=== PATIENT | female | born 1985 | race Caucasian/White ===

== ENCOUNTER 2018-04-19 10:30 | Outpatient (RCR) | payer OTHER, SELFPAY ==
--- NOTE | 2018-03-25 18:54 | HP.PTEVAL ---
Patient's Visit Information CAYLA MORATAYA is a 32 year old F referred to Physical Therapy by RAFA MARRERO CNP with a diagnosis of Unspecified sprain of L shoulder joint. Initial encounter. Date of Evaluation: 03/25/18 Physical Therapist: Tyson Tamez PT, - Visit Plan Frequency: 2-3x /Week Duration: 4 Weeks Plan: Start with tendon loading program, isometrics/PRE's. Joint mobilizations to improve capsule mobility and thoracic spine mobility. Modalities prn. - Subjective Subjective: Pt is 32 y/o female with referral of L shoulder pain. She experienced a work related injury on 09/21/18 when she was restraining a child at work. She did not hear a pop or had immediate pain initially, mainly had soreness when she got home. She has little pain at rest but sharp pain when she moves her shoulder certain ways. 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 She continued teaching the rest of the school year but her shoulder was still sore. Also felt like she re-aggrevated her shoulder by doing the same thing a few months ago. She is R hand dominent. No history of shoulder pain before this issue. Aggrevating factors: reaching across body, reaching behind back, sleeping. Easing factors: ice, rest. 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 - Pain L shoulder Pain Intensity (Out of 10): 5 Comment: with active movement - Objective OBSERVATION: Flexed sitting posture, anterior tilted scapula. PALPATION: TTP long head of biceps. CERVICAL SCREEN: unremarkable. AROM: R shoulder WNL. L shoulder flexion* 132, abduction 152, IR* T11, ER T2. PROM: B shoulder WNL, passive IR elicited pain. STRENGTH: B gross shoulder 5/5, delayed pain response with L shoulder MMT. - Special Tests L Shoulder Neer - Impingement: Positive L Shoulder Franco Charles - Impingement: Positive L Shoulder Biceps Load Test - Labrum: Negative L Shoulder [place]ri[place] - SLAP/A-C: Negative Comments: Crank test (-). R shoulder special tests negative. - Goals Goal 1:: Pt will demonstrate full AROM in all planes to improve tolerance with self care and work related tasks. Goal Time Frame: 4-6 Weeks Goal 2:: Pt will improve DASH by 50% to demonstrate true functional change that will improve her tolerance with job tasks. Goal Time Frame: 4-6 Weeks Goal 3:: Pt will demonstrate proper sitting posture without cues from therapist. Goal Time Frame: 4-6 Weeks Goal 4:: Pt will be independent with HEP to sustain therapeutic gains made in the clinic. Goal Time Frame: 4-6 Weeks Goal 5:: Pt will demonstrate box lifting and carrying with at least 25# without pain to improve tolerance with job tasks. Goal Time Frame: 4-6 Weeks - Rehabilitation Potential Physical Therapy Diagnosis: Pt is a 32 y/o female with work related injury on 09/21/17. This is a [facility] claim. She has CORDELL of restraining a child at work. 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 She exhibits signs of irritation to the rotator cuff and impingement like symptoms. She has activity limitations that include decreased tolerance with overhead lifting, pain with repetitive movements, and difficulty sleeping. This affects her participaion with her job related duties. Pt will benefit from skilled PT to return pt to full duty work without limitations. Rehabilitation Potential: Good - Anticipated Interventions Patient/Client Instruction: Educate patient on: Condition, Plan of Care For the Purpose of:: To decrease pain, To decrease swelling/inflammation, To increase ROM, To improve ability to perform ADL's, To increase tolerance to activity/condition/position, To improve ability of physical actions for home/community/work/leisure, To improve health of tissue, To decrease soft tissue restriction, To increase flexibility/ROM, To reduce risk of recurrence, To improve self management, To prevent re-injury Therapeutic Exercise to Include: Strength training, Endurance training, Body mechanics, Postural training, Flexibilty training, Passive ROM, Active ROM, Scapular Strength/Stabilization For the Purpose of:: To decrease pain, To increase ROM, To improve nutrient delivery to tissue, To improve muscle performance and motor function, To increase tolerance to activity/condition/position, To improve ability of physical actions for home/community/work/leisure, To improve health of tissue, To decrease soft tissue restriction, To increase flexibility/ROM, To improve endurance, To improve health and function, To improve self management, To prevent re-injury, To improve ability to perform tasks related to life management Manual Therapy Techniques to Include: Mobilization, Soft tissue mobilization For the Purpose of:: To decrease pain, To decrease swelling/inflammation, To increase ROM, To improve muscle performance and motor function, To increase tolerance to activity/condition/position, To improve ability of physical actions for home/community/work/leisure, To decrease soft tissue restriction, To improve endurance Cryotherapy (ice pack, ice massage): Yes Thermo therapy (hot pack): Yes Ultrasound (thermal/non thermal): Yes For the Purpose of:: To decrease pain, To increase ROM, To improve muscle performance and motor function, To increase tolerance to activity/condition/position, To improve ability of physical actions for home/community/work/leisure, To improve health of tissue, To decrease soft tissue restriction, To increase flexibility/ROM Thank you for the opportunity to evaluate your patient. For Medicare and Medicare HMO plans, please review the plan of care and approve it. It will need to be FAXED BACK to us at [phone] for Medicare purposes. Please let me know if there are questions or concerns regarding this plan of care. Physician Signature: Date:
--- NOTE | 2018-09-09 11:06 | HP.PTDCSUM ---
HP - PT D/C Summary It has been my pleasure to treat CAYLA MORATAYA under orders from RAFA MARRERO CNP, for the diagnosis of Unspecified sprain of L shoulder joint. Initial encounter for a total of 9 visit(s). Discharge Date: Please see the following information for a summary of their discharge status. - Subjective Subjective: Pt reports experiencing continued pain in her L shoulder that is worsened with across body movements and repetitive lifting. She has an active and physical job that requiers her to place her L shoulder in awkward positions. - Pain L shoulder Pain Intensity (Out of 10): 7 - Overall Improvement % Improvement: 70 - Objective Objective/Function: Pt has made some improvements since starting therapy. She does report 70% improvement in symptoms. Her L shoulder AROM is full with minimal pain produced at end range. Strength 5/5 gross L shoulder. Her DASH score worsened by 5%. She still has marked limitation with across body movements and repetitive lifting and carrying objects. Given that she has a physical job which requires her shoulder to be placed in awkward positions she would likely re-irritate her shoulder when returning to full duty work. Pt follows up with referring practioner next week with recommendation to re-evaluate. - Goals Goal 1:: Pt will demonstrate full AROM in all planes to improve tolerance with self care and work related tasks. Goal Progress: Goal Met Goal 2:: Pt will improve DASH by 50% to demonstrate true functional change that will improve her tolerance with job tasks. Goal Progress: Not Progressing Goal 3:: Pt will demonstrate proper sitting posture without cues from therapist. Goal Progress: Goal Met Goal 4:: Pt will be independent with HEP to sustain therapeutic gains made in the clinic. Goal Progress: Goal Met Goal 5:: Pt will demonstrate box lifting and carrying with at least 25# without pain to improve tolerance with job tasks. Goal Progress: Progressing - Plan Plan: Have pt follow up with referring practitioner, continue therapy if new C9 is received. - D/C Information If there are questions or concerns regarding this patient's physical therapy, please feel free to call me at [phone]. Thank you for the referral of this patient. Sincerely, Tyson Tamez, PT,
== END 2018-04-19 19:00 | disposition home or self-care (01) ==
LOC: PT 10:30
DX: S43.402D Unspecified sprain of left shoulder joint, subsequent encounter (principal)
CPT/HCPCS: 97035; 97110; 97161; 97530

== ENCOUNTER → 2021-01-18 | Outpatient (CLI) | payer OTHER, SELFPAY ==
[2021-01-18 09:41] VITALS: BMI 28.3
[2021-01-21 13:04] LABS: HPV APTIMA, High Risk Negative (Negative)
== END | disposition home or self-care (01) ==
LOC: LABSPEC 13:04
PROVIDERS: PCP Family Medicine; Visit Provider Obstetrics & Gynecology
DX: Z12.4 Encounter for screening for malignant neoplasm of cervix (principal)
CPT/HCPCS: 87624; 88175; G0145

== ENCOUNTER → 2022-06-28 | Outpatient (CLI) | payer OTHER, SELFPAY ==
[2022-06-28 12:46] LABS: Absolute Lymphocyte Count 0.67 X10^3/uL (0.83-4.51); Basophil# 0.02 X10^3/uL; Basophil% 0.5 % (0-1); Hematocrit 38.3 % (37-47); Hemoglobin 13.3 g/dL (12.0-15.0); Lymphocyte # 0.67 X10^3/ul (0.83-4.51); Lymphocyte % 15.7 % (19-41); Mean Corp Hgb Conc 34.7 g/dL (32-36); Mean Corpuscular Hgb 33.4 pg (27.0-32.0); Mean Corpuscular Volume 96.2 fL (81-99); Mean Platelet Vol. 10.9 fl (6.2-12.0); Monocyte# 0.61 X10^3/uL; Monocyte% 14.3 % (0-10); NRBC Flagged by Analyzer 0 % (0-5); Neutrophil # 2.97 X10^3/uL (2.7-7.7); Neutrophil % 69.3 % (47-70); Platelet Count 215 K/mm3 (150-450); RBC Distribution Width CV 11.2 % (11.6-14.6); Red Blood Count 3.98 M/mm3 (4.2-5.4); White Blood Count 4.3 K/mm3 (4.4-11.0)
[2022-06-28 13:05] LABS: ALB/GLOB Ratio 1.1 RATIO (0.9-2.4); AST(SGOT) 20 U/L (15-37); Alanine Aminotransfer ALT/SGPT 29 U/L (13-56); Albumin, Serum 3.5 g/dL (3.2-5.0); Alkaline Phosphatase 45 U/L (45-117); Anion Gap 9 (5-15); BUN 10 mg/dL (7-18); BUN/Creat Ratio 10.7 RATIO (10-20); Calcium,Total 8.4 mg/dL (8.5-10.1); Chloride 103 mmol/L (98-107); Creatinine, Serum 0.93 mg/dL (0.55-1.02); EST Glomerular Filtration Rate 71 mL/min (>60); Est Glom Filt Rate - Afr Amer 86 mL/min (>60); Ferritin 145 ng/mL (8-252); Globulin 3.3 g/dL (2.2-4.2); Glucose 102 mg/dL (74-106); Potassium 3.6 mmol/L (3.5-5.1); Protein, Total 6.8 g/dL (6.4-8.2); Sodium Level 135 mmol/L (136-145)
== END | disposition home or self-care (01) ==
LOC: MTLAB 10:34
PROVIDERS: PCP Family Medicine; Referring Provider Family Medicine; Visit Provider Family Medicine
DX: I10 Essential (primary) hypertension (principal); D50.0 Iron deficiency anemia secondary to blood loss (chronic)
CPT/HCPCS: 36415; 80053; 82728; 85025

== ENCOUNTER → 2022-07-08 | Outpatient (CLI) | payer OTHER, SELFPAY ==
[2022-07-08 11:15] LABS: Erythrocyte Sedimentation Rate 1 mm/hr (0-30)
[2022-07-08 11:18] LABS: CPK Total, Creatine Kinase 120 U/L (26-192); CRP < 2.90 mg/L (0.0-3.0); Rheumatoid Factor < 10.0 IU/mL (<15)
[2022-07-14 13:35] LABS: Anti-Nuclear Antibody Test Negative (.)
== END | disposition home or self-care (01) ==
LOC: LAB 10:13
PROVIDERS: PCP Family Medicine; Visit Provider Family Medicine
DX: M62.89 Other specified disorders of muscle (principal)
CPT/HCPCS: 36415; 82550; 85652; 86038; 86140; 86431

== ENCOUNTER → 2022-12-02 | Outpatient (CLI) | payer OTHER, SELFPAY ==
[2022-12-02 12:44] LABS: Thyroid Stim Hormone (TSH) 1.18 uIU/mL (0.358-3.74)
[2022-12-02 16:29] LABS: Chlamydia Trachomatis by PCR Negative (Negative); Neisserai gonorrhoeae by PCR Negative (Negative); Probe Check PASS; Sample Adequacy Control PASS; Specimen Processing Control PASS
[2022-12-03 09:12] LABS: CMV Antibody IgG < 0.60 U/mL (0.00-0.59); V-Zoster IgG (Immunity) 1732 index (Immune >165)
[2022-12-04 09:58] LABS: HIV - WCH Non-Reactive (Nonreactive); Hepatitis B Surface Antigen Non-Reactive (Nonreactive); Hepatitis C Antibody Non-Reactive (Nonreactive); Rubella IgG Reactive (Nonreactive); Syphilis Antibodies Non-reactive
== END | disposition home or self-care (01) ==
LOC: LAB 11:14
PROVIDERS: PCP Family Medicine; Referring Provider Obstetrics & Gynecology Reproductive Endocrinology; Visit Provider Obstetrics & Gynecology Reproductive Endocrinology
DX: Z01.83 Encounter for blood typing (principal); E02 Subclinical iodine-deficiency hypothyroidism; Z11.59 Encounter for screening for other viral diseases; Z11.8 Encounter for screening for other infectious and parasitic diseases
CPT/HCPCS: 36415; 84443; 86644; 86703; 86762; 86780; 86787; 86803; 86850; 87340; 87491; 87591

== ENCOUNTER → 2022-12-23 | Outpatient (CLI) | payer OTHER, SELFPAY ==
[2022-12-23 12:17] LABS: Absolute Lymphocyte Count 2.29 X10^3/uL (0.83-4.51); Basophil# 0.08 X10^3/uL; Eosinophil# 0.29 X10^3/uL; Eosinophils% 3.5 % (0-5); Hematocrit 40.4 % (37-47); Hemoglobin 13.8 g/dL (12.0-15.0); Lymphocyte # 2.29 X10^3/ul (0.83-4.51); Lymphocyte % 27.6 % (19-41); Mean Corp Hgb Conc 34.2 g/dL (32-36); Mean Corpuscular Hgb 32.5 pg (27.0-32.0); Mean Corpuscular Volume 95.3 fL (81-99); Monocyte# 0.64 X10^3/uL; Monocyte% 7.7 % (0-10); NRBC Flagged by Analyzer 0 % (0-5); Neutrophil # 4.96 X10^3/uL (2.7-7.7); Neutrophil % 59.8 % (47-70); Platelet Count 304 K/mm3 (150-450); RBC Distribution Width CV 11.3 % (11.6-14.6); RBC Distribution Width SD 39.4 fl (35.1-43.9); Red Blood Count 4.24 M/mm3 (4.2-5.4); White Blood Count 8.3 K/mm3 (4.4-11.0)
[2022-12-23 13:04] LABS: ALB/GLOB Ratio 1.3 RATIO (0.9-2.4); AST(SGOT) 11 U/L (15-37); Alanine Aminotransfer ALT/SGPT 28 U/L (13-56); Albumin, Serum 3.8 g/dL (3.2-5.0); Alkaline Phosphatase 48 U/L (45-117); Anion Gap 5 (5-15); BUN 15 mg/dL (7-18); BUN/Creat Ratio 16.3 RATIO (10-20); CRP < 2.90 mg/L (0.0-3.0); Calcium,Total 9.1 mg/dL (8.5-10.1); Chloride 107 mmol/L (98-107); Creatinine, Serum 0.92 mg/dL (0.55-1.02); EST Glomerular Filtration Rate 72 mL/min (>60); Est Glom Filt Rate - Afr Amer 87 mL/min (>60); Ferritin 69 ng/mL (8-252); Glucose 94 mg/dL (74-106); Protein, Total 6.8 g/dL (6.4-8.2); Rheumatoid Factor < 10.0 IU/mL (<15); Sodium Level 140 mmol/L (136-145)
[2022-12-23 23:39] LABS: Erythrocyte Sedimentation Rate < 1 mm/hr (0-30)
[2022-12-25 16:26] LABS: ANTINUCLEAR ANTIBODIES DIRECT Negative (Negative)
== END | disposition home or self-care (01) ==
LOC: LAB 11:27
PROVIDERS: PCP Family Medicine; Visit Provider Family Medicine
DX: I10 Essential (primary) hypertension (principal); M62.89 Other specified disorders of muscle; D50.0 Iron deficiency anemia secondary to blood loss (chronic)
CPT/HCPCS: 36415; 80053; 82728; 85025; 85652; 86038; 86140; 86431

== ENCOUNTER → 2023-01-04 | Outpatient (CLI) | payer OTHER, SELFPAY ==
--- NOTE | 2023-01-04 09:21 | US_ITS ---
EXAM: US LEFT BREAST, LIMITED CLINICAL INDICATION: left breast pain TECHNIQUE: Limited real time ultrasound of the left breast with image documentation, including axilla when performed. This report was created using [employer] report generation technology. COMPARISON: None. FINDINGS: LEFT BREAST: No abnormalities identified. No masses or fluid collections. US/Breast Limited Unilateral IMPRESSION: Negative left breast ultrasound. Electronically Signed: Dimitrios Adams MD at 4:36 EDT ,
--- NOTE | 2023-01-04 09:21 | BI_ITS ---
MAMMOGRAPHY - BILATERAL DIAGNOSTIC REASON FOR EXAM: Female, 37 years old. 3 month history of the lateral left breast pain. PERTINENT HISTORY: Non-contributory. TECHNIQUE: Digital bilateral breast hugo (3D mammographic acquisition) in the CC and MLO projections. 2-D mediolateral oblique (MLO) and craniocaudad (CC) views of both breasts were obtained. CAD: Full Field Digital Mammography with Computer Added Detection was performed. COMPARISON: None. Baseline examination. FINDINGS: Breast Composition: The breasts are extremely dense, which lowers the sensitivity of mammography. There are no dominant masses or suspicious calcifications. No other significant abnormalities are identified. BI/DIAG MAMM W/CAD, BILAT IMPRESSION: Negative diagnostic mammogram. With the patient''s history of left lateral breast tenderness, targeted ultrasound correlation is recommended. ASSESSMENT CATEGORY: BIRADS Category 0: Incomplete. Need additional imaging evaluation. A letter regarding these results will be sent to the patient by the facility within 30 days. Approximately 10% of breast cancers are not detected by mammography. A normal mammogram should not delay biopsy of a clinically suspicious abnormality. Electronically Signed: Shemar Claire MD at 10:45 EDT ,
== END | disposition home or self-care (01) ==
LOC: OPBI 09:18
PROVIDERS: PCP Family Medicine; Visit Provider Nurse Practitioner Women's Health
DX: N64.4 Mastodynia (principal)
CPT/HCPCS: 76642; 77062; 77066; G0279

== ENCOUNTER → 2023-07-02 | Outpatient (CLI) | payer OTHER, SELFPAY ==
[2023-07-02 18:04] LABS: hCG Titer Quant., Serum 589 mIU/mL (1-3)
== END | disposition home or self-care (01) ==
PROVIDERS: PCP Family Medicine; Referring Provider Obstetrics & Gynecology Reproductive Endocrinology; Visit Provider Obstetrics & Gynecology Reproductive Endocrinology
DX: Z32.00 Encounter for pregnancy test, result unknown (principal)
CPT/HCPCS: 36415; 84702

== ENCOUNTER → 2023-07-04 | Outpatient (CLI) | payer OTHER, SELFPAY ==
[2023-07-04 19:16] LABS: hCG Titer Quant., Serum 1018 mIU/mL (1-3)
== END | disposition home or self-care (01) ==
PROVIDERS: PCP Family Medicine; Referring Provider Obstetrics & Gynecology Reproductive Endocrinology; Visit Provider Obstetrics & Gynecology Reproductive Endocrinology
DX: Z32.01 Encounter for pregnancy test, result positive (principal)
CPT/HCPCS: 36415; 84702

== ENCOUNTER → 2023-07-09 | Outpatient (CLI) | payer OTHER, SELFPAY ==
[2023-07-09 17:35] LABS: Absolute Lymphocyte Count 2.56 X10^3/uL (0.83-4.51); Absolute Neutrophil Count 6.9 X10^3/uL (2.0-7.7); Basophil# 0.09 X10^3/uL; Basophil% 0.8 % (0-1); Eosinophil# 0.28 X10^3/uL; Eosinophils% 2.6 % (0-5); Hematocrit 37.3 % (37-47); Hemoglobin 12.8 g/dL (12.0-15.0); Lymphocyte # 2.56 X10^3/ul (0.83-4.51); Lymphocyte % 23.7 % (19-41); Mean Corp Hgb Conc 34.3 g/dL (32-36); Mean Corpuscular Hgb 32.6 pg (27.0-32.0); Mean Corpuscular Volume 94.9 fL (81-99); Mean Platelet Vol. 10.3 fl (6.2-12.0); Monocyte# 0.91 X10^3/uL; Monocyte% 8.4 % (0-10); NRBC Flagged by Analyzer 0 % (0-5); Neutrophil # 6.93 X10^3/uL (2.7-7.7); Platelet Count 320 K/mm3 (150-450); RBC Distribution Width CV 11.3 % (11.6-14.6); RBC Distribution Width SD 39.8 fl (35.1-43.9); Red Blood Count 3.93 M/mm3 (4.2-5.4); White Blood Count 10.8 K/mm3 (4.4-11.0)
[2023-07-09 18:18] LABS: ALB/GLOB Ratio 1.2 RATIO (0.9-2.4); AST(SGOT) 16 U/L (15-37); Alanine Aminotransfer ALT/SGPT 34 U/L (13-56); Albumin, Serum 3.8 g/dL (3.2-5.0); Alkaline Phosphatase 47 U/L (45-117); Anion Gap 7 (5-15); BUN 14 mg/dL (7-18); BUN/Creat Ratio 17.3 RATIO (10-20); Calcium,Total 8.6 mg/dL (8.5-10.1); Chloride 108 mmol/L (98-107); Creatinine, Serum 0.81 mg/dL (0.55-1.02); EST Glomerular Filtration Rate 84 mL/min (>60); Est Glom Filt Rate - Afr Amer 101 mL/min (>60); Ferritin 82 ng/mL (8-252); Globulin 3.1 g/dL (2.2-4.2); Glucose 81 mg/dL (74-106); Potassium 3.7 mmol/L (3.5-5.1); Protein, Total 6.9 g/dL (6.4-8.2); Sodium Level 138 mmol/L (136-145)
== END | disposition home or self-care (01) ==
LOC: MTLAB 16:24
PROVIDERS: PCP Family Medicine; Referring Provider Family Medicine; Visit Provider Family Medicine
DX: D50.0 Iron deficiency anemia secondary to blood loss (chronic) (principal); I10 Essential (primary) hypertension
CPT/HCPCS: 36415; 80053; 82728; 85025

== ENCOUNTER → 2023-08-16 | Outpatient (CLI) | payer OTHER, SELFPAY ==
[2023-08-16 10:22] LABS: Absolute Lymphocyte Count 1.58 X10^3/uL (0.83-4.51); Absolute Neutrophil Count 7.3 X10^3/uL (2.0-7.7); Basophil# 0.04 X10^3/uL; Basophil% 0.4 % (0-1); Eosinophil# 0.29 X10^3/uL; Eosinophils% 2.9 % (0-5); Hematocrit 38.9 % (37-47); Hemoglobin 13.3 g/dL (12.0-15.0); Lymphocyte # 1.58 X10^3/ul (0.83-4.51); Mean Corp Hgb Conc 34.2 g/dL (32-36); Mean Corpuscular Hgb 32.1 pg (27.0-32.0); Mean Platelet Vol. 10.1 fl (6.2-12.0); Monocyte# 0.66 X10^3/uL; Monocyte% 6.7 % (0-10); NRBC Flagged by Analyzer 0 % (0-5); Neutrophil # 7.26 X10^3/uL (2.7-7.7); Neutrophil % 73.5 % (47-70); Platelet Count 267 K/mm3 (150-450); RBC Distribution Width CV 11.5 % (11.6-14.6); RBC Distribution Width SD 39.5 fl (35.1-43.9); Red Blood Count 4.14 M/mm3 (4.2-5.4); White Blood Count 9.9 K/mm3 (4.4-11.0)
[2023-08-16 10:53] LABS: ALB/GLOB Ratio 0.8 RATIO (0.9-2.4); AST(SGOT) 13 U/L (15-37); Alanine Aminotransfer ALT/SGPT 30 U/L (13-56); Albumin, Serum 3.1 g/dL (3.2-5.0); Alkaline Phosphatase 58 U/L (45-117); Anion Gap 7 (5-15); BUN 10 mg/dL (7-18); BUN/Creat Ratio 14.9 RATIO (10-20); Calcium,Total 8.9 mg/dL (8.5-10.1); Chloride 107 mmol/L (98-107); Creatinine, Serum 0.67 mg/dL (0.55-1.02); EST Glomerular Filtration Rate 104 mL/min (>60); Est Glom Filt Rate - Afr Amer 126 mL/min (>60); Globulin 4.1 g/dL (2.2-4.2); Glucose 126 mg/dL (74-106); Potassium 3.6 mmol/L (3.5-5.1); Protein, Total 7.2 g/dL (6.4-8.2); Sodium Level 138 mmol/L (136-145)
[2023-08-16 11:16] LABS: NATERA MAILED SPECIMEN
[2023-08-16 11:32] LABS: HIV - WCH Non-Reactive (Nonreactive); Hepatitis B Surface Antigen Non-Reactive (Nonreactive); Hepatitis C Antibody Non-Reactive (Nonreactive); Rubella IgG Reactive (Nonreactive); Syphilis Antibodies Non-reactive
[2023-08-16 13:47] LABS: Protein:Creat Ratio 115 mg/g CRE (0-200)
[2023-08-16 13:54] LABS: Amphetamine Urine VISTA NEGATIVE (<1000 ng/mL); Barbiturate Urine VISTA NEGATIVE (< 200 ng/mL); Benzodiazepine Urine VISTA NEGATIVE (< 200 ng/mL); Cocaine Urine VISTA NEGATIVE (< 300 ng/mL); Ecstacy Urine VISTA POSITIVE (< 500 ng/mL); Methadone Urine VISTA NEGATIVE (< 300 ng/mL); PCP Urine VISTA NEGATIVE (< 25 ng/mL); THC Urine VISTA NEGATIVE (< 50 ng/mL); Vista UDS pH Range 6
[2023-08-21 09:08] LABS: Chlamydia By Nucleic Acid AMP Negative (Negative); Gonococcus By Nucleic Acid AMP Negative (Negative)
[2023-08-22 10:09] LABS: HPV APTIMA, High Risk Negative (Negative)
== END | disposition home or self-care (01) ==
PROVIDERS: Obstetrics & Gynecology; PCP Family Medicine; Referring Provider Obstetrics & Gynecology; Visit Provider Obstetrics & Gynecology
DX: O09.521 Supervision of elderly multigravida, first trimester (principal); Z3A.00 Weeks of gestation of pregnancy not specified
CPT/HCPCS: 36415; 80053; 80307; 82570; 84156; 85025; 86703; 86762; 86780; 86803; 86850; 86900; 86901; 87086; 87088; 87340; 87491; 87591; 87624; 88175; G0145

== ENCOUNTER → 2023-09-28 | Outpatient (CLI) | payer OTHER, SELFPAY ==
--- NOTE | 2023-09-28 12:03 | EKG12_ITS ---
Test Reason : HIGH RISK Blood Pressure : / mmHG Vent. Rate : 073 BPM Atrial Rate : 073 BPM P-R Int : 142 ms QRS Dur : 076 ms QT Int : 376 ms P-R-T Axes : 051 026 026 degrees QTc Int : 414 ms Normal sinus rhythm Normal ECG Confirmed by JOURDAN REDMOND, YARA ([id number]), supervising editor trailer AMELIE FELIX ([id number]) on 09/28/2023 2:38:34 PM Referred By: Alida Pierce Confirmed By:YARA SOLIMAN MD
== END | disposition home or self-care (01) ==
LOC: PSN 11:52
PROVIDERS: PCP Family Medicine; Referring Provider Obstetrics & Gynecology; Visit Provider Obstetrics & Gynecology
DX: O16.9 Unspecified maternal hypertension, unspecified trimester (principal); Z3A.00 Weeks of gestation of pregnancy not specified
CPT/HCPCS: 93005

== ENCOUNTER → 2023-12-21 | Outpatient (CLI) | payer OTHER, SELFPAY ==
[2023-12-21 16:30] LABS: Absolute Lymphocyte Count 1.52 X10^3/uL (0.83-4.51); Basophil# 0.04 X10^3/uL; Basophil% 0.4 % (0-1); Eosinophil# 0.34 X10^3/uL; Eosinophils% 3.1 % (0-5); Hematocrit 32.2 % (37-47); Lymphocyte # 1.52 X10^3/ul (0.83-4.51); Lymphocyte % 14.1 % (19-41); Mean Corp Hgb Conc 34.2 g/dL (32-36); Mean Corpuscular Hgb 32.8 pg (27.0-32.0); Mean Corpuscular Volume 96.1 fL (81-99); Mean Platelet Vol. 10.4 fl (6.2-12.0); Monocyte# 0.69 X10^3/uL; Monocyte% 6.4 % (0-10); NRBC Flagged by Analyzer 0 % (0-5); Neutrophil # 7.98 X10^3/uL (2.7-7.7); Neutrophil % 73.8 % (47-70); Platelet Count 263 K/mm3 (150-450); RBC Distribution Width CV 12.2 % (11.6-14.6); Red Blood Count 3.35 M/mm3 (4.2-5.4); White Blood Count 10.8 K/mm3 (4.4-11.0)
[2023-12-21 16:52] LABS: Glucose Challenge Gest 1H 50g 138 mg/dL (70-140)
[2023-12-21 17:26] LABS: HIV - WCH Non-Reactive (Nonreactive); Syphilis Antibodies Non-reactive
--- OUTSIDE RECORDS SUMMARY | 2023-12-21 19:21 | XMS RPT_ITS | CCD ---
Author Name Unknown Address [id number] [place] [address] Organization [facility] Care Team Providers Care Project Management Engineer Name Role Phone Juancho Akhtar Unavailable Unavailable Blane Mehta Unavailable Unavailable Juancho Akhtar Unavailable Unavailable Phoebe Juares Unavailable Unavailable Unknown, Referring Provider Unavailable Unav juliannaable Melchor Cook Unavailable Unavailable Mandeep Morgan Unavailable Unavailable Lu, Frieda Unavailable Unavailable Sauder, January Unavailable Unavailable Jeanette Orlando Unavailable Unavailable Phoebe Juares Unavailable Unavailable Noe, Celia Unavailable Unavailable Unavailable Primary Care Provider Unavailpanchito e Unavailable Primary Care Provider UnavailJuancho Romero DO Primary Care Provider JUANCHO AKHTAR Primary Care Unavailable ELLA ARBOLEDA Consulting Unavailable BHAVANA MEJIAS Attending BHAVANA Thurman Admitting JIMMIE Barnett Consulting Unavailable JUANCHO AKHTAR Primary Care Unavailable Juancho Akhtar DO Primary Care Provider TOBIAS REDMOND, DR VERA Zambrano Attending Unavailab BHAVANA Coleman MD Attending UnavailJUANCHO Romero Primary Care Unavailable COTY ENGEL Referring Unavailable DARNELL CATES Attending Unavailable Medications Current Medications Medication Drug Class(es) Dates Sig (Normalized) Sig (Original) ALPRAZolam 0.25 mg disintegrating oral tablet (2 sources) Benzodiazepine Start: 01-06-2022 ALPRAZolam (NIRAVAM) dissolvable tablet 0.25 mg Completed/Discontinued Medications Medication Drug Class(es) Dates Sig (Normalized) Sig (Original) acetaminophen 500 mg oral tablet (2 sources) Start: 01-06-2022 End: 01-06-2022 acetaminophen (TYLENOL) tablet 1,000 mg Problems Active Problems Problem Classification Problem Date Documented Date Episodic/Chronic Anxiety disorders (14 sources) Mixed anxiety and depressive disorder; Translations: [Anxiety and depression] Chronic Essential hypertension (15 sources) Benign essential hypertension; Translations: [Essential (primary) hypertension] Onset: 06-06-2022 Chronic Mood disorders (1 source) Mood disorders; Translations: [DEPRESSION UNSPECIFIED] Onset: 06-06-2022 Other and unspecified benign neoplasm (1 source) Leiomyoma; Translations: [Benign neoplasm of connective and other soft tissue, unspecified] Onset: 11-15-2021 11-16-2021 Episodic Other complications of (2 sources) Missed ; Translations: [MISSED ] Onset: 06-06-2022 Episodic Other female genital disorders (1 source) Dyspareunia due to non-psychogenic cause in the female; Translations: [Other specified dyspareunia] Onset: 02-13-2017 02-13-2017 Chronic Other injuries and conditions due to external causes (14 sources) Injury of superior glenoid labrum of shoulder joint; Translations: [Superior glenoid labrum lesion of left shoulder, initial encounter] Episodic Residual codes; unclassified (14 sources) Acute pain; Translations: [Acute shoulder pain due to trauma, right] Episodic Residual codes; unclassified (2 sources) H/O: myomectomy; Translations: [Other specified postprocedural states] Onset: 01-06-2022 Episodic Sprains and strains (20 sources) Unspecified sprain of left shoulder joint, initial encounter; Translations: [Glenoid labrum tear] Onset: 05-21-2018 05-21-2018 Episodic Substance-related disorders (1 source) Nicotine dependence, chewing tobacco, uncomplicated; Translations: [NICOTINE DEPEND CHEW TOBACCO UNCOMP] Onset: 06-06-2022 Chronic Superficial injury; contusion (1 source) Tick bite; Translations: [Insect bite (nonvenomous) of left shoulder, initial encounter] Episodic Past or Other Problems Problem Classification Problem Date Documented Da te Episodic/Chronic Open wounds of head; neck; and trunk (1 source) Perineal laceration involving fourchette; Translations: [Laceration without foreign body of vagina and vulva, initial encounter] Onset: 02-13-2017 02-13-2017 Episodic Unclassified (1 source) Sprain of left shoulder, unspecified shoulder sprain type, initial encounter NEGATED: Highlighted row has not occurred!Residual codes; unclassified (20 sources) Disease Episodic Results Test Name Value Interpretation Reference Range Facil ity Vital Signs Date Time Vital Sign Value Performing Clinician Facility 08-13-2022 10:41-0500 Body temperature 98.4 [degF] Anita Mehta APRN.JUDO INSTRUCTOR Work Phone: [facility] 08-13-2022 10:41-0500 Body weight 66.68 kg Anita Mehta APRN.JUDO INSTRUCTOR Work Phone: [facility] 08-13-2022 10:41-0500 Diastolic blood pressure 80 mm[Hg] Anita Mehta APRN.JUDO INSTRUCTOR Work Phone: [facility] 08-13-2022 10:41-0500 Heart rate 77 /min Anita Mehta APRN.JUDO INSTRUCTOR Work Phone: [facility] 08-13-2022 10:41-0500 SaO2% (BldA) [Mass fraction] 98 % Anita Mehta APRN.JUDO INSTRUCTOR Work Phone: [facility] 08-13-2022 10:41-0500 Systolic blood pressure 110 mm[Hg] Anita Mehta APRN.JUDO INSTRUCTOR Work Phone: [facility] 01-06-2022 20:00-0400 Diastolic blood pressure 90 mm[Hg] Manuela Agarwal MD Work Phone: [facility] 01-06-2022 20:00-0400 Heart rate 86 /min Manuela Agarwal MD Work Phone: [facility] 01-06-2022 20:00-0400 Respiratory rate 17 /min Manuela Agarwal MD Work Phone: [facility] 01-06-2022 20:00-0400 SaO2% (BldA) [Mass fraction] 100 % Manuela Agarwal MD Work Phone: [facility] 01-06-2022 20:00-0400 Systolic blood pressure 142 mm[Hg] Manuela Agarwal MD Work Phone: [facility] 01-06-2022 17:35-0400 Body temperature 97 [degF] Manuela Agarwal MD Work Phone: [facility] 01-06-2022 12:39-0400 Body height 162.6 cm Manuela Agarwal MD Work Phone: [facility] 01-06-2022 12:39-0400 Body mass index (BMI) [Ratio] 27.29 kg/m2 Manuela Agarwal MD Work Phone: [facility] 01-06-2022 12:39-0400 Body weight 72.12 kg Manuela Agarwal MD Work Phone: [facility] 09-26-2021 17:45-0500 Diastolic blood pressure 88 mm[Hg] Armond Goncalves MD Work Phone: [facility] 09-26-2021 17:45-0500 Heart rate 84 /min Armond Goncalves MD Work Phone: [facility] 09-26-2021 17:45-0500 Respiratory rate 13 /min Armond Goncalves MD Work Phone: [facility] 09-26-2021 17:45-0500 SaO2% (BldA) [Mass fraction] 100 % Armond Goncalves MD Work Phone: [facility] 09-26-2021 17:45-0500 Systolic blood pressure 119 mm[Hg] Armond Goncalves MD Work Phone: [facility] 09-26-2021 16:52-0500 Body temperature 98.2 [degF] Armond Goncalves MD Work Phone: [facility] 09-26-2021 12:39-0500 Body height 162.6 cm Armond Goncalves MD Work Phone: [facility] 09-26-2021 12:39-0500 Body mass index (BMI) [Ratio] 27.46 kg/m2 Armond Goncalves MD Work Phone: [facility] 09-26-2021 12:39-0500 Body weight 72.58 kg Armond Goncalves MD Work Phone: [facility] 10-28-2019 16:27-0500 BMI (Body Mass Index) 28.49 kg/m2 Phoebe Juares [facility] [address] Work Phone: 10-28-2019 16:27-0500 Body weight 75.3 kg Phoebe Juares [facility] [address] Work Phone: 10-28-2019 16:27-0500 BP Diastolic 80 mm[Hg] [facility] Work Phone: 10-28-2019 16:27-0500 BP Systolic 116 mm[Hg] [facility] Work Phone: 10-28-2019 16:27-0500 BSA (Body Surface Area) 1.81 m2 [facility] Work Phone: 10-28-2019 16:27-0500 Height 162.56 cm [facility] Work Phone: 10-07-2019 12:08-0500 BMI (Body Mass Index) 28.67 kg/m2 [facility] Work Phone: 10-07-2019 12:08-0500 Body weight 75.75 kg Phoebe Juares [facility] 300 Work Phone: 10-07-2019 12:08-0500 BP Diastolic 88 mm[Hg] [facility] Work Phone: 10-07-2019 12:08-0500 BP Systolic 126 mm[Hg] Phoebe [facility] 300 Work Phone: 10-07-2019 12:08-0500 BSA (Body Surface Area) 1.81 m2 [facility] Work Phone: 10-07-2019 [id number] Height 162.56 cm Phoebe Juares [facility] [address] Work Phone: 05-21-2018 10:23040 BMI (Body Mass Index) 26.61 kg/m2 Luis Carlos Douglas [facility] 05-21-2018 [id number] Height 162.6 cm Luis Carlos Doulgas [facility] 05-21-2018 10:23040 Weight 70.31 kg Luis Carlos Douglas [facility] Encounters Encounter Date Encounter Type Care Provider Facility Start: 10-18-2023 End: 10-18-2023 ambulatory JUANCHO KAHTAR [facility] Start: 01-10-2023 End: 01-15-[address] VERA COLLADO MD Facility: Start: 08-13-2022 End: 08-13-2022 ambulatory JUANCHO EID [facility] Facility:[facility] Start: 08-13-2022 End: 08-13-2022 Patient encounter procedure Anita Mehta APRN.JUDO INSTRUCTOR Work Phone: [facility] Procedures Date Procedure Procedure Detail Performing Clinician Start: 01-06-2022 OPERATIVE REPORT Physician Generic Start: 01-06-2022 TONE DANIEL 3 Manuela Agarwal MD Work Phone: Start: 01-06-2022 Urine test visual color cmprsn meths Chandler Vieira MD Work Phone: Start: 09-26-2021 Urine test visual color cmprsn meths Antoine Vazquez DO Work Phone: Start: 05-12-2020 Radex spine lumbscrl compl w/bending views min 6 Juancho Akhtar Work Phone: Start: 04-05-2020 EMG REPORT Mandeep Arriola Work Phone: Start: 07-15-2019 Follow-up visit Arthroscopic repair of superior labrum anterior to posterior tear Melchor Cook H/O: surgery Status post anal fissurectomy Armond Goncalves MD Work Phone: Plan of Treatment Date Care Activity Detail Author Start: 01-22-2025 DTaP/Tdap/Td vaccine (2 - Td or Tdap) DTaP/Tdap/Td vaccine (2 - Td or Tdap) [facility] Start: 06-08-2022 Influenza vaccination S [facility] Start: 01-23-2022 End: 01-23-2022 Patient encounter procedure 01/23/2022 Office Visit Obstetrics and Gynecology Manuela Agarwal MD [address] [place] [address] [address] [place] [address] [facility] Start: 10-08-2021 DEPRESSION ASSESSMENT DEPRESSION ASS ESSMENT [facility] Start: 06-26-2021 COVID-19 Vaccine (3 - Booster for Pfizer series) COVID-19 Vaccine (3 - Booster for Pfizer series) [facility] Start: 06-08-2021 Influenza vaccination Flu vaccine (# 1) [facility] Start: 05-26-2021 COVID-19 Vaccine (3 - Booster for Pfizer series) COVID-19 Vaccine (3 - Booster for Pfizer series) [facility] Start: 02-18-2021 COVID-19 VACCINE (3 - Booster for Pfizer series) COVID-19 VACCINE (3 - Booster for Pfizer series) [facility] Start: 06-08-2020 Influenza vaccination M [place], [place] Start: 12-18-2018 Diabetes screen Diabetes screen [facility] Start: 06-08-2018 Influenza vaccination SEQUENTI AL INFLUENZA VACCINE (#1) [facility] Start: 12-18-2013 HPV TESTING HPV TESTING [facility] Start: 12-18-2013 Screening for malign ant neoplasm of cervix [facility] Start: 12-18-2004 PAP TESTING PAP TESTING [facility] Start: 12-18-2004 Screening for malign ant neoplasm of cervix [facility] Start: 12-18-2002 DTaP/Tdap/Td vaccine (1 - Tdap) DTaP/Tdap/Td vaccine (1 - Tdap) [place] Start: 12-18-2002 Urine microalbumin profile DTAP,TDAP,TD (1 - Tdap) [facility] Start: 12-18-2001 HEPATITIS C SCREENING HEPATITIS C SC REENING [facility] Start: 12-18-2001 HIV SCREENING HIV SCREENING [facility] Start: 12-18-1998 HIV screening HIV screen [facility] Start: 1995 Depression Screen Depression Screen [facility] Start: 12-18-1984 Varicella vaccine (1 of 2 - 2-dose childhood series) Varicella vaccine (1 of 2 - 2-dose childhood series) [facility] Start: 1983 HEPATITIS B (1 of 3 - 3-dose series) HEPATITIS B (1 of 3 - 3-dose series) [facility] Start: 1983 Hepatitis C screening Hepatitis C sc reen [facility] Start: 1983 Screening for malign ant neoplasm of cervix [facility] Start: 1983 Tetanus vaccination TETANUS EVERY 10 YR [facility] Blood glucose - POCT [facility] Work Phone: Payers Date Payer Category Payer Unknown [facility] PPO [id number] 2021-Present [phone] [address] [place] [address] PPO [id number] 2015 Unknown [id number] 1983 Unknown [id number] 1983 Unknown [id number] 1983 Unknown [id number] 1983 Unknown [id number] Social History Date Type Detail Facility Start: 05-21-2018 End: 08-13-2022 Tobacco smoking status [facility] Never smoker [facility] Start: 1985 Sex Assigned At Not on file [facility] Sex Assigned At Female [facility] Start: 07-08-2020 Tobacco use and exposure User of smokeless tobacco [facility] Work Phone: History of tobacco use Snuff User [facility] Work Phone: History of tobacco use Chews Tobacco [facility] Work Phone: Start: 09-26-2021 Alcohol intake Ex-drinker (finding) [facility] Work Phone: Start: 12-27-2021 End: 08-13-2022 Exposure to SARS-CoV-2 (event) Not sure [facility] Work Phone: Start: 01-06-2022 Alcohol intake Lifetime non-d tara (finding) [facility] Work Phone: Start: 12-30-2021 History SDOH Alcohol Frequency 1 [facility] Work Phone: Tobacco smoking status No Smoking Status Entered [facility] Start: 08-13-2022 Tobacco use and exposure Former smokeless tobacco user [facility] Start: 08-13-2022 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) [facility] NEGATED: Highlighted row - - [facility] Work Phone: Functional Status Date Assessment Result Facility NEGATED: Highlighted row Functional performance Functional status health issues are not documented Disease [facility] Work Phone: Mental Status Date Assessment Result Facility NEGATED: Highlighted row Cognitive function [Interpretation] Cognitive status health issues are not documented Disease [facility] Work Phone: Clinical Notes 09-26-2021 to 08-13-2022 Anita Mehta APRN.MARTINE - 08/13/2022 10:49 AM Padmini Correa RN - 01/06/2022 7:50 PM Krishan Bautista RN - 09/26/2021 6:15 PM Popeye Bautista RN - 09/26/2021 5:54 PM ESTInstructions Note Date & Type Note Facility 08-13-2022 Note HNO ID: [id number] Author: Anita Mehta APRN.JUDO INSTRUCTOR Service: ? Author Type: Nurse Practitioner Type: Progress Notes Filed: 08/13/2022 10:52 AM Note Text: Subjective Patient came in with complaints of tick bite on her left shoulder. Patient says she did try to get it off of her shoulder. Patient says there is a small black dot left. Patient says it attached sometime within the middle the night. Patient says it was not fully engorged. Patient says she could possibly be . The history is provided by the patient. No second language tutor was used. Review of Systems Constitutional: Negative. Skin: Negative. Objective Physical Exam Constitutional: Appearance: Normal appearance. Pulmonary: Effort: Pulmonary effort is normal. Skin: General: Skin is warm. Comments: Patient does have pinpoint black dot in area marked above. No signs of infection at this time. Neurological: Mental Status: She is alert. PAST MEDICAL HISTORY Diagnosis Date Alcohol abuse Anxiety Depression Hypertension No past surgical history on file. ALLERGIES Patient has no known allergies. MEDICATIONS labetalol (TRANDATE) 100 mg tablet Take 100 mg by mouth. vit no.124/iron/folic ( VITAMIN ORAL) Take by mouth. ferrous sulfate 325 mg (65 mg iron) tablet Take 325 mg by mouth twice daily. buPROPion XL (WELLBUTRIN XL) 300 mg 24 hr tablet Take 300 mg by mouth once daily. busPIRone (BUSPAR) 10 mg tablet Take 10 mg by mouth twice daily. (Patient not taking: Reported on 08/13/2022) ATENOLOL ORAL Take 25 mg by mouth once daily. (Patient not taking: Reported on 08/13/2022) citalopram (CELEXA) 20 mg tablet Take 20 mg by mouth once daily. (Patient not taking: Reported on 08/13/2022) norgestimate 0.25 mg-ethinyl estradiol 35 mcg (SPRINTEC, ORTHO-CYCLEN) 0.25-35 mg-mcg per tablet Take 1 tablet by mouth once daily. (Patient not taking: Reported on 08/13/2022) estradiol (ESTRACE) 0.01 % (0.1 mg/gram) vaginal cream Apply a dime sized amount to affected area every night (Patient not taking: Reported on 08/13/2022) No family history on file. Social History Tobacco Use Smoking status: Never Smokeless tobacco: Former Types: Chew Substance Use Topics Alcohol use: No Drug use: No ASSESSMENT/PLAN: 1. Tick bite of left shoulder, initial encounter - ICD9: 912.4, E906.4, ICD10: S40.262A, W57.XXXA At this time tick was not on long enough for possible diseases. Patient was instructed that the mouth will come out on its own. Patient should follow-up with her primary care if symptoms persist. Patient was okay with this care plan. Anita Mehta APRN.[facility] 08-13-2022 History of Present illness Narrative Images from the original note were not included. Subjective Patient came in with complaints of tick bite on her left shoulder. Patient says she did try to get it off of her shoulder. Patient says there is a small black dot left. Patient says it attached sometime within the middle the night. Patient says it was not fully engorged. Patient says she could possibly be . The history is provided by the patient. No second language tutor was used. Review of Systems Constitutional: Negative. Skin: Negative. Objective Physical Exam Constitutional: Appearance: Normal appearance. Pulmonary: Effort: Pulmonary effort is normal. Skin: General: Skin is warm. Comments: Patient does have pinpoint black dot in area marked above. No signs of infection at this time. Neurological: Mental Status: She is alert. PAST MEDICAL HISTORY Diagnosis Date Alcohol abuse Anxiety Depression Hypertension No past surgical history on file. ALLERGIES Patient has no known allergies. MEDICATIONS labetalol (TRANDATE) 100 mg tablet Take 100 mg by mouth. vit no.124/iron/folic ( VITAMIN ORAL) Take by mouth. ferrous sulfate 325 mg (65 mg iron) tablet Take 325 mg by mouth twice daily. buPROPion XL (WELLBUTRIN XL) 300 mg 24 hr tablet Take 300 mg by mouth once daily. busPIRone (BUSPAR) 10 mg tablet Take 10 mg by mouth twice daily. (Patient not taking: Reported on 08/13/2022) ATENOLOL ORAL Take 25 mg by mouth once daily. (Patient not taking: Reported on 08/13/2022) citalopram (CELEXA) 20 mg tablet Take 20 mg by mouth once daily. (Patient not taking: Reported on 08/13/2022) norgestimate 0.25 mg-ethinyl estradiol 35 mcg (SPRINTEC, ORTHO-CYCLEN) 0.25-35 mg-mcg per tablet Take 1 tablet by mouth once daily. (Patient not taking: Reported on 08/13/2022) estradiol (ESTRACE) 0.01 % (0.1 mg/gram) vaginal cream Apply a dime sized amount to affected area every night (Patient not taking: Reported on 08/13/2022) No family history on file. Social History Tobacco Use Smoking status: Never Smokeless tobacco: Former Types: Chew Substance Use Topics Alcohol use: No Drug use: No ASSESSMENT/PLAN: 1. Tick bite of left shoulder, initial encounter - ICD9: 912.4, E906.4, ICD10: S40.262A, W57.XXXA At this time tick was not on long enough for possible diseases. Patient was instructed that the mouth will come out on its own. Patient should follow-up with her primary care if symptoms persist. Patient was okay with this care plan. Anita Mehta APRN.JUDO INSTRUCTOR documented in this encounter [facility] 01-06-2022 History of Present illness Narrative Pt ambulated to the bathroom and voided without any difficulty. documented in this encounter [facility] Work Phone: 09-26-2021 History of Present illness Narrative Patient discharged home with family. All vital signs returned to baseline and pain level controlled. Monitoring completed and IV removed. Family at bedside assisted patient to dress. Patient has all belongings including wallet, cell phone, clothing. Patient taken off unit via wheelchair by RN to family awaiting in vehicle. Patient and family educated and provided all discharge instructions including post-op care, medications, and follow-up. All verbalize understanding. Questions encouraged and answered. Called for mother to come back to room Bouchra TANG to take over documented in this encounter [facility] Work Phone: 09-26-2021 Hospital Discharge instructions Landen Spears MD - 09/26/2021 Images from the original note were not included. POST-OPERATIVE INSTRUCTIONS FOR ANORECTAL SURGERY OB[facility] - A narcotic pain prescription may be provided, if not, ibuprofen (Advil)/acetaminophen (Tylenol) can be used to control pain and can be less constipating. DO NOT exceed 4000 mg acetaminophen in 24 hours or 3200 mg ibuprofen in 24 hours. METAMUCIL or similar fiber supplement is recommended on a daily basis. COLACE or MIRALAX is recommended on a daily basis for 2 weeks to avoid hard bowel movements if taking prescription narcotics SPECIAL INSTRUCTIONS Remove the external gauze later in the day or during your first shower/bath. On occasion a dissolvable foam (Gelfoam ) or gauze (Surgicel ) is used in the anal canal. This material will pass spontaneously often turning brown in color. Flush it down the toilet. Avoiding straining or sitting on the toilet for long periods of time or heavy lifting especially the first day after surgery. The increased pressure can aggravate swelling and bleeding. Slight bleeding and drainage is usual after this procedure. Report excessive bleeding or passage of clots to the office. Use non-cotton gauze, sanitary pads or minipads as needed for bleeding and drainage. Warm showers or baths are recommended 2 to 3 times per day or as needed in the post- operative period for discomfort and to keep area clean. You can purchase a hand-held shower sprayer, bidet, sitz bath, or squirt bottle to keep the tissues clean in the tenzin-anal area after bowel movements and as needed. Avoid a hot shower immediately after surgery since the sedation used during procedure may precipitate light-headedness or fainting. Resume your regular diet. Report severe constipation or diarrhea to the office. Contact the office immediately if you are unable to urinate or if you have fever or chills. Do Not Use enemas or suppositories after surgery unless specifically instructed by the office. Contact the office the following business day after surgery to inform us of your progress and to make your follow-up appointment. Do not drive/operate heavy machinery while you are taking narcotic pain medication or if your pain is too severe to allow you to react appropriately. A small amount of bloody drainage can occur for several days and sometime weeks depending on the nature and severity of the surgical procedure Post-Operative Pain Reduction Strategy to Minimize Opioid Use Please take acetaminophen (Tylenol) and/or NSAIDS (Advil, Motrin) for postoperative pain control before taking opioid prescriptions for pain. You can alternate between the two or stagger them to achieve a more durable pain control regimen. -Do not exceed more than 4g of acetaminophen within 24 hours -Do not exceed more than 3200 mg NSAIDs in 24 hours -Do not take NSAIDs or acetaminophen if you have any contraindications to them. If your pain is not controlled by acetaminophen and/or NSAIDS, please take your opioid prescription ([place]/vicodin/percocet have tylenol in them) as needed for pain relief and try to use the minimum amount necessary for adequate pain relief. Opioid narcotics can suppress your respiratory drive and decrease your level of alertness. It can also cause your bowel function to slow down and potentially make you constipated. -Do not drive or operate heavy machinery while on narcotic medications. Please properly dispose your excess opioid medications at the appropriate facility/location. An EXAMPLE schedule of how to take these medications is below. It is not necessary to wake yourself from sleep to take pain medication. It is not necessary to take the opioid prescription medication if pain is controlled on tylenol and ibuprofen alone. 6am: 1000 mg tylenol and 1-2 oxycodone (5mg) tablets if needed 9am: 800 mg ibuprofen 12pm: 1000 mg tylenol and 1-2 oxycodone (5mg) tablets if needed 3pm: 800 mg ibuprofen 6pm: 1000 mg tylenol and 1-2 oxycodone (5mg) tablets if needed 9pm: 800 mg ibuprofen 12am: 1000 mg tylenol and 1-2 oxycodone (5mg) tablets if needed 3am: 800 mg ibuprofen 6am: 1000 mg tylenol and 1-2 oxycodone (5mg) tablets if needed PLEASE CALL [phone] if you have any questions documented in this encounter [facility] Work Phone: Evaluation + Plan note No data available for this section [facility] documented in this encounter [facility] Work Phone: Evaluation note* Diagnosis S/P myomectomy- Primary Other postprocedural status documented in this encounter [facility] Work Phone: Evaluation note* Diagnosis Tick bite of left shoulder, initial encounter- Primary [facility] No data available for this section [facility] Discharge instructions* Attachments The following attachments cannot be sent through Care Everywhere. * Myomectomy: Laparoscopic: [facility]-op ([place]) [facility] Progress note No data available for this section [facility] Assessments Diagnosis Sprain of left shoulder, uns pecified shoulder sprain type, initial encounter Summary Purpose Family History No Family History Records Found Father Name Dates Details Family history of malignant neoplasm of prostate(V16.42, Z80.42) Status:Active Father Name Dates Details Family history of malignant neoplasm of prostate(V16.42, Z80.42) Status:Active Father Name Dates Details Family history of malignant neoplasm of prostate(V16.42, Z80.42) Status:Active Father Name Dates Details Family history of malignant neoplasm of prostate(V16.42, Z80.42) Status:Active Father Name Dates Details Family history of malignant neoplasm of prostate(V16.42, Z80.42) Status:Active Father Name Dates Details Family history of malignant neoplasm of prostate(V16.42, Z80.42) Status:Active Father Name Dates Details Family history of malignant neoplasm of prostate(V16.42, Z80.42) Status:Active Father Name Dates Details Family history of malignant neoplasm of prostate(V16.42, Z80.42) Status:Active Father Name Dates Details Family history of malignant neoplasm of prostate(V16.42, Z80.42) Status:Active Father Name Dates Details Family history of malignant neoplasm of prostate(V16.42, Z80.42) Status:Active Father Name Dates Details Family history of malignant neoplasm of prostate(V16.42, Z80.42) Status:Active Father Name Dates Details Family history of malignant neoplasm of prostate(V16.42, Z80.42) Status:Active Father Name Dates Details Family history of malignant neoplasm of prostate(V16.42, Z80.42) Status:Active Father Name Dates Details Family history of malignant neoplasm of prostate(V16.42, Z80.42) Status:Active Advance Directives No Advanced Directives Records FoundDocuments on File Type Date Recorded Patient Automation Tech Expl anation Advance Directives and Living Will Power of Vest Front Presser Documents on File Type Date Recorded Patient Automation Tech Expl anation ACP-Advance Directive ACP-Power of Vest Front Presser Latest Code Status on File Code Status Date Activated Date Inactivated Comments Full Code 09/26/2021 12:35 PM Latest Code Status on File Code Status Date Activated Date Inactivated Comments Full Code 01/06/2022 12:37 PM Full Code 09/26/2021 12:35 PM 09/26/2021 8:21 PM Additional Source Comments INFORMATION SOURCE (unrecogn ized section and content) DATE CREATED AUTHOR AUTHOR'S ORGANIZ ATION 02/27/2020 [employer] DATE CREATED AUTHOR AUTHOR'S ORGANIZ ATION 03/10/2020 [facility] DATE CREATED AUTHOR AUTHOR'S ORGANIZ ATION 05/19/2020 [facility] DATE CREATED AUTHOR AUTHOR'S ORGANIZ ATION 01/12/2022 [facility] DATE CREATED AUTHOR AUTHOR'S ORGANIZ ATION 06/04/2022 [facility] DATE CREATED AUTHOR AUTHOR'S ORGANIZ ATION 06/07/2022 [facility] DATE CREATED AUTHOR AUTHOR'S ORGANIZ ATION 08/13/2022 [facility] DATE CREATED AUTHOR AUTHOR'S ORGANIZ ATION 01/15/2023 [facility] ([place] DATE CREATED AUTHOR AUTHOR'S ORGANIZ ATION 10/19/2023 [facility] Ordered Prescriptions (unrec ognized section and content) Prescription Sig Dispensed Refills Start Date End Da te oxyCODONE (ROXICODONE) 5 MG immediate release tabletIndications:S/P myomectomy Take 1 tablet by mouth every 6 hours as needed for Pain for up to 3 days. Intended supply: 3 days. Take lowest dose possible to manage pain 15 tablet 0 01/06/2022 01/09/2022 docusate sodium (COLACE) 100 MG capsule Take 1 capsule by mouth 2 times daily 60 capsule 0 01/06/2022 02/05/2022 ibuprofen (ADVIL) 200 MG tablet Take 1 tablet by mouth every 6 hours as needed for Pain 60 tablet 3 01/06/2022 Scheduled Active and Recently Administ ered Medications (unrecognized section and content) Continuous Medication Order 09/24/2021 09/25/2021 09/26/2021 lactated ringers infusion IntraVENous, at 50 mL/hr, CONTINUOUS, Starting on Sun09/26/21 at 1300, Upon admission to day - please start iv if patient does not have iv access. Use 500ml NS for patients on dialysis., Pre-op (day of surgery) 1318 (New Bag - Prov ider: Vera Phillips RN) PRN Medication Order 09/24/2021 09/25/2021 09/26/2021 0.9 % sodium chloride bolus 500 mL (6.89 mL/kg), IntraVENous, at 500 mL/hr, Administer over 1 Hours, ONCE PRN, Nausea, Starting on Sun09/26/21 at 1323, For 1 dose, Use caution in patients with a diagnosis of Heart failure or Kidney failure., PACU only 0.9 % sodium chloride infusion 25 mL, IntraVENous, at 100 mL/hr, PRN, If patient receiving piggyback infusions without ordered maintenance IV fluids or with frequent/long duration piggyback infusions, Starting on Sun09/26/21 at 1235, Administer at the same rate as the piggyback being infused., Pre-op (day of surgery) ALPRAZolam (NIRAVAM) dissolvable tablet 0.25 mg 0.25 mg, Oral, PRN, Anxiety, Starting on Sun09/26/21 at 1235, Pre-op (day of surgery) diphenhydrAMINE (BENADRYL) injection 12.5 mg 12.5 mg, IntraVENous, ONCE PRN, Itching, Starting on Sun09/26/21 at 1323, For 1 dose, for use Sameday and, PACU only fentaNYL (SUBLIMAZE) injection 25 mcg 25 mcg, IntraVENous, EVERY 5 MIN PRN, Pain Moderate (4-6), Starting on Sun09/26/21 at 1323, For 3 doses, Phase I and Phase II- Initial therapy for moderate pain (4-6). Restricted to a 50 minute time frame starting when the patient can verbally state their pain score. If after 2 doses the pain score does not decrease by more than one point, then go to secondary medication. Ifsecondary medications are utilized, do not return to initial therapy medications. SDS and, PACU only fentaNYL (SUBLIMAZE) injection 50 mcg 50 mcg, IntraVENous, EVERY 5 MIN PRN, Pain Severe (7-10), Starting on Sun09/26/21 at 1323, For 3 doses, Phase I or Phase II- Initial therapy for severe pain (7-10). Restricted to a 50 minute time frame starting when the patient can verbally state their pain score. If after 2 doses the pain score does not decrease by more than one point, then go to secondary medication. If secondary medications are utilized, do not return to initial therapy medications.Sameday and, PACU only hydrALAZINE (APRESOLINE) injection 5 mg 5 mg, IntraVENous, EVERY 10 MIN PRN, High Blood Pressure, Starting on Sun09/26/21 at 1323, PRN for SBP > 160 for 2 consecutive measurements, and if one of the following conditions is met: 1) If IV labetolol is ineffective. 2) If HR is under 60. 3) If patient has heart block, COPD or asthma. If both labetalol and hydralazine ineffective, notify anesthesiologist. for use Sameday and, PACU only HYDROmorphone (DILAUDID) injection 0.25 mg 0.25 mg, IntraVENous, EVERY 5 MIN PRN, Pain Moderate (4-6), Starting on Sun09/26/21 at 1323, For 4 doses, Phase I - Secondary therapy to be used after initial therapy medication doses are ineffective (pain score does not decrease by more than 1 point). If secondary medications are utilized, do not return to initial therapy medications., PACU only HYDROmorphone (DILAUDID) injection 0.5 mg 0.5 mg, IntraVENous, EVERY 5 MIN PRN, Pain Severe (7-10), Starting on Sun09/26/21 at 1323, For 4 doses, Phase I - Secondary therapy to be used after initial therapy medication doses are ineffective (pain score does not decrease by more than 1 point). If secondary medications are utilized, do not return to initial therapy medications., PACU only labetalol (NORMODYNE;TRANDATE) injection 5 mg 5 mg, IntraVENous, EVERY 10 MIN PRN, High Blood Pressure, Starting on Sun09/26/21 at 1323, PRN for SBP >160 for 2 consecutive measurements, if HR is 60 or greater. If beta aixa is contraindicated (HR less than 60, heart block, COPD or asthma) use hydralazine IV order. for use Sameday and, PACU only lidocaine PF 1 % injection 1 mL 1 mL, IntraDERmal, ONCE PRN, IV start, Starting on Sun09/26/21 at 1235, For 1 dose, Pre-op (day of surgery) meperidine (DEMEROL) injection 12.5 mg 12.5 mg, IntraVENous, EVERY 5 MIN PRN, Shivering, , Starting on Sun09/26/21 at 1323, May give every 5 minutes to max of 50mg. for use Sameday and, PACU only ondansetron (ZOFRAN) injection 4 mg 4 mg, IntraVENous, ONCE PRN, Nausea, Starting on Sun09/26/21 at 1323, For 1 dose, Initial antiemetic therapy. For use sameday and, PACU only oxyCODONE (ROXICODONE) immediate release tablet 10 mg(Linked Group 1) 10 mg, Oral, PRN, Pain Severe (7-10), Starting on Sun09/26/21 at 1323, For 1 dose, PHASE II, PACU only oxyCODONE (ROXICODONE) immediate release tablet 5 mg(Linked Group 1) 5 mg, Oral, PRN, Pain Moderate (4-6), Starting on Sun09/26/21 at 1323, For 1 dose, PHASE II, PACU only promethazine (PHENERGAN) injection 6.25 mg 6.25 mg, IntraVENous, ONCE PRN, Nausea, Starting on Sun09/26/21 at 1323, For 1 dose, Caution if used IV:Check IV site for infiltrate prior to and during administration. Secondary antiemetic therapy. For use sameday and For IV administration, dilute to 10ml with normal saline. Must be administered over at least 10 minutes., PACU only sodium chloride flush 0.9 % injection 5-40 mL 5-40 mL, IntraVENous, PRN, Line Care, Starting on Sun09/26/21 at 1235, For Line Patency: Peripheral IV = 5 mL; Midline or Central Line = 10 mL/lumen. If following IV push medication, administer flush at same rate as the IV push. Flush volume is determined by type of infusion therapy being given. For non-viscous solutions use: Peripheral IV = 5 mL Midline or Central Line = 10 mL/lumen For viscous solutions (i.e. blood components, parenteral nutrition, contrast media, or after obtaining blood sample) use: Peripheral IV = 10 mL Midline or Central Line = 20 mL/lumen, Pre-op (day of surgery) Linked Groups Order Group 1: oxyCODONE (ROXICODONE) immediate release tablet 5 mgJump to med 5 mg, Oral, PRN, Pain Moderate (4-6), Starting on Sun09/26/21 at 1323, For 1 dose
PHASE II
PACU only Or oxyCODONE (ROXICODONE) immediate release tablet 10 mgJump to med 10 mg, Oral, PRN, Pain Severe (7-10), Starting on Sun09/26/21 at 1323, For 1 dose
PHASE II
PACU only Scheduled Medication Order 01/04/2022 01/05/2022 01/06/2022 acetaminophen (TYLENOL) tablet 1,000 mg (COMPLETED) 1,000 mg, Oral, ONCE, 1 dose, On Sun01/06/22 at 1300, Maximum dose of acetaminophen is 4000 mg from all sources in 24 hours. Do not administer if patient has taken tylenol <4 hours earlier. Do not give if contraindicated ie. patient has active liver disease or cirrhosis., Pre-op (day of surgery) 1244 (Given - Provid er: Cayla Licona RN) famotidine (PEPCID) tablet 20 mg (COMPLETED) 20 mg, Oral, ONCE, 1 dose, On Sun01/06/22 at 1300, Pre-op (day of surgery) 1244 (Given - Provid er: Cayla Licona RN) gabapentin (NEURONTIN) capsule 100 mg (COMPLETED) 100 mg, Oral, ONCE, 1 dose, On Sun01/06/22 at 1300, For Age >69, or Low GFR, Pre-op (day of surgery) 1244 (Given - Provid er: Cayla Licona RN) sodium chloride flush 0.9 % injection 10 mL 10 mL, IntraVENous, EVERY 12 HOURS SCHEDULED (2 times per day), First dose on Sun01/06/22 at 2100, Until Discontinued, Pre-op (day of surgery) 2100 (Due) sodium chloride flush 0.9 % injection 5-40 mL 5-40 mL, IntraVENous, EVERY 12 HOURS SCHEDULED (2 times per day), First dose on Sun01/06/22 at 2100, Until Discontinued, For Line Patency: Peripheral IV = 5 mL; Midline or Central Line = 10 mL/lumen. If following IV push medication, administer flush at same rate as the IV push. Flush volume is determined by type of infusion therapy being given. For non-viscous solutions use: Peripheral IV = 5 mL Midline or Central Line = 10 mL/lumen For viscous solutions (i.e. blood components, parenteral nutrition, contrast media, or after obtaining blood sample) use: Peripheral IV = 10 mL Midline or Central Line = 20 mL/lumen, PACU only 2100 (Due) Continuous Medication Order 01/04/2022 01/05/2022 01/06/2022 0.9 % sodium chloride infusion IntraVENous, at 125 mL/hr, CONTINUOUS, Starting on Sun01/06/22 at 1300, Pre-op (day of surgery) 1300 (Due) lactated ringers infusion IntraVENous, at 50 mL/hr, CONTINUOUS, Starting on Sun01/06/22 at 1300, Upon admission to sameday - please start iv if patient does not have iv access. Use 500ml NS for patients on dialysis., Pre-op (day of surgery) 1256 (New Bag - Prov ider: Cayla Licona RN) PRN Medication Order 01/04/2022 01/05/2022 01/06/2022 0.9 % sodium chloride bolus 500 mL (6.93 mL/kg), IntraVENous, at 1,000 mL/hr, Administer over 0.5 Hours, PRN, Anti-nausea, Starting on Sun01/06/22 at 1439, PACU only 0.9 % sodium chloride infusion 25 mL, IntraVENous, at 100 mL/hr, PRN, If patient receiving piggyback infusions without ordered maintenance IV fluids or with frequent/long duration piggyback infusions, Starting on Sun01/06/22 at 1237, Administer at the same rate as the piggyback being infused., Pre-op (day of surgery) 0.9 % sodium chloride infusion 25 mL, IntraVENous, at 100 mL/hr, PRN, If patient receiving piggyback infusions without ordered maintenance IV fluids or with frequent/long duration piggyback infusions, Starting on Sun01/06/22 at 1439, Administer at the same rate as the piggyback being infused., PACU only ALPRAZolam (NIRAVAM) dissolvable tablet 0.25 mg 0.25 mg, Oral, PRN, Starting on Sun01/06/22 at 1237, Until Discontinued, Anxiety, Pre-op (day of surgery) 1244 (Given - Provid er: Cayla Licona RN) diphenhydrAMINE (BENADRYL) injection 12.5 mg 12.5 mg, IntraVENous, ONCE PRN, 1 dose, Starting on Sun01/06/22 at 1439, Until Sun01/06/22 at 2359, Itching, for use Sameday and, PACU only fentaNYL (SUBLIMAZE) injection 25 mcg 25 mcg, IntraVENous, EVERY 5 MIN PRN, 3 doses, Starting on Sun01/06/22 at 1439, Until Discontinued, Pain Moderate (4-6), Phase I and Phase II- Initial therapy for moderate pain (4-6). Restricted to a 90 minute time frame starting when the patient can verbally state their pain score. If after 2 doses the pain score does not decrease by more than one point, then call the provider. If oral meds are utilized, do not return to initial therapy medications. SDS and, PACU only fentaNYL (SUBLIMAZE) injection 50 mcg 50 mcg, IntraVENous, EVERY 5 MIN PRN, 3 doses, Starting on Sun01/06/22 at 1439, Until Discontinued, Pain Severe (7-10), Phase I or Phase II- Initial therapy for severe pain (7-10). Restricted to a 50 minute time frame starting when the patient can verbally state their pain score. If after 2 doses the pain score does not decrease by more than one point, then call the provider. If oral meds are utilized, do not return to initial therapy medications. SDS and, PACU only hydrALAZINE (APRESOLINE) injection 10 mg(Linked Group 1) 10 mg, IntraVENous, EVERY 15 MIN PRN, 2 doses, Starting on Sun01/06/22 at 1439, Until Discontinued, High Blood Pressure, for SBP greater than 160 mmHg for 2 consecutive measurements taken from different sites, If heart rate is greater than 60 bpm, hold hydralazine and use labetalol if ordered, otherwise contact provider. Inform provider if SBP is still greater than 160 mmHg 10 minutes after second antihypertensive dose is administered., PACU only labetalol (NORMODYNE;TRANDATE) injection 10 mg(Linked Group 1) 10 mg, IntraVENous, EVERY 15 MIN PRN, 2 doses, Starting on Sun01/06/22 at 1439, Until Discontinued, High Blood Pressure, for SBP greater than 160 mmHg for 2 consecutive measurements taken from different sites., If heart rate is 60 bpm or less hold labetalol and use hydralazine if ordered, otherwise contact provider. Inform provider if SBP is still greater than 160 mmHg, 10 minutes after second antihypertensive dose is administered., PACU only lidocaine PF 1 % injection 1 mL 1 mL, IntraDERmal, ONCE PRN, 1 dose, Starting on Sun01/06/22 at 1237, Until Sun01/06/22 at 2359, IV start, Pre-op (day of surgery) meperidine (DEMEROL) injection 12.5 mg 12.5 mg, IntraVENous, EVERY 5 MIN PRN, Starting on Sun01/06/22 at 1439, Until Discontinued, Shivering, , May give every 5 minutes to max of 50mg. for use Sameday and, PACU only ondansetron (ZOFRAN) injection 4 mg (COMPLETED) 4 mg, IntraVENous, ONCE PRN, 1 dose, Starting on Sun01/06/22 at 1439, Until Sun01/06/22 at 2359, Nausea, Initial antiemetic therapy. For use sameday and, PACU only 1931 (Given - Provid er: Susan Clarke RN) oxyCODONE (ROXICODONE) immediate release tablet 10 mg(Linked Group 2) 10 mg, Oral, PRN, 1 dose, Starting on Sun01/06/22 at 1439, Until Sun01/06/22 at 2359, Pain Severe (7-10), PHASE II, PACU only oxyCODONE (ROXICODONE) immediate release tablet 5 mg(Linked Group 2) 5 mg, Oral, PRN, 1 dose, Starting on Sun01/06/22 at 1439, Until Sun01/06/22 at 2359, Pain Moderate (4-6), PHASE II, PACU only sodium chloride flush 0.9 % injection 10 mL 10 mL, IntraVENous, PRN, Starting on Sun01/06/22 at 1237, Until Discontinued, Line Care, After every IV line use, Pre-op (day of surgery) sodium chloride flush 0.9 % injection 5-40 mL 5-40 mL, IntraVENous, PRN, Starting on Sun01/06/22 at 1439, Until Discontinued, Line Care, After every IV line use, For Line Patency: Peripheral IV = 5 mL; Midline or Central Line = 10 mL/lumen. If following IV push medication, administer flush at same rate as the IV push. Flush volume is determined by type of infusion therapy being given. For non-viscous solutions use: Peripheral IV = 5 mL Midline or Central Line = 10 mL/lumen For viscous solutions (i.e. blood components, parenteral nutrition, contrast media, or after obtaining blood sample) use: Peripheral IV = 10 mL Midline or Central Line = 20 mL/lumen, PACU only Linked Groups Order Group 1: labetalol (NORMODYNE;TRANDATE) injection 10 mgJump to med 10 mg, IntraVENous, EVERY 15 MIN PRN, 2 doses, Starting on Sun01/06/22 at 1439, Until Discontinued, High Blood Pressure, for SBP greater than 160 mmHg for 2 consecutive measurements taken from different sites.
If heart rate is 60 bpm or less hold labetalol and use hydralazine if ordered, otherwise contact provider. Inform provider if SBP is still greater than 160 mmHg, 10 minutes after second antihypertensive dose is administered.
PACU only Or hydrALAZINE (APRESOLINE) injection 10 mgJump to med 10 mg, IntraVENous, EVERY 15 MIN PRN, 2 doses, Starting on Sun01/06/22 at 1439, Until Discontinued, High Blood Pressure, for SBP greater than 160 mmHg for 2 consecutive measurements taken from different sites
If heart rate is greater than 60 bpm, hold hydralazine and use labetalol if ordered, otherwise contact provider. Inform provider if SBP is still greater than 160 mmHg 10 minutes after second antihypertensive dose is administered.
PACU only Group 2: oxyCODONE (ROXICODONE) immediate release tablet 5 mgJump to med 5 mg, Oral, PRN, 1 dose, Starting on Sun01/06/22 at 1439, Until Sun01/06/22 at 2359, Pain Moderate (4-6)
PHASE II
PACU only Or oxyCODONE (ROXICODONE) immediate release tablet 10 mgJump to med 10 mg, Oral, PRN, 1 dose, Starting on Sun01/06/22 at 1439, Until Sun01/06/22 at 2359, Pain Severe (7-10)
PHASE II
PACU only Care Teams (unrecognized sec tion and content) Project Management Engineer Relationship Specialty Start Date End Date Juancho Akhtar [address] [phone] PCP - General Family Medicine 07/08/20 Project Management Engineer Relationship Specialty Start Date End Date Juancho Akhtar [address] [phone] PCP - General Family Medicine 05/23/17 Source Comments (unrecognize d section and content) In the event this informatio n is protected by the Federal Confidentiality of Alcohol and Drug Abuse Patient Records regulations: The Federal rules restrict any use of the information to criminally investigate or prosecute any alcohol or drug abuse patient.[facility] Reason for Visit (unrecogniz ed section and content) FOR RECORDS PERTAINING TO PATIENTS WHO ARE OR HAVE BEEN ENROLLED IN A CHEMICAL DEPENDENCY/SUBSTANCEABUSE PROGRAM, SOME INFORMATION MAY BE OMITTED. This clinical summary was aggregated from multiple sources. Caution should be exercised in using it in the provision of clinical care. This summary normalizes information from multiple sources, and as a consequence, information in this document may materially change the coding, format and clinical context of patient data. In addition, data may be omitted in some cases. CLINICAL DECISIONS SHOULD BE BASED ON THE PRIMARY CLINICAL RECORDS. [facility]. provides no warranty or guarantee of the accuracy or completeness of information in this document.
== END | disposition home or self-care (01) ==
LOC: LAB 15:16
PROVIDERS: PCP Family Medicine; Referring Provider Obstetrics & Gynecology; Visit Provider Obstetrics & Gynecology
DX: O09.90 Supervision of high risk pregnancy, unspecified, unspecified trimester (principal); Z13.1 Encounter for screening for diabetes mellitus
CPT/HCPCS: 36415; 82950; 85025; 86703; 86780

== ENCOUNTER → 2023-12-27 | Outpatient (CLI) | payer OTHER, SELFPAY ==
[2023-12-27 08:34] LABS: Glucose GTT-Gestation. Fasting 89 mg/dL (<105)
[2023-12-27 11:04] LABS: Glucose GTT-Gestational 1 Hr 199 mg/dL (<190)
[2023-12-27 11:14] LABS: Glucose GTT-Gestational 2 Hr 211 mg/dL (<165)
[2023-12-27 11:28] LABS: Glucose GTT-Gestational 3 Hr 168 L (<145)
== END | disposition home or self-care (01) ==
LOC: LAB 06:59
PROVIDERS: PCP Family Medicine; Referring Provider Obstetrics & Gynecology; Visit Provider Obstetrics & Gynecology
DX: Z13.1 Encounter for screening for diabetes mellitus (principal)
CPT/HCPCS: 36415; 82951; 82952

== ENCOUNTER → 2024-01-17 | Outpatient (CLI) | payer OTHER, SELFPAY ==
--- NOTE | 2024-01-17 08:27 | US_ITS ---
STUDY: OBSTETRICAL ULTRASOUND - BIOPHYSICAL PROFILE REASON FOR EXAM: Female, 38 years old well being, h/o myomectomy LMP: June 04, 2023. PRIOR ULTRASOUND: None. TECHNIQUE: Transabdominal TECHNICAL QUALITY: Adequate. FINDINGS: There is a single intrauterine fetus. The fetus is in a cephalic presentation. There is demonstrated cardiac activity with a heart rate of 141 bpm. There is a normal amniotic fluid volume. The largest amniotic fluid pocket measures 6.3 cm. The amniotic fluid index (ALBAN) is 14.41 cm. The placenta is anterior in location and is not low lying. There are Grade 1 placental changes. Age by LMP: 32 weeks, 3 days. MARIA TERESA by LMP: March 10, 2024. BIOPHYSICAL PROFILE: Breathing Movements (FBM): 2 Gross Body Movements (GBM): 2 Tone (FT): 2 Amniotic Fluid Volume (AFV): 2 TOTAL SCORE: US/Biophysical Prof W/O Non Stres IMPRESSION: Normal biophysical profile of 05/15. Electronically Signed: Shemar Claire MD at 14:50 EDT ,
--- NOTE | 2024-01-17 08:27 | US_ITS ---
STUDY: SECOND AND THIRD TRIMESTER OBSTETRICAL ULTRASOUND - LIMITED REASON FOR EXAM: Female, 38 years old growth, h/o myomectomy LMP: June 04, 2023. PRIOR ULTRASOUND: None. TECHNIQUE: Transabdominal TECHNICAL QUALITY: Adequate. FINDINGS: There is a single intrauterine fetus. The fetus is in a cephalic presentation. There is demonstrated cardiac activity with a heart rate of 145 bpm. There is a normal amniotic fluid volume. The largest amniotic fluid pocket measures 7.6 cm. The amniotic fluid index (ALBAN) is 15.1 cm. The placenta is anterior in location and is not low lying. There are Grade 1 placental changes. The cervix measures 3.11 cm in length. BIOMETRY: BPD: 8.53 cm: 34 weeks, 3 days HC: 30.98 cm: 34 weeks, 4 days AC: 29.71 cm: 33 weeks, 5 days FL: 6.5 cm: 33 weeks, 4 days Age by LMP: 32 weeks, 3 days. MARIA TERESA by LMP: March 10, 2024. age by current US: 34 weeks, 0 days. MARIA TERESA by current US: February 28, 2024. Estimated weight: 2294 grams, +/- 344 grams, 82 percentile. US/OB Limited With Biometrics IMPRESSION: Single live intrauterine gestation with mean gestational age of 34 weeks. Electronically Signed: Shemar Claire MD at 9:18 EDT ,
== END | disposition home or self-care (01) ==
LOC: US 08:27
PROVIDERS: PCP Family Medicine; Referring Provider Obstetrics & Gynecology; Visit Provider Obstetrics & Gynecology
DX: O98.512 Other viral diseases complicating pregnancy, second trimester (principal); U07.1 COVID-19; Z98.890 Other specified postprocedural states; Z3A.00 Weeks of gestation of pregnancy not specified
CPT/HCPCS: 76816; 76819

== ENCOUNTER → 2024-01-21 | Outpatient (CLI) | payer OTHER, SELFPAY ==
--- NOTE | 2024-01-21 15:29 | US_ITS ---
STUDY: OBSTETRICAL ULTRASOUND - BIOPHYSICAL PROFILE REASON FOR EXAM: Female, 38 years old h/o myomectomy-- well being LMP: June 04, 2023 PRIOR ULTRASOUND: None. TECHNIQUE: Transabdominal. TECHNICAL QUALITY: Adequate. FINDINGS: There is a single intrauterine fetus. The fetus is in a cephalic presentation. There is demonstrated cardiac activity with a heart rate of 144 bpm. There is a normal amniotic fluid volume. The largest amniotic fluid pocket measures 4.6-6.7 cm. The amniotic fluid index (ALBAN) is 15.2 cm. The placenta is anterior in location and is not low lying. There are Grade 1 placental changes. Age by LMP: 32 weeks, 3 days. MARIA TERESA by LMP: March 10, 2024. age by current US: 34 weeks, 0 days. MARIA TERESA by current US: February 28, 2024. BIOPHYSICAL PROFILE: Breathing Movements (FBM): 2 Gross Body Movements (GBM): 2 Tone (FT): 2 Amniotic Fluid Volume (AFV): 2 TOTAL SCORE: 8 / 8 US/Biophysical Prof W/O Non Stres IMPRESSION: Normal biophysical profile of 8/8. Electronically Signed: Maxi Duncan MD at 20:45 EDT ,
== END | disposition home or self-care (01) ==
LOC: US 15:26
PROVIDERS: PCP Family Medicine; Referring Provider Obstetrics & Gynecology; Visit Provider Obstetrics & Gynecology
DX: Z98.890 Other specified postprocedural states (principal)
CPT/HCPCS: 76819

== ENCOUNTER → 2024-01-24 | Outpatient (CLI) | payer OTHER, SELFPAY ==
[2024-01-24 08:30] LABS: Absolute Lymphocyte Count 1.67 X10^3/uL (0.83-4.51); Absolute Neutrophil Count 7.3 X10^3/uL (2.0-7.7); Basophil# 0.05 X10^3/uL; Basophil% 0.5 % (0-1); Eosinophil# 0.21 X10^3/uL; Eosinophils% 2.1 % (0-5); Hematocrit 33.7 % (37-47); Hemoglobin 11.2 g/dL (12.0-15.0); Lymphocyte # 1.67 X10^3/ul (0.83-4.51); Lymphocyte % 16.9 % (19-41); Mean Corp Hgb Conc 33.2 g/dL (32-36); Mean Corpuscular Hgb 32.6 pg (27.0-32.0); Mean Platelet Vol. 10.2 fl (6.2-12.0); Monocyte# 0.65 X10^3/uL; Monocyte% 6.6 % (0-10); NRBC Flagged by Analyzer 0 % (0-5); Neutrophil # 7.25 X10^3/uL (2.7-7.7); Neutrophil % 73.1 % (47-70); Platelet Count 263 K/mm3 (150-450); RBC Distribution Width CV 12.7 % (11.6-14.6); RBC Distribution Width SD 45.4 fl (35.1-43.9); Red Blood Count 3.44 M/mm3 (4.2-5.4); White Blood Count 9.9 K/mm3 (4.4-11.0)
[2024-01-24 08:52] LABS: ALB/GLOB Ratio 0.8 RATIO (0.9-2.4); AST(SGOT) 16 U/L (15-37); Alanine Aminotransfer ALT/SGPT 24 U/L (13-56); Albumin, Serum 2.6 g/dL (3.2-5.0); Alkaline Phosphatase 81 U/L (45-117); Anion Gap 4 (5-15); BUN 15 mg/dL (7-18); BUN/Creat Ratio 21.4 RATIO (10-20); Calcium,Total 8.5 mg/dL (8.5-10.1); Chloride 108 mmol/L (98-107); EST Glomerular Filtration Rate 98 mL/min (>60); Est Glom Filt Rate - Afr Amer 119 mL/min (>60); Ferritin 15 ng/mL (8-252); Globulin 3.4 g/dL (2.2-4.2); Glucose 135 mg/dL (74-106); Potassium 3.6 mmol/L (3.5-5.1); Sodium Level 137 mmol/L (136-145)
== END | disposition home or self-care (01) ==
LOC: PAVLAB 08:17
PROVIDERS: PCP Family Medicine; Referring Provider Family Medicine; Visit Provider Family Medicine
DX: I10 Essential (primary) hypertension (principal); D50.0 Iron deficiency anemia secondary to blood loss (chronic)
CPT/HCPCS: 36415; 80053; 82728; 85025

== ENCOUNTER → 2024-01-28 | Outpatient (CLI) | payer OTHER, SELFPAY ==
--- NOTE | 2024-01-28 07:49 | US_ITS ---
STUDY: OBSTETRICAL ULTRASOUND - BIOPHYSICAL PROFILE REASON FOR EXAM: Female, 38 years old wellness check LMP: 06/04/2023 PRIOR ULTRASOUND: 01/21/2024 TECHNIQUE: Transabdominal TECHNICAL QUALITY: Adequate. FINDINGS: There is a single intrauterine fetus. The fetus is in a cephalic presentation. There is demonstrated cardiac activity with a heart rate of 133 bpm. There is a normal amniotic fluid volume. The largest amniotic fluid pocket measures 5.9 x 5.1 cm. The amniotic fluid index (ALBAN) is 17.7 cm. The placenta is anterior in location and is not low lying. There are Grade 1 placental changes. BIOPHYSICAL PROFILE: Breathing Movements (FBM): 2 Gross Body Movements (GBM): 2 Tone (FT): 2 Amniotic Fluid Volume (AFV): 2 TOTAL SCORE: US/Biophysical Prof W/O Non Stres IMPRESSION: Normal biophysical profile of 05/15. Electronically Signed: Ephraim Spaulding MD at 9:09 EDT ,
== END | disposition home or self-care (01) ==
LOC: US 07:49
PROVIDERS: PCP Family Medicine; Referring Provider Obstetrics & Gynecology; Visit Provider Obstetrics & Gynecology
DX: Z98.890 Other specified postprocedural states (principal)
CPT/HCPCS: 76819

== ENCOUNTER → 2024-02-04 | Outpatient (CLI) | payer OTHER, SELFPAY ==
--- NOTE | 2024-02-04 07:51 | US_ITS ---
STUDY: OBSTETRICAL ULTRASOUND - BIOPHYSICAL PROFILE REASON FOR EXAM: Female, 38 years old h/o myomectomy LMP: June 04, 2023. PRIOR ULTRASOUND: Comparison is made with prior study dated January 28, 2024. TECHNIQUE: Transabdominal TECHNICAL QUALITY: Adequate. FINDINGS: There is a single intrauterine fetus. The fetus is in a cephalic presentation. There is demonstrated cardiac activity with a heart rate of 138 bpm. There is a normal amniotic fluid volume. The largest amniotic fluid pocket measures 5.5 cm x 7.3 cm. The amniotic fluid index (ALBAN) is 18 cm. The placenta is anterior in location and is not low lying. There are Grade 2 placental changes. Age by LMP: 35 weeks, 0 days. MARIA TERESA by LMP: March 10, 2024. age by prior US: 36 weeks, 4 days. MARIA TERESA by prior US: February 28, 2024. BIOPHYSICAL PROFILE: Breathing Movements (FBM): 2 Gross Body Movements (GBM): 2 Tone (FT): 2 Amniotic Fluid Volume (AFV): 2 TOTAL SCORE: 8 / 8 US/Biophysical Prof W/O Non Stres IMPRESSION: Normal biophysical profile of 8/8. Electronically Signed: Shemar Claire MD at 12:25 EDT ,
== END | disposition home or self-care (01) ==
LOC: US 07:51
PROVIDERS: PCP Family Medicine; Referring Provider Obstetrics & Gynecology; Visit Provider Obstetrics & Gynecology
DX: Z98.890 Other specified postprocedural states (principal)
CPT/HCPCS: 76819

== ENCOUNTER → 2024-02-11 | Outpatient (CLI) | payer OTHER, SELFPAY ==
--- NOTE | 2024-02-11 07:56 | US_ITS ---
STUDY: OBSTETRICAL ULTRASOUND - BIOPHYSICAL PROFILE REASON FOR EXAM: Female, 38 years old h/o myomectomy LMP: June 04, 2023. PRIOR ULTRASOUND: Comparison is made with prior study dated February 04, 2024. TECHNIQUE: Transabdominal TECHNICAL QUALITY: Adequate. FINDINGS: There is a single intrauterine fetus. The fetus is in a cephalic presentation. There is demonstrated cardiac activity with a heart rate of 133 bpm. There is a normal amniotic fluid volume. The largest amniotic fluid pocket measures 6.1 cm x 6.9 cm. The amniotic fluid index (ALBAN) is 17.1 cm. The placenta is anterior in location and is not low lying. There are Grade 2 placental changes. Age by LMP: 36 weeks, 0 days. MARIA TERESA by LMP: March 10, 2024. age by prior US: 37 weeks, 2 days. MARIA TERESA by prior US: March 01, 2024. BIOPHYSICAL PROFILE: Breathing Movements (FBM): 2 Gross Body Movements (GBM): 2 Tone (FT): 2 Amniotic Fluid Volume (AFV): 2 TOTAL SCORE: 8 / 8 IMPRESSION: Normal biophysical profile of 8/8. Electronically Signed: Shemar Claire MD at 15:34 EDT , STUDY: SECOND AND THIRD TRIMESTER OBSTETRICAL ULTRASOUND - LIMITED REASON FOR EXAM: Female, 38 years old h/o myomectomy LMP: June 04, 2023. PRIOR ULTRASOUND: Comparison is made with prior study dated February 04, 2024. TECHNIQUE: Transabdominal TECHNICAL QUALITY: Adequate. FINDINGS: There is a single intrauterine fetus. The fetus is in a cephalic presentation. There is demonstrated cardiac activity with a heart rate of 133 bpm. There is a normal amniotic fluid volume. The largest amniotic fluid pocket measures 6.1 cm. The amniotic fluid index (ALBAN) is 17.1 cm. The placenta is anterior in location and is not low lying. There are Grade 2 placental changes. The cervix was not measured due to the head position. BIOMETRY: BPD: 8.93 cm: 36 weeks, 1 days HC: 33.62 cm: 38 weeks, 4 days AC: 34.55 cm: 38 weeks, 3 days FL: 6.91 cm: 35 weeks, 3 days Age by LMP: 36 weeks, 0 days. MARIA TERESA by LMP: March 10, 2024. age by prior US: 37 weeks, 4 days. MARIA TERESA by prior US: February 28, 2024. age by current US: 37 weeks, 2 days. MARIA TERESA by current US: March 01, 2024. Estimated weight: 3205 grams, +/- 481 grams, 85 percentile. US/Biophysical Prof W/O Non Stres IMPRESSION: Single live intrauterine gestation with a mean gestational age of 37 weeks and 4 days. The measurements obtained today fall within normal expected range. Electronically Signed: Shemar Claire MD at 15:36 EDT ,
== END | disposition home or self-care (01) ==
LOC: US 07:56
PROVIDERS: PCP Family Medicine; Referring Provider Obstetrics & Gynecology; Visit Provider Obstetrics & Gynecology
DX: O98.512 Other viral diseases complicating pregnancy, second trimester (principal); U07.1 COVID-19; Z98.890 Other specified postprocedural states; Z3A.00 Weeks of gestation of pregnancy not specified
CPT/HCPCS: 76816; 76819

== ENCOUNTER → 2024-02-14 | Outpatient (CLI) | payer OTHER, SELFPAY | END | disposition home or self-care (01) | PROVIDERS: PCP Family Medicine; Referring Provider Obstetrics & Gynecology; Visit Provider Obstetrics & Gynecology | DX: O09.90 Supervision of high risk pregnancy, unspecified, unspecified trimester (principal); Z3A.00 Weeks of gestation of pregnancy not specified | CPT/HCPCS: 87081 ==

== ENCOUNTER 2024-02-18 05:24 | Inpatient (IN) | payer OTHER, SELFPAY ==
[2024-02-18] VITALS (22 sets, daily range): BP systolic 94–136; BP diastolic 42–91; PULSE 55–92; RESP 12–18; TEMP 36.2–36.6; O2SAT 98–100; BMI 26.4
[2024-02-18] MEDS: Lactated Ringers 1,000 ML 999 ML IV (05:45)
[2024-02-18 06:10] LABS: Bedside Glucose 88 mg/dL (74-106)
[2024-02-18 06:37] LABS: Absolute Lymphocyte Count 1.56 X10^3/uL (0.83-4.51); Absolute Neutrophil Count 5.2 X10^3/uL (2.0-7.7); Basophil# 0.04 X10^3/uL; Basophil% 0.5 % (0-1); Eosinophil# 0.17 X10^3/uL; Eosinophils% 2.2 % (0-5); Hematocrit 37.8 % (37-47); Hemoglobin 12.7 g/dL (12.0-15.0); Lymphocyte # 1.56 X10^3/ul (0.83-4.51); Lymphocyte % 20.5 % (19-41); Mean Corp Hgb Conc 33.6 g/dL (32-36); Mean Corpuscular Hgb 32.5 pg (27.0-32.0); Mean Corpuscular Volume 96.7 fL (81-99); Mean Platelet Vol. 10.7 fl (6.2-12.0); Monocyte# 0.59 X10^3/uL; Monocyte% 7.8 % (0-10); NRBC Flagged by Analyzer 0 % (0-5); Neutrophil # 5.16 X10^3/uL (2.7-7.7); Neutrophil % 67.9 % (47-70); Platelet Count 266 K/mm3 (150-450); RBC Distribution Width CV 12.8 % (11.6-14.6); RBC Distribution Width SD 45.1 fl (35.1-43.9); Red Blood Count 3.91 M/mm3 (4.2-5.4); White Blood Count 7.6 K/mm3 (4.4-11.0)
[2024-02-18] MEDS: Lactated Ringers 1,000 ML 150 ML IV (06:43)
[2024-02-18] MEDS: Acetaminophen 500 MG Tablet 1000 MG PO ×3 (07:16→19:01)
[2024-02-18 07:36] LABS: Amphetamine Urine VISTA NEGATIVE (<1000 ng/mL); Barbiturate Urine VISTA NEGATIVE (< 200 ng/mL); Benzodiazepine Urine VISTA NEGATIVE (< 200 ng/mL); Cocaine Urine VISTA NEGATIVE (< 300 ng/mL); Ecstacy Urine VISTA POSITIVE (< 500 ng/mL); Methadone Urine VISTA NEGATIVE (< 300 ng/mL); PCP Urine VISTA NEGATIVE (< 25 ng/mL); THC Urine VISTA NEGATIVE (< 50 ng/mL); Vista UDS pH Range 5
--- NOTE | 2024-02-18 07:54 | HP.PCM_ITS ---
History and Physical Date of Admission: 02/18/24 [facility] [address] [place] [address] OFFICE VISIT Date of Service: 02/14/24 Intake Vital Signs 12/20/2414:52 02/07/2408:09 02/13/2409:19 02/13/2409:24 Height 5 ft 4 in 5 ft 4 in 5 ft 4 in 5 ft 4 in Weight: 159 lb BMI 27.3 BP 129/85 H Intake Visit Reasons: 36 WK OB NST Help Desk Supervisor Required: No Is patient in pain?: No Allergies ultrasound coupling medium Adverse Reaction (Mild, Verified 02/14/24 09:21) Rash Last Menstrual Period: 06/04/23 Zika: Zika virus screening: Negative : No PFSH PFSH Medical History Anemia Anxiety Back pain Depression Genital herpes H/O alcohol abuse HTN (hypertension) Rectal fistula Shoulder pain, acute chocolate dipper Surgical History H/O myomectomy H/O shoulder surgery History of dilatation and curettage Family History Other Diabetes Hypertension Social History adopted: No current occupational status: employed current occupation: [employer] current occupational exposures/hazards: No pets and animals: Yes pets and animals: dog(s) history of recent travel: No sexually active: No Smoking Status: Never smoker Smokeless tobacco user: chewing tobacco quit status: quit date established alcohol intake: never substance use type: does not use well-balanced diet: daily or most days caffeine: No eating out: rarely or never during the past year weight has: remained stable what type of physical activity do you participate in: walking frequency: daily duration: 45-60 minutes/day michael/hoahaoism: Sabianist seatbelt use: always do you feel safe at home: Yes additional social history: single- sobriety since 2014! History 2 Elective abortions Hx Para 0 Spontaneous abortions 1 Hx # Term Pregnancies Ectopic pregnancies Hx # Pregnancies Multiple births # of living children 0 HPI 36 WK OB NST Details: CAYLA MORATAYA is a 38 year old who presents for primary low transverse section for history of myomectomy. it was not recommended for trial of labor due to previous uterine surgery and patient made the request for 37 week instead of 36 week delivery due to concerns of prematurity. she has had a complicated by htn and gdm. OB Visit MARIA TERESA Calculator Estimated Delivery Date Method Current WG Current Estimate 03/10/24 LMP (Certain) 36w 3d Expected Delivery Route/Plan LTCS for history of myomectomy at 37 weeks per patient request, 36 if significant PTCtx Specific Issue/Plans Covid status: had in first trimester Flu vaccine: declined Tdap vaccine: given Rhogam: na LARC form signed: declined movement and labor precautions reviewed. Problem list reviewed and updated with the most current plan of care details and appropriate orders placed. Relevant counseling for the gestational age provided. Continue routine care and follow up unless otherwise noted in visit notes/problem list details Initial Weight: 157 lb Date -?-?-?-?-?-?-?-?-?-?-?-?- EGA Weight BP Urine Prot -?-?-?-?-?--?-?-?-?-?-?-?- Glucose FHR FuHt Pres Dilation -?-?-?-?-?-?-?-?-?-?-?-?- Effaced St Visit Note 08/16/23-?-?-?-?-?-?-?-?-?-?-?-?- 10w 3d 157 lb 2 oz(+2 oz) 133/84 -?-?-?-?-?-?-?-?-?-?-?-?- 150 -?-?-?-?-?-?-?-?-?-?-?-?- SM- CRL SM- CRL cons with LMP and IUI 09/12/23-?-?-?-?-?-?-?-?-?-?-?-?- 14w 2d 159 lb 4 oz(+2 lb 4 oz) 116/80 Negative -?-?-?-?-?-?-?-?-?-?-?-?- Negative 155 -?-?-?-?-?-?-?-?-?-?-?-?- LC- no vb/cramping. discussed and declines afp. low risk nipt. mfm anatomy ordered. 10/24/23-?-?-?-?-?-?-?-?-?-?-?-?- 20w 2d 164 lb 6 oz(+7 lb 6 oz) 125/85 Negative -?-?-?-?-?-?-?-?-?-?-?-?- Negative 136 20 -?-?-?-?-?-?-?-?-?-?-?-?- LC- no vb/cramping. occ flutters. normal anatomy scan 11/02/23-?-?-?-?-?-?-?-?-?-?-?-?- 21w 4d 165 lb(+8 lb) 129/83 Negative -?-?-?-?-?--?-?-?-?-?-?-?- Negative 150 -?-?-?-?-?-?-?-?-?-?-?-?- KW- work in for itching. has tried OTC creams with no success. Atopic eruption of on thighs and abdomen. no vb/ctx. steroid crm to pharmacy and comfort measures discussed. 11/23/23-?-?-?-?-?-?-?-?-?-?-?-?- 24w 4d 166 lb(+9 lb) 125/81 Negative -?-?-?-?-?-?-?-?-?-?-?-?- Negative 145 -?-?-?-?-?-?-?-?-?-?-?-?- SM- no vb lof good fm no regular ctx 12/21/23-?-?-?-?-?-?-?-?-?-?-?-?- 28w 4d 163 lb(+6 lb) 127/86 -?-?-?-?-?-?-?-?-?-?-?-?- 140 29 -?-?-?-?-?-?-?-?-?-?-?-?- SM- no vb lof good fm n oregular ctx 01/15/24-?-?-?-?-?-?-?-?-?-?-?-?- 32w 1d 160 lb(+3 lb) 122/76 Negative -?-?-?-?-?-?-?-?-?-?-?--?- Negative 145 32 -?-?-?-?-?-?-?-?-?-?-?-?- KW- no vb/lof/reg ctx. good fm. NST today. BPP and growth thurs. BS within range 01/24/24-?-?-?-?-?-?-?-?-?-?-?-?- 33w 3d 163 lb(+6 lb) 124/75 Negative -?-?-?-?-?-?-?-?-?-?-?-?- Negative 140 33 -?-?-?-?-?-?-?-?-?-?-?-?- SM- no vb lof good fm no regular ctx BS and bps controlled 01/31/24-?-?-?-?-?-?-?-?-?-?-?-?- 34w 3d 160 lb 2 oz(+3 lb 2 oz) 124/82 Negative -?-?-?-?-?-?-?-?-?-?-?-?- Negative 150 34 -?-?-?-?-?-?-?-?-?-?-?-?- MH-No VB, LOF. Good FM. Reactive NST. No CTX. Glucose WNL. 02/0302/07/24-?-?-?-?-?-?-?-?-?-?-?-?- 35w 3d 160 lb(+3 lb) 123/78 Negative -?-?-?-?-?-?-?-?-?-?-?-?- Negative 140 -?-?-?-?-?-?-?-?-?-?-?-?- SM- no vb lof good fm no regular ctx 02/14/24-?-?-?-?-?-?-?-?-?-?-?-?- 36w 3d 159 lb(+2 lb) 129/85 Negative -?-?-?-?-?-?-?-?-?-?-?-?- Negative 140 -?-?-?-?-?-?-?-?-?-?-?-?- ACOG First Trimester First Trimester: Second Trimester Second Trimester: Signs and Symptoms of Labor, Selecting a care provider, Reproductive Life Planning & Contreception, Care Planning, Tobacco Cessation, Depression/Anxiety and Intimate Partner Violence Third Trimester Third Trimester: Pain Management Plans, Labor support person(s), Immediate Larc, Movement Monitoring and Infant Feeding Yes ; Discussed Trial of Labor after Counseling and Discussed Circumcision preference ROS Const Reports system reviewed and no additional complaints, except as documented Card Reports system reviewed and no additional complaints, except as documented Resp Reports system reviewed and no additional complaints, except as documented GI Reports system reviewed and no additional complaints, except as documented and Reports nausea Reports system reviewed and no additional complaints, except as documented Musc Reports system reviewed and no additional complaints, except as documented Exam Const General: cooperative, healthy appearing, comfortable and anxious HENAR Head: normal to inspection Nose: external nose normal Face and sinus: normal facial exam Neck Neck: normal visual inspection, full ROM and no lymphadenopathy Thyroid: thyroid normal Chest Chest palpation & inspection: normal inspection of the chest Resp Effort & Inspection: normal respiratory effort GI Inspection: normal to inspection Palpation: soft and other (gravid uterus) Other: vertex and appropriate size for gestational age Other: Cervical Exam: Extrem General: pedal edema Office Procedures Non-stress Test Non-Stress Test Indications for Monitoring: Yes diabetes and Yes hypertension Heart Rate Baseline: 140 Heart Rate Variability: moderate Movement: Present Heart Rate Accelerations: Present Decelerations: Absent Contractions: Absent Impression: Yes Reactive Non-Stress Test Category 1 Results POC Urinalysis 2 Dip (Clinic) Office Urine Glucose Negative Last Edit by Charline Franklin on 02/14/24 10:02 Office Urine Protein Negative Last Edit by Charline Franklin on 02/14/24 10:02 Coding Level of Care Code OB Routine Diagnoses Diet controlled gestational diabetes mellitus (GDM) in third trimester O24.410 Gestational diabetes mellitus control: diet-controlled Trimester: third trimester Atopic dermatitis L20.9 COVID-19 affecting in second trimester O98.512; U07.1 Positive urine drug screen R82.5 H/O myomectomy Z98.890 Hypertension affecting O16.9 Genital herpes affecting in third trimester O98.313; A60.09 Trimester: third trimester Infertility Advanced maternal age (AMA) in Supervision of high risk in third trimester O. Trimester: third trimester 36 weeks gestation of Z3A.36 Weeks of gestation: 36 weeks CPT Codes Non-Stress Test (95423) Assessment and Plan Assessment and Plan (1) Gestational diabetes: Status: Acute Qualifiers: Gestational diabetes mellitus control: diet-controlled Trimester: third trimester Qualified Code(s): O24.410 - Gestational diabetes mellitus in , diet controlled Comment: test BS fasting & 2 hr post meals, nutrition consult with [facility] classroom technology technician. growth US 36wk (2) Atopic dermatitis: Status: Acute Comment: thighs and abdomen-Zyrtec and low potency steroid crm given (3) COVID-19 affecting in second trimester: Status: Acute Comment: asa 81mg, growth US @ 32 & 36 wks. (4) Positive urine drug screen: Status: Acute Comment: Confirmation testing indicates a false positive test. (5) H/O myomectomy: Status: Acute Comment: laparoscopic at [facility] 01/2022, op note reviewed recommended primary plan 36-37 week delivery scheduled for 02/17 @ 7:15 with (6) Hypertension affecting : Status: Acute Comment: labetalol, cHTN, baseline labs drawn, baby asa recommended. Normal echo. plan growht us q 4 weeks and weekly bpp and weekly nst after 32, deliver 37. Stable (7) Genital herpes affecting : Status: Acute Qualifiers: Trimester: third trimester Qualified Code(s): O98.313 - Other infections with a predominantly sexual mode of transmission complicating , third trimester; A60.09 - Herpesviral infection of other urogenital tract Comment: plan valtrex at 36 weeks (8) Infertility: Status: Acute Comment: IUI donor sperm (9) Advanced maternal age (AMA) in : Status: Acute Comment: genetic counseling discussed, declined. (10) Supervision of high-risk : Status: Acute Qualifiers: Trimester: third trimester Qualified Code(s): O.93 - Supervision of high risk , unspecified, third trimester Comment: PRR , MARIA TERESA [birth year], boy Single, mom- celia (11) : Status: Acute Qualifiers: Weeks of gestation: 36 weeks Qualified Code(s): Z3A.36 - 36 weeks gestation of Comment: declined genetic & carrier testing Orders: Orders POC Urinalysis 2 Dip (Clinic) Today OB NST Today O16.9 - Unspecified maternal hypertension, unspecified trimester Culture, Group B Streptococcus Today O09.90 - Supervision of high risk , unspecified, unspecified trimester admit for LTCS for history of myomectomy UPDATE- I have seen the patient and performed any clinically relevant updates to the history and physical exam. Alida Pierce MD
--- NOTE | 2024-02-18 08:01 | OP.PCM_ITS ---
Assessment & Plan (1) Gestational diabetes: QUALIFIERS: Gestational diabetes mellitus control: diet-controlled Trimester: third trimester Qualified Code(s): O24.410 - Gestational diabetes mellitus in , diet controlled COMMENT: test BS fasting & 2 hr post meals, nutrition consult with [facility] table games manager. growth US 36wk (2) Atopic dermatitis: COMMENT: thighs and abdomen-Zyrtec and low potency steroid crm given (3) COVID-19 affecting in second trimester: COMMENT: asa 81mg, growth US @ 32 & 36 wks. (4) Positive urine drug screen: COMMENT: Confirmation testing indicates a false positive test. (5) H/O myomectomy: COMMENT: laparoscopic at [facility] 01/2022, op note reviewed recommended primary plan 36-37 week delivery scheduled for 02/17 @ 7:15 with SUHAS (6) Hypertension affecting : COMMENT: labetalol, cHTN, baseline labs drawn, baby asa recommended. Normal echo. plan growht us q 4 weeks and weekly bpp and weekly nst after 32, deliver 37. Stable (7) Genital herpes affecting : QUALIFIERS: Trimester: third trimester Qualified Code(s): O98.313 - Other infections with a predominantly sexual mode of transmission complicating , third trimester; A60.09 - Herpesviral infection of other urogenital tract COMMENT: plan valtrex at 36 weeks (8) Infertility: COMMENT: IUI donor sperm (9) : QUALIFIERS: Weeks of gestation: 36 weeks Qualified Code(s): Z3A.36 - 36 weeks gestation of COMMENT: declined genetic & carrier testing (10) Supervision of high-risk : QUALIFIERS: Trimester: third trimester Qualified Code(s): O09.93 - Supervision of high risk , unspecified, third trimester COMMENT: PRR , MARIA TERESA [birth year], boy Single, mom- celia (11) Advanced maternal age (AMA) in : COMMENT: genetic counseling discussed, declined. (12) delivery delivered: COMMENT: SM LTCS previous myomectomy 37 Maternal Data Information MARIA TERESA Calculator Estimated Delivery Date Method Current WG Current Estimate 03/10/24 LMP (Certain) 37w 1d Final MARIA TERESA Source: LMP Details Operative Information Date of Procedure: 02/19/24 Pre-Operative Diagnosis: Previous myomectomy- contraindication to trial of labor. chtn, gdm Post-Operative Diagnosis: same Indications for : Repeat Elective Indications Narrative: Surgeon: Alida Pierce MD Classification: Scheduled Procedure Type: low transverse manager military #2: Jocelyne Huitron Type of Anesthesia: Spinal Special Medications: none Antibiotic Given: Ancef 2 grams IV x1 Drain: Pelletier to straight drain Estimated Blood Loss: 1000 Fluids Replaced: crystalloid Procedure Start Time: 09:22 Procedure Stop Time: 10:00 Findings Description of Procedure: Spinal anesthesia was placed without difficulty. Pelletier catheter was placed. The patient was placed in the dorsal supine position with leftward tilt. Patient was prepped and draped in the normal sterile fashion. Pfannenstiel skin incision was made with the scalpel and carried through to the underlying layer of fascia with the scalpel. Fascia was nicked in the midline and the incision extended laterally. The rectus bellies were dissected off superiorly and infe riorly with out complication both sharply and bluntly. The peritoneum was entered digitally. The incision was stretched and a low transverse uterine incision was made with the scalpel. the placenta was encountered with incision and therefore blood loss was greater overall due to this quick amount of blood lost during delivery of the infant. The infant's head was delivered through the placenta atraumatically followed by the anterior and posterior shoulders without complication the rest of the delivered. The cord was clamped and cut and the infant was handed off to awaiting nurse. The placenta was delivered spontaneously immediately following and was noted to be intact and have a three- vessel cord. The uterus was exteriorized cleared of all clots and debris, and the incision was closed in a double layer closure using #1 Monocryl. hemoblast also used. The ovaries and fallopian tubes were noted to be within normal limits. The uterus was returned to the maternal abdomen and gutters were cleared of all clots and debris. The peritoneum was closed with 3-0 Monocryl in a running fashion. Fascia was closed with 0 PDS in a running fashion. Subcutaneous tissue was copiously irrigated and the skin was closed with 3-0 Monocryl in a subcuticular fashion. Mepilex dressing was applied without complication. Patient was taken to recovery in stable condition. Amniotic Membrane Rupture Type: Artificial Amniotic Fluid Description: Clear Placenta Disposition: [facility] Cord Vessel Description: 3 Vessels Delayed Cord Clamping: Yes Complications Risks of Surgery Discussed w/Patient: Bleeding, Infection, Need for Future C- Sections and Injury to surrounding structure(s) including bowel and bladder Vaginal Delivery Complication Complications: None Admit VTE Documentation VTE Present on Admission: No VTE Mechan Device Prophylaxis: SCD's Procedures Urinary/Genital [id number]: [id number] Delivery [facility]
[2024-02-18] MEDS: Sodium Citrate/Citric Acid 30 ML UDC PO (08:49)
[2024-02-18] MEDS: Cefazolin 2 GM in 0.9% Normal Saline (100mL Bag) 100 ML IV (08:59)
[2024-02-18] MEDS: Oxytocin 15 Units/NS 250ml 15 UNITS/250 ML IV.SOLN 83 UNITS IV (10:25)
[2024-02-18] MEDS: Ketorolac 30 MG/ML Syringe IV ×3 (10:35→22:46)
[2024-02-18] MEDS: proCHLORPERazine 10 MG/2 ML Vial IV (10:50)
[2024-02-18] MEDS: 0.9% Saline Lock 10 ML Syringe IV (10:50)
[2024-02-18] MEDS: Lactated Ringers 1,000 ML 100 ML IV (13:29)
[2024-02-18 14:53] LABS: Bedside Glucose 89 mg/dL (74-106)
--- NOTE | 2024-02-18 16:42 | NURSING ---
pt oob up to chair- pt tolerated well
[2024-02-18 17:17] LABS: Syphilis Antibodies Non-reactive
[2024-02-19] MEDS: Acetaminophen 500 MG Tablet 1000 MG PO ×3 (01:43→16:37)
[2024-02-19] MEDS: Ketorolac 30 MG/ML Syringe IV (04:00)
[2024-02-19 05:32] VITALS: BP 109/67; PULSE 70; RESP 16; TEMP 36.4
[2024-02-19 06:00] LABS: Hematocrit 29.2 % (37-47); Hemoglobin 9.8 g/dL (12.0-15.0); Mean Corp Hgb Conc 33.6 g/dL (32-36); Mean Corpuscular Hgb 32.8 pg (27.0-32.0); Mean Corpuscular Volume 97.7 fL (81-99); Mean Platelet Vol. 10.5 fl (6.2-12.0); Platelet Count 228 K/mm3 (150-450); RBC Distribution Width CV 12.9 % (11.6-14.6); RBC Distribution Width SD 45.7 fl (35.1-43.9); Red Blood Count 2.99 M/mm3 (4.2-5.4); White Blood Count 15.6 K/mm3 (4.4-11.0)
[2024-02-19 06:06] LABS: Bedside Glucose 99 mg/dL (74-106)
--- NOTE | 2024-02-19 07:19 | PN.OBGYN_ITS ---
Subjective Subjective Patient doing well without complaints. Tolerating PO. Ambulating and voiding without difficulty. Feeding well. Denies chest pain, shortness of breath, calf pain/swelling, fevers, chills, lightheadedness. Objective Data Objective Data Vital Signs: Vital Signs Temp Pulse Resp BP Pulse Ox O2 Del Method 97.6 F L 70 16 109/67 98 Room Air 02/19/24 05:32 02/19/24 05:32 02/19/24 05:32 02/19/24 05:32 02/18/24 23:58 02/19/24 05:32 Oxygen Delivery Method Room Air Weight: 154 lb Body Mass Index (BMI) 26.4 Intake & Output: Intake and Output for Last 24 Hours 02/17/24 02/18/24 02/19/24 23:59 23:59 23:59 Intake Total 2902.5 / 3902.5 1000 / 1000 Output Total 1900 / 1900 600 / 600 Balance 1002.5 / 2002.5 400 / 400 Lab / Micro Data Attestation: I reviewed the patient's lab results. 02/19/24 05:45 Labs: Laboratory Results - last 24 hr 02/18/24 05:45: Syphilis Total Ab Non-reactive, Blood Type O POSITIVE, Antibody Screen NEGATIVE 02/18/24 07:15: Urine Opiates Screen NEGATIVE, Urine Methadone Screen NEGATIVE, Ur Barbiturates Screen NEGATIVE, Ur Phencyclidine Scrn NEGATIVE, Ur Amphetamines Screen NEGATIVE, MDMA (Ecstasy) Screen POSITIVE H, U Benzodiazepines Scrn NEGATIVE, Urine Cocaine Screen NEGATIVE, U Cannabinoids Screen NEGATIVE, Ur Drug Screen Comment 02/18/24 14:31: POC Glucose 89 02/19/24 05:45: WBC 15.6 H, RBC 2.99 L, Hgb 9.8 L, Hct 29.2 L, MCV 97.7, MCH 32.8 H, MCHC 33.6, RDW Std Deviation 45.7 H, RDW Coeff of Peter 12.9, Plt Count 228, MPV 10.5, POC Glucose 99 ROS Constitutional Constitutional: Reports systems reviewed and no addt'l complaints, except as documented; Denies anorexia or headache(s) Cardiovascular Cardiovascular: Reports systems reviewed and no addt'l complaints, except as documented; Denies dizziness, dyspnea, nausea or tachypnea Respiratory/Chest Respiratory/Chest: Reports systems reviewed and no addt'l complaints, except as documented; Denies cough, dyspnea, shortness of breath at rest or tachypnea Gastrointestinal Gastrointestinal: Reports systems reviewed and no addt'l complaints, except as documented; Denies abdominal pain, constipation or nausea Genitourinary Genitourinary: Reports systems reviewed and no addt'l complaints, except as documented; Denies burning urination, difficulty urinating, dysuria, urinary frequency or urinary incontinence Musculoskeletal Musculoskeletal: Reports systems reviewed and no addt'l complaints, except as documented Integumentary Integumentary: Reports systems reviewed and no addt'l complaints, except as documented Neurologic Neurologic: Reports systems reviewed and no addt'l complaints, except as documented; Denies abnormal speech, dizziness or headache(s) Psychiatric Psychiatric: Reports systems reviewed and no addt'l complaints, except as documented Endocrine Endocrinology: Reports systems reviewed and no addt'l complaints, except as documented Hematologic/Lymphatic Hematologic/Lymphatic: Reports systems reviewed and no addt'l complaints, except as documented Physical Exam Const alert, oriented x3 and no apparent distress Neck full ROM Resp normal respiratory effort, normal air movement and no retractions Effort and Inspection: able to speak in complete sentences and symmetric chest movement GI soft to palpation Bladder / Kidney Exam: bladder normal to palpation Uterus Palpation: uterus fundus firm Extremity normal to inspection and full ROM Psych mental status grossly normal, thought process normal and cooperative Assessment & Plan (1) delivery delivered: COMMENT: LTCS previous myomectomy 37 PLAN: s/p LTCS PPD # 1 1. routine post care 2. breast feeding- support given 3. rh positive 4. rubella immune 5. Ok for discharge if desired (2) Gestational diabetes: QUALIFIERS: Gestational diabetes mellitus control: diet-controlled Trimester: third trimester Qualified Code(s): O24.410 - Gestational diabetes mellitus in , diet controlled COMMENT: test BS fasting & 2 hr post meals, nutrition consult with [facility] imaging assistant. growth US 36wk (3) Hypertension affecting : COMMENT: labetalol, cHTN, baseline labs drawn, baby asa recommended. Normal echo. plan growht us q 4 weeks and weekly bpp and weekly nst after 32, deliver 37. Stable Charges/Coding Multi Select Codes Urinary/Genital Urinary/Genital CPT Codes: No Charge
--- NOTE | 2024-02-19 07:24 | DCINST_ITS ---
Discharge Instructions Diet Discharge Diet: No restrictions Activity Discharge Activity: Return to Normal Activity May resume sexual activity in: 6-8 weeks Dressing / Incision Call your doctor if you observe: Fever of 101 or Higher, Coldness, Increased Pain, Numbness or Tingling, Change in Color, Inability to urinate, Inability to have a bowel movement, Using more than 1 pad per hour, Shortness of breath, Dizziness, Fainting spells, Swelling in the ankles, Chest pain, Increased palpitations (irregular heartbeat), Calf discomfort and Uncontrolled pain Follow Up Care Please Follow Up With: Lindsey Hale CNM When: Please call the office to schedule your follow up appointment in 6 weeks. If you had high blood pressure please call to schedule an appointment in 2 weeks. Test Results: Test results from this visit will be discussed in further detail at your follow- up appointment, if applicable. Discharge Plan Admission Admit Date/Time: 02/18/24 05:24 Attending Provider: Alida Pierce Primary Care Provider: Juancho Livingston Instructions Patient Instructions: After a Discharge Orders/Prescriptions Prescriptions: New oxycodone 5 mg Tablet 5 - 10 mg PO Q4H PRN PRN (Reason: Pain Score 4-10) 3 Days Qty: 10 0RF naproxen 500 mg Tablet 500 mg PO Q8H Qty: 30 0RF No Action labetalol 100 mg tablet 100 mg PO BID PNV-DHA 27 mg iron-1 mg -300 mg capsule PO Zyrtec 10 mg capsule 10 mg PO DAILY PRN (Reason: allergy symptoms) Qty: 30 0RF bupropion HCl 100 MG tablet 300 mg PO DAILY ferrous sulfate 325 MG tablet 325 mg PO BIDCM (DME) Blood Glucose Test Strip See Rx Instructions .MEDSUPPLY Qty: 120 5RF Rx Instructions: As directed-fasting & 2 hr post meals (DME) blood-glucose meter Misc See Rx Instructions .MEDSUPPLY Qty: 1 0RF Rx Instructions: As directed- Test fasting and 2 hours after meals (DME) lancets Misc See Rx Instructions .MEDSUPPLY Qty: 200 5RF Rx Instructions: As directed-fasting & 2 hr post meals Referrals / Follow Up: Juancho Livingston, [Primary Care Provider] - Disposition Disposition (needs filled in before D/C Order can be placed): Home, Self Care
[2024-02-19 09:00] VITALS: BP 117/77; PULSE 79; RESP 16; TEMP 36.6; O2SAT 99
[2024-02-19] MEDS: Senna/Docusate Sodium 1 Tablet PO (09:02)
[2024-02-19] MEDS: buPROPion 100 MG Tablet 300 MG PO (09:02)
--- NOTE | 2024-02-19 10:32 | CASEMGMT ---
Social Work Assessment Labor and Delivery Unit Patient Address: [facility] [place] [address] Phone number: [phone] Date of Referral: 02/18/24 Time of Referral:? 611 Referred By: Alida Pierce Date of Intervention: ??02/19/24 Time of Intervention:? 929 Reason for Referral:? anxiety, depression and history of alcohol abuse Sw completed chart review and acknowledges social work consult. Sw presented to bedside and introduced self to mother of baby (SANDOVAL Hutchins) and maternal grandmother. MOB stated that it was okay to complete assessment with grandma present. Sw completed assessment and assessed for any needs or concerns. History obtained from: medical records, MOB Household composition: Currently residing in the family home is MOB and baby when ready for discharge. MOB denies any issues or concerns with current housing. When MOB and baby are discharged they will stay with maternal grandparents for a couple of weeks while JUSTO recovers from her . Patient's parent/guardian status: JUSTO became using IVF. JUSTO states that she really wanted to be a mother, she was not in a relationship to make that happen, so she decided to go the route of artificial insemination. JUSTO states that the journey to having baby took two years and multiple tries. ? ? Medical History: ?JUSTO is 38 year old female who is 2, para 0- now 1 following labor and delivery of . JUSTO received routine care with [facility]. JUSTO presented to hospital for scheduled at 37 weeks gestation. Baby boy, named Patrick Foreman, was born weighing 7lb 5oz with apgars of 9 and 9 at one and five minutes of life, respectfully. JUSTO is breast feeding and states that she has a pump for home. Baby will be followed by Dr. Moon for pediatrics. Educational Status:? JUSTO obtained her Masters degree in Education. No concerns with reading, learning or comprehension. 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 Infant Supplies:?? JUSTO has obtained all necessary baby supplies for baby, including: car seat, safe sleep space, clothes, diapers and wipes. Childcare/Caregiver(s):? JUSTO will be the primary caregiver to baby. 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 Transportation: JUSTO has her drivers license and reliable means of transportation. No barriers at this time. Programs/Agencies Involved: ???JUSTO is over income for community agencies that provide financial assistance. Children Services/Legal Issues:??No history of children services involvement. No issues or concerns warranting referral to be made at this time. ? Behavioral Health Issues: ??Mental Health History:?JUSTO has a history of anxiety and depression. JUSTO is prescribed wellbutrin from her primary care doctor. MOB states that she is also connected to a mental health counselor at [facility]. JUSTO states that she has been doing well maintaining her mental health, but got reconnected with the counselor due to delivery of baby and potential for mom experiencing baby blues or depression or anxiety.?? Substance Use History:?JUSTO has history of alcoholism. JUSTO states that she was residing in [place] and drinking heavily every day. JUSTO states that she tried a treatment program, but the first one didn't work. When she felt ready she went to a second one in [place]. MOB states that the second time she went to treatment it stuck, and her family moved her home to [place]. JUSTO is connected to an AA sponsor. MOB states that she has been sober now for 9 years. ? Family History:?MOB denies family history of substance use or significant mental health diagnoses. ? Drug Screens: ?MOB drug screen was positive for ecstasy, life assurance representative of JUSTO's wellbutrin/ antidepressant. ? Family/Social Stressors:?JUSTO denies any issues or concerns at this time. Support Systems: JUSTO states that she has a big support system found in her parents and extended family. Depression/Shaken Baby/Safe Sleeping:? MOB educated MOB on signs and symptoms of baby blues and depression and anxiety. MOB expressed understanding. Sw educated MOB on shaken baby prevention and ABCs of safe sleep. MOB expressed understanding. ASSESSMENT:? MOB and baby admitted following labor and delivery of . MOB with mental health and alcohol history. JUSTO is 9 years sober at this point and is connected to mental health and treatment support and services. JUSTO has natural supports in place and all necessary baby items she needs for baby. MOB made and maintained eye contact throughout completion of assessment. Maternal grandma observed to be a good support for MOB. Grandma observed holding baby appropriately and lovingly. MOB considering staying another day to het help with . MOB receptive to support and education provided by sw. PLAN:? MOB and baby to be discharged when medically ready, ?No other services requested or indicated. Jimi Pascual, PUTTY MIXER, SAWDUST MACHINE OPERATOR
[2024-02-19] MEDS: Naproxen 500 MG Tablet PO (12:23)
[2024-02-19 14:23] VITALS: BP 124/79; PULSE 82; RESP 16; TEMP 36.4; O2SAT 100
== END 2024-02-19 19:05 | disposition home or self-care (01) | DRG 787 ==
PROVIDERS: Admitting Provider Obstetrics & Gynecology; PCP Family Medicine; Visit Provider Obstetrics & Gynecology
PROC: 10D00Z1 Extraction of Products of Conception, Low, Open Approach (ICD-10-PCS; CPT 59514; principal; 2024-02-18 07:00)
DX: O76 Abnormality in fetal heart rate and rhythm complicating labor and delivery (principal); O10.02 Pre-existing essential hypertension complicating childbirth; F17.220 Nicotine dependence, chewing tobacco, uncomplicated; L20.9 Atopic dermatitis, unspecified; O24.420 Gestational diabetes mellitus in childbirth, diet controlled; O99.72 Diseases of the skin and subcutaneous tissue complicating childbirth; O99.334 Smoking (tobacco) complicating childbirth; Z37.0 Single live birth; Z3A.37 37 weeks gestation of pregnancy; Z79.82 Long term (current) use of aspirin; Z79.899 Other long term (current) drug therapy; Z86.16 Personal history of COVID-19; Z87.59 Personal history of other complications of pregnancy, childbirth and the puerperium
CPT/HCPCS: 59025; 59050; 80307; 82962; 85025; 85027; 86780; 86850; 86900; 86901; 99221; J7120; A4216; G0378; J2405

== ENCOUNTER 2024-03-07 10:15 | Outpatient (CLI) | payer OTHER, SELFPAY ==
[2024-03-07 10:26] VITALS: BMI 23.8
[2024-03-07 10:31] VITALS: BP 157/94; PULSE 67
[2024-03-07] MEDS: NIFEdipine 10 MG Capsule PO (10:44)
[2024-03-07 10:45] VITALS: BP 157/97; PULSE 67
--- NOTE | 2024-03-07 10:51 | NURSING ---
pt presents to [facility] from the office for elevated blood pressures- orders for nifedipine and pre E labs- assessment completed lungs clear, reflexes +2, no clonus, no headache, no epigastric pain, no vision change, no n/v, no edema. labs drawn and sent procardia given.
[2024-03-07 10:59] LABS: Hematocrit 39.3 % (37-47); Hemoglobin 12.7 g/dL (12.0-15.0); Mean Corp Hgb Conc 32.3 g/dL (32-36); Mean Corpuscular Hgb 31.8 pg (27.0-32.0); Mean Corpuscular Volume 98.3 fL (81-99); Mean Platelet Vol. 9.6 fl (6.2-12.0); Platelet Count 440 K/mm3 (150-450); RBC Distribution Width CV 11.4 % (11.6-14.6); RBC Distribution Width SD 41.4 fl (35.1-43.9); White Blood Count 7.1 K/mm3 (4.4-11.0)
[2024-03-07 11:08] VITALS: BP 184/94; PULSE 66
[2024-03-07] MEDS: NIFEdipine 10 MG Capsule 20 MG PO (11:11)
[2024-03-07 11:31] VITALS: BP 107/60; PULSE 90
[2024-03-07 11:31] LABS: AST(SGOT) 12 U/L (15-37); Alanine Aminotransfer ALT/SGPT 25 U/L (13-56); Creatinine, Serum 0.91 mg/dL (0.55-1.02); EST Glomerular Filtration Rate 73 mL/min (>60); Est Glom Filt Rate - Afr Amer 88 mL/min (>60); Estimated Creatinine Clearance 70.96 ml/min; Uric Acid 5.6 mg/dL (2.6-6.0)
--- NOTE | 2024-03-07 11:42 | NURSING ---
1115 office called and made aware of BP 184/94
--- NOTE | 2024-03-07 11:43 | NURSING ---
1141 notified of BP 107/60- notified of lab work; pt was able to void- urine collected and asked [facility] to ask if they want it sent
[2024-03-07 11:47] VITALS: BP 108/61; PULSE 90
--- NOTE | 2024-03-07 11:50 | NURSING ---
Dr Pierce returned call. Provider reviewed BP's and is ok for patient to discharge to home. Ordered 30mg Procardia XL x1 now and sent prescription to pharmacy for patient to continue at home since asymtpomatic and BP's WNL. Patient to continue Labatelol BID and to hold Procardia if BP <120/70. To follow up next week in office
--- NOTE | 2024-03-07 11:52 | OB.TRI.PN ---
Progress Notes Date of Service: 03/07/24 Progress Note: seen for elevated bp in office, responded well to procardia, will dc home on addition of procardia, labs WNL. reviewed parameters of bps and patient is asymptomatic. Laboratory Studies: Laboratory Tests 03/07/24 Range/Units 10:35 WBC 7.1 (4.4-11.0) K/mm3 RBC 4.00 L (4.2-5.4) M/mm3 Hgb 12.7 (12.0-15.0) g/dL Hct 39.3 (37-47) % MCV 98.3 (81-99) fL MCH 31.8 (27.0-32.0) pg MCHC 32.3 (32-36) g/dL RDW Std Deviation 41.4 (35.1-43.9) fl RDW Coeff of Peter 11.4 L (11.6-14.6) % Plt Count 440 (150-450) K/mm3 MPV 9.6 (6.2-12.0) fl Creatinine 0.91 (0.55-1.02) mg/dL Estim Creat Clear Calc 70.96 ml/min Est GFR (MDRD) Af Amer 88 (>60) mL/min Est GFR (MDRD) Non-Af 73 (>60) mL/min Uric Acid 5.6 (2.6-6.0) mg/dL AST 12 L (15-37) U/L ALT 25 (13-56) U/L
[2024-03-07 11:59] VITALS: BP 105/61; PULSE 90
[2024-03-07] MEDS: NIFEdipine 30 MG Tablet PO (12:12)
[2024-03-07 12:38] LABS: Protein, Urine (Random) 6.2 mg/dL (<11.9); Protein:Creat Ratio 143 mg/g CRE (0-200)
== END 2024-03-07 12:15 | disposition home or self-care (01) ==
LOC: WPOUT 10:23 → WP 10:23
PROVIDERS: PCP Family Medicine; Referring Provider Obstetrics & Gynecology; Visit Provider Obstetrics & Gynecology
DX: O99.891 Other specified diseases and conditions complicating pregnancy (principal); R03.0 Elevated blood-pressure reading, without diagnosis of hypertension; Z3A.00 Weeks of gestation of pregnancy not specified; Z79.899 Other long term (current) drug therapy
CPT/HCPCS: 36415; 82565; 82570; 84156; 84450; 84460; 84550; 85027; 99221; G0378

== ENCOUNTER → 2024-05-21 | Outpatient (CLI) | payer OTHER, SELFPAY ==
[2024-05-21 11:35] LABS: ALB/GLOB Ratio 1.1 RATIO (0.9-2.4); AST(SGOT) 15 U/L (15-37); Alanine Aminotransfer ALT/SGPT 26 U/L (13-56); Albumin, Serum 3.8 g/dL (3.2-5.0); Alkaline Phosphatase 69 U/L (45-117); Anion Gap 3 (5-15); BUN 18 mg/dL (7-18); BUN/Creat Ratio 19.2 RATIO (10-20); Calcium,Total 9.4 mg/dL (8.5-10.1); Chloride 107 mmol/L (98-107); Creatinine, Serum 0.94 mg/dL (0.55-1.02); EST Glomerular Filtration Rate 70 mL/min (>60); Est Glom Filt Rate - Afr Amer 85 mL/min (>60); Globulin 3.4 g/dL (2.2-4.2); Glucose 90 mg/dL (74-106); Potassium 4.3 mmol/L (3.5-5.1); Protein, Total 7.2 g/dL (6.4-8.2); Sodium Level 140 mmol/L (136-145)
[2024-05-21 12:19] LABS: Hemoglobin A1c 4.8 % (3.8-5.6)
== END | disposition home or self-care (01) ==
LOC: LAB 10:46
PROVIDERS: PCP Family Medicine; Referring Provider Family Medicine; Visit Provider Family Medicine
DX: Z86.32 Personal history of gestational diabetes (principal)
CPT/HCPCS: 36415; 80053; 83036

== ENCOUNTER → 2024-11-03 | Outpatient (CLI) | payer OTHER, SELFPAY ==
[2024-11-03 17:46] LABS: Absolute Lymphocyte Count 2.76 X10^3/uL (0.83-4.51); Absolute Neutrophil Count 5.6 X10^3/uL (2.0-7.7); Eosinophil# 0.45 X10^3/uL; Eosinophils% 4.6 % (0-5); Hematocrit 39.1 % (37-47); Hemoglobin 13.2 g/dL (12.0-15.0); Lymphocyte # 2.76 X10^3/ul (0.83-4.51); Lymphocyte % 28.2 % (19-41); Mean Corp Hgb Conc 33.8 g/dL (32-36); Mean Corpuscular Hgb 31.4 pg (27.0-32.0); Mean Corpuscular Volume 92.9 fL (81-99); Mean Platelet Vol. 10.1 fl (6.2-12.0); Monocyte# 0.87 X10^3/uL; Monocyte% 8.9 % (0-10); NRBC Flagged by Analyzer 0 % (0-5); Neutrophil # 5.56 X10^3/uL (2.7-7.7); Platelet Count 322 K/mm3 (150-450); RBC Distribution Width CV 11.7 % (11.6-14.6); RBC Distribution Width SD 39.5 fl (35.1-43.9); Red Blood Count 4.21 M/mm3 (4.2-5.4); White Blood Count 9.8 K/mm3 (4.4-11.0)
[2024-11-03 18:00] LABS: ALB/GLOB Ratio 1.1 RATIO (0.9-2.4); AST(SGOT) 17 U/L (15-37); Alanine Aminotransfer ALT/SGPT 29 U/L (13-56); Albumin, Serum 3.9 g/dL (3.2-5.0); Alkaline Phosphatase 66 U/L (45-117); Anion Gap 5 (5-15); BUN 21 mg/dL (7-18); BUN/Creat Ratio 21.9 RATIO (10-20); Calcium,Total 9.5 mg/dL (8.5-10.1); Chloride 107 mmol/L (98-107); Cholesterol 208 mg/dL (200); Creatinine, Serum 0.96 mg/dL (0.55-1.02); EST Glomerular Filtration Rate 68 mL/min (>60); Est Glom Filt Rate - Afr Amer 83 mL/min (>60); Globulin 3.6 g/dL (2.2-4.2); Glucose 84 mg/dL (74-106); High Density Lipoprotein 68 mg/dL; Potassium 4.1 mmol/L (3.5-5.1); Protein, Total 7.5 g/dL (6.4-8.2); Sodium Level 138 mmol/L (136-145); Triglycerides 247 mg/dL; Very Low Density Lipoprotein 49 mg/dL (5-40)
== END | disposition home or self-care (01) ==
LOC: MTLAB 15:48
PROVIDERS: PCP Family Medicine; Referring Provider Family Medicine; Visit Provider Family Medicine
DX: I10 Essential (primary) hypertension (principal); D50.0 Iron deficiency anemia secondary to blood loss (chronic); E78.00 Pure hypercholesterolemia, unspecified
CPT/HCPCS: 36415; 80053; 80061; 85025

== ENCOUNTER → 2025-03-10 | Outpatient (CLI) | payer OTHER, SELFPAY ==
[2025-03-10 17:19] LABS: Absolute Lymphocyte Count 2.67 X10^3/uL (0.83-4.51); Basophil# 0.09 X10^3/uL; Eosinophil# 0.34 X10^3/uL; Eosinophils% 3.8 % (0-5); Hematocrit 39.9 % (37-47); Hemoglobin 13.5 g/dL (12.0-15.0); Lymphocyte # 2.67 X10^3/ul (0.83-4.51); Lymphocyte % 29.8 % (19-41); Mean Corp Hgb Conc 33.8 g/dL (32-36); Mean Corpuscular Hgb 31.4 pg (27.0-32.0); Mean Corpuscular Volume 92.8 fL (81-99); Monocyte# 0.86 X10^3/uL; Monocyte% 9.6 % (0-10); NRBC Flagged by Analyzer 0 % (0-5); Neutrophil # 4.97 X10^3/uL (2.7-7.7); Neutrophil % 55.5 % (47-70); Platelet Count 385 K/mm3 (150-450); RBC Distribution Width CV 12.2 % (11.6-14.6); RBC Distribution Width SD 41.7 fl (35.1-43.9)
== END | disposition home or self-care (01) ==
PROVIDERS: PCP Family Medicine; Referring Provider Obstetrics & Gynecology; Visit Provider Obstetrics & Gynecology
DX: N93.9 Abnormal uterine and vaginal bleeding, unspecified (principal)
CPT/HCPCS: 36415; 84443; 85025

== ENCOUNTER → 2025-03-17 | Outpatient (CLI) | payer OTHER, SELFPAY ==
--- NOTE | 2025-03-17 14:29 | US_ITS ---
PROCEDURE: PELVIC W/ TRANSVAGINAL REASON FOR EXAM: ABNORMAL UTERINE BLEEDING TECHNIQUE: Transabdominal and transvaginal pelvic ultrasound COMPARISON: None FINDINGS: LMP: March 07, 2025 Measurements: Uterus: 8 cm x 6.4 cm x 5.9 cm with a volume of 159 mL Endometrial Thickness: 9 mm Right Ovary: 4.3 cm x 1.9 cm x 1.6 cm with a volume of 6.54 mL. Left Ovary: 3.7 cm x 2.9 cm x 2.6 cm with a volume of 13.93 mL. TRANSABDOMINAL: Uterus: Nabothian cyst. 8 mm x 9 mm x 6 mm uterine fibroid. Endometrium: 9 mm. It is hyperechoic. Right ovary: Normal size and echotexture. Left ovary: 2.5 cm x 2.3 cm 1.9 cm left ovarian cyst. Other: No large pelvic mass identified. Transvaginal sonography was performed to better visualize the endometrium. TRANSVAGINAL: Uterus: Anteverted. Small uterine fibroid. Nabothian cyst. Endometrium: 9 mm. Hyperechoic. Nabothian cyst. Right ovary: Normal size and echotexture. Left ovary: Small left ovarian cyst. Other adnexal findings: None. Cul-de-sac: No free intraperitoneal fluid identified. Tenderness: No tenderness US/Pelvic w/ Transvaginal IMPRESSION: Small left ovarian cyst. Small uterine fibroid. Reading Location: [place] [address]
--- OUTSIDE RECORDS SUMMARY | 2025-03-17 23:53 | XMS RPT_ITS | CCD ---
Author Organization [facility] Care Team Providers Care [id number] Software Engineer Name Role Phone Juancho Akhtar Unavailable Unavailable Blane Mehta Unavailable Unavailable Juancho Akhtar Unavailable Unavailable Phoebe Bojorquez Unavailable Unavailable Unknown, Referring Provider Unavailable Unav ailable Melchor Cook Unavailable Unavailable Mandeep Morgan Unavailable Unavailable Frieda Lu Unavailable Unavailable Sa, January Unavailable Unavailable Jeanette Orlando Unavailable Unavailable Phoebe Bojorquez Unavailable Unavailable Black, Celia Unavailable Unavailable Unavailable Primary Care Provider Unavailpanchito pantoja Unavailable Primary Care Provider UnavailJuancho Romero DO Primary Care Provider JUANCHO AKHTAR Primary Care Unavailable ELLA ARBOLEDA Consulting Unavailable BHAVANA MEJIAS Attending BHAVANA Thurman Admitting MAXI Barnett Consulting Unavailable JUANCHO AKHTAR Primary Care Unavailable Juancho Akhtar DO Primary Care Provider TOBIAS REDMOND, DR JIMI Zambrano Attending Unavailab BHAVANA Coleman MD Attending UnavailJUANCHO Romero Primary Care Unavailable COTY HOWELL Referring Unavailable DARNELL CATES Attending Unavailable MOHINI Howell Attending Provider Dr. Juancho Akhtar Primary Care Provider Dr. Juancho Akhtar Referring Provider [phone] Dr. Aneudy Rodriguez Attending Provider Dr. Alida Pierce Referring Provider [phone] MOHINI Hale Attending Provider [phone] Dr. Alida Pierce Attending Provider Giovana, Dr. Juancho Knight Primary Care Provider Giovana, Dr. Juancho Knight Referring Provider MOHINI Howell Attending Provider Giovana, Dr. Juancho Knight Primary Care Provider Luis Fernando MEDICAL CUSTOMER SERVICE REPRESENTATIVE, CRISTIAN-Eneida Wilder Attending Provider [phone] Giovana DO, Dr. Juancho Knight Primary Care Provider Giovana DO, Dr. Juancho Knigth Referring Provider Stan REDMOND, Dr. Irwin Attending Provider [phone] Stan REDMOND, Dr. Irwin Referring Provider Alida Pierce Attending Unavailable Alida Pierce Referring Unavailable Giovana, Juancho D Primary Care Unavailable Giovana, Juancho D Referring Unavailable Giovana, Juancho D Primary Care Unavailable Joshua Chen Attending Unavailable Alida Pierce Attending Unavailable Giovana, Juancho D Referring Unavailable Giovana, Juancho D Primary Care Unavailable Giovana, Juancho D Primary Care Unavailable Giovana, Juancho D Referring Unavailable Fortune MEDICAL CUSTOMER SERVICE REPRESENTATIVE, Rhonda Attending Unavailable Giovana, Juancho D Primary Care Unavailable Giovana, Juancho D Referring Unavailable Coty Howell Attending Unavailable Giovana, Juancho D Primary Care Unavailable Giovana, Juancho D Referring Unavailable Fortune MEDICAL CUSTOMER SERVICE REPRESENTATIVE, Rhonda Attending Unavailable Alida Pierce Attending Unavailable Alida Pierce Referring Unavailable Giovana, Juancho D Primary Care Unavailable Giovana, Juancho D Attending Unavailable Giovana, Juancho D Referring Unavailable Giovana, Juancho D Primary Care Unavailable Giovana, Juancho D Attending Unavailable Giovana, Juancho D Referring Unavailable Giovana, Juancho D Primary Care Unavailable Allergies Allergy Classification Reported Allergen(s) Allergy Type Date of Onset Reaction(s) Facility (3 sources) ultrasound coupling medium; Translations: [ultrasound coupling medium] Propensity to adverse reactions 02-14-2024 [facility] Medications Current Medications Medication Drug Class(es) Dates Sig (Normalized) Sig (Original) ALPRAZolam 0.25 mg disintegrating oral tablet (2 sources) Benzodiazepine Start: 01-06-2022 ALPRAZolam (NIRAVAM) dissolvable tablet 0.25 mg Start: 09-26-2021 ALPRAZolam (NI RAVAM) dissolvable tablet 0.25 mg amphetamine aspartate 5 mg / amphetamine sulfate 5 mg / dextroamphetamine saccharate 5 mg / dextroamphetamine sulfate 5 mg oral tablet (1 source) Central Nervous System Stimulant Start: 03-10-2025 take 1 tablet by mouth once daily Dextroamphetamine-Amphetamine (Adderall) 20 mg tablet Active 20 mg PO daily March 10, 2025 12:00am Blood-Glucose Meter (7 sources) Start: 12-27-2023 Blood-Glucose Meter Active 0 .MEDSUPPLY December 27, 2023 12:00am As directed- Test fasting and 2 hours after meals 24 hr buPROPion hydrochloride 300 mg extended release oral tablet (20 sources) Aminoketone Start: 11-17-2019 take 1 tablet by mouth every twenty-f our hours buPROPion HCl ER (XL) 150 MG Oral Tablet Extended Release 24 Hour Quantity: 30 Refills: 0 DO Start : 17-Nov-2019 Active Start: 04-03-2018 take 1 tablet by michael th once daily buPROPion (WELLBUTRIN XL) 300 MG extended release tablet TAKE 1 TABLET BY MOUTH EVERY DAY 0 04/29/2020 Active Start: 09-21-2017 take 3 tablets by mo uth once daily Bupropion Hcl 100 MG tablet Active 300 mg PO DAILY September 21, 2017 1:00am Start: 09-21-2017 take 300 mg by mouth once sandra y Bupropion Hcl Active 300 MG PO DAILY September 21, 2017 1:00am take 1 tablet by michael th every twenty-four hours Wellbutrin XL 300 MG Oral Tablet Extended Release 24 Hour Refills: 0 DO Active Comment on above: Take 300 mg by mouth once daily. busPIRone hydrochloride 10 mg oral tablet (16 sources) Start: 05-14-2018 take 0.5-1 tablets by mouth twice daily busPIRone (BUSPAR) 10 MG tablet TAKE ONE-HALF TO 1 TABLET BY MOUTH TWICE A DAY 0 05/14/2018 Active Start: 09-21-2017 End: 03-27-2023 take 2 tablets by mouth twice daily Buspirone 5 MG tablet Discontinued 10 mg PO TWICE A DAY September 21, 2017 1:00am January 01, 2023 1:46pm Start: 09-21-2017 End: 01-01-2023 take 10 mg by mouth twice daily Buspirone Discontinued 10 MG PO TWICE A DAY September 21, 2017 1:00am January 01, 2023 1:46pm Comment on above: Take 10 mg by mouth twice daily. calcium chloride 0.0014 meq/ml / potassium chloride 0.004 meq/ml / sodium chloride 0.103 meq/ml / sodium lactate 0.028 meq/ml injectable solution (2 sources) Start: 01-06-2022 lactated ringers infusion Start: 09-26-2021 lactated ringe rs infusion citalopram 40 mg oral tablet (17 sources) Serotonin Reuptake Inhibitor Start: 05-23-2020 citalopram (CELEXA) 40 MG tablet Patient states, no longer taking this medication 0 05/23/2020 Active Start: 03-18-2018 citalopram (CE VEGA) 20 MG tablet 1 WHOLE TAB ONCE A DAY ORALLY 90 DAYS 0 03/18/2018 Active Citalopram [place] bromide 40 MG Oral Tablet Refills: 0 DO Active Comment on above: Take 20 mg by mouth once daily. 1 ml diphenhydrAMINE hydrochloride 50 mg/ml cartridge (2 sources) Histamine-1 Receptor Antagonist Start: 01-06-2022 End: 01-06-2022 diphenhydrAMINE (BENADRYL) injection 12.5 mg Start: 09-26-2021 End: 09-26-2021 diphenhydrAMINE (BENADRYL) i njection 12.5 mg docusate sodium 100 mg oral capsule (1 source) Start: 01-06-2022 End: 02-05-2022 take 1 capsule by mouth twice daily docusate sodium (COLACE) 100 MG capsule Take 1 capsule by mouth 2 times daily 60 capsule 0 01/06/2022 02/05/2022 Active 2 ml fentaNYL 0.05 mg/ml injection (4 sources) Opioid Agonist Start: 01-06-2022 fentaNYL (SUBLIMAZE) injection 50 mcg Start: 01-06-2022 fentaNYL (SUBL IMAZE) injection 25 mcg Start: 09-26-2021 fentaNYL (SUBL IMAZE) injection 50 mcg Start: 09-26-2021 fentaNYL (SUBL IMAZE) injection 25 mcg 1 ml hydrALAZINE hydrochloride 20 mg/ml injection (1 source) Arteriolar Vasodilator Start: 09-26-2021 hydrALAZINE (APRESOLINE) injection 5 mg 1 ml HYDROmorphone hydrochloride 1 mg/ml cartridge (2 sources) Opioid Agonist Start: 09-26-2021 HYDROmorphone (DILAUDID) injection 0.5 mg Start: 09-26-2021 HYDROmorphone (DILAUDID) injection 0.25 mg ibuprofen 200 mg oral tablet (1 source) Nonsteroidal Anti-inflammatory Drug Start: 01-06-2022 take 1 tablet by mouth every six hours as needed for pain ibuprofen (ADVIL) 200 MG tablet Take 1 tablet by mouth every 6 hours as needed for Pain 60 tablet 3 01/06/2022 Active labetalol hydrochloride 100 mg oral tablet (12 sources) beta-Adrenergic Aixa Start: 01-01-2023 take 1 tablet by mouth twice daily Labetalol 100 mg tablet Active 100 mg PO TWICE A DAY January 01, 2023 12:00am Start: 09-26-2021 labetalol (NOR MODYNE;TRANDATE) injection 5 mg labetalol (TRAND ATE) 100 mg tablet Take 100 mg by mouth. 0 Active Comment on above: Take 100 mg by mouth . labetalol (NORMODYNE;TRANDATE) injection 10 mg (1 source) Start: 01-06-2022 labetalol (NORMODYNE;TRANDATE) injection 10 mg 10 ml lidocaine hydrochloride 10 mg/ml injection (15 sources) Antiarrhythmic, Amide Local Anesthetic Start: 01-06-2022 End: 01-06-2022 lidocaine PF 1 % injection 1 mL Start: 09-26-2021 End: 09-26-2021 lidocaine PF 1 % injection 1 mL Start: 02-10-2021 End: 01-01-2023 Lidocaine 5 % ointment Disco ntinued 1 NMA TOPICAL .prn 30 February 10, 2021 12:00am January 01, 2023 1:46pm Start: 02-10-2021 End: 01-01-2023 Lidocaine Discontinued 1 LINWOOD LIC TOPICAL .prn 30 February 10, 2021 12:00am January 01, 2023 1:46pm meloxicam 7.5 mg oral tablet (1 source) Nonsteroidal Anti-inflammatory Drug Start: 06-15-2020 meloxicam (MOBIC) 7.5 MG tablet Patient states, no longer taking this medication 0 06/15/2020 Active 1 ml meperidine hydrochloride 25 mg/ml cartridge (2 sources) Opioid Agonist Start: 01-06-2022 meperidine (DEMEROL) injection 12.5 mg Start: 09-26-2021 meperidine (DE MEROL) injection 12.5 mg Multivit With Min-Folic Acid 0.4 mg tablet (1 source) Start: 03-10-2025 Multivit With Min-Folic Acid 0.4 mg tablet Active 1 {tbl} PO DAILY March 10, 2025 12:00am NIFEdipine POWD (1 source) Start: 08-09-2021 NIFEdipine POW D 0.2% BID to tenzin-anal area 30 g 0 08/09/2021 Active norethindrone acetate 5 mg oral tablet (1 source) Start: 03-10-2025 Norethindrone Acetate 5 mg tablet Active 5 mg PO .COMPLEX 30 March 10, 2025 12:00am 5 mg PO BID x 3 days and then once daily for remainder polyethylene glycol 3350 [id number] mg powder for oral solution (1 source) Osmotic Laxative take 17 g by mouth once daily as needed polyethylene glycol (MIRALAX) 17 g PACK packet Take 17 g by mouth daily as needed 0 Active Vit-Fe Fumarate-FA ( VITAMIN PO) (2 sources) Vit-Fe Fumarate-FA ( VITAMIN PO) Take by mouth daily 0 Active 1 ml promethazine hydrochloride 25 mg/ml injection (1 source) Phenothiazine Start: 09-26-2021 End: 09-26-2021 promethazine (PHENERGAN) injection 6.25 mg psyllium 3400 mg powder for oral suspension (2 sources) take 1 dose by mouth once daily psyllium (KONSYL) 28.3 % PACK Take 1 packet by mouth daily 0 Active 5 ml sodium chloride 9 mg/ml injection (12 sources) Start: 01-06-2022 sodium chlorid e flush 0.9 % injection 5-40 mL Start: 01-06-2022 sodium chlorid e flush 0.9 % injection 10 mL Start: 01-06-2022 0.9 % sodium c hloride bolus Start: 01-06-2022 0.9 % sodium c hloride infusion Start: 01-06-2022 sodium chlorid e flush 0.9 % injection 5-40 mL Start: 09-26-2021 sodium chlorid e flush 0.9 % injection 5-40 mL Start: 09-26-2021 End: 09-26-2021 0.9 % sodium chloride bolus Start: 09-26-2021 0.9 % sodium c hloride infusion Start: 09-26-2021 sodium chlorid e flush 0.9 % injection 5-40 mL Completed/Discontinued Medications Medication Drug Class(es) Dates Sig (Normalized) Sig (Original) acetaminophen 500 mg oral tablet (2 sources) Start: 01-06-2022 End: 01-06-2022 acetaminophen (TYLENOL) tablet 1,000 mg Start: 09-26-2021 End: 09-26-2021 acetaminophen (TYLENOL) tabl et 1,000 mg acetaminophen 325 mg / HYDROcodone bitartrate 5 mg oral tablet (12 sources) Opioid Agonist Start: 04-21-2019 take 1 tablet by mouth every four hours as needed for pain HYDROcodone-Acetaminophen 5-325 MG Oral Tablet TAKE 1 TABLET BY MOUTH EVERY 4 HOURS NEEDED FOR PAIN X 7 DAYS Quantity: 42 Refills: 0 DO Start : 21-Apr-2019 Active acetaminophen 325 mg / oxyCODONE hydrochloride 5 mg oral tablet (1 source) Opioid Agonist Start: 09-26-2021 End: 09-26-2021 oxyCODONE-acetaminophen (PERCOCET) 5-325 MG per tablet Indications: Status post anal fissurectomy Take 1 tablet by mouth every 6 hours as needed for Pain for up to 7 days. Intended supply: 7 days. Take lowest dose possible to manage pain 28 tablet 0 09/26/2021 09/26/2021 Discontinued (Stop Taking at Discharge) atenolol 25 mg oral tablet (20 sources) beta-Adrenergic Aixa Start: 09-21-2017 End: 01-01-2023 take 1 tablet by mouth once daily Atenolol 25 MG tablet Discontinued 25 mg PO DAILY September 21, 2017 1:00am January 01, 2023 1:45pm Comment on above: Take 25 mg by mouth once daily. Blood-Glucose Meter misc (1 source) Start: 12-27-2023 End: 03-07-2024 Blood-Glucose Meter misc Discontinued 0 .MEDSUPPLY December 27, 2023 12:00am March 07, 2024 10:05am As directed- Test fasting and 2 hours after meals cetirizine hydrochloride 10 mg oral capsule (9 sources) Histamine-1 Receptor Antagonist Start: 11-02-2023 End: 03-07-2024 take 1 capsule by mouth once daily as needed Cetirizine (Zyrtec) 10 mg capsule Discontinued 10 mg PO DAILY as needed for allergy symptoms November 02, 2023 1:00am March 07, 2024 10:05am clobetasol propionate 0.5 mg/ml topical cream (12 sources) Corticosteroid Start: 01-01-2019 Clobetasol Propionate 0.05 % External Cream APPLY ONE APPLICATION TOPICALLY TO AFFECTED AREA(S) ONE TO TWO TIMES D Quantity: 60 Refills: 0 DO Start : 01-Jan-2019 Active erythromycin 0.005 mg/mg ophthalmic ointment (1 source) Macrolide, Macrolide Antimicrobial Start: 09-24-2024 End: 03-10-2025 Erythromycin 5 mg/gram (0.5 %) ointment Discontinued 1 cm OPHTHALMIC EVERY 6 HOURS September 24, 2024 1:00am March 10, 2025 3:50pm Apply 1 cm ribbon to left eye at least 4x per day for 7 days. estradiol 0.1 mg/ml vaginal cream (1 source) Estrogen Start: 02-13-2017 estradiol (ESTRACE) 0.01 % (0.1 mg/gram) vaginal cream Apply a dime sized amount to affected area every night 1 Tube 2 02/13/2017 Active Comment on above: Apply a dime sized a mount to affected area every night Ethinyl Estradiol / norgestimate (1 source) Progestin, Estrogen take 1 tablet by mouth once daily norgestimate 0.25 mg-ethinyl estradiol 35 mcg (SPRINTEC, ORTHO-CYCLEN) 0.25-35 mg-mcg per tablet Take 1 tablet by mouth once daily. 0 Active Comment on above: Take 1 tablet by michael once daily. famotidine 20 mg oral tablet (2 sources) Histamine-2 Receptor Antagonist Start: 01-06-2022 End: 01-06-2022 famotidine (PEPCID) tablet 20 mg Start: 09-26-2021 End: 09-26-2021 famotidine (PEPCID) tablet 2 0 mg ferrous sulfate 325 mg oral tablet (16 sources) Start: 09-21-2017 End: 03-10-2025 take 1 tablet by mouth twice daily at mealtime Ferrous Sulfate 325 MG tablet Discontinued 325 mg PO TWICE DAILY WITH MEALS September 21, 2017 1:00am March 10, 2025 3:50pm take 1 tablet by michael th once daily at breakfast ferrous sulfate (IRON 325) 325 (65 Fe) M G tablet Take 325 mg by mouth daily (with breakfast) 0 Active Comment on above: Take 325 mg by mouth twice daily. fluocinolone acetonide 0.1 mg/ml topical solution (9 sources) Corticosteroid Start: 11-02-2023 End: 02-18-2024 Fluocinolone (Synalar) 0.01 % solution Discontinued 1 NMA TOPICAL TWICE A DAY November 02, 2023 1:00am February 18, 2024 6:08am gabapentin 100 mg oral capsule (2 sources) Anti-epileptic Agent Start: 01-06-2022 End: 01-06-2022 gabapentin (NEURONTIN) capsule 100 mg Start: 09-26-2021 End: 09-26-2021 gabapentin (NEURONTIN) capsu le 100 mg Multivit 99-Qmmm-Hylbid 1-Dh a (Pnv-Dha) 27 mg iron-1 mg -300 mg capsule (9 sources) Start: 08-07-2023 End: 03-10-2025 Multivit 28-Hbzu-Hbbnwm 1-Dh a (Pnv-Dha) 27 mg iron-1 mg -300 mg capsule Discontinued 1 NMA PO DAILY August 07, 2023 12:00am March 10, 2025 3:50pm Start: 08-07-2023 Multivit 47-Ir on-Folate 1-Dha (Pnv-Dha) 27 mg iron-1 mg -300 mg capsule Active CAP PO August 07, 2023 12:00am naproxen 500 mg oral tablet (14 sources) Nonsteroidal Anti-inflammatory Drug Start: 02-19-2024 End: 03-07-2024 take 1 tablet by mouth every eight hours Naproxen 500 mg Tablet Discontinued 500 mg PO Q8H February 19, 2024 12:00am March 07, 2024 10:05am Start: 02-10-2021 End: 01-01-2023 Naproxen 500 mg tablet Disco ntinued 500 mg PO 2 to 3 times per day as needed for pain February 10, 2021 12:00am January 01, 2023 1:46pm administer with food or milk NIFEdipine 30 mg osmotic 24 hr extended release oral tablet (2 sources) Dihydropyridine Calcium Channel Aixa Start: 03-07-2024 End: 03-10-2025 take 1 tablet by mouth once daily Nifedipine (Procardia Xl) 30 mg tablet extended release 24hr Discontinued 30 mg PO DAILY April 04, 2024 9:18am March 10, 2025 3:50pm 2 ml ondansetron 2 mg/ml injection (2 sources) Serotonin-3 Receptor Antagonist Start: 01-06-2022 End: 01-06-2022 ondansetron (ZOFRAN) injection 4 mg Start: 09-26-2021 End: 09-26-2021 ondansetron (ZOFRAN) injecti on 4 mg oxyCODONE hydrochloride 5 mg oral tablet (4 sources) Opioid Agonist Start: 02-19-2024 End: 03-07-2024 take 5-10 mg by mouth every four hours as needed for pain Oxycodone 5 mg Tablet Discontinued 5 - 10 mg PO EVERY 4 HOURS NEEDED as needed for Pain Score 4-10 10 February 19, 2024 March 07, 2024 10:05am Start: 01-06-2022 End: 01-06-2022 oxyCODONE (ROXICODONE) immed iate release tablet 5 mg Start: 01-06-2022 End: 01-09-2022 oxyCODONE (ROXICODONE) 5 MG immediate release tablet Indications: S/P myomectomy Take 1 tablet by mouth every 6 hours as needed for Pain for up to 3 days. Intended supply: 3 days. Take lowest dose possible to manage pain 15 tablet 0 01/06/2022 01/09/2022 Active Start: 09-26-2021 End: 09-26-2021 oxyCODONE (ROXICODONE) immed iate release tablet 5 mg vit no.124/iron/folic ( VITAMIN ORAL) (1 source) vit no.124/iron/folic ( VITAMIN ORAL) Take by mouth. 0 Active Comment on above: Take by mouth. valACYclovir 1000 mg oral tablet (20 sources) Herpesvirus Nucleoside Analog DNA Polymerase Inhibitor, Herpes Simplex Virus Nucleoside Analog DNA Polymerase Inhibitor, Herpes Zoster Virus Nucleoside Analog DNA Polymerase Inhibitor Start: 1 End: 4 Valacyclovir (Valtrex) 1 gram tablet Discontinued 1000 mg PO TWICE A DAY as needed August 07, 2023 9:34am February 18, 2024 6:09am take BID x 10 days initially, then BID x 5 days for recurrent infections Problems Active Problems Problem Classification Problem Date Documented Date Episodic/Chronic Allergic reactions (20 sources) Atopic dermatitis; Translations: [Atopic dermatitis, unspecified] 11-02-2023 Chronic Comment on above: thighs and abdomen-Z yrtec and low potency steroid crm given Anxiety disorders (14 sources) Mixed anxiety and depressive disorder; Translations: [Anxiety and depression] Chronic Contraceptive and procreative management (4 sources) Patient encounter status; Translations: [Encounter for other general counseling and advice on procreation] 01-18-2021 Episodic Diabetes mellitus without complication (15 sources) Abnormal glucose level; Translations: [Other abnormal glucose] 12-24-2023 Episodic Comment on above: 3 HR GTT Essential hypertension (16 sources) Benign essential hypertension; Translations: [Essential (primary) hypertension] Onset: 06-06-2022 Chronic Hypertension complicating ; childbirth and the puerperium (20 sources) Hypertension complicating ; Translations: [Unspecified maternal hypertension, unspecified trimester] 12-21-2023 Chronic Comment on above: labetalol, cHTN, bas yasmin labs drawn, baby asa recommended. Normal echo. plan growht us q 4 weeks and weekly bpp and weekly nst after 32, deliver 37. Stable Inflammation; infection of eye (except that caused by tuberculosis or sexually transmitteddisease) (1 source) Unspecified acute conjunctivitis, left eye; Translations: [Acute conjunctivitis of left eye] 09-24-2024 Episodic Mood disorders (1 source) Mood disorders; Translations: [DEPRESSION UNSPECIFIED] Onset: 06-06-2022 Nonmalignant breast conditions (9 sources) Mastodynia; Translations: [Pain of left breast] 08-16-2023 Episodic Comment on above: imaging Other and unspecified benign neoplasm (1 source) Leiomyoma; Translations: [Benign neoplasm of connective and other soft tissue, unspecified] Onset: 11-15-2021 11-16-2021 Episodic Other complications of ; puerperium affecting management of mother (20 sources) Advanced maternal age ; Translations: [Advanced maternal age during ] 12-21-2023 Episodic Comment on above: genetic counseling d iscussed, declined. Other complications of ; puerperium affecting management of mother (1 source) Deliveries by ; Translations: [Encounter for delivery without indication] 02-18-2024 Episodic Comment on above: [facility] previous susan mectomy 37 Other complications of (2 sources) Missed ; Translations: [MISSED ] Onset: 06-06-2022 Episodic Other complications of (9 sources) Disease caused by 2019-nCoV; Translations: [Other viral diseases complicating , second trimester] 08-27-2023 Episodic Comment on above: asa 81mg, growth US @ 32 & 36 wks. Other complications of (9 sources) High risk ; Translations: [Supervision of high risk , unspecified, unspecified trimester] 12-21-2023 Episodic Comment on above: PRR , MARIA TERESA 03/10/24 , boy Single, mom- celia Other complications of (9 sources) Venereal disease in mother complicating , childbirth AND/OR puerperium; Translations: [Other infections with a predominantly sexual mode of transmission complicating , unspecified trimester] 08-16-2023 Episodic Comment on above: plan valtrex at 36 w eeks Other complications of (20 sources) Other viral diseases complicating , second trimester; Translations: [Other viral diseases in the mother, antepartum condition or complication] 09-12-2023 Episodic Other complications of (20 sources) Other infections with a predominantly sexual mode of transmission complicating , unspecified trimester; Translations: [Other viral diseases in the mother, unspecified as to episode of care or not applicable] 09-12-2023 Episodic Other complications of (20 sources) Supervision of high risk , unspecified, unspecified trimester; Translations: [Supervision of unspecified high-risk ] 09-12-2023 Episodic Other female genital disorders (1 source) Dyspareunia due to non-psychogenic cause in the female; Translations: [Other specified dyspareunia] Onset: 02-13-2017 02-13-2017 Chronic Other female genital disorders (1 source) Abnormal uterine bleeding; Translations: [Abnormal uterine and vaginal bleeding, unspecified] 03-10-2025 Chronic Other female genital disorders (2 sources) Abnormal uterine and vaginal bleeding, unspecified; Translations: [Abnormal uterine and vaginal bleeding, unspecified] Onset: 03-12-2025 Chronic Other injuries and conditions due to external causes (14 sources) Injury of superior glenoid labrum of shoulder joint; Translations: [Superior glenoid labrum lesion of left shoulder, initial encounter] Episodic Other injuries and conditions due to external causes (9 sources) Finding of urine substance level; Translations: [Elevated urine levels of drugs, medicaments and biological substances] 08-29-2023 Episodic Comment on above: Confirmation testing indicates a false positive test. Other injuries and conditions due to external causes (20 sources) Elevated urine levels of drugs, medicaments and biological substances; Translations: [Nonspecific abnormal toxicological findings] 09-12-2023 Episodic Other nervous system disorders (1 source) Postoperative pain ; Translations: [Other acute postprocedural pain] 02-19-2024 Episodic Residual codes; unclassified (14 sources) Acute pain; Translations: [Acute shoulder pain due to trauma, right] Episodic Residual codes; unclassified (11 sources) H/O: myomectomy; Translations: [Other specified postprocedural states] Onset: 01-06-2022 Episodic Comment on above: laparoscopic at [facility] a 01/2022, op note reviewed recommended primary plan 36-37 week deliveryscheduled for 02/17 @ 7:15 with SM Residual codes; unclassified (20 sources) Other specified postprocedural states; Translations: [Other postprocedural status] 09-12-2023 Episodic Residual codes; unclassified (1 source) Infertile 02-18-2024 Episodic Comment on above: IUI donor sperm Sprains and strains (20 sources) Unspecified sprain of left shoulder joint, initial encounter; Translations: [Glenoid labrum tear] Onset: 05-21-2018 05-21-2018 Episodic Substance-related disorders (1 source) Nicotine dependence, chewing tobacco, uncomplicated; Translations: [NICOTINE DEPEND CHEW TOBACCO UNCOMP] Onset: 06-06-2022 Chronic Superficial injury; contusion (1 source) Tick bite; Translations: [Insect bite (nonvenomous) of left shoulder, initial encounter] Episodic Unclassified (20 sources) Infertile; Translations: [Infertility] 08-16-2023 Viral infection (13 sources) Genital herpes simplex; Translations: [Herpesviral infection of urogenital system, unspecified] 02-10-2021 Chronic Comment on above: Valtrex, topical lid ocaine, and naproxen ordered Past or Other Problems Problem Classification Problem Date Documented Da te Episodic/Chronic Diabetes or abnormal glucose tolerance complicating ; childbirth; or the puerperium (20 sources) Gestational diabetes mellitus; Translations: [Gestational diabetes mellitus in , unspecified control] Onset: 04-04-2024 12-27-2023 Episodic Comment on above: test BS fasting & 2 hr post meals, nutrition consult with [facility] floor worker.growth US 36wk Open wounds of head; neck; and trunk (1 source) Perineal laceration involving fourchette; Translations: [Laceration without foreign body of vagina and vulva, initial encounter] Onset: 02-13-2017 02-13-2017 Episodic Other and delivery including normal (20 sources) ; Translations: [Encounter for supervision of normal , unspecified, unspecified trimester] Onset: 04-29-2024 12-21-2023 Episodic Comment on above: declined genetic & c arrier testing Unclassified (1 source) Sprain of left shoulder, unspecified shoulder sprain type, initial encounter NEGATED: Highlighted row has not occurred!Residual codes; unclassified (20 sources) Disease Episodic Results Test Name Value Interpretation Reference Range Facility Absolute lymphocyte countOrd ered By: Alida Pierce on 03-10-2025 Lymphocytes Auto (Unsp spec) [#/Vol] 2.67 10*3/uL 0.83-4.51 [facility] Absolute neutrophil countOrd ered By: Alida Pierce on 03-10-2025 Neutrophils (Bld) [#/Vol] 5.0 10*3/uL 2.0-7.7 [facility] Automated lymphocyte count a s percentage of total leukocytesOrdered By: Alida Pierce on 03-10-2025 Lymphocytes/100 WBC Auto (Unsp spec) 29.8 % 19-41 [facility] Basophil percentageOrdered B y: Alida Pierce on 03-10-2025 Basophils/100 WBC (Bld) 1.0 % 0-1 [facility] CBC W/Diff, Automatedon Absolute Lymph 2.67 X10 3/uL Normal 0.83-4.51 [facility] Comment on above: Performed By: #### L 501.9520, L100.0100 #### [facility] [address] [place], [address] Absolute Neut 5.0 X10 3/uL Normal 2.0-7.7 [facility] Comment on above: Performed By: #### L 501.9520, L100.0100 #### [facility] [address] [place], [address] Basophils/100 WBC (Bld) 1.0 % Normal 0-1 [facility] Comment on above: Performed By: #### L 501.9520, L100.0100 #### [facility] [address] [place], [address] Eosinophils/100 WBC (Bld) 3.8 % Normal 0-5 [facility] Comment on above: Performed By: #### L 501.9520, L100.0100 #### [facility] [address] [place], [address] Erythrocyte distribution width (RBC) [Ratio] 12.2 % Normal 11.6-14.6 [facility] Comment on above: Performed By: #### L 501.9520, L100.0100 #### [facility] [address] [place], [address] Hematocrit (Bld) [Volume fraction] 39.9 % Normal 37-47 [facility] Comment on above: Performed By: #### L 501.9520, L100.0100 #### [facility] [address] [place], [address] Hemoglobin (Bld) [Mass/Vol] 13.5 g/dL Normal 12.0-15.0 [facility] Comment on above: Performed By: #### L 501.9520, L100.0100 #### [facility] [address] [place], [address] IG% 0.300 Normal 0.0-0.9 [facility] Comment on above: Result Comment: IG% - Immature Granulocytes (promyelocytes, myelocytes and metamyelocytes) > 1% indicates that a LEFT SHIFT is Present. Performed By: #### L 501.9520, L100.0100 #### [facility] [address] [place], [address] Lymphocytes/100 WBC (Bld) 29.8 % Normal 19-41 [facility] Comment on above: Performed By: #### L 501.9520, L100.0100 #### [facility] [address] [place], [address] MCH (RBC) [Entitic mass] 31.4 pg Normal 27.0-32.0 [facility] Comment on above: Performed By: #### L 501.9520, L100.0100 #### [facility] [address] [place], [address] MCHC (RBC) [Mass/Vol] 33.8 g/dL Normal 32-36 [facility] Comment on above: Performed By: #### L 501.9520, L100.0100 #### [facility] [address] [place], [address] MCV (RBC) [Entitic vol] 92.8 fL Normal 81-99 [facility] Comment on above: Performed By: #### L 501.9520, L100.0100 #### [facility] [address] [place], [address] Monocytes/100 WBC (Bld) 9.6 % Normal 0-10 [facility] Comment on above: Performed By: #### L 501.9520, L100.0100 #### [facility] [address] [place], [address] Neutrophils/100 WBC (Bld) 55.5 % Normal 47-70 [facility] Comment on above: Performed By: #### L 501.9520, L100.0100 #### [facility] [address] [place], [address] Nucleated RBC (Bld) [#/Vol] 0 10*3/uL Normal 0-5 [facility] Comment on above: Performed By: #### L 501.9519, L100.0100 #### [facility] [address] [place], [address] Platelet mean volume (Bld) [Entitic vol] 10.0 fL Normal 6.2-12.0 [facility] Comment on above: Performed By: #### L 501.20, L100.0100 #### [facility] [address] [place], [address] Platelets (Bld) [#/Vol] 385 10*3/uL Normal 150-450 [facility] Comment on above: Performed By: #### L 501.9520, L100.0100 #### [facility] [address] [place], [address] RBC (Bld) [#/Vol] 4.30 10*6/uL Normal 4.2-5.4 [facility] Comment on above: Performed By: #### L 501.9520, L100.0100 #### [facility] [address] [place], [address] RDW SD 41.7 fl Normal 35.1-43.9 [facility] Comment on above: Performed By: #### L 501.9520, L100.0100 #### [facility] [address] [place], [address] WBC (Bld) [#/Vol] 9.0 10*3/uL Normal 4.4-11.0 [facility] Comment on above: Performed By: #### L 501.9520, L100.0100 #### [facility] [address] [place], [address] Eosinophil percentageOrdered By: Alida Pierce on 03-10-2025 Eosinophils/100 WBC (Bld) 3.8 % 0-5 [facility] Erythrocyte distribution wid th ratioOrdered By: Alida Pierce on 03-10-2025 Erythrocyte distribution width (RBC) [Ratio] 12.2 % 11.6-14.6 [facility] Erythrocyte distribution wid th standard deviationOrdered By: Alida Pierce on 03-10-2025 Erythrocyte distribution width (RBC) [Ratio] 41.7 fl 35.1-43.9 [facility] Hematocrit Auto (Bld) [Volum e fraction]Ordered By: Alida Pierce on 03-10-2025 Hematocrit (Bld) [Volume fraction] 39.9 % 37-47 [facility] Hemoglobin measurementOrdere d By: Alida Pierce on 03-10-2025 Hemoglobin (Bld) [Mass/Vol] 13.5 g/dL 12.0-15.0 [facility] Immature granulocytes/100 WB C Auto (Bld)Ordered By: Alida Pierce on 03-10-2025 Immature granulocytes/100 WBC (Bld) 0.300 % 0.0-0.9 [facility] Comment on above: IG% - Immature Granu locytes (promyelocytes, myelocytes and metamyelocytes) > 1% indicates that a LEFT SHIFT is Present. MCV (mean corpuscular volume ) determinationOrdered By: Alida Pierce on 03-10-2025 MCV (RBC) [Entitic vol] 92.8 fL 81-99 [facility] Mean corpuscular hemoglobin (MCH) determinationOrdered By: Alida Pierce on 03-10-2025 MCH (RBC) [Entitic mass] 31.4 pg 27.0-32.0 [facility] Mean corpuscular hemoglobin concentration (MCHC) determinationOrdered By: Alida Pierce on 03-10-2025 MCHC (RBC) [Mass/Vol] 33.8 g/dL 32-36 [facility] Mean platelet volume determi nationOrdered By: Alida Pierce on 03-10-2025 Platelet mean volume (Bld) [Entitic vol] 10.0 fL 6.2-12.0 [facility] Monocyte percentageOrdered B y: Alida Pierce on 03-10-2025 Monocytes/100 WBC (Bld) 9.6 % 0-10 [facility] Neutrophil percentageOrdered By: Alida Pierce on 03-10-2025 Neutrophils/100 WBC (Bld) 55.5 % 47-70 [facility] Nucleated red blood cell per centageOrdered By: Alida Pierce on 03-10-2025 Nucleated RBC/100 WBC (Bld) [Ratio] 0 % 0-5 [facility] Visit Reporton 03-10-2025 [facility] Visit Report [facility] [address], [address] [place] [address] OFFICE VISIT Date of Service: 03/10/25 MR#: [id number] Acct: [id number] Name: CAYLA MORATAYA Rep #: [id number] : 1985 Provider: Dr. Alida farnsworth MD Age/Sex: 39/F [place] [facility] [place] Status: Signed Intake Vital Signs 09/24/24 09:44 03/10/25 15:46 03/10/25 16:16 Height 5 ft 4 in 5 ft 4 in Weight: 155 lb 155 lb 8 oz BMI 26.6 26.6 BP 142/100 H 171/118 H 162/112 H Blood Pressure Location Rt brachial Position Sitting Pulse 76 Pulse Source Monitor Temp 98.4 F Pulse Oximetry (%) 98 Intake Visit Reasons: Abnormal uterine bleeding Photographic Hand Developer Required: No Is patient in pain?: No Allergies ultrasound coupling medium Adverse Reaction (Mild, Verified 03/10/25 15:50) Rash Medications ???Medication ???Instructions ???Recorded ???Confirmed ???Type bupropion HCl 100 mg tablet 300 mg PO DAILY depression 7 03/10/25 History labetalol 100 mg tablet 100 mg PO BID htn 01/01/23 5 History dextroamphetamine-amphe tamine 20 20 mg PO QDAY 03/10/25 03/10/25 Hi story mg tablet (Adderall) multivitamin with minerals-folic 1 tab PO DAILY 03/10/25 03/10/25 H istory acid 0.4 mg tablet norethindrone acetate 5 mg tablet 5 mg PO .COMPLEX #30 tabs 5 03/10/25 Rx Is last menstrual period known: Yes Last Menstrual Period: 03/07/25 (bleeding every other week for 7 weeks) Post menopausal: No Patient : No : No PFSH Medical History 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 Genital herpes Depression Anxiety H/O alcohol abuse Back pain Anemia Shoulder pain, acute HTN (hypertension) Surgical History History of dilatation and curettage H/O myomectomy H/O shoulder surgery Family History Other Diabetes Hypertension Social History adopted: No number of children: 1 current occupational status: employed current occupation: [employer] current occupational exposures/hazards: No pets and animals: Yes pets and animals: dog(s) history of recent travel: No sexually active: No Smoking Status: Never smoker Smokeless tobacco user: chewing tobacco quit status: quit date established alcohol intake: never substance use type: does not use well-balanced diet: daily or most days caffeine: No eating out: rarely or never during the past year weight has: remained stable what type of physical activity do you participate in: walking frequency: daily duration: 45-60 minutes/day michael/confucianist: Mandaeism seatbelt use: always do you feel safe at home: Yes additional social history: single- sobriety since 2014! HPI Abnormal uterine bleeding Details: CAYLA MORATAYA is a 39 year old who presents for 7 weeks of irregular bleeding. Previously she was having menses monthly and lasting 5 days or less. now she is bleeding for a week then stopping for aweek, then bleeidng again for aweek, stopping for a week. she denies any changes in hair skin or bowels. she has had increases in stress. Female Reproductive History Last Menstrual Period: 03/07/25 (bleeding every other week for 7 weeks) History 2 Elective abortions Hx Para 1 Spontaneous abortions 1 Hx # Term Pregnancies Ectopic pregnancies Hx # Pregnancies Multiple births # of living children 1 Past Pregnancies Del. Date Name GA/Weeks Outcome Route Bth Weight Gen Labor Lgth Anesthesia Del Locatn Provider FOB 02/19/24 Patrick 37 live - full term 7lbs 5oz Male spinal [facility] Delivery Date: 02/19/24 Last Updated by: Daisy Calzada RN lt h/o myomectomy 37 chtn gdma ROS Const Constitutional: Denies fatigue, fever(s), headache(s), increased appetite, poor appetite, weight gain or weight loss GI GI: Reports as per HPI; Denies abdominal pain, constipation, nausea or vomiting : Reports as per HPI; Denies difficulty voiding, dysuria, hematuria, pelvic pain, urinary frequency, urinary incontinence, urinary hesitancy, urinary urgency, vaginal discharge, vaginal dryness, vaginal odor, vaginal pruritus or other Exam Const General: cooperative, healthy appearing, comfortable, no acute distress and well developed Orientation: alert [facility] Head: normal to inspection and normocephalic Ears: hearing grossly normal bilaterally and external ears normal Nose: external nose normal and nares normal Face and sinus: normal facial exam Neck Neck: normal visual inspection, no lymphadenopathy and trachea midline Thyroid: thyroid normal Resp Ef (more content not included)... Normal [facility] Platelet countOrdered By: Ann Pierce on 03-10-2025 Platelets (Bld) [#/Vol] 385 10*3/uL 150-450 [facility] RBC Auto (Bld) [#/Vol]Ordere d By: Alida Pierce on 03-10-2025 RBC (Bld) [#/Vol] 4.30 10*6/uL 4.2-5.4 [facility] TSH DL <= 0.005 mIU/L QnOrde red By: Alida Pierce on 03-10-2025 TSH Qn 1.140 uIU/mL 0.300-4.200 [facility] Thyroid Stim Hormone (TSH)on 03-10-2025 TSH 1.140 uIU/mL Normal 0.300-4.200 [facility] Comment on above: Performed By: #### L 501.9520, L100.0100 #### [facility] [address] [place], [address] White blood cell (WBC) count Ordered By: Alida Pierce on 03-10-2025 WBC (Bld) [#/Vol] 9.0 10*3/uL 4.4-11.0 [facility] CBC W/Diff, Automatedon - Absolute Lymph 2.76 X10 3/uL Normal 0.83-4.51 [facility] Comment on above: Performed By: #### L 500.4050, L500.4100, L100.0100 #### [facility] [address] [place], [address] Absolute Neut 5.6 X10 3/uL Normal 2.0-7.7 [facility] Comment on above: Performed By: #### L 500.4050, L500.4100, L100.0100 #### [facility] [address] [place], [address] Basophils/100 WBC (Bld) 1.0 % Normal 0-1 [facility] Comment on above: Performed By: #### L 500.4050, L500.4100, L100.0100 #### [facility] [address] [place], [address] Eosinophils/100 WBC (Bld) 4.6 % Normal 0-5 [facility] Comment on above: Performed By: #### L 500.4050, L500.4100, L100.0100 #### [facility] [address] [place], [address] Erythrocyte distribution width (RBC) [Ratio] 11.7 % Normal 11.6-14.6 [facility] Comment on above: Performed By: #### L 500.4050, L500.4100, L100.0100 #### [facility] [address] [place], [address] Hematocrit (Bld) [Volume fraction] 39.1 % Normal 37-47 [facility] Comment on above: Performed By: #### L 500.4050, L500.4100, L100.0100 #### [facility] [address] [place], [address] Hemoglobin (Bld) [Mass/Vol] 13.2 g/dL Normal 12.0-15.0 [facility] Comment on above: Performed By: #### L 500.4050, L500.4100, L100.0100 #### [facility] [address] [place], [address] IG% 0.300 Normal 0.0-0.9 [facility] Comment on above: Result Comment: IG% - Immature Granulocytes (promyelocytes, myelocytes and metamyelocytes) > 1% indicates that a LEFT SHIFT is Present. Performed By: #### L 500.4050, L500.4100, L100.0100 #### [facility] [address] [place], [address] Lymphocytes/100 WBC (Bld) 28.2 % Normal 19-41 [facility] Comment on above: Performed By: #### L 500.4050, L500.4100, L100.0100 #### [facility] [address] [place], [address] MCH (RBC) [Entitic mass] 31.4 pg Normal 27.0-32.0 [facility] Comment on above: Performed By: #### L 500.4050, L500.4100, L100.0100 #### [facility] [address] [place], [address] MCHC (RBC) [Mass/Vol] 33.8 g/dL Normal 32-36 [facility] Comment on above: Performed By: #### L 500.4050, L500.4100, L100.0100 #### [facility] [address] [place], [address] MCV (RBC) [Entitic vol] 92.9 fL Normal 81-99 [facility] Comment on above: Performed By: #### L 500.4050, L500.4100, L100.0100 #### [facility] [address] [place], [address] Monocytes/100 WBC (Bld) 8.9 % Normal 0-10 [facility] Comment on above: Performed By: #### L 500.4050, L500.4100, L100.0100 #### [facility] [address] [place], [address] Neutrophils/100 WBC (Bld) 57.0 % Normal 47-70 [facility] Comment on above: Performed By: #### L 500.4050, L500.4100, L100.0100 #### [facility] [address] [place], [address] Nucleated RBC (Bld) [#/Vol] 0 10*3/uL Normal 0-5 [facility] Comment on above: Performed By: #### L 500.4050, L500.4100, L100.0100 #### [facility] [address] [place], [address] Platelet mean volume (Bld) [Entitic vol] 10.1 fL Normal 6.2-12.0 [facility] Comment on above: Performed By: #### L 500.4050, L500.4100, L100.0100 #### [facility] [address] [place], [address] Platelets (Bld) [#/Vol] 322 10*3/uL Normal 150-450 [facility] Comment on above: Performed By: #### L 500.4050, L500.4100, L100.0100 #### [facility] [address] [place], [address] RBC (Bld) [#/Vol] 4.21 10*6/uL Normal 4.2-5.4 [facility] Comment on above: Performed By: #### L 500.4050, L500.4100, L100.0100 #### [facility] [address] [place], [address] RDW SD 39.5 fl Normal 35.1-43.9 [facility] Comment on above: Performed By: #### L 500.4050, L500.4100, L100.0100 #### [facility] [address] [place], [address] WBC (Bld) [#/Vol] 9.8 10*3/uL Normal 4.4-11.0 [facility] Comment on above: Performed By: #### L 500.4050, L500.4100, L100.0100 #### [facility] [address] [place], [address] Comprehensive Metabolic Prof [facility] 11-03-2024 Albumin [Mass/Vol] 3.9 g/dL Normal 3.2-5.0 [facility] Comment on above: Performed By: #### L 500.4050, L500.4100, L100.0100 #### [facility] [address] [place], [address] Albumin/Globulin [Mass ratio] 1.1 {ratio} Normal 0.9-2.4 [facility] Comment on above: Performed By: #### L 500.4050, L500.4100, L100.0100 #### [facility] [address] [place], [address] ALK P 66 U/L Normal 45-117 [facility] Comment on above: Performed By: #### L 500.4050, L500.4100, L100.0100 #### [facility] [address] [place], [address] ALT [Catalytic activity/Vol] 29 U/L Normal 13-56 [facility] Comment on above: Performed By: #### L 500.4050, L500.4100, L100.0100 #### [facility] [address] [place], [address] AST [Catalytic activity/Vol] 17 U/L Normal 15-37 [facility] Comment on above: Performed By: #### L 500.4050, L500.4100, L100.0100 #### [facility] [address] [place], [address] Bilirubin [Mass/Vol] 0.70 mg/dL Normal 0.20-1.00 [facility] Comment on above: Result Comment: For patients on eltrombopag therapy, use of Dimension [place] TBIL is not recommended. Performed By: #### L 500.4050, L500.4100, L100.0100 #### [facility] [address] [place], [address] BUN/CRE 21.9 RATIO High 10-20 [facility] Comment on above: Performed By: #### L 500.4050, L500.4100, L100.0100 #### [facility] [address] [place], [address] CA,Total 9.5 mg/dL Normal 8.5-10.1 [facility] Comment on above: Performed By: #### L 500.4050, L500.4100, L100.0100 #### [facility] [address] [place], [address] Chloride [Moles/Vol] 107 mmol/L Normal 98-107 [facility] Comment on above: Performed By: #### L 500.4050, L500.4100, L100.0100 #### [facility] [address] [place], [address] CO2 [Moles/Vol] 26.0 mmol/L Normal 21.0-32.0 [facility] Comment on above: Performed By: #### L 500.4050, L500.4100, L100.0100 #### [facility] [address] [place], [address] Creatinine [Mass/Vol] 0.96 mg/dL Normal 0.55-1.02 [facility] Comment on above: Result Comment: The validity of the calculated GFR GFRAA in patients over 70 years has not been determined. Clinical correlation is essential. Performed By: #### L 500.4050, L500.4100, L100.0100 #### [facility] [address] [place], [address] EST GFR - AA 83 mL/min Normal >60 [facility] Comment on above: Result Comment: Afri can [place] GFR Calc Performed By: #### L 500.4050, L500.4100, L100.0100 #### [facility] [address] [place], [address] GAP 5 Normal 5-15 [facility] Comment on above: Performed By: #### L 500.4050, L500.4100, L100.0100 #### [facility] [address] [place], [address] GFR/1.73 sq M.predicted among non-blacks MDRD (S/P/Bld) [Vol rate/Area] 68 mL/min/{1.73_m2} Normal >60 [facility] Comment on above: Result Comment: Non- GFR Calc Performed By: #### L 500.4050, L500.4100, L100.0100 #### [facility] [address] [place], [address] Globulin (S) [Mass/Vol] 3.6 g/dL Normal 2.2-4.2 [facility] Comment on above: Performed By: #### L 500.4050, L500.4100, L100.0100 #### [facility] [address] [place], [address] Glucose [Mass/Vol] 84 mg/dL Normal 74-106 [facility] Comment on above: Performed By: #### L 500.4050, L500.4100, L100.0100 #### [facility] [address] [place], [address] Potassium [Moles/Vol] 4.1 mmol/L Normal 3.5-5.1 [facility] Comment on above: Performed By: #### L 500.4050, L500.4100, L100.0100 #### [facility] [address] [place], [address] Sodium [Moles/Vol] 138 mmol/L Normal 136-145 [facility] Comment on above: Performed By: #### L 500.4050, L500.4100, L100.0100 #### [facility] [address] [place], [address] T PROT 7.5 g/dL Normal 6.4-8.2 [facility] Comment on above: Performed By: #### L 500.4050, L500.4100, L100.0100 #### [facility] [address] [place], [address] Urea nitrogen [Mass/Vol] 21 mg/dL High 7-18 [facility] Comment on above: Performed By: #### L 500.4050, L500.4100, L100.0100 #### [facility] [address] [place], [address] Lipid Profileon 11-03-2024 Cholesterol [Mass/Vol] 208 mg/dL High 200 [facility] Comment on above: Result Comment: <200 mg/dL Desirable 200-240 mg/dL Borderline >240 mg/dL High Risk Performed By: #### L 500.4050, L500.4100, L100.0100 #### [facility] [address] [place], [address] Cholesterol in HDL [Mass/Vol] 68 mg/dL Normal [facility] Comment on above: Result Comment: The drugs N-Acetylcysteine and Metamizole may falsely depress this assay. Reference Range HDL <40 mg/dL Low HDL Cholesterol HDL >or= 60 mg/dL High HDL Cholesterol Performed By: #### L 500.4050, L500.4100, L100.0100 #### [facility] [address] [place], [address] Cholesterol in LDL [Mass/Vol] 91 mg/dL Normal 0-130 [facility] Comment on above: Performed By: #### L 500.4050, L500.4100, L100.0100 #### [facility] [address] [place], [address] Cholesterol in VLDL [Mass/Vol] 49 mg/dL High 5-40 [facility] Comment on above: Performed By: #### L 500.4050, L500.4100, L100.0100 #### [facility] [address] [place], [address] Triglyceride [Mass/Vol] 247 mg/dL High [facility] [facility] Comment on above: Result Comment: The drugs N-Acetylcysteine and Metamizole may falsely depress this assay. Serum Triglycerides Reference Interval Normal <150 mg/dL Borderline high 150 - 199 mg/dL High 200 - 499 mg/dL Very High > or = 500 mg/dL Performed By: #### L 500.4050, L500.4100, L100.0100 #### [facility] [address] [place], [address] Office Visit Reporton [address] [facility] [address] [place] [address] OFFICE VISIT Date of Service: 09/24/24 MR#: [id number] Acct: [id number] Patient: CAYLA MORATAYA Rep #: [id number] : 1985 Provider: EMORY Stallworth Age/Sex: 38/F Location: [facility] Status: Signed Intake Vital Signs 04/28/24 10:27 09/24/24 09:44 Height 1.63 m 1.63 m Weight: 70.307 kg BMI 26.6 BP 142/100 H Blood Pressure Location Rt brachial Position Sitting Pulse 76 Pulse Source Monitor Temp 98.4 F Temp Source Temporal Pulse Oximetry (%) 98 Intake Visit Reasons: Conjunctivitis Chief Complaint: pink eye left eye Allergies ultrasound coupling medium Adverse Reaction (Mild, Verified 09/24/24 09:45) Rash Medications ???Medication ???Instructions ???Recorded ???Confirmed ???Type bupropion HCl 100 mg tablet 300 mg PO DAILY depression 09/21/17 09/24/24 History ferrous sulfate 325 mg (65 mg 325 mg PO BIDCM 09/21/17 09/24/24 History iron) tablet labetalol 100 mg tablet 100 mg PO BID htn 01/01/23 09/24/24 History multivitamin no.47-iron fum 27 1 cap PO DAILY 08/07/23 09/24/24 History mg-folate no.1 1 mg-dha 300 mg capsule (PNV-DHA) nifedipine 30 mg tablet,extended 30 mg PO DAILY #30 ea 04/04/24 09/24/24 Rx release 24 hr (Procardia XL) erythromycin 5 mg/gram (0.5 %) eye 1 cm ophthalmic (eye) Q6H #1 g 09/24/24 09/24/24 Rx ointment PFSH Medical History 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 Genital herpes Depression Anxiety H/O alcohol abuse Back pain Anemia Shoulder pain, acute HTN (hypertension) Surgical History History of dilatation and curettage H/O myomectomy H/O shoulder surgery Family History Other Diabetes Hypertension Social History adopted: No number of children: 1 current occupational status: employed current occupation: [employer] current occupational exposures/hazards: No pets and animals: Yes pets and animals: dog(s) history of recent travel: No sexually active: No Smoking Status: Never smoker Smokeless tobacco user: chewing tobacco quit status: quit date established alcohol intake: never substance use type: does not use well-balanced diet: daily or most days caffeine: No eating out: rarely or never during the past year weight has: remained stable what type of physical activity do you participate in: walking frequency: daily duration: 45-60 minutes/day michael/confucianist: Mandaeism seatbelt use: always do you feel safe at home: Yes additional social history: single- sobriety since 2014! Female Reproductive History Menstrual Ab spontaneous: 1 HPI HPI Chief Complaint: pink eye left eye Details: CAYLA MORATAYA, is a 38 F who presents to the office today for pink eye left eye. This began last night. She was up feeding her child throughout the night and noticed every time she was up she had matting and some purulent drainage from the eye. The conjunctivae is erythematous too especially the medial aspect of the eye. She has no itching, pain, or blurry vision. She does not wear contacts. ROS Const Constitutional: No chills, fatigue or fever(s) Eyes Eyes: Positive for discharge; No blurry vision, irritation or eye pain Endo Endocrine: No fatigue Exam Const General: cooperative, healthy appearing, comfortable, no acute distress, well developed and well groomed Nutritional Appearance: average body habitus and well nourished Orientation: alert, awake and oriented x3 Eyes Conjunctivae: other (erythematous, scant mucus on lids) Cornea: corneas normal Pupils: PERRL EOM: EOM intact bilaterally Direct ophthalmoscopy: normal light reflex Coding Level of Care Code Off vis,new,level 3 Diagnoses Conjunctivitis H10.9 Acute conjunctivitis, left eye H10.32 Assessment and Plan Assessment and Plan (1) Conjunctivitis: (2) Acute conjunctivitis, left eye: Status: Acute Plan: start emycin ointment. no contact lens use. Medications: New erythromycin Apply 1 cm ribbon to left eye at least 4x per day for 7 days. 1 cm ophthalmic (eye) Q6H 1 g 0RF 09/24/24 0951 Date Joshua Osman Signature: Date (if applicable) CC: Normal [facility] Comprehensive Metabolic Prof ilon 05-21-2024 Albumin [Mass/Vol] 3.8 g/dL Normal 3.2-5.0 [facility] Comment on above: Performed By: #### L 500.4050, L501.9985 #### [facility] [address] [place], [address] Albumin/Globulin [Mass ratio] 1.1 {ratio} Normal 0.9-2.4 [facility] Comment on above: Performed By: #### L 500.4050, L501.9985 #### [facility] [address] [place], [address] ALK P 69 U/L Normal 45-117 [facility] Comment on above: Performed By: #### L 500.4050, L501.9985 #### [facility] [address] [place], [address] ALT [Catalytic activity/Vol] 26 U/L Normal 13-56 [facility] Comment on above: Performed By: #### L 500.4050, L501.9985 #### [facility] [address] [place], [address] AST [Catalytic activity/Vol] 15 U/L Normal 15-37 [facility] Comment on above: Performed By: #### L 500.4050, L501.9985 #### [facility] [address] [place], [address] Bilirubin [Mass/Vol] 0.70 mg/dL Normal 0.20-1.00 [facility] Comment on above: Result Comment: For patients on eltrombopag therapy, use of Dimension [place] TBIL is not recommended. Performed By: #### L 500.4050, L501.9985 #### [facility] [address] [place], [address] BUN/CRE 19.2 RATIO Normal 10-20 [facility] Comment on above: Performed By: #### L 500.4050, L501.9985 #### [facility] [address] [place], [address] CA,Total 9.4 mg/dL Normal 8.5-10.1 [facility] Comment on above: Performed By: #### L 500.4050, L501.9985 #### [facility] [address] [place], [address] Chloride [Moles/Vol] 107 mmol/L Normal 98-107 [facility] Comment on above: Performed By: #### L 500.4050, L501.9985 #### [facility] [address] [place], [address] CO2 [Moles/Vol] 30.0 mmol/L Normal 21.0-32.0 [facility] Comment on above: Performed By: #### L 500.4050, L501.9985 #### [facility] [address] [place], [address] Creatinine [Mass/Vol] 0.94 mg/dL Normal 0.55-1.02 [facility] Comment on above: Result Comment: The validity of the calculated GFR GFRAA in patients over 70 years has not been determined. Clinical correlation is essential. Performed By: #### L 500.4050, L501.9985 #### [facility] [address] [place], [address] EST GFR - AA 85 mL/min Normal >60 [facility] Comment on above: Result Comment: Afri can [place] GFR Calc Performed By: #### L 500.4050, L501.9985 #### [facility] [address] [place], [address] GAP 3 Low 5-15 [facility] Comment on above: Performed By: #### L 500.4050, L501.9985 #### [facility] [address] [place], [address] GFR/1.73 sq M.predicted among non-blacks MDRD (S/P/Bld) [Vol rate/Area] 70 mL/min/{1.73_m2} Normal >60 [facility] Comment on above: Result Comment: Non- GFR Calc Performed By: #### L 500.4050, L501.9985 #### [facility] [address] [place], [address] Globulin (S) [Mass/Vol] 3.4 g/dL Normal 2.2-4.2 [facility] Comment on above: Performed By: #### L 500.4050, L501.9985 #### [facility] [address] [place], [address] Glucose [Mass/Vol] 90 mg/dL Normal 74-106 [facility] Comment on above: Performed By: #### L 500.4050, L501.9985 #### [facility] [address] [place], [address] Potassium [Moles/Vol] 4.3 mmol/L Normal 3.5-5.1 [facility] Comment on above: Performed By: #### L 500.4050, L501.9985 #### [facility] [address] [place], [address] Sodium [Moles/Vol] 140 mmol/L Normal 136-145 [facility] Comment on above: Performed By: #### L 500.4050, L501.9985 #### [facility] [address] [place], [address] T PROT 7.2 g/dL Normal 6.4-8.2 [facility] Comment on above: Performed By: #### L 500.4050, L501.9985 #### [facility] [address] [place], [address] Urea nitrogen [Mass/Vol] 18 mg/dL Normal 7-18 [facility] Comment on above: Performed By: #### L 500.4050, L501.9985 #### [facility] [address] [place], [address] Hemoglobin A1con 05-21-2024 HbA1c (Bld) [Mass fraction] 4.8 % Normal 3.8-5.6 [facility] Comment on above: Result Comment: Norm al < 5.7 % Prediabetic 5.7 - 6.4 % Diabetic >or= 6.5 % Please note range changes. Performed By: #### L 500.4050, L501.9985 #### [facility] [address] [place], [address] MR/BMS.BBCon 04-28-2024 MR/BMS.[facility] [address] [place], [place] [address] OFFICE VISIT Date of Service: 04/28/24 MR#: [id number] Acct: [id number] Name: CAYLA MORATAYA Rep #: [id number] : 1985 Provider: Rhonda uTrcios NP Age/Sex: 38/F [place] [facility] [place] Status: Signed Intake Vital Signs 04/04/24 09:07 04/28/24 10:27 Height 5 ft 4 in 5 ft 4 in Intake Visit Reasons: Lac Visit- Pumping Chief Complaint: pumping and milk supply assessment Allergies ultrasound coupling medium Adverse Reaction (Mild, Verified 04/04/24 09:06) Rash : Yes PFSH PFSH Medical History 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 Genital herpes Depression Anxiety H/O alcohol abuse Back pain Anemia Shoulder pain, acute HTN (hypertension) Surgical History History of dilatation and curettage H/O myomectomy H/O shoulder surgery Family History Other Diabetes Hypertension Social History adopted: No number of children: 1 current occupational status: employed current occupation: [employer] current occupational exposures/hazards: No pets and animals: Yes pets and animals: dog(s) history of recent travel: No sexually active: No Smoking Status: Never smoker Smokeless tobacco user: chewing tobacco quit status: quit date established alcohol intake: never substance use type: does not use well-balanced diet: daily or most days caffeine: No eating out: rarely or never during the past year weight has: remained stable what type of physical activity do you participate in: walking frequency: daily duration: 45-60 minutes/day michael/confucianist: Mandaeism seatbelt use: always do you feel safe at home: Yes additional social history: single- sobriety since 2014! History 2 Elective abortions Hx Para 0 Spontaneous abortions 1 Hx # Term Pregnancies Ectopic pregnancies Hx # Pregnancies Multiple births # of living children 0 Past Pregnancies Del. Date Name GA/Weeks Outcome Route Bth Weight Infant Gen Labor Lgth Anesthesia Del Locatn Provider FOB 02/19/24 Patrick 37 live - full term 7lbs 5oz Male spinal [facility] SM Delivery Date: 02/19/24 Last Updated by: Daisy Calzada RN ltcs h/o myomectomy sm 37 chtn gdma HPI HPI HPI: CAYLA MORATAYA, is a 38 F who presents to the office today for pumping and supply assessment. History provided by the patient. ROS ROS Const Constitutional: Denies fever(s) or lethargy : Denies nipple discharge Skin Skin/Breast: Denies breast pain, breast skin changes or nipple discharge Details: on demand, baby nursing q2-3 hours during the day and going 6-8 hour stretch at night, patient going back to work in 4 weeks and would like assistance with pumping schedule and milk supply assessment, has some milk stored from first month when patient was engorged Exam Assessment Baby Feeding History Is your baby latching onto the breast: Yes Number of Breast Feedings in 24 hours: 8 Minutes per breast: First Breast: 8-10 Supplements Supplement Type:: None Breast Pumping Frequency: feeding on demand, has not been pumping Goals Breast Feeding Goals: Exclusive Exam Const General: comfortable and no acute distress Orientation: alert and oriented x3 Resp Effort Inspection: normal respiratory effort Skin General: no rashes or lesions noted Psych Appearance: grossly normal Mental Status: mental status grossly normal Affect: normal affect Assessment and Plan Assessment and Plan (1) Care and examination of lactating mother: Plan: Educated on pumping, pump settings, pumping schedule, milk supply, milk storage and bottle feeding. Follow up with PRN. Coding Level of Care Code 51302 PRVT COUNSELING INDIVID Diagnoses Care and examination of lactating mother Z39.1 Time Spent (min) 30 04/28/24 1784 Date Rhonda Turcios NP MEDICAL CUSTOMER SERVICE REPRESENTATIVE-C Cosigner Signature: Date (if applicable) CC: Normal [facility] [place] [facility] Office Visit Reporton 04-04-2024 [place] [facility] Office Visit Report [facility] [address] [place] [address] OFFICE VISIT Date of Service: 04/04/24 MR#: [id number] Acct: [id number] Name: CAYLA MORATAYA Rep #: [id number] : 1985 Provider: MOHINI chatterjee Age/Sex: 38/F Location: [facility] Status: Signed Intake Vital Signs 02/14/24 10:08 03/07/24 10:26 04/01/24 09:25 04/04/24 09:07 Height 5 ft 4 in 5 ft 4 in 5 ft 4 in 5 ft 4 in Weight: 144 lb BMI 24.7 BP 152/96 H Intake Visit Reasons: visit (obstetrics) Chief Complaint: pt here for 6 week visit. Photographic Hand Developer Required: No Is patient in pain?: No Allergies ultrasound coupling medium Adverse Reaction (Mild, Verified 04/04/24 09:06) Rash Medications ???Medication ???Instructions ???Recorded ???Confirmed ???Type bupropion HCl 100 mg tablet 300 mg PO DAILY depression 09/21/17 04/04/24 History ferrous sulfate 325 mg (65 mg 325 mg PO BIDCM 09/21/17 04/04/24 History iron) tablet labetalol 100 mg tablet 100 mg PO BID htn 01/01/23 04/04/24 History multivitamin no.47-iron fum 27 1 cap PO DAILY 08/07/23 04/04/24 History mg-folate no.1 1 mg-dha 300 mg capsule (PNV-DHA) nifedipine 30 mg tablet,extended 30 mg PO DAILY #30 ea 04/04/24 04/04/24 Rx release 24 hr (Procardia XL) PFSH Medical History 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 Genital herpes Depression Anxiety H/O alcohol abuse Back pain Anemia Shoulder pain, acute HTN (hypertension) Surgical History History of dilatation and curettage H/O myomectomy H/O shoulder surgery Family History Other Diabetes Hypertension Social History adopted: No number of children: 1 current occupational status: employed current occupation: [employer] current occupational exposures/hazards: No pets and animals: Yes pets and animals: dog(s) history of recent travel: No sexually active: No Smoking Status: Never smoker Smokeless tobacco user: chewing tobacco quit status: quit date established alcohol intake: never substance use type: does not use well-balanced diet: daily or most days caffeine: No eating out: rarely or never during the past year weight has: remained stable what type of physical activity do you participate in: walking frequency: daily duration: 45-60 minutes/day michael/confucianist: Mandaeism seatbelt use: always do you feel safe at home: Yes additional social history: single- sobriety since 2014! History 2 Elective abortions Hx Para 0 Spontaneous abortions 1 Hx # Term Pregnancies Ectopic pregnancies Hx # Pregnancies Multiple births # of living children 0 Past Pregnancies Del. Date Name GA/Weeks Outcome Route Bth Weight Infant Gen Labor Lgth Anesthesia Del Locatn Provider FOB 02/19/24 Patrick 37 live - full term 7lbs 5oz Male spinal [facility] Delivery Date: 02/19/24 Last Updated by: Daisy Calzada RN lt h/o myomectomy 37 chtn gdma Depression Screen PHQ-2/9 PHQ-2 Comment if patient declines to answer PHQ: currently in counseling and medications. Over the last 2 weeks, how often have you been bothered by any of the following problems? Post HPI Routine Follow-Up: Details: CAYLA MORATAYA is a 38 year old who presents for her post visit. Feeding: Breast Menses resumed: No Tiro since delivery: No Emotional Support: Yes Last Pap:: 2022 Control Method: none, used donor for . ROS Const Denies excessive sweating Card Reports system reviewed and no additional complaints, except as documented, Denies chest pain, Denies chest pain with activity, Denies edema, Denies leg edema and Denies palpitations Resp Reports system reviewed and no additional complaints, except as documented GI Reports system reviewed and no additional complaints, except as documented, Denies abdominal pain and Denies bloating Reports system reviewed and no additional complaints, except as documented, Denies difficulty voiding, Denies dysuria, Denies urinary frequency, Denies urinary incontinence, Denies urinary hesitancy, Denies urinary urgency, Denies vaginal discharge and Denies vaginal odor Musc Reports system reviewed and no additional complaints, except as documented Skin/Breast Reports system reviewed and no additional complaints, except as documented Neuro Yes system reviewed and no additional complaints, except as documented Psych Reports system reviewed and no additional complaints, except as documented Endo Reports sy (more content not included)... Normal [facility] MR/BMS.[facility] 04-01-2024 MR/BMS.[facility] [address] [facility] [place] [address] OFFICE VISIT Date of Service: 03/30/24 MR#: [id number] Acct: [id number] Name: CYALA MORATAYA Rep #: [id number] : 1985 Provider: Rhonda Turcios NP Age/Sex: 38/F [place] [facility] [place]: Signed Intake Vital Signs 03/13/24 09:17 04/01/24 09:25 Height 5 ft 4 in 5 ft 4 in Intake Visit Reasons: Visit Chief Complaint: assessment, nipple pain Allergies ultrasound coupling medium Adverse Reaction (Mild, Verified 03/13/24 09:05) Rash : Yes PFSH PFSH Medical History 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 Genital herpes Depression Anxiety H/O alcohol abuse Back pain Anemia Shoulder pain, acute HTN (hypertension) Surgical History History of dilatation and curettage H/O myomectomy H/O shoulder surgery Family History Other Diabetes Hypertension Social History adopted: No number of children: 1 current occupational status: employed current occupation: [employer] current occupational exposures/hazards: No pets and animals: Yes pets and animals: dog(s) history of recent travel: No sexually active: No Smoking Status: Never smoker Smokeless tobacco user: chewing tobacco quit status: quit date established alcohol intake: never substance use type: does not use well-balanced diet: daily or most days caffeine: No eating out: rarely or never during the past year weight has: remained stable what type of physical activity do you participate in: walking frequency: daily duration: 45-60 minutes/day michael/confucianist: Mandaeism seatbelt use: always do you feel safe at home: Yes additional social history: single- sobriety since 2014! History 2 Elective abortions Hx Para 0 Spontaneous abortions 1 Hx # Term Pregnancies Ectopic pregnancies Hx # Pregnancies Multiple births # of living children 0 Past Pregnancies Del. Date Name GA/Weeks Outcome Route Bth Weight Gen Labor Lgth Anesthesia Del Locatn Provider FOB 02/19/24 Patrick 37 live - full term 7lbs 5oz Male spinal [facility] SM Delivery Date: 02/19/24 Last Updated by: Daisy Calzada RN ltcs h/o myomectomy sm 37 chtn gdma HPI HPI HPI: CAYLA MORATAYA, is a 38 F who presents to the office today for assessment, nipple pain. History provided by the patient. ROS ROS Const Constitutional: Denies fever(s) or lethargy : Denies nipple discharge Skin Skin/Breast: Denies breast pain, breast skin changes or nipple discharge Details: q2-3 hours during the day and q4-5 hours at night, baby nursing 10-15 minutes to one side, baby had tongue tie clipped 2 weeks ago, pain is better with latching but still present, don ent feels baby does clocking and then causing pain, will pull baby off frequently to retlatch Exam Maternal Assessment Breast Assessment Bilateral Breasts: Full Nipple Assessment Bilateral Nipples: Everted Areolar Tissue Areolar Tissue: Pliable Assessment Baby Feeding History Is your baby latching onto the breast: Yes Number of Breast Feedings in 24 hours: 8-10 Minutes per breast: First Breast: 10-15 Minutes per breast: Second Breast: 0 Supplements Supplement Type:: None Breast Pumping Frequency: feeding on demand Goals Breast Feeding Goals: Exclusive Exam Const General: comfortable and no acute distress Orientation: alert and oriented x3 Chest Breast inspection: normal inspection of the breasts Breast palpation: normal palpation of the breasts Other: bilateral nipples slight pink Resp Effort Inspection: normal respiratory effort Skin General: no rashes or lesions noted Psych Appearance: grossly normal Mental Status: mental status grossly normal Affect: normal affect Assessment and Plan Assessment and Plan (1) nipple pain: Plan: Recommended starting combination nipple cream consistently for 1 week, 3-4 x daily, wiping off prior to feeds. Baby did have tongue tie clipped 2 weeks ago, healing well but posterior tie is still present. No signs of thrush for patient or baby. Observed baby latching for 12 minutes to right side, will intermittently click and patient experiencing most pain during that time. Will take baby off and relatch. Nipple shape WNL after feed. Baby transferred 110 ml in 12 minutes. I discussed with patient her let down and leaning back with feeds to prevent baby from breaking seal and pulling off. Will trial posi (more content not included)... Normal [facility] - Chemistry and C hemistry - challengeon 02-07-2024 Glucose Ql (U) Negative [facility] - Urinalysison Protein Ql (U) Negative [facility] - Chemistry and C hemistry - challengeon 01-31-2024 Glucose Ql (U) Negative [facility] - Urinalysison Protein Ql (U) Negative [facility] Absolute lymphocyte countOrd ered By: Juancho Akhtar on 01-24-2024 Lymphocytes Auto (Unsp spec) [#/Vol] 1.67 10*3/uL 0.83-4.51 [facility] Automated lymphocyte count a s percentage of total leukocytesOrdered By: Juancho Akhtar on 01-24-2024 Lymphocytes/100 WBC Auto (Unsp spec) 16.9 % 19-41 [facility] Basophil percentageOrdered B y: Juancho Akhtar on 01-24-2024 Basophils/100 WBC (Bld) 0.5 % 0-1 [facility] Bilirubin [Mass/Vol] 0.40 mg/dL 0.20-1.00 [facility] Comment on above: For patients on eltr ombopag therapy, use of Dimension [place] TBIL is not recommended. Chloride [Moles/Vol] 108 mmol/L 98-107 [facility] Eosinophils/100 WBC (Bld) 2.1 % 0-5 [facility] Glucose [Mass/Vol] 135 mg/dL 74-106 [facility] Comment on above: Fasting Glucose resu lt greater than or equal to 126 mg/dL suggests DIABETES MELLITUS per A.D.A. criteria. Hemoglobin (Bld) [Mass/Vol] 11.2 g/dL 12.0-15.0 [facility] Monocytes/100 WBC (Bld) 6.6 % 0-10 [facility] Neutrophils (Bld) [#/Vol] 7.3 10*3/uL 2.0-7.7 [facility] Neutrophils/100 WBC (Bld) 73.1 % 47-70 [facility] Potassium [Moles/Vol] 3.6 mmol/L 3.5-5.1 [facility] Protein [Mass/Vol] 6.0 g/dL 6.4-8.2 [facility] Sodium [Moles/Vol] 137 mmol/L 136-145 [facility] WBC (Bld) [#/Vol] 9.9 10*3/uL 4.4-11.0 [facility] Determination of erythrocyte mean corpuscular volume (MCV)Ordered By: on 01-24-2024 MCV (RBC) [Entitic vol] 98.0 fL 81-99 [facility] Erythrocyte distribution wid th ratioOrdered By: Juancho 01-24-2024 Erythrocyte distribution width (RBC) [Ratio] 12.7 % 11.6-14.6 [facility] Erythrocyte distribution wid th standard deviationOrdered By: Juancho 01-24-2024 Erythrocyte distribution width (RBC) [Entitic vol] 45.4 fL 35.1-43.9 [facility] Hematocrit Auto (Bld) [Volum e fraction]Ordered By: Juancho01-24-2024 Hematocrit (Bld) [Volume fraction] 33.7 % 37-47 [facility] Immature granulocytes/100 WB C Auto (Bld)Ordered By: Juancho Akhtar on 01-24-2024 Immature granulocytes/100 WBC (Bld) 0.800 % 0.0-0.9 [facility] Comment on above: IG% - Immature Granu locytes (promyelocytes, myelocytes and metamyelocytes) > 1% indicates that a LEFT SHIFT is Present. Laboratory - Chemistry and C hemistry - challengeon 01-24-2024 Glucose Ql (U) Negative [facility] Laboratory - Chemistry and C hemistry - challengeOrdered By: Juancho Akhtar on 01-24-2024 Albumin/Globulin [Mass ratio] 0.8 {ratio} 0.9-2.4 [facility] ALP [Catalytic activity/Vol] 81 U/L 45-117 [facility] ALT [Catalytic activity/Vol] 24 U/L 13-56 [facility] CO2 [Moles/Vol] 25.0 mmol/L 21.0-32.0 [facility] Ferritin [Mass/Vol] 15 ng/mL 8-252 [facility] Globulin (S) [Mass/Vol] 3.4 g/dL 2.2-4.2 [facility] Urea nitrogen/Creatinine [Mass ratio] 21.4 mg/mg 10-20 [facility] Laboratory - Hematology and Cell countsOrdered By: Juancho Akhtar on 01-24-2024 MCH (RBC) [Entitic mass] 32.6 pg 27.0-32.0 [facility] MCHC (RBC) [Mass/Vol] 33.2 g/dL 32-36 [facility] Nucleated RBC/100 WBC (Bld) [Ratio] 0 % 0-5 [facility] Platelet mean volume (Bld) [Entitic vol] 10.2 fL 6.2-12.0 [facility] Platelets (Bld) [#/Vol] 263 10*3/uL 150-450 [facility] Laboratory - Urinalysison Protein Ql (U) Negative [facility] No Panel InformationOrdered By: Juancho Akhtar on 01-24-2024 Estimated GFR (MDRD) Amer 119 mL/min >60 [facility] Comment on above: GFR Calc Estimated GFR (MDRD) Non-Af Amer 98 mL/min >60 [facility] Comment on above: Non- GFR Calc RBC Auto (Bld) [#/Vol]Ordere d By: Juancho Akhtar on 01-24-2024 RBC (Bld) [#/Vol] 3.44 10*6/uL 4.2-5.4 [facility] Serum or plasma calcium mitchell urement (mass/volume)Ordered By: Juancho Akhtar on 01-24-2024 Calcium [Mass/Vol] 8.5 mg/dL 8.5-10.1 [facility] Serum or plasma creatinine m easurement (mass/volume)Ordered By: Juancho Akhtar on 01-24-2024 Creatinine [Mass/Vol] 0.70 mg/dL 0.55-1.02 [facility] Comment on above: The validity of the calculated GFR & GFRAA in patients over 70 years has not been determined. Clinical correlation is essential. Serum or plasma urea nitroge n measurement (mass/volume)Ordered By: Juancho Akhtar on 01-24-2024 Urea nitrogen [Mass/Vol] 15 mg/dL 7-18 [facility] Thin prep Papanicolaou smear with manual screeningOrdered By: Juancho Akhtar on 01-24-2024 Thin prep Papanicolaou smear with manual screening 2.6 g/dL 3.2-5.0 [facility] Thin prep Papanicolaou smear with manual screening 16 U/L 15-37 [facility] Thin prep Papanicolaou smear with manual screening 4 5-15 [facility] Laboratory - Chemistry and C hemistry - challengeon 01-15-2024 Glucose Ql (U) Negative [facility] Laboratory - Urinalysison Protein Ql (U) Negative [facility] Quantitative serum or plasma 3 hour gestational glucose tolerance panelOrdered By: Alida Pierce on 12-27-2023 Glucose tolerance 3 hours gestational panel See comment [facility] Comment on above: FASTING 89 Col: 12/07 10/31 0715GLUCOSE TOLERANCE TEST FOR Reference Interval GESTATIONAL DIABETES Fasting <105 mg/dL 1 hour <190 mg/dl 2 hour <165 mg/dl 3 hour <145 mg/dl 1 HR GLU 199 H Col: 12/27/23 0825 2 HR GLU 211 H Col: 12/27/23 0922 3 HR GLU 168 H Col: 12/27/23 1021 Absolute lymphocyte countOrd ered By: Alida Pierce on 12-21-2023 Lymphocytes Auto (Unsp spec) [#/Vol] 1.52 10*3/uL 0.83-4.51 [facility] Automated lymphocyte count a s percentage of total leukocytesOrdered By: Alida Pierce on 12-21-2023 Lymphocytes/100 WBC Auto (Unsp spec) 14.1 % 19-41 [facility] Basophil percentageOrdered B y: Alida Pierce on 12-21-2023 Basophils/100 WBC (Bld) 0.4 % 0-1 [facility] Eosinophils/100 WBC (Bld) 3.1 % 0-5 [facility] Hemoglobin (Bld) [Mass/Vol] 11.0 g/dL 12.0-15.0 [facility] Monocytes/100 WBC (Bld) 6.4 % 0-10 [facility] Neutrophils (Bld) [#/Vol] 8.0 10*3/uL 2.0-7.7 [facility] Neutrophils/100 WBC (Bld) 73.8 % 47-70 [facility] WBC (Bld) [#/Vol] 10.8 10*3/uL 4.4-11.0 [facility] Determination of erythrocyte mean corpuscular volume (MCV)Ordered By: Alida Pierce on 12-21-2023 MCV (RBC) [Entitic vol] 96.1 fL 81-99 [facility] Erythrocyte distribution wid th ratioOrdered By: Alida Pierce on 12-21-2023 Erythrocyte distribution width (RBC) [Ratio] 12.2 % 11.6-14.6 [facility] Erythrocyte distribution wid th standard deviationOrdered By: Alida Pierce on 12-21-2023 Erythrocyte distribution width (RBC) [Entitic vol] 42.0 fL 35.1-43.9 [facility] Gestational diabetes screen 1-hour screen with 50g oral glucose loadOrdered By: Alida Pierce on 12-21-2023 Glucose 1 Hr post 50 g glucose PO [Mass/Vol] 138 mg/dL 70-140 [facility] HIV 1 and HIV-2 antibody ass ay with HIV-1 p24 antigen detectionOrdered By: Alida Pierce on 12-21-2023 HIV 1+2 Ab+HIV1 p24 Ag IA Ql Non-Reactive Nonreactive [facility] Hematocrit Auto (Bld) [Volum e fraction]Ordered By: Alida Pierce on 12-21-2023 Hematocrit (Bld) [Volume fraction] 32.2 % 37-47 [facility] Immature granulocytes/100 WB C Auto (Bld)Ordered By: Alida Pierce on 12-21-2023 Immature granulocytes/100 WBC (Bld) 2.200 % 0.0-0.9 [facility] Comment on above: IG% - Immature Granu locytes (promyelocytes, myelocytes and metamyelocytes) > 1% indicates that a LEFT SHIFT is Present. Laboratory - Hematology and Cell countsOrdered By: Alida Pierce on 12-21-2023 MCH (RBC) [Entitic mass] 32.8 pg 27.0-32.0 [facility] MCHC (RBC) [Mass/Vol] 34.2 g/dL 32-36 [facility] Nucleated RBC/100 WBC (Bld) [Ratio] 0 % 0-5 [facility] Platelet mean volume (Bld) [Entitic vol] 10.4 fL 6.2-12.0 [facility] Platelets (Bld) [#/Vol] 263 10*3/uL 150-450 [facility] RBC Auto (Bld) [#/Vol]Ordere d By: Alida Pierce on 12-21-2023 RBC (Bld) [#/Vol] 3.35 10*6/uL 4.2-5.4 [facility] Serum Treponema species anti body detectionOrdered By: Alida Pierce on 12-21-2023 Treponema sp Ab Ql (S) Non-Reactive [facility] Laboratory - Chemistry and C hemistry - challengeon 11-23-2023 Glucose Ql (U) Negative [facility] Laboratory - Urinalysison Protein Ql (U) Negative [facility] Laboratory - Chemistry and C hemistry - challengeon 11-02-2023 Glucose Ql (U) Negative [facility] Laboratory - Urinalysison Protein Ql (U) Negative [facility] Laboratory - Chemistry and C hemistry - challengeon 10-24-2023 Glucose Ql (U) Negative [facility] Laboratory - Urinalysison Protein Ql (U) Negative [facility] Laboratory - Chemistry and C hemistry - challengeon 09-12-2023 Glucose Ql (U) Negative [facility] Laboratory - Urinalysison Protein Ql (U) Negative [facility] Absolute lymphocyte countOrd ered By: Juancho Akhtar on 12-23-2022 Lymphocytes Auto (Unsp spec) [#/Vol] 2.29 10*3/uL 0.83-4.51 [facility] Basophil percentageOrdered B y: Juancho Akhtar on 12-23-2022 Basophils/100 WBC (Bld) 1.0 % 0-1 [facility] Bilirubin [Mass/Vol] 0.80 mg/dL 0.20-1.00 [facility] Comment on above: For patients on eltr ombopag therapy, use of Dimension [place] TBIL is not recommended. Chloride [Moles/Vol] 107 mmol/L 98-107 [facility] Eosinophils/100 WBC (Bld) 3.5 % 0-5 [facility] Glucose [Mass/Vol] 94 mg/dL 74-106 [facility] Neutrophils (Bld) [#/Vol] 5.0 10*3/uL 2.0-7.7 [facility] Neutrophils/100 WBC (Bld) 59.8 % 47-70 [facility] Potassium [Moles/Vol] 4.0 mmol/L 3.5-5.1 [facility] Protein [Mass/Vol] 6.8 g/dL 6.4-8.2 [facility] Sodium [Moles/Vol] 140 mmol/L 136-145 [facility] WBC (Bld) [#/Vol] 8.3 10*3/uL 4.4-11.0 [facility] Blood erythrocytes count (nu mber/volume)Ordered By: Juancho Akhtar on 12-23-2022 RBC (Bld) [#/Vol] 4.24 10*6/uL 4.2-5.4 [facility] Blood hemoglobin measurement (mass/volume)Ordered By: Juancho Akhtar on 12-23-2022 Hemoglobin (Bld) [Mass/Vol] 13.8 g/dL 12.0-15.0 [facility] Blood lymphocytes/100 leukoc ytesOrdered By: Juancho Akhtar on 12-23-2022 Lymphocytes/100 WBC (Bld) 27.6 % 19-41 [facility] Blood monocytes/100 leukocyt esOrdered By: Juancho Akhtar on 12-23-2022 Monocytes/100 WBC (Bld) 7.7 % 0-10 [facility] Blood platelet mean volumeOr dered By: Juancho Akhtar on 12-23-2022 Platelet mean volume (Bld) [Entitic vol] 10.0 fL 6.2-12.0 [facility] Determination of erythrocyte mean corpuscular volume (MCV)Ordered By: Juancho Akhtar on 12-23-2022 MCV (RBC) [Entitic vol] 95.3 fL 81-99 [facility] Erythrocyte sedimentation ra teOrdered By: Juancho Akhtar on 12-23-2022 ESR (Bld) [Velocity] mm/h 0-30 [facility] Comment on above: Previous reported re sult: 1 mm/hrEdited by: ERIC on 12/23/22:2339 AMENDED REPORT 12/23/22 2339 SED RATE previously reported as: 1 mm/hr Hematocrit Auto (Bld) [Volum e fraction]Ordered By: Juancho Akhtar on 12-23-2022 Hematocrit (Bld) [Volume fraction] 40.4 % 37-47 [facility] Laboratory - Chemistry and C hemistry - challengeOrdered By: Juancho Akhtar on 12-23-2022 ALP [Catalytic activity/Vol] 48 U/L 45-117 [facility] ALT [Catalytic activity/Vol] 28 U/L 13-56 [facility] CO2 [Moles/Vol] 28.0 mmol/L 21.0-32.0 [facility] Globulin (S) [Mass/Vol] 3.0 g/dL 2.2-4.2 [facility] Urea nitrogen/Creatinine [Mass ratio] 16.3 mg/mg 10-20 [facility] Laboratory - Hematology and Cell countsOrdered By: Juancho Akhtar on 12-23-2022 Erythrocyte distribution width (RBC) [Entitic vol] 39.4 fL 35.1-43.9 [facility] Erythrocyte distribution width (RBC) [Ratio] 11.3 % 11.6-14.6 [facility] Immature granulocytes/100 WBC (Bld) 0.400 % 0.0-0.9 [facility] Comment on above: IG% - Immature Granu locytes (promyelocytes, myelocytes and metamyelocytes) > 1% indicates that a LEFT SHIFT is Present. MCH (RBC) [Entitic mass] 32.5 pg 27.0-32.0 [facility] Nucleated RBC/100 WBC (Bld) [Ratio] 0 % 0-5 [facility] MCHC Auto (RBC) [Mass/Vol]Or dered By: Juancho Akthar on 12-23-2022 MCHC (RBC) [Mass/Vol] 34.2 g/dL 32-36 [facility] No Panel InformationOrdered By: Juancho Akhtar on 12-23-2022 Estimated GFR (MDRD) Amer 87 mL/min >60 [facility] Comment on above: GFR Calc Estimated GFR (MDRD) Non-Af Amer 72 mL/min >60 [facility] Comment on above: Non- GFR Calc Platelets bldOrdered By: Preston Akhtar on 12-23-2022 Platelets (Bld) [#/Vol] 304 10*3/uL 150-450 [facility] Serum or plasma C reactive p rotein measurement (mass/volume)Ordered By: Juancho Akhtar on 12-23-2022 CRP [Mass/Vol] mg/L 0.0-3.0 [facility] Comment on above: C-Reactive Protein ( CRP) provides useful information for thediagnosis, therapy and monitoring of inflammatory processesand associated diseases. For the evaluation of Relative Riskfor Cardiovascular Disease, a High Sensitivity CRP (HSCRP)should be ordered. Serum or plasma albumin mitchell urement (mass/volume)Ordered By: Juancho Akhtar on 12-23-2022 Albumin [Mass/Vol] 3.8 g/dL 3.2-5.0 [facility] Serum or plasma albumin/glob ulin mass ratioOrdered By: Juancho Akhtar on 12-23-2022 Albumin/Globulin [Mass ratio] 1.3 {ratio} 0.9-2.4 [facility] Serum or plasma calcium mitchell urement (mass/volume)Ordered By: Juancho Akhtar on 12-23-2022 Calcium [Mass/Vol] 9.1 mg/dL 8.5-10.1 [facility] Serum or plasma creatinine m easurement (mass/volume)Ordered By: Juanchograce Akhtar on 12-23-2022 Creatinine [Mass/Vol] 0.92 mg/dL 0.55-1.02 [facility] Comment on above: The validity of the calculated GFR & GFRAA in patients over 70 years has not been determined. Clinical correlation is essential. Serum or plasma ferritin zeeshan surement (mass/volume)Ordered By: Juancho Akhtar on 12-23-2022 Ferritin [Mass/Vol] 69 ng/mL 8-252 [facility] Serum or plasma urea nitroge n measurement (mass/volume)Ordered By: Juanchograce Akhtar on 12-23-2022 Urea nitrogen [Mass/Vol] 15 mg/dL 7-18 [facility] Serum rheumatoid factor dete ctionOrdered By: Juancho Akhtar on 12-23-2022 Rheumatoid factor Ql (S) < 10.0 IU/mL <15 [facility] Thin prep Papanicolaou smear with manual screeningOrdered By: Juancho Akhtar on 12-23-2022 Thin prep Papanicolaou smear with manual screening 11 U/L 15-37 [facility] Thin prep Papanicolaou smear with manual screening 5 5-15 [facility] Basophil percentageOrdered B y: Dr. Mejias on 12-02-2022 C. trachomatis DNA SARAI+probe Ql (Unsp spec) Negative Negative [facility] HIV 1 and HIV-2 antibody ass ay with HIV-1 p24 antigen detectionOrdered By: Dr. Mejias on 12-02-2022 HIV 1+2 Ab+HIV1 p24 Ag IA Ql Non-Reactive Nonreactive [facility] Neisseria gonorrhoeae detect ion by PCROrdered By: Dr. Mejias on 12-02-2022 N. gonorrhoeae DNA SARAI+probe Ql (Cervical mucus) Negative Negative [facility] No Panel InformationOrdered By: Dr. Mejias on 12-02-2022 Hepatitis B Surface Antigen Non-Reactive Nonreactive [facility] Hepatitis C Antibody Non-Reactive Nonreactive [facility] Comment on above: Non Reactive: < 0.8 Equivocal: >/= 0.8 to < 1.0 Reactive: >/= 1.0The CDC recommends that a reactive/equivocal HCV antibody result be followed up by the HCV Nucleic Acid Amplificationtest (223069) Rubella IgG Antibody Reactive Nonreactive [facility] Comment on above: Antibody Results Int erpretation of Immune Status Non Reactive Presumed Non-Immune Equivocal Equivocal Reactive Presumed Immune Thyroid Stimulating Hormone (TSH) 1.18 uIU/mL 0.358-3.74 [facility] Serum Treponema species anti body detectionOrdered By: Dr. Mejias on 12-02-2022 Treponema sp Ab Ql (S) Non-Reactive [facility] Serum Varicella zoster virus IgG antibody assay by immunoassay (units/volume)Ordered By: Dr. Mejias on 12-02-2022 VZV IgG IA Qn (S) 1732 index Immune >165 [facility] Comment on above: Negative <135 Equivo jose ramon 135 - 165 Positive >165A positive result generally indicates exposure to thepathogen or administration of specific immunoglobulins,but it is not indication of active infection or stageof disease.Performed at: [employer] [id number] Director: Balta Cain PhD, Phone: [phone] Serum or plasma cytomegalovi roxy (CMV) IgG antibody assay (units/volume)Ordered By: Dr. Mejias on 12-02-2022 CMV IgG Qn < 0.60 U/mL 0.00-0.59 [facility] Comment on above: Negative <0.60 Equiv ocal 0.60 - 0.69 Positive >0.69 CNOVon 08-13-2022 CNOV Office Visit (UCWSTR ) CAYLA MORATAYA ([id number]) 1985 F Date Time Provider Department 08/13/22 10:30 AM DEDRICK ATKINS During your visit today, we recorded the following information about you: Temperature Pulse Blood pressure Weight 98.4 degrees 77/minute 110/80 66.7 kg Dedrick Atkins APRN.[facility] 08/13/2022 10:52 AM Signed Subjective Patient came in with complaints of [...] history is provided by the patient. No english language arts teacher was used. Review of Systems Constitutional: Negative. [...] Patient was okay with this care plan. Dedrick Atkins APRN.[facility] Allergies As of Date: 08/13/2022 (No Known Allergies) Date Reviewed: 08/13/2022 Reviewed by: Vesna Cole LPN - Fully Assessed Reason for Visit: tick [Other] Cmt: Left shoulder Primary Visit Diagnosis:Tick bite of left shoulder, initial encounter [S40.262A, W57.XXXA] Prescriptions as of 08/13/2022 - labetalol (TRANDATE) 100 mg tablet Take 100 mg by mouth. - vit no.124/iron/folic ( VITAMIN ORAL) Take by mouth. - ferrous sulfate 325 mg (65 mg iron) tablet Take 325 mg by mouth twice daily. - busPIRone (BUSPAR) 10 mg tablet Take 10 mg by mouth twice daily. - buPROPion XL (WELLBUTRIN XL) 300 mg 24 hr tablet Take 300 mg by mouth once daily. - ATENOLOL ORAL Take 25 mg by mouth once daily. - citalopram (CELEXA) 20 mg tablet Take 20 mg by mouth once daily. - norgestimate 0.25 mg-ethinyl estradiol 35 mcg (SPRINTEC, ORTHO-CYCLEN) 0.25-35 mg-mcg per tablet Take 1 tablet by mouth once daily. - estradiol (ESTRACE) 0.01 % (0.1 mg/gram) vaginal cream Apply a dime sized amount to affected area every night Problem List As Of Date 08/13/2022 Noted Resolved Dyspareunia due to medical condition in female *02/13/2017 Perineal laceration of ranjana [S31.41XA] 02/13/2017 Encounter Status:Closed by DEDRICK ATKINS on 08/13/22 Normal [facility] Erythrocyte sedimentation ra amando 07-08-2022 ESR (Bld) [Velocity] 1 mm/h 0-30 [facility] Work Phone: Laboratory - Chemistry and C hemistry - challengeon 07-08-2022 CK [Catalytic activity/Vol] 120 U/L 26-192 [facility] Work Phone: Serum or plasma C reactive p rotein measurement (mass/volume)on 07-08-2022 CRP [Mass/Vol] mg/L 0.0-3.0 [facility] Work Phone: Comment on above: C-Reactive Protein ( CRP) provides useful information for thediagnosis, therapy and monitoring of inflammatory processesand associated diseases. For the evaluation of Relative Riskfor Cardiovascular Disease, a High Sensitivity CRP (HSCRP)should be ordered. Serum rheumatoid factor dete ctionon 07-08-2022 Rheumatoid factor Ql (S) < 10.0 IU/mL <15 [facility] Work Phone: [phone] Absolute lymphocyte counton 06-28-2022 Lymphocytes Auto (Unsp spec) [#/Vol] 0.67 10*3/uL 0.83-4.51 [facility] Work Phone: Basophil percentageon 2021 Basophils/100 WBC (Bld) 0.5 % 0-1 [facility] Work Phone: Bilirubin [Mass/Vol] 0.60 mg/dL 0.20-1.00 [facility] Work Phone: Comment on above: For patients on eltr ombopag therapy, use of Dimension [place] TBIL is not recommended. Chloride [Moles/Vol] 103 mmol/L 98-107 [facility] Work [facility]: Eosinophils/100 WBC (Bld) 0.0 % 0-5 [facility] Work Phone: Glucose [Mass/Vol] 102 mg/dL 74-106 [facility] Work Phone: Comment on above: Fasting Glucose resu lt from 100 to 125 mg/dL suggests IMPAIRED HOMEOSTASIS per A.D.A. criteria. Neutrophils (Bld) [#/Vol] 3.0 10*3/uL 2.0-7.7 [facility] Work Phone: Neutrophils/100 WBC (Bld) 69.3 % 47-70 [facility] Work Phone: Potassium [Moles/Vol] 3.6 mmol/L 3.5-5.1 [facility] Work Phone: Protein [Mass/Vol] 6.8 g/dL 6.4-8.2 [facility] Work Phone: Sodium [Moles/Vol] 135 mmol/L 136-145 [facility] Work Phone: WBC (Bld) [#/Vol] 4.3 10*3/uL 4.4-11.0 [facility] Work Phone: Blood erythrocytes count (nu mber/volume)on 06-28-2022 RBC (Bld) [#/Vol] 3.98 10*6/uL 4.2-5.4 [facility] Work Phone: Blood hemoglobin measurement (mass/volume)on 06-28-2022 Hemoglobin (Bld) [Mass/Vol] 13.3 g/dL 12.0-15.0 [facility] Work Phone: Blood lymphocytes/100 leukoc yteson 06-28-2022 Lymphocytes/100 WBC (Bld) 15.7 % 19-41 [facility] Work Phone: Blood monocytes/100 leukocyt eson 06-28-2022 Monocytes/100 WBC (Bld) 14.3 % 0-10 [facility] Work Phone: Blood platelet mean volumeon 06-28-2022 Platelet mean volume (Bld) [Entitic vol] 10.9 fL 6.2-12.0 [facility] Work Phone: [phone] Determination of erythrocyte mean corpuscular volume (MCV)on 06-28-2022 MCV (RBC) [Entitic vol] 96.2 fL 81-99 [facility] Work Phone: [phone] Hematocrit Auto (Bld) [Volum e fraction]on 06-28-2022 Hematocrit (Bld) [Volume fraction] 38.3 % 37-47 [facility] Work Phone: Laboratory - Chemistry and C hemistry - challengeon 06-28-2022 ALP [Catalytic activity/Vol] 45 U/L 45-117 [facility] Work Phone: ALT [Catalytic activity/Vol] 29 U/L 13-56 [facility] Work Phone: CO2 [Moles/Vol] 23.0 mmol/L 21.0-32.0 [facility] Work Phone: Globulin (S) [Mass/Vol] 3.3 g/dL 2.2-4.2 [facility] Work Phone: [phone] Urea nitrogen/Creatinine [Mass ratio] 10.7 mg/mg 10-20 [facility] Work Phone: Laboratory - Hematology and Cell countson 06-28-2022 Erythrocyte distribution width (RBC) [Entitic vol] 40.0 fL 35.1-43.9 [facility] Work Phone: [phone] Erythrocyte distribution width (RBC) [Ratio] 11.2 % 11.6-14.6 [facility] Work Phone: [phone] Immature granulocytes/100 WBC (Bld) 0.200 % 0.0-0.9 [facility] Work Phone: Comment on above: IG% - Immature Granu locytes (promyelocytes, myelocytes and metamyelocytes) > 1% indicates that a LEFT SHIFT is Present. MCH (RBC) [Entitic mass] 33.4 pg 27.0-32.0 [facility] Work Phone: Nucleated RBC/100 WBC (Bld) [Ratio] 0 % 0-5 [facility] Work Phone: [phone] MCHC Auto (RBC) [Mass/Vol]on 06-28-2022 MCHC (RBC) [Mass/Vol] 34.7 g/dL 32-36 [facility] Work Phone: No Panel Informationon 06-28 Estimated GFR (MDRD) Amer 86 mL/min >60 [facility] Work Phone: Comment on above: GFR Calc Estimated GFR (MDRD) Non-Af Amer 71 mL/min >60 [facility] Work Phone: Comment on above: Non- GFR Calc Platelets bldon 06-28-2022 Platelets (Bld) [#/Vol] 215 10*3/uL 150-450 [facility] Work Phone: Serum or plasma albumin mitchell urement (mass/volume)on 06-28-2022 Albumin [Mass/Vol] 3.5 g/dL 3.2-5.0 [facility] Work Phone: Serum or plasma albumin/glob ulin mass ratioon 06-28-2022 Albumin/Globulin [Mass ratio] 1.1 {ratio} 0.9-2.4 [facility] Work Phone: [phone] Serum or plasma calcium mitchell urement (mass/volume)on 06-28-2022 Calcium [Mass/Vol] 8.4 mg/dL 8.5-10.1 [facility] Work Phone: [phone] Serum or plasma creatinine m easurement (mass/volume)on 06-28-2022 Creatinine [Mass/Vol] 0.93 mg/dL 0.55-1.02 [facility] Work Phone: [phone] Comment on above: The validity of the calculated GFR & GFRAA in patients over 70 years has not been determined. Clinical correlation is essential. Serum or plasma ferritin zeeshan surement (mass/volume)on 06-28-2022 Ferritin [Mass/Vol] 145 ng/mL 8-252 [facility] Work Phone: Serum or plasma urea nitroge n measurement (mass/volume)on 06-28-2022 Urea nitrogen [Mass/Vol] 10 mg/dL 7-18 [facility] Work Phone: Thin prep Papanicolaou smear with manual screeningon 06-28-2022 Thin prep Papanicolaou smear with manual screening 20 U/L 15-37 [facility] Work Phone: Thin prep Papanicolaou smear with manual screening 9 5-15 [facility] Work Phone: Operative Reporton 2 Operative Report [facility] [address] [place] [address] RECORD OF PROCEDURE PATIENT NAME: CAYLA MORATAYA DATE OF : 1985 MED REC #: [id number] PT LOCATION: OR PACU PT TYPE: OPS AGE: 36 SEX: F ADMISSION DATE: 05/24/2022 DATE OF SERVICE: 05/24/2022 SURGEON: Bhavana Mejias MD 1ST EX ASSISTANT/PROGRAM DIRECTOR: Janessa Browne, from [facility] ANESTHESIOLOGIST: Maxi Melgar DO ESTIMATED BLOOD LOSS: 50 mL COMPLICATIONS: None. PATHOLOGY: Products of conception. PREPROCEDURE DIAGNOSIS: Missed . POSTPROCEDURE DIAGNOSIS: Missed . NAME OF PROCEDURE: Dilation and curettage with suction. DESCRIPTION OF PROCEDURE: The patient was met in the preoperative area. Informed consent was obtained. Risks, benefits, and alternatives of the procedure were reviewed. She was Rh positive. At this point, she was brought back to the operating room and placed in supine position. General anesthesia with LMA was administered without difficulty. She then was placed in the dorsal lithotomy position. Careful attention was given not to hyperflex or hyperabduct her legs to prevent nerve injury. A Betadine perineal and vaginal prep was done, and then, a timeout was given. She was then draped. A weighted speculum was placed in her vagina. The anterior lip of her cervix was grasped with the ring forceps. At this point, her cervix was dilated very easily, and an 8-mm curved suction curette was obtained. It was tested with the device for adequate mmHg, and then, suction curette was inserted. While withdrawing and suctioning and rotating, products of conception were seen exiting. This was repeated 3 times. Then, a sharp curettage was done until there was a gritty texture appreciated. At this point, one more pass was made with the suction, and then, the ring forceps was removed. There was no bleeding noted from the single ring forceps site. The patient tolerated the procedure well. Sponge, lap, and needle counts were correct x2. She was taken to the recovery room in stable condition. Bhavana Mejias MD [facility]/[id number] SSI File#: [id number] CC: Bhavana Mejias MD [facility] Surgical Pathology Depar [facility] 05-24-2022 [facility] Surgical Pathology Department Name CAYLA MORATAYA Pathologist: ELVIN DERAS DO Date of Procedure: 05/24/2022 Date Received: 05/25/2022 Date Reported 05/29/2022 Submitting Physician: BHAVANA MEJIAS MD Location: [facility] Copy To/Referring/Attending: JUANCHO AKHTAR DO Other External # [id number] FINAL DIAGNOSIS A. PRODUCTS OF CONCEPTION: -- PARTIALLY HYDROPIC IMMATURE CHORIONIC VILLI. -- GESTATIONAL ENDOMETRIUM WITH IMPLANTATION SITE. integrity consultant: Dr. Flavio Lackey. Electronically Signed Out By ELVIN DERAS DO/CMB By the signature on this report, the individual or group listed as making the Final Interpretation/Diagnosi s certifies that they have reviewed this case. Diagnostic interpretation performed at [facility] [address] [facility] [address] Clinical History: Missed Specimens Submitted As: A: POC Other Case Numbers [id number] Gross Description: Received in formalin, labeled with the patient?s name and hospital number and POC, are multiple fragments of dark red to brown friable tissue and clotted blood aggregating to 6.5 x 5.0 x 1.6 cm. Possible villous tissue is identified measuring 2.0 x 1.0 x 0.5 cm. Pool Coordinator sections are submitted in 3 cassettes. MJR Summary of Cassettes: Specimen Label Site A 1 possible villous tissue 2 non-villous tissue 3 additional villous and non-villous tissue mjr/05/25/2022 [facility] Department of Pathology [id number] [place] [address] Comment on above: Performed By: #### [facility] #### [facility] Surgical Pathology Department [address] [place], [place] [id number] XR HYSTEROSALPINGOGRAPHYon 0 02-28-2022 XR HYSTEROSALPINGOGRAPHY ORIGINAL EXAMINATION: FLUOROSCOPIC SUPERVISION FOR HYSTEROSALPINGOGRAM 02/28/2022 1:05 pm TECHNIQUE: Fluoroscopic supervision provided to performing lab tech. FLUOROSCOPY DOSE AND TYPE OR TIME AND EXPOSURES: 0.4 minutes fluoroscopy time, 21.4 mGy dose. 4 digital images. COMPARISON: none HISTORY: ORDERING SYSTEM PROVIDED HISTORY: Reason for Exam: Z31.41 INFERTILITY FINDINGS: There is normal opacification of the fallopian tubes with free spill of contrast into the peritoneal cavity. There is normal filling of the endometrial cavity without evidence of endometrial filling defect. IMPRESSION: Normal exam with patent bilateral fallopian tubes. Interpreted by: Dimitrios Cespedes MD Preliminary Report By: Dimitrios Cespedes MD Electronically signed By Dimitrios Cespedes MD Dictated Date: 02/28/2022 1:11:50 PM Prelim Date: 02/28/2022 1:13:11 PM Sign Date: 02/28/2022 1:13:11 PM Ordering Provider: BHAVANA MEJIAS [facility] ([place]) OPERATIVE REPORTon 2 Ordered by an unspecified provider. OTTONIEL ALCAZAR Op Noteon 01-06-2022 Op Note Operative Note Department of Obstetrics and Gynecology Patient: Cayla Morataya : 1985 Date of Procedure: 01/06/22 Pre-operative Diagnosis: 1. Fibroid uterus Post-operative Diagnosis: Same Procedure: Laparoscopic myomectomy Surgeon: Dr. Kam Merchandise Flow Associate(s): Dr. Young Johnson who was needed for instrument exchange manipulation and retraction as no qualified resident was available Anesthesia: General Findings: Normal fundal contour, normal bilateral tubes and ovaries, normal anterior cul-de-sac. Deep 3 cm posterior right intramural myoma. Very slight entry into endometrial cavity with myomectomy. Total IV fluids/Blood products: 1300cc crystalloid Urine Output: 200 ml Estimated blood loss: 50 ml Drains: None Specimens: Uterine fibroid Instrument and Sponge Count: Correct x 2 Complications: None Condition: Stable, transferred to post anesthesia recovery Procedure: The patient was brought to the operating room with running IV fluids. General anesthesia was administered without difficulty. The patient was placed in a dorsal lithotomy position with Yellofin stirrups. She was then prepped and draped in the usual sterile fashion. A weighted speculum was inserted into the vagina, and the anterior lip of the cervix was grasped with a single-tooth tenaculum. The cervix was dilated to allow placement of a 6 DELANEY uterine manipulator. A gonzalez catheter was then placed, and clear urine was noted. The surgeon's gloves were changed, and attention was directed to the laparoscopic portion of the procedure. A 5 mm skin incision was made at Beltran's point. A Veres needle was inserted without difficulty. A low opening pressure validated correct intraperitoneal placement. The pneumoperitoneum was created with CO2 gas to a pressure of 25 mmHg. A 5 mm Optiview trocar was used for visual entry at this site. Entry site was inspected and revealed no evidence of visceral or vascular injury. A 10mm bladed balloon trocar was inserted the umbilicus under direct visualization. 5 mm accessory ports were placed in the left and right lower quadrants under direct visualization. Pressure was then dropped back down to 15 mmHg. A 10 mm bladed suprapubic port was also placed for additional manipulation Survey was undertaken and findings noted as above. Dilute vasopressin 30 cc was injected into the posterior uterus. A horizontal incision was made over the mid body posterior right side of the uterus with the harmonic down to the level of the fibroid capsule. The fibroid was systematically shelled out with traction countertraction and harmonic noting to air on the medial side of the dissection so to avoid the uterine vessels. This was very tedious as the fibroid was deep in the myometrium. The fibroid was truncated at its base and placed in the posterior cul-de-sac. The defect was closed with 2-0 strata fix in multiple layers. Two 2-0 Monocryl figure of 8 sutures were used as well on the serosa for the repair. The suprapubic port incision was extended to 3 cm using Bovie. The incision was carried down to level the fascia and the fascia was incised with the Bovie. The tenaculum was placed through the port and fibroid was grasped. The muscles and peritoneum were then bluntly and the fibroid was removed via tenaculum. The fascia was then closed with 0 PDS in a running fashion. The subcutaneous tissue was closed with 3-0 Monocryl and the skin was closed with 4-0 Monocryl in a subcuticular fashion. Pelvis was copiously suctioned and irrigated. Fredo bipolar was used at the serosal edges to ensure hemostasis. Surgicel snow was applied to uterus over surgical site. The 10 mm umbilical port was closed using a Leonardo-Manny and an 0 Vicryl. The left upper quadrant trocar was visualized being removed from the abdomen. Surgical sites were watched under low pressure and noted to be hemostatic pneumoperitoneum was then released and the ports removed. The incisions were closed with 4-0 Monocryl.The patient tolerated the procedure well. All counts were correct x2. Patient was awakened from general anesthesia and taken to the PACU in stable condition. Stacy Kam MD 01/06/2022, 5:45 PM Normal [facility] , urine POCTon 04-0 Beta HCG ( test) Ql (U) Negative Negative [facility] Work Phone: 1 Beta HCG ( test) Ql (U) [id number] [facility] Work Phone: 1 Negative QC Pass/Fail Pass [facility] Work Phone: Positive QC Pass/Fail Pass [facility] Work Phone: 1 [facility] Work Phone: 1 KwaabIO 3on 2 [facility] Work Phone: Radiology Study observation (narrative) OTTONIEL Work Phone: Surgical Pathologyon 022 Surgical Pathology [id number] [facility] DEPARTMENT OF [facility] PATHOLOGY AND LABORATORY MEDICINE [address] [place] [address] [place] [address] FINAL SURGICAL PATHOLOGY REPORT ___ NAME: CAYLA MORATAYAN [id number] : 1985 36 Y Adam MCKNIGHT NO.: [id number] LOCATION: [facility] 1PAC 71 PROCEDURE 01/06/2022 DATE: SURGEON: STACY KAM MD RECEIVED 01/09/2022 DATE: ATTENDING: STACY KAM MD REPORT DATE: 01/10/2022 COPIES TO: ___ DIAGNOSIS: UTERINE FIBROID, MYOMECTOMY - LEIOMYOMA JAW/JAW Signature> JUANCHO MEEHAN M.D. ___ CLINICAL INFORMATION: D21.9. SPECIMEN: UTERINE FIBROID(S)/MYOMA(S) ___ GROSS DESCRIPTION: Received in formalin labeled uterine fibroid is a segment of tissue that looks like a white-morrow whorled mass that measures 4.5 x 3 x 2 cm. Sections of the specimen reveal a white-morrow whorled lesion without areas of necrosis or hemorrhage. There are no other grossly identifiable lesions or masses present. Pool Coordinator sections are submitted in two cassettes. CJPT/LS3 Disclaimer: The following statement applies to all immunohistochemistry, in situ hybridization, molecular studies, and immunofluorescence testing. The use of one or more reagents in the above tests is regulated as an analyte specific reagent (ASR). These tests were developed and their performance characteristics determined by the clinical laboratories of [facility]. They have not been cleared by the US Food and Drug Administration (FDA). The FDA has determined that such clearance or approval is not necessary. All the above immunostains were performed on paraffin embedded tissue. Appropriate positive and negative controls (where applicable) were run in parallel with the patient's specimen; these controls showed expected staining pattern, with acceptable intensity of staining. Immunohistochemical assays have not been validated on decalcified tissues. Results should be interpreted with caution given the raised possibility of false negativity on decalcified specimens. Professional Performing Location: [place] [address]. DEPARTMENT OF PATHOLOGY AND LABORATORY MEDICINE [place], [place] [address] [email or web address] Normal [facility] Basic Metabolic Panelon 03-2 Anion gap [Moles/Vol] 6 mmol/L Normal 3-13 [facility] Comment on above: Performed By: #### B MP3, HEMOG #### [place] [address] [place], [place] Calcium [Mass/Vol] 9.4 mg/dL Normal 8.4-10.4 [facility] Comment on above: Performed By: #### B MP3, HEMOG #### [place] [address] [place], [place] CO2 [Moles/Vol] 26 mmol/L Normal 22-30 [facility] Comment on above: Performed By: #### B MP3, HEMOG #### [facility] [address] [place], [place] Glucose [Mass/Vol] 98 mg/dL Normal 70-100 [facility] Comment on above: Performed By: #### B MP3, HEMOG #### [facility] [address] [place], [place] Urea nitrogen [Mass/Vol] 17 mg/dL Normal 9-20 [facility] Comment on above: Performed By: #### B MP3, HEMOG #### [facility] [address] [place], [place] Creatinine [Mass/Vol] 0.81 mg/dL Normal 0.52-1.25 [facility] Comment on above: Performed By: #### B MP3, HEMOG #### [facility] [address] [place], [place] eGFR OTHER > 90.0 Normal >60 [facility] Comment on above: Result Comment: KDIG O guidelines provide the following GFR categories: Stage GFR(ml/min/1.73 m2) Terms G1 >=90 Normal or high G2 60-89 Mildly decreased* G3a 45-59 Mildly to moderately decreased G3b 30-44 Moderately to severely decreased G4 15-29 Severely decreased G5 <15 Kidney failure *Relative to young adult level. In the absence of evidence of kidney damage, neither GFR category G1 nor G2 fulfill the criteria for CKD. The CKD-EPI equation is validated in individuals 18 years of age and older. Currently the best equation for estimating glomerular filtration rate (GFR) from serum creatinine in children is the Bedside Blair equation. It is less accurate in patients with extremes of muscle mass, restriction of dietary protein, ingestion of creatine, extra-renal metabolism of creatinine, or treatment with medications that affect renal tubular creatinine secretion. Performed By: #### B MP3, HEMOG #### [facility] [address] [place], [place] GFR/1.73 sq M.predicted among blacks MDRD (S/P/Bld) [Vol rate/Area] mL/min/{1.73_m2} Normal >60 [facility] Comment on above: Performed By: #### B MP3, HEMOG #### [facility] [address] [place], [place] Potassium [Moles/Vol] 4.6 mmol/L Normal 3.5-5.1 [facility] Comment on above: Performed By: #### B MP3, HEMOG #### [facility] [address] [place], [place] Chloride [Moles/Vol] 104 mmol/L Normal 98-107 [facility] Comment on above: Performed By: #### B MP3, HEMOG #### [place] [address] [address] [place], [place] Sodium [Moles/Vol] 136 mmol/L Normal 135-145 [facility] Comment on above: Performed By: #### B MP3, HEMOG #### [place] [address] [address] [place], [place] Hemogramon 12-30-2021 Erythrocyte distribution width (RBC) [Ratio] 12.3 % Normal 11.5-14.5 [facility] Comment on above: Performed By: #### B MP3, HEMOG #### [place] [address] [address] [place], [place] Hematocrit (Bld) [Volume fraction] 41.5 % Normal 35.0-47.0 [facility] Comment on above: Performed By: #### B MP3, HEMOG #### [facility] [address] [place], [place] Hemoglobin (Bld) [Mass/Vol] 14.1 g/dL Normal 11.7-16.0 [facility] Comment on above: Performed By: #### B MP3, HEMOG #### [place] [address] [address] [place], [place] MCH (RBC) [Entitic mass] 31.7 pg Normal 26.0-34.0 [facility] Comment on above: Performed By: #### B MP3, HEMOG #### [place] [address] [address] [place], [place] MCHC 34.0 % Normal 32.0-36.0 [facility] Comment on above: Performed By: #### B MP3, HEMOG #### [facility] [address] [place], [place] MCV (RBC) [Entitic vol] 93.0 fL Normal 79.0-98.0 [facility] Comment on above: Performed By: #### B MP3, HEMOG #### [place] [address] [address] [place], [place] Platelet mean volume (Bld) [Entitic vol] 8.5 fL Normal 7.4-10.4 [facility] Comment on above: Performed By: #### B MP3, HEMOG #### [place] [address] [address] [place], [place] Platelets (Bld) [#/Vol] 345 10*3/uL Normal 140-440 [facility] Comment on above: Performed By: #### B MP3, HEMOG #### [place] [address] [address] [place], [place] RBC (Bld) [#/Vol] 4.47 10*6/uL Normal 3.80-5.20 [facility] Comment on above: Performed By: #### B MP3, HEMOG #### [place] [address] [address] [place], [place] WBC (Bld) [#/Vol] 6.8 10*3/uL Normal 3.6-10.7 [facility] Comment on above: Performed By: #### B MP3, HEMOG #### [place] [address] [address] [place], [place] TS GELon 12-30-2021 TS GEL ABO Group: O Rh, Gel: POS Antibody Screen Gel: NEG Normal [facility] Comment on above: Performed By: #### T SGL #### [facility] US Transvaginalon 2021 [facility] Transvaginal Patient Name: CAYLA MORATAYA Maternal Medicine ACCESSION EXAM DATE/TIME PROCEDURE ORDERING PROVIDER [id number] 11/24/2021 08:50 EST [facility] US Transvaginbettye KAM MD, STACY De Anda Reason For Exam ([facility] US Transvaginal) fibroid Report - Gynecological Report (Signed Final 11/24/2021 03:42 pm) - PATIENT INFO: ID #: [id number] : [birth year] (35 yrs) Name: CAYLA MORATAYA Visit Date: 11/24/2021 08:48 am - PERFORMED BY: Attending: Stacy Kam Performed By: Vinicio Stephens Referred By: STACY KAM MD Location: [facility] Visit Type: Outpatient - SERVICE(S) PROVIDED: Medical Nurse Transvaginal [id number] - INDICATIONS: Fibroid - TECHNIQUE/SCAN QUALITY: Technique: Transvaginal Approach - COMPARISON: None - HISTORY: Age: 35 - VITAL SIGNS: Weight (lb): 163 Height: 5'4 BMI: 27.98 - HX COMMENTS: Non latex cover used. - UTERUS: Maternal Medicine Report Uterus: Normal Position: Anteverted Size (cm) L: 7.48 W: 6.04 H: 4.35 - MYOMAS: Site L(cm) W(cm) D(cm) Location 3.62 2.79 3.67 - Blood Flow RI PI Comments - ENDOMETRIUM: Endometrium: Normal Thickness(mm): 10.71 - RIGHT OVARY: Status: Visualized Size (cm) L: 3.26 W: 2.72 H: 1.61 Vol (ml): 7.47 - LEFT OVARY: Status: Visualized Size (cm) L: 3.71 W: 3.14 H: 2.27 Vol (ml): 13.85 - IMPRESSION: 1. Anteverted uterus with 3.6cm right lateral intramural myoma. 2. Normal ovaries bilaterally. 3. ORADS-1 4. Clinical correlation is recommended. . - Stacy Kam Electronically Signed Final Report 11/24/2021 03:42 pm - Preliminary Report Ultrasound ACCESSION EXAM DATE/TIME PROCEDURE ORDERING PROVIDER [id number] 11/24/2021 08:50 EST [facility] US Transvaginal MD EDDY, STACY De Anda Reason For Exam ([facility] US Transvaginal) fibroid Report - Gynecological Report (Signed Final 11/24/2021 03:42 pm) - PATIENT INFO: ID #: [id number] : [birth year] (35 yrs) Ultrasound Report Name: CAYLA MORATAYA Visit Date: 11/24/2021 08:48 am - PERFORMED BY: Attending: Stacy Kam Performed By: Vinicio Stephens Referred By: STACY KAM MD Location: [facility] Visit Type: Outpatient - SERVICE(S) PROVIDED: Medical Nurse Transvaginal [id number] - INDICATIONS: Fibroid - TECHNIQUE/SCAN QUALITY: Technique: Transvaginal Approach - COMPARISON: None - HISTORY: Age: 35 - VITAL SIGNS: Weight (lb): 163 Height: 5'4 BMI: 27.98 - HX COMMENTS: Non latex cover used. - UTERUS: Uterus: Normal Position: Anteverted Size (cm) L: 7.48 W: 6.04 H: 4.35 - MYOMAS: Site L(cm) W(cm) D(cm) Location 3.62 2.79 3.67 - Blood Flow RI PI Comments --- (more content not included)... Normal [facility] [employer] Op Noteon 09-26-2021 Op Note PATIENT: NIKI MORATAYA ADMISSION DATE: 09/26/2021 SURGERY DATE: 09/26/2021 DATE OF : 1985 AGE: 35 ADMITTING PHYSICIAN: Armond Knight Ma, MD ATTENDING PHYSICIAN: Armond Knight Ma, MD DICTATING PHYSICIAN: Armond Knight Ma, MD OPERATIVE RECORD Procedure: RECTAL EXAM UNDER ANESTHESIA WITH INTERSPHINCTERIC FISTULOTOMY AND EXCISION OF ANAL SKIN TAG. Preoperative Diagnosis: Anal fissure and fistula. Postoperative Diagnosis: Anal fissure and fistula. Anesthesia: LMA. Merchandise Flow Associate: Landen Spears M.D. Estimated Blood Loss: Less than 5 cc. Complications: None. Specimens: None. Operative Indications: This is a 35-year-old female with history of anal fissure and was tried on nifedipine cream and did get some slight improvement, but not completed improvement. On examination, it appeared that she had a fistula associated with this, so we consented her for a rectal exam under anesthesia with possible fistulotomy, possible seton, possible I and D, possible sphincterotomy. Description of Procedure: The patient was brought up room and LMA was placed by Anesthesia. Arms were placed out by her sides and legs were placed in Yellofin stirrups with all bony prominences appropriately padded. The area was then prepped with Betadine solution and she was draped in usual sterile fashion. We first started the pudendal nerve block using 0.25% Marcaine with epinephrine. We then performed a digital rectal examination and did feel like the posterior defect. We did see anal skin tag in the posterior position as well as what appeared to be an external fistula opening next to that. We used Hill-Sherman retractors to serially examine the anal canal and did re-demonstrate what appeared to be an internal fistula opening in the posterior midline from where an anal fissure used to be. So we used a fistula probe and probed the external opening and went easily through the internal opening. 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 So we performed a fistulotomy on this and then we excised the anal skin tag associated with it. We used the curette to curette the cavity out and then used cautery to obtain hemostasis. Towards the end of procedure, all counts were correct and all sites were hemostatic. I gave the patient some ABDs for the area and then she was awoken by Anesthesia and transferred to PACU in stable condition. Diskriter Job ID: [id number] Armond Knight Ma, MD DOD:09/26/2021 04:38 P TDM/dsk DOT:09/26/2021 06:25 P Job Number: [id number] Document Number: [id number] cc: Armond Knight Ma, MD [facility] [address] [place] [address] [address] [place] [id number] Normal [facility] , urine POCTon 12-2 Beta HCG ( test) Ql (U) Negative Negative [facility] Work Phone: [phone] HCG ( test) Ql (U) [id number] [facility] Work Phone: [phone] Interpretation and review of laboratory results Normal [facility] Work Phone: [phone] Negative QC Pass/Fail Pass [facility] Work Phone: [phone] Positive QC Pass/Fail Pass [facility] Work Phone: [phone] [facility] Work Phone: [phone] CR Spine Lumbosacral Complet e w/ Bending min 6 vwson 05-12-2020 CR Spine Lumbosacral Complete w/ Bending min 6 vws Patient Name: CAYLA MORATAYA Diagnostic Radiology Exam Date/Time 05/12/2020 09:12:00 EDT Exam CR Spine Lumbosacral Complete w/ Bending Ordering Physician DO AKHTAR JOSHUA D Accession Number [id number] CPT4 Codes 98936 () Reason For Exam bilateral low back pain without sciatica Report LUMBAR SPINE, FIVE VIEWS, WITH ADDITIONAL FLEXION-EXTENSION VIEWS: CLINICAL INFORMATION: Low back pain COMPARISON: None Frontal, bilateral obliques, flexion-extension and neutral lateral and coned down lumbosacral spot views of the lumbar spine were obtained. There are 5 typical lumbar vertebrae. The bone mineral density is normal. The vertebral body heights are within normal limits. Disc space narrowing is noted at L5-S1 with vacuum disc phenomena and endplate sclerosis. No spondylolisthesis or spondylolysis is noted. No instability is noted with flexion or extension. The facet joints are within normal limits. No fracture is noted. IMPRESSION: Disc space narrowing and vacuum disc phenomena at L5-S1. Report Dictated on Final Dictating Physician: DO THOMPSON ALFRED Signed Date and Time: 05/12/2020 12:26 pm Signed by: DO THOMPSON ALFRED Transcribed Date and Time: 05/12/2020 12:27 Normal [facility] XR LUMBOSACRAL W OBLIQUES AN D FLEXION AND EXTENSIONon 05-12-2020 Patient Name: CAYLA MORATAYA ---Diagnostic Radiology--- Exam Date/Time 05/12/2020 09:12:00 EDT Exam CR Spine Lumbosacral Complete w/ Bending Ordering Physician DO AKHTAR JOSHUA D Accession Number [id number] CPT4 Codes 48320 () Reason For Exam bilateral low back pain without sciatica Report LUMBAR SPINE, FIVE VIEWS, WITH ADDITIONAL FLEXION-EXTENSION VIEWS: CLINICAL INFORMATION: Low back pain COMPARISON: None Frontal, bilateral obliques, flexion-extension and neutral lateral and coned down lumbosacral spot views of the lumbar spine were obtained. There are 5 typical lumbar vertebrae. The bone mineral density is normal. The vertebral body heights are within normal limits. Disc space narrowing is noted at L5-S1 with vacuum disc phenomena and endplate sclerosis. No spondylolisthesis or spondylolysis is noted. No instability is noted with flexion or extension. The facet joints are within normal limits. No fracture is noted. IMPRESSION: Disc space narrowing and vacuum disc phenomena at L5-S1. Report Dictated on --- Final --- Dictating Physician: DO THOMPSON ALFRED Signed Date and Time: 05/12/2020 12:26 pm Signed by: DO THOMPSON ALFRED Transcribed Date and Time: 05/12/2020 12:27 [facility] [place], [place], [facility] Incoming Radiology Results From [facility] - 05/12/2020 12:27 PM EDT Patient Name: CAYLA MORATAYA ---Diagnostic Radiology--- Exam Date/Time 05/12/2020 09:12:00 EDT Exam CR Spine Lumbosacral Complete w/ Bending Ordering Physician DO AKHTAR JOSHUA D Accession Number [id number] CPT4 Codes 46116 () Reason For Exam bilateral low back pain without sciatica Report LUMBAR SPINE, FIVE VIEWS, WITH ADDITIONAL FLEXION-EXTENSION VIEWS: CLINICAL INFORMATION: Low back pain COMPARISON: None Frontal, bilateral obliques, flexion-extension and neutral lateral and coned down lumbosacral spot views of the lumbar spine were obtained. There are 5 typical lumbar vertebrae. The bone mineral density is normal. The vertebral body heights are within normal limits. Disc space narrowing is noted at L5-S1 with vacuum disc phenomena and endplate sclerosis. No spondylolisthesis or spondylolysis is noted. No instability is noted with flexion or extension. The facet joints are within normal limits. No fracture is noted. IMPRESSION: Disc space narrowing and vacuum disc phenomena at L5-S1. Report Dictated on --- Final --- Dictating Physician: DO THOMPSON ALFRED Signed Date and Time: 05/12/2020 12:26 pm Signed by: DO THOMPSON ALFRED Transcribed Date and Time: 05/12/2020 12:27 [place], [place] CR Spine Cervical Comp w/ Ob liques/Flexon 03-16-2020 CR Spine Cervical Comp w/ Obliques/Flex Patient Name: CAYLA MORATAYA Diagnostic Radiology Exam Date/Time 03/15/2020 10:14:52 EDT Exam CR Spine Cervical Comp w/ Obliques Ordering Physician DO AKHTAR JOSHUA D Accession Number [id number] CPT4 Codes 30542 () Reason For Exam numbness of right hand, right hand weakness Report COMPLETE CERVICAL SPINE History: Neck pain, right-sided numbness and weakness Findings: Frontal, lateral, bilateral oblique, flexion, extension and open mouth views were obtained. There is slight C5-C6 disc space narrowing. The remaining cervical vertebral bodies, disc spaces, bone density, neural foramina, and vertebral alignment are otherwise unremarkable. There is no significant change in the vertebral alignment upon flexion/extension. IMPRESSION: Slight C5-C6 disc space narrowing. Report Dictated on Final Dictating Physician: MD FRED, [facility] Signed Date and Time: 03/16/2020 8:33 am Signed by: MD FRED, AHMAD Transcribed Date and Time: 03/16/2020 8:35 Normal [facility] Established Visit (Orthopaed ic Surgery)on 02-27-2020 Established Visit (Orthopaedic Surgery) Chief Complaint A telephone visit (audio only) between the patient (at the originating site) and the provider (at the distant site) was utilized to provide this telehealth service. TELEPHONE CALL. [facility]. DOI 04/21/19. MRI RESULTS LEFT SHOULDER. STATES SHOULDER IS THE SAME, NO IMPROVEMENT. PAIN COMES AND GOES DEPENDING ON ACTIVITY. History of Present IllnessPatient is here today for telephone follow-up of her left shoulder SLAP repair from 04/21/2019. She just had an MRI arthrogram and is here for those results. She continues have pain in the anterior aspect of the shoulder with no change since last visit. She continues to work on exercises at home. She denies any new injuries Review of Systems pt denies fever, chills, chest pain, dizziness, or shortness of breath Active Problems Acute shoulder pain due to trauma, right (719.41,338.11) (M25.511,G89.11) Anxiety and depression (300.00,311) (F41.9,F32.9) Benign essential hypertension (401.1) (I10) Glenoid labral tear, left, subsequent encounter (V58.89,840.8) (S43.432D) Sprain of left shoulder, subsequent encounter (V58.89,840.9) (S43.402D) Superior glenoid labrum lesion of left shoulder, initial encounter (840.7) (S43.432A) Surgical History History of Superior labrum anterior to posterior lesion repair Family History Family history of malignant neoplasm of prostate (V16.42) (Z80.42) Social History Chews tobacco (305.1) (Z72.0) Denied: History of Drug use Never a smoker No alcohol use Allergies No Known Drug Allergies Recorded By: Collette Schmid; 07/15/2019 10:53:52 AM Current Meds Atenolol 25 MG Oral Tablet; Therapy: (Recorded:[id number]) to Recorded Dispense: 0 Days ; #: Sufficient; Refill: 0; TREMAYNE = N; Record; Last Updated By: Collette Schmid; 07/15/2019 10:53:52 AM buPROPion HCl ER (XL) 150 MG Oral Tablet Extended Release 24 Hour; Therapy: [id number] to Recorded Dispense: 30 Days ; #:30; Refill: 0; TREMAYNE = N; Record; Last Updated By: Phoebe Bojorquez; 12/09/2019 2:36:35 PM Citalopram Hydrobromide 40 MG Oral Tablet; Therapy: (Recorded:15Jul2019) to Recorded Dispense: 0 Days ; #: Sufficient; Refill: 0; TREMAYNE = N; Record; Last Updated By: Collette Schmid; 07/15/2019 10:53:52 AM Clobetasol Propionate 0.05 % External Cream; APPLY ONE APPLICATION TOPICALLY TO AFFECTED AREA(S) ONE TO TWO TIMES D; Therapy: 01Jan2019 to Recorded Rx By: GIOVANA; Dispense: 14 Days ; #:60; Refill: 0; TREMAYNE = N; Record; Last Updated By: Phoebe Bojorquez; 10/07/2019 10:23:30 AM HYDROcodone-Acetaminoph en 5-325 MG Oral Tablet; TAKE 1 TABLET BY MOUTH EVERY 4 HOURS NEEDED FOR PAIN X 7 DAYS; Therapy: [id number] to Recorded Rx By: RENO; Dispense: 7 Days ; #:42; Refill: 0; TREMAYNE = N; Record; Last Updated By: Phoebe Bojorquez; 10/07/2019 10:23:30 AM Wellbutrin XL 300 MG Oral Tablet Extended Release 24 Hour; Therapy: (Recorded:15Jul2019) to Recorded Dispense: 0 Days ; #: Sufficient; Refill: 0; TREMAYNE = N; Record; Last Updated By: Collette Schmid; 07/15/2019 10:53:52 AM Vitals Vital Signs Recorded: [id number] 10:06AM Height5 ft 4 in Kaqens108 lb BMI Kuwtuanqjx19.32 BSA Calculated1.8 Results/Data IMPRESSION: 1. Degenerative tearing of the glenoid labrum with superimposed findings suggestive of prior glenoid labral repair. There also appears to be a degree of relatively more discrete hree tearing in the posterosuperior quadrant. 2. Mild tendon of the long head of the biceps and rotator cuff tendinosis. 3. Mild possibly chronic sprain of the anterior band of the inferior glenohumeral ligament. Diagnoses/Problems Glenoid labral tear, left, subsequent encounter (V58.89,840.8) (T95.814Y) Provider Impressions Assessment: Left SLAP repair, impingement syndrome, biceps tendinitis Plan: Today, we discussed different treatment options and review the MRI results which show a possible new tear in the 9 to 12:00 position of the posterior labrum. This also could be residual from the repair and surgery. We discussed there is no significant findings of failure to heal or re-tear and no cysts formation/extravasation of the dye. Discussed the tendinitis in the middle glenohumeral ligament rotator cuff and biceps tendon. She continues to saw issues and would still recommend a second opinion with an orthopedic surgeon. She would like to see Dr. Álvaro Saravia from [facility]. I agree with this request, therefore a C9 will be placed for the second opinion. a total of 5 minutes was spent during televisit today. Signatures Electronically signed by : Phoebe Bojorquez PA-C; Feb 27 2020 11:14AM EST (Author) Normal [facility] MRI SHOULDER W/O-W CONTRA [facility] 02-24-2020 MRI SHOULDER W/O-W CONTRAST Patient Name: CAYLA MORATAYA STUDY: MR arthrogram of the Left shoulder without intravenous contrast date02/24/2020. INDICATION: slap tear s/p repair, biceps tendonitis COMPARISON: MRI dated 2018. ACCESSION NUMBER(S): [id number] ORDERING CLINICIAN: PHOEBE BOJORQUEZ TECHNIQUE: Multiplanar multisequence MRI of the Left shoulder was performed after the fluoroscopically guided instillation of dilute gadolinium contrast into the glenohumeral joint. FINDINGS: MUSCLES AND TENDONS: There is mild insertional supraspinatus and infraspinatus tendinosis. The infraspinatus tendon is intact. The teres minor tendon is intact. The subscapularis tendon is intact. There is increased intermediate signal intensity within the intracapsular tendon of the long head of the biceps. The extracapsular tendon is seated within the bicipital groove distally. No significant rotator cuff muscle atrophy is evident.No mass is evident and the suprascapular or spinoglenoid notch or the quadrangular space. OSSEOUS STRUCTURES AND JOINTS: There are findings compatible with previous superior glenoid labral repair. There is circumferential irregularity to the chondrolabral junction of the glenoid labrum with a more discrete chondrolabral junction defects seen along the posterior labrum between the 9:00 to 12:00 position. There is thickening of the anterior band of the inferior glenohumeral ligament. There is no significant degenerative change of the glenohumeral joint. There is no significant degenerative change of the acromioclavicular joint. The acromion is type I without significant lateral downsloping. No fracture or dislocation is evident.Cystic changes are seen at the greater tubercle of the humerus. Bone marrow signal intensity is otherwise within normal limits. SOFT TISSUES: There is no significant volume of fluid in the subacromial subdeltoid bursa. There is no significant volume of fluid in the subcoracoid bursa. Associated soft tissues of the shoulder are grossly unremarkable. IMPRESSION: 1. Degenerative tearing of the glenoid labrum with superimposed findings suggestive of prior glenoid labral repair. There also appears to be a degree of relatively more discrete hree tearing in the posterosuperior quadrant. 2. Mild tendon of the long head of the biceps and rotator cuff tendinosis. 3. Mild possibly chronic sprain of the anterior band of the inferior glenohumeral ligament. Electronically signed by: ANNEMARIE CULLEN MD [facility] [employer] [place] [facility] [address] [place], [place] CAYLA MORATAYA 1985 Date of Female Sex [id number] [place], [place] [id number] AddressEnglish (preferred) Language White Race Not or Ethnicity Summary of Care Clinical Content Allergies and Adverse Reactions <#[id number]> Encounters <#[id number]> Family History <#[id number]> Functional Status <#NI1HRCRM> Immunization <#[id number]> Instructions <#[id number]> Interventions Provided <#[id number]> Medications <#WZ8QVFMB> Plan of Care <#RF2UKSIT> Problems <#JC3V2CKL> Procedures <#AK3QN6VZ> Results <#RO5M2VCY> Social History <#SP2M6DFL> Vital Signs <#[id number]> Other Document Details Health Care Providers Functional Statustop <#top> Functional Status Health Issues NameDatesDetails Functional status health issues are not documented Cognitive Status Health Issues NameDatesDewills Cognitive status health issues are not documented Problemstop <#top> NameDatesDeanwills Anxiety and depression (300.00, F41.9) Benign essential hypertension (401.1, I10) Superior glenoid labrum lesion of left shoulder, initial encounter (840.7, S43.432A) Glenoid labral tear, left, subsequent encounter (V58.89, S43.432D) Sprain of left shoulder, subsequent encounter (V58.89, S43.402D) Acute shoulder pain due to trauma, right (719.41, M25.511) Medicationstop <#top> NameDEzrawilljessica Wellbutrin XL 300 MG Oral Tablet Extended Release 24 Hour Refills: 0 DO Citalopram Hydrobromide 40 MG Oral Tablet Refills: 0 DO Atenolol 25 MG Oral Tablet Refills: 0 DO HYDROcodone-Acetaminoph en 5-325 MG Oral Tablet TAKE 1 TABLET BY MOUTH EVERY 4 HOURS NEEDED FOR PAIN X 7 DAYS Quantity: 42 Refills: 0 DO Start : 21-Apr-2019 Clobetasol Propionate 0.05 % External Cream APPLY ONE APPLICATION TOPICALLY TO AFFECTED AREA(S) ONE TO TWO TIMES D Quantity: 60 Refills: 0 DO Start : 01-Jan-2019 buPROPion HCl ER (XL) 150 MG Oral Tablet Extended Release 24 Hour Quantity: 30 Refills: 0 DO Start : 17-Nov-2019 Allergies and Adverse Reactionstop <#top> NameDEzrawilljessica No Known Drug Allergies (Allergy) Procedurestop <#top> ProcedureDatesDetails History of Superior labrum anterior to posterior lesion repairCompleted Immunizationtop <#top> NameDEzrawilljessica Immunizations not documented Family Historytop <#top> Father NameDMarcos Family history of malignant neoplasm of prostate (V16.42, Z80.42) Social Historytop <#top> NameDatesDeanwills - Smoking Status NameDMarcos Never smoked tobacco (finding) Vital Signstop <#top> DateTestResultDetails No Known Vitals to report Resultstop <#top> DateDescriptionValueDet ails 24-Feb-2020 9:11Xray Arthrogram ShoulderInterpreted by: JOSSE DUNHAM 02/24/20 10:26 Patient Name: CAYLA MORATAYA STUDY: SHOULDER, ARTHROGRAM; 02/24/2020 9:11 am INDICATION: slap tear s/p repair, biceps tendonitis DOI 02/13/2018. COMPARISON: None. ACCESSION NUMBER(S): [id number] ORDERING CLINICIAN: PHOEBE BOJORQUEZ FINDINGS: The risks, benefits and alternatives of the procedure were discussed with the patient. The patient was given the chance to ask questions, and all were answered prior to proceeding. At this time, written informed consent was obtained. The patient was placed in the supine position on the fluoroscopic table and was prepped and draped in the usual sterile fashion. The left glenohumeral joint was localized under fluoroscopy. Lidocaine, 4 ml was used for local anesthesia. Under fluoroscopic guidance a 22 gauge needle was inserted into the left glenohumeral joint. 1 ml of iodinated contrast was injected to confirm intraarticular needle placement with fluoroscopy. 13 cc of dilute gadolinium solution were injected into the left glenohumeral joint. The patient tolerated the procedure well and no immediate complication was noted. Total fluoroscopy time was 0.8 minutes. Procedure was performed by Dr. Dunham. IMPRESSION: Successful injection of dilute gadolinium contrast into the left glenohumeral joint prior to MRI arthrogram. Electronically signed by: JOSSE DUNHAM 02/24/20 10:26 (Normal) 24-Feb-2020 10:30MRI Shoulder w/wo ContrastInterpreted by: ANNEMARIE CULLEN 02/24/20 11:21 Patient Name: CAYLA MORATAYA STUDY: MR arthrogram of the Left shoulder without intravenous contrast date02/24/2020. INDICATION: slap tear s/p repair, biceps tendonitis COMPARISON: MRI dated 2018. ACCESSION NUMBER(S): [id number] ORDERING CLINICIAN: PHOEBE BOJORQUEZ TECHNIQUE: Multiplanar multisequence MRI of the Left shoulder was performed after the [facility] MRI Shoulder w/wo Contraston 02-24-2020 MR Shoulder WO and W contrast IV Interpreted by: ANNEMARIE JOSSE CULLEN02/24/20 11:21MRN: [id number] Name: CAYLA MORATAYA STUDY:MR arthrogram of the Left shoulder without intravenous contrastdate02/24/2020. INDICATION:slap tear s/p repair, biceps tendonitis COMPARISON:MRI dated 2018. ORDERING CLINICIAN:PHOEBE BOJORQUEZ TECHNIQUE:Multiplanar multisequence MRI of the Left shoulder was performedafter the fluoroscopically guided instillation of dilute gadoliniumcontrast into the glenohumeral joint. FINDINGS:MUSCLES AND TENDONS: There is mild insertional supraspinatus and infraspinatus tendinosis.The infraspinatus tendon is intact. The teres minor tendon is intact.The subscapularis tendon is intact. There is increased intermediatesignal intensity within the intracapsular tendon of the long head ofthe biceps. The extracapsular tendon is seated within the bicipitalgroove distally. No significant rotator cuff muscle atrophy isevident.No mass is evident and the suprascapular or spinoglenoidnotch or the quadrangular space. OSSEOUS STRUCTURES AND JOINTS: There are findings compatible with previous superior glenoid labralrepair. There is circumferential irregularity to the chondrolabraljunction of the glenoid labrum with a more discrete chondrolabraljunction defects seen along the posterior labrum between the 9:00 to12:00 position. There is thickening of the anterior band of theinferior glenohumeral ligament. There is no significant degenerativechange of the glenohumeral joint. There is no significantdegenerative change of the acromioclavicular joint. The acromion istype I without significant lateral downsloping. No fracture or dislocation is evident.Cystic changes are seen at thegreater tubercle of the humerus. Bone marrow signal intensity isotherwise within normal limits. SOFT TISSUES: There is no significant volume of fluid in the subacromial subdeltoidbursa. There is no significant volume of fluid in the subcoracoidbursa. Associated soft tissues of the shoulder are grosslyunremarkable. IMPRESSION:1. Degenerative tearing of the glenoid labrum with superimposedfindings suggestive of prior glenoid labral repair. There alsoappears to be a degree of relatively more discrete hree tearing inthe posterosuperior quadrant.2. Mild tendon of the long head of the biceps and rotator cufftendinosis.3. Mild possibly chronic sprain of the anterior band of the inferiorglenohumeral ligament.Electronically signed by: ANNEMARIE CULLEN 02/24/20 11:21 Normal [facility] [address] Work Phone: Otheron 02-24-2020 RF Shoulder Arthrogram Interpreted by: Faviola DUNHAM02/24/20 10:26MRN: [id number] Name: CAYLA MORATAYA STUDY:SHOULDER, ARTHROGRAM; 02/24/2020 9:11 am INDICATION:slap tear s/p repair, biceps tendonitis DOI 02/13/2018. COMPARISON:None. ORDERING CLINICIAN:PHOEBE BOJORQUEZ FINDINGS:The risks, benefits and alternatives of the procedure were discussedwith the patient. The patient was given the chance to ask questions,and all were answered prior to proceeding. At this time, writteninformed consent was obtained. The patient was placed in the supine position on the fluoroscopictable and was prepped and draped in the usual sterile fashion. Theleft glenohumeral joint was localized under fluoroscopy. Lidocaine, 4ml was used for local anesthesia. Under fluoroscopic guidance a 22gauge needle was inserted into the left glenohumeral joint. 1 ml ofiodinated contrast was injected to confirm intraarticular needleplacement with fluoroscopy. 13 cc of dilute gadolinium solution wereinjected into the left glenohumeral joint. The patient tolerated the procedure well and no immediatecomplication was noted. Total fluoroscopy time was 0.8 minutes. Procedure was performed by Dr. Dunham. IMPRESSION:Successful injection of dilute gadolinium contrast into the leftglenohumeral joint prior to MRI arthrogram. Electronically signed by: JOSSE DUNHAM 02/24/20 10:26 Normal [facility] 300 Work Phone: SHOULDER, ARTHROGRAMon 02-23 SHOULDER, ARTHROGRAM Patient Name: CAYLA MORATAYA STUDY: SHOULDER, ARTHROGRAM; 02/24/2020 9:11 am INDICATION: slap tear s/p repair, biceps tendonitis DOI 02/13/2018. COMPARISON: None. ACCESSION NUMBER(S): [id number] ORDERING CLINICIAN: PHOEBE BOJORQUEZ FINDINGS: The risks, benefits and alternatives of the procedure were discussed with the patient. The patient was given the chance to ask questions, and all were answered prior to proceeding. At this time, written informed consent was obtained. The patient was placed in the supine position on the fluoroscopic table and was prepped and draped in the usual sterile fashion. The left glenohumeral joint was localized under fluoroscopy. Lidocaine, 4 ml was used for local anesthesia. Under fluoroscopic guidance a 22 gauge needle was inserted into the left glenohumeral joint. 1 ml of iodinated contrast was injected to confirm intraarticular needle placement with fluoroscopy. 13 cc of dilute gadolinium solution were injected into the left glenohumeral joint. The patient tolerated the procedure well and no immediate complication was noted. Total fluoroscopy time was 0.8 minutes. Procedure was performed by Dr. Dunham. IMPRESSION: Successful injection of dilute gadolinium contrast into the left glenohumeral joint prior to MRI arthrogram. Electronically signed by: JOSSE DUNHAM MD Normal Located Within [facility] Therapy Communicationon 12-07 Therapy Communication Message CAYLA MORATAYA was (D/C)- last seen: 11-26-19. Patient never returned after her 11-26-19 appt and she did follow up with physician 12/09/19. No further therapy was ordered-will discharge at this time and refer to last progress note 11-26-19 for additional info/last objective info. Patient was compliant with hep and gave good effort throughout PT. Signatures Electronically signed by : Mandeep Butler PT; Dec 29 2019 1:39PM EST (Author) Normal [facility] Therapy Communicationon 12-06 Therapy Communication Message Per front end mechanic, patient called to cancel. Signatures Electronically signed by : Marjorie Orozco MEDICAL RESEARCH SCIENTIST; Dec 17 2019 2:54PM EST (Author) Normal [employer] Established Visit (Orthopaed ic Surgery)on 12-09-2019 Established Visit (Orthopaedic Surgery) Chief Complaint PT HERE FOR 6 WK FU RIGHT SHOULDER. BWC. SX 04/21/19. STATES FEELS SHOULDER HAS PLATEAUED. DIFFICULTY LIFTING HEAVY OBJECTS. PAIN INCREASES WITH OVERUSE. LAST INJ 10/28/2019-DID NOT HELP. History of Present Illness Patient here today for follow-up of her left SLAP repair on 04/21/2019. She last received a cortisone injection about a month ago and states she did not have any relief from this. She continues have pain on the anterior aspect of the shoulder she's been working on physical therapy and feels as though she has plateaued in the past month. No new injuries Review of Systems pt denies fever, chills, chest pain, dizziness, or shortness of breath Active Problems Acute shoulder pain due to trauma, right (719.41,338.11) (M25.511,G89.11) Anxiety and depression (300.00,311) (F41.9,F32.9) Benign essential hypertension (401.1) (I10) Glenoid labral tear, left, subsequent encounter (V58.89,840.8) (S43.432D) Sprain of left shoulder, subsequent encounter (V58.89,840.9) (S43.402D) Superior glenoid labrum lesion of left shoulder, initial encounter (840.7) (S43.432A) Surgical History History of Superior labrum anterior to posterior lesion repair Family History Family history of malignant neoplasm of prostate (V16.42) (Z80.42) Social History Chews tobacco (305.1) (Z72.0) Denied: History of Drug use Never a smoker No alcohol use Allergies No Known Drug Allergies Recorded By: Collette Schmid; 07/15/2019 10:53:52 AM Current Meds Atenolol 25 MG Oral Tablet; Therapy: (Recorded:15Jul2019) to Recorded Dispense: 0 Days ; #: Sufficient; Refill: 0; TREMAYNE = N; Record; Last Updated By: Collette Schmid; 07/15/2019 10:53:52 AM buPROPion HCl ER (XL) 150 MG Oral Tablet Extended Release 24 Hour; Therapy: [id number] to Recorded Dispense: 30 Days ; #:30; Refill: 0; TREMAYNE = N; Record; Last Updated By: Phoebe Bojorquez; 12/09/2019 2:36:35 PM Citalopram Hydrobromide 40 MG Oral Tablet; Therapy: (Recorded:15Jul2019) to Recorded Dispense: 0 Days ; #: Sufficient; Refill: 0; TREMAYNE = N; Record; Last Updated By: Collette Schmid; 07/15/2019 10:53:52 AM Clobetasol Propionate 0.05 % External Cream; APPLY ONE APPLICATION TOPICALLY TO AFFECTED AREA(S) ONE TO TWO TIMES D; Therapy: 01Jan2019 to Recorded Rx By: GIOVANA; Dispense: 14 Days ; #:60; Refill: 0; TREMAYNE = N; Record; Last Updated By: Phoebe Bojorquez; 10/07/2019 10:23:30 AM HYDROcodone-Acetaminoph en 5-325 MG Oral Tablet; TAKE 1 TABLET BY MOUTH EVERY 4 HOURS NEEDED FOR PAIN X 7 DAYS; Therapy: 21Apr2019 to Recorded Rx By: RENO; Dispense: 7 Days ; #:42; Refill: 0; TREMAYNE = N; Record; Last Updated By: Phoebe Bojorquez; 10/07/2019 10:23:30 AM Wellbutrin XL 300 MG Oral Tablet Extended Release 24 Hour; Therapy: (Recorded:15Jul2019) to Recorded Dispense: 0 Days ; #: Sufficient; Refill: 0; TREMAYNE = N; Record; Last Updated By: Collette Schmid; 07/15/2019 10:53:52 AM Vitals Vital Signs Recorded: 09Dec2019 02:23PM [id number] Vhcxyxugl79 Height5 ft 4 in Zmrzhe588 lb 4 oz BMI Nmszwozraw87.37 BSA Calculated1.8 Physical Exam Left upper extremity shows full range of motion, positive crank, positive impingement signs, positive biceps tenderness rotator cuff strength is 5/5 supraspinatus internal and external rotation Diagnoses/Problems Superior glenoid labrum lesion of left shoulder, initial encounter (840.7) (S43.432A) Orders Superior glenoid labrum lesion of left shoulder, initial encounter MRI Shoulder w/wo Contrast; Status:Hold For - Scheduling; Requested for:09Dec2019; Perform:[facility]; Order Comments:intra-articula r gadolinium dye only, no IV contrast; Due:19Dec2019;Ordered; For:Superior glenoid labrum lesion of left shoulder, initial encounter; Ordered By:Phoebe Bojorquez; Laterality : Left Radiologist to Determine Optimal Study : Y What are the patient's signs and symptoms? : slap tear s/p repair, biceps tendonitis Xray Arthrogram Shoulder; Status:Hold For - Scheduling; Requested for:09Dec2019; Perform:[facility]; Due:08Mar2020;Ordered; For:Superior glenoid labrum lesion of left shoulder, initial encounter; Ordered By:Phoebe Bojorquez; Laterality : Left Radiologist to Determine Optimal Study : Y What are the patient's signs and symptoms? : slap tear s/p repair, biceps tendonitis Provider Impressions Assessment: Status post left SLAP repair Plan: Today, we discussed that she has reached a plateau in her rehabilitation and still having pain located mostly in the anterior aspect of the shoulder. She also is exhibiting impingement signs which the last cortisone injection did not help. We discussed further treatment options such as MRI arthrogram to check the status of the repair she would like to pursue this. His senile be placed and performed once approved. We discussed second opinion with Dr. Wise she would like to pursue this to see if a second surgery would be necessary/needed at this time. Follow-up after MRI arthrogram Signatures Electronically signed by : Phoebe Bojorquez PA-C; Dec 09 2019 2:40PM EST (Author) Normal SureVisit Therapy Communicationon 11-09 Therapy Communication Message Patient's plan of care extended to 11/28/19. Signatures Electronically signed by : Mandeep Butler PT; Nov 27 2019 9:09AM EST (Author) Normal SureVisit PT Progress Noteon 0 PT Progress Note Therapy Diagnosis Assessed Glenoid labral tear, left, subsequent encounter (V58.89,840.8) (S43.432D) Sprain of left shoulder, subsequent encounter (V58.89,840.9) (S43.402D) Superior glenoid labrum lesion of left shoulder, initial encounter (840.7) (S43.432A) Insurance Insurance reviewed Visit number: 45 Approved number of visits: 01/23 Supervising Physical Therapist Mandeep Butler new c-9 09-23 to 11/14/19 for 18 visits [facility] 07/10/19-08/23/19- visits extension date to 09-22-19-c-9 extended to 11-28-19 . Subjective Patient reports: Pain is 6/10 left shoulder, I can do a lot more things. Can lift a gallon of milk. Still difficulty with sustained holding of i.e. gallon of milk, carrying a toddler, laying on the left still painful-anything heavy over a duration of time is painful. Patient is working with an atty. as she states that [facility] wants to settle. Patient rates current pain 6/10. left shoulder pain persists. Home program performing as directed: Yes. Precautions: Fall Risk: none strengthening OK per latest C9 s/p L SLAP repair on 04/21/2019. Treatment Time in clinic started at 250 pm Time in clinic ended at 330 pm Total time in clinic is 40 minutes. Total timed code time is 40 minutes. Therapeutic exercise (88177): timed minutes 38, units 3 . UBE: Lv 3 x 3'fwd/3'bwd 6 mins Rows 2 x 15 Magenta Tube SA punch 2x15 Magenta Tube Standing shoulder dynamic hugs 2x15 magenta resisted ER Green 2x15 with towel roll x resisted IR Dark green 2x15 with towel roll x Standing LUE scaption with light Blue TB 2x15, cues for scapula depression (P reps) shoulder extension purple TB 2x15 shoulder alphabet x1 cycle 3# (X) scaption delt raises 3# 3 x 10 bicep curls 6# 2x15 hammer curls 6# 2x15 Shelf raises 2 x 10 2 Kg KB x Stabilize and reach x 10 yellow loop x Prone Rows 2 x 15 4# (X) Prone Ext 3 x 10 4# (X) Prone HABD 2 x 10 1# (X) Shoulder taps from elevated plinth 2 x 10 B (X) KB walks 40ft x4 2Kg bottom up at 90* GH flex/ 90* elbow flex (N)x Sitting chair push ups x 10 wall push ups with green t-band resist x 10 20: None of the following performed: Quadruped L and R shoulder HERNANDEZ, LUE at 30 degrees from side, RUE at 90 x10 [X] sidelying 2# ER 2x10 [X] sidelying flex w/scap retraction x20(X) Prone B/L : Rows / Horz Abd /Extension/Flex 2x10 (X) 1/2 roll : [place] Goals,[place].Swimmers.B utterflies 2x10 each (X) 1/2 roll rhythmic stabilization 3 cycles (X) 1/2 roll: B/L Horiz Abd Lt Blue 2x10 (X) 1/2 Roll B/L ER Lt Blue 2x10 (X) ER stretch at doorway with arm at 80 abd 2x30 L (X) wall slides 2x10 flexion B (X) pulleys x 3 mins flexion/scaption (X) Pulleys for IR ROM to T12 5x10(X) left sidelying sleeper stretch left ue x 30 secs [x] . Assessment Patient thinks a new c-9 might be coming. Patient continues to show improvement-she did scaption with the light blue with good form this date and patient does her other t-band exercises with good form. Patient had to leave early due to an issue with her kids. Patient is carrying over her hep with good form. Response to treatment: decreased pain, improved strength and improved knowledge and understanding of condition. Patient was able to complete today's treatment with some difficulty. Plan Planned interventions include: electrical stimulation, home program, kinesiotaping, manual therapy, neuromuscular re-education, self care/home management, therapeutic activities and therapeutic exercises. Goals: Goals set and discussed today. By discharge CAYLA MORATAYA will achieve the following goals: Other PT Goal #1: Decrease max pain (even at rom end ranges) to less than or equal to 2/10 for improved QOL; PROGRESSING, CONTINUE Other PT Goal #2: Increase left shoulder/postural muscle/UE strength to greater than or equal to 4+/5 throughout for lifting; Initial PROGRESSING, CONTINUE Other PT Goal #3: Increase left shoulder AROM to greater than or equal to 165 flexion, 165 abduction, 90 ER, 80 IR for improved ability to reach overhead PROGRESSING, CONTINUE Other PT Goal #4: Decrease disability as assessed by QDASH to less than or equal to 10% disability for improved QOL; Initial PROGRESSING, CONTINUE, by week 4 Strength: strength to at least 4/5 throughout left shoulder in 2 weeks, to 4+/5/5 in 4 weeks, by week 2, goal partially met Frequency and duration: 2 time(s) a week, for 5 weeks, for 9 visits . give quick dash next session. Potential to achieve rehab goals is good Progress with POC, as tolerated. Signatures Electronically signed by : Mandeep Butler, PT; Nov 26 2019 5:05PM EST (Author) Normal SureVisit Therapy Communicationon 11-08 Therapy Communication Message CAYLA MORATAYA no showed today . patient no showed this date. Signatures Electronically signed by : Mandeep Butler PT; Nov 25 2019 3:37PM EST (Author) Normal Touchworks PT Progress Noteon 0 PT Progress Note Therapy Diagnosis Assessed Acute shoulder pain due to trauma, right (719.41,338.11) (M25.511,G89.11) Insurance Insurance reviewed Visit number: 44 Approved number of visits: 01/23 Supervising Physical Therapist Mandeep Butler new c-9 09-23 to 11/14/19 for 18 visits [facility] C9 07/10/19-08/23/19- visits extension date to 09-22-19 . Subjective Patient reports: No c/o pain or discomfort noted. Pt. states nothing abnormal. Sometimes sleeping on shoulder willl cause it to ache. Home program performing as directed: Yes. Precautions: Fall Risk: none strengthening OK per latest C9 s/p L SLAP repair on 04/21/2019. Treatment Time in clinic started at 3:19 pm Time in clinic ended at 4:05 pm Total time in clinic is 46 minutes. Total timed code time is 45 minutes. Therapeutic exercise (07035): timed minutes 44, units 3 . UBE: Lv 4 x 3'fwd/3'bwd 6 mins Rows 2 x 15 Magenta Tube SA punch 2x15 Magenta Tube Standing shoulder dynamic hugs 2x15 magenta resisted ER Green 2x15 with towel roll resisted IR Dark green 2x15 with towel roll Standing LUE scaption with light Blue TB 2x15, cues for scapula depression (P reps) shoulder extension purple TB 2x15 shoulder alphabet x1 cycle 3# (X) scaption delt raises 3# 3 x 10 bicep curls 6# 2x15 hammer curls 6# 2x15 Shelf raises 2 x 10 2 Kg KB Stabilize and reach x 10 yellow loop Prone Rows 2 x 15 4# (X) Prone Ext 3 x 10 4# (X) Prone HABD 2 x 10 1# (X) Shoulder taps from elevated plinth 2 x 10 B (X) KB walks 40ft x4 2Kg bottom up at 90* GH flex/ 90* elbow flex (N) 11/11/19: None of the following performed: Quadruped L and R shoulder HERANNDEZ, LUE at 30 degrees from side, RUE at 90 x10 [X] sidelying 2# ER 2x10 [X] sidelying flex w/scap retraction x20(X) Prone B/L : Rows / Horz Abd /Extension/Flex 2x10 (X) 1/2 roll : [place] Goals,[place].Swimmers.B utterflies 2x10 each (X) 1/2 roll rhythmic stabilization 3 cycles (X) 1/2 roll: B/L Horiz Abd Lt Blue 2x10 (X) 1/2 Roll B/L ER Lt Blue 2x10 (X) ER stretch at doorway with arm at 80 abd 2x30 L (X) wall slides 2x10 flexion B (X) pulleys x 3 mins flexion/scaption (X) Pulleys for IR ROM to T12 5x10(X) left sidelying sleeper stretch left ue x 30 secs [x] . Assessment Quick fatigue with hammer and bicep curls. Pt. performed delt raises in between sets to allow resting with biceps. Good form noted with mid rows, no c/o increased sx.'s noted. Pt. notes shoulder feeling tired following session. Response to treatment: decreased pain. Patient was able to complete today's treatment with some difficulty. Plan Planned interventions include: electrical stimulation, home program, kinesiotaping, manual therapy, neuromuscular re-education, self care/home management, therapeutic activities and therapeutic exercises. Goals: Goals set and discussed today. By discharge CAYLA MORATAYA will achieve the following goals: 06/05/2019 Other PT Goal #1: Decrease max pain (even at rom end ranges) to less than or equal to 2/10 for improved QOL; PROGRESSING, CONTINUE Other PT Goal #2: Increase left shoulder/postural muscle/UE strength to greater than or equal to 4+/5 throughout for lifting; Initial PROGRESSING, CONTINUE Other PT Goal #3: Increase left shoulder AROM to greater than or equal to 165 flexion, 165 abduction, 90 ER, 80 IR for improved ability to reach overhead PROGRESSING, CONTINUE Other PT Goal #4: Decrease disability as assessed by QDASH to less than or equal to 10% disability for improved QOL; Initial PROGRESSING, CONTINUE Strength: strength to at least 4/5 throughout left shoulder in 2 weeks, to 4+/5/5 in 4 weeks, by week 2, goal partially met Frequency and duration: 2 time(s) a week, for 5 weeks, for 9 visits. Potential to achieve rehab goals is good Progress with POC, as tolerated. Signatures Electronically signed by : Celia Liu MEDICAL RESEARCH SCIENTIST; Nov 17 2019 4:40PM EST (Author) Electronically signed by : Mandeep Butler, PT; Nov 17 2019 4:58PM EST Normal [facility] PT Progress Noteon 0 PT Progress Note Therapy Diagnosis Assessed Sprain of left shoulder, subsequent encounter (V58.89,840.9) (S43.402D) Glenoid labral tear, left, subsequent encounter (V58.89,840.8) (S43.533D) Insurance Insurance reviewed Visit number: 43 Approved number of visits: 01/23 Supervising Physical Therapist Mandeep Butler [facility] c-9 09-23 to 11/14/19 for 18 visits [facility] C9 07/10/19-08/23/19- visits extension date to 09-22-19 . Subjective Patient reports: pt. reports feeling the same as any other day and always having some soreness after each session but goes away. Home program performing as directed: Yes. Precautions: Fall Risk: none strengthening OK per latest C9 s/p L SLAP repair on 04/21/2019. Treatment Time in clinic started at 330 pm Time in clinic ended at 417 pm Total time in clinic is 47 minutes. Total timed code time is 45 minutes. Therapeutic exercise (82042): timed minutes 45, units 3 . UBE: Lv 4 x 3'fwd/3'bwd 6 mins Rows 2 x 15 Magenta Tube SA punch 2x15 Magenta Tube Standing shoulder dynamic hugs 2x15 magenta resisted ER Green 2x15 with towel roll resisted IR Dark green 2x15 with towel roll Standing LUE scaption with light Blue TB 2x15, cues for scapula depression (P reps) shoulder extension purple TB 2x15 shoulder alphabet x1 cycle 3# (X) scaption delt raises 3# 3 x 10 bicep curls 6# 2x15 hammer curls 6# 2x15 (N) Shelf raises 2 x 10 2 Kg KB Stabilize and reach x 10 yellow loop Prone Rows 2 x 15 4# (X) Prone Ext 3 x 10 4# (X) Prone HABD 2 x 10 1# (X) Shoulder taps from elevated plinth 2 x 10 B (X) KB walks 40ft x4 2Kg bottom up at 90* GH flex/ 90* elbow flex (N) 11/11/19: None of the following performed: Quadruped L and R shoulder HERNANDEZ, LUE at 30 degrees from side, RUE at 90 x10 [X] sidelying 2# ER 2x10 [X] sidelying flex w/scap retraction x20(X) Prone B/L : Rows / Horz Abd /Extension/Flex 2x10 (X) 1/2 roll : [place] Goals,[place].Swimmers.B utterflies 2x10 each (X) 1/2 roll rhythmic stabilization 3 cycles (X) 1/2 roll: B/L Horiz Abd Lt Blue 2x10 (X) 1/2 Roll B/L ER Lt Blue 2x10 (X) ER stretch at doorway with arm at 80 abd 2x30 L (X) wall slides 2x10 flexion B (X) pulleys x 3 mins flexion/scaption (X) Pulleys for IR ROM to T12 5x10(X) left sidelying sleeper stretch left ue x 30 secs [x] . Assessment Added hammer curls and KB walks to further improve strength and Pt. c/o soreness in L shoulder after exercises. Slight weakness/fatigue observed through difficulty keeping KB elevated. *Treatment delivered under supervision and guidance with clinical decision making by Blane Mehta PTA, [facility]. Plan Planned interventions include: electrical stimulation, home program, kinesiotaping, manual therapy, neuromuscular re-education, self care/home management, therapeutic activities and therapeutic exercises. Goals: Goals set and discussed today. By discharge CAYLA MORATAYA will achieve the following goals: 06/05/2019 Other PT Goal #1: Decrease max pain (even at rom end ranges) to less than or equal to 2/10 for improved QOL; PROGRESSING, CONTINUE Other PT Goal #2: Increase left shoulder/postural muscle/UE strength to greater than or equal to 4+/5 throughout for lifting; Initial PROGRESSING, CONTINUE Other PT Goal #3: Increase left shoulder AROM to greater than or equal to 165 flexion, 165 abduction, 90 ER, 80 IR for improved ability to reach overhead PROGRESSING, CONTINUE Other PT Goal #4: Decrease disability as assessed by QDASH to less than or equal to 10% disability for improved QOL; Initial PROGRESSING, CONTINUE Strength: strength to at least 4/5 throughout left shoulder in 2 weeks, to 4+/5/5 in 4 weeks, by week 2, goal partially met Frequency and duration: 2 time(s) a week, for 5 weeks, for 9 visits. Potential to achieve rehab goals is good Continue progressing L shoulder strengthening to ease performance of daily activities. Signatures Electronically signed by : JADE Hardy; Nov 13 2019 5:14PM EST (Author) Electronically signed by : Blane Mehta PTA; Nov 13 2019 5:22PM EST (Author) Normal SureVisit PT Progress Noteon 0 PT Progress Note Therapy Diagnosis Assessed Sprain of left shoulder, subsequent encounter (V58.89,840.9) (S43.402D) Glenoid labral tear, left, subsequent encounter (V58.89,840.8) (S43.432D) Insurance Insurance reviewed Visit number: 42 Approved number of visits: 01/23 Supervising Physical Therapist Mandeep barroso 09-23 to 11/14/19 for 18 visits [facility] C9 07/10/19-08/23/19- visits extension date to 09-22-19 . Subjective Patient reports: Patient reports same as always in the shoulder. Reports experiencing moderate UE muscular soreness after PT sessions. At exit patient notes L UE fatigue. Precautions: Fall Risk: none strengthening OK per latest C9 s/p L SLAP repair on 04/21/2019. Treatment Time in clinic started at 2:58 pm Time in clinic ended at 3:43 pm Total time in clinic is 45 minutes. Total timed code time is 43 minutes. Therapeutic exercise (99734): timed minutes 43, units 3 . UBE: Lv 4 x 3'fwd/3'bwd 6 mins Rows 2 x 15 Magenta Tube SA punch 2x15 Magenta Tube Standing shoulder dynamic hugs 2x15 magenta resisted ER Green 2x15 with towel roll resisted IR Dark green 2x15 with towel roll Standing LUE scaption with light Blue TB 2x10, cues for scapula depression shoulder extension purple TB 2x15 shoulder alphabet x1 cycle 3# scaption delt raises 3# 3 x 10 bicep curls 6# 2x15 Shelf raises 2 x 10 2 Kg KB Stabilize and reach x 10 yellow loop Prone Rows 2 x 15 4# Prone Ext 3 x 10 4# Prone HABD 2 x 10 1# Shoulder taps from elevated plinth 2 x 10 B 11/11/19: None of the following performed: Quadruped L and R shoulder HERNANDEZ, LUE at 30 degrees from side, RUE at 90 x10 [X] sidelying 2# ER 2x10 [X] sidelying flex w/scap retraction x20(X) Prone B/L : Rows / Horz Abd /Extension/Flex 2x10 (X) 1/2 roll : [place] Goals,[place].Swimmers.B utterflies 2x10 each (X) 1/2 roll rhythmic stabilization 3 cycles (X) 1/2 roll: B/L Horiz Abd Lt Blue 2x10 (X) 1/2 Roll B/L ER Lt Blue 2x10 (X) ER stretch at doorway with arm at 80 abd 2x30 L (X) wall slides 2x10 flexion B (X) pulleys x 3 mins flexion/scaption (X) Pulleys for IR ROM to T12 5x10(X) left sidelying sleeper stretch left ue x 30 secs [x] . Assessment Good recall of ther ex regimen demonstrated throughout PT session with minimal cues needed for proper form. Visible UE fatigue noted with prone horizontal abduction and shoulder extension exercises today. Plan Planned interventions include: electrical stimulation, home program, kinesiotaping, manual therapy, neuromuscular re-education, self care/home management, therapeutic activities and therapeutic exercises. Goals: Goals set and discussed today. By discharge CAYLA MORATAYA will achieve the following goals: 06/05/2019 Other PT Goal #1: Decrease max pain (even at rom end ranges) to less than or equal to 2/10 for improved QOL; PROGRESSING, CONTINUE Other PT Goal #2: Increase left shoulder/postural muscle/UE strength to greater than or equal to 4+/5 throughout for lifting; Initial PROGRESSING, CONTINUE Other PT Goal #3: Increase left shoulder AROM to greater than or equal to 165 flexion, 165 abduction, 90 ER, 80 IR for improved ability to reach overhead PROGRESSING, CONTINUE Other PT Goal #4: Decrease disability as assessed by QDASH to less than or equal to 10% disability for improved QOL; Initial PROGRESSING, CONTINUE Strength: strength to at least 4/5 throughout left shoulder in 2 weeks, to 4+/5/5 in 4 weeks, by week 2, goal partially met Frequency and duration: 2 time(s) a week, for 5 weeks, for 9 visits. Potential to achieve rehab goals is good Plan to continue UE strengthening in various planes to increase ease with daily lifting/carrying tasks and decrease UE soreness after ADL's. AM . Progress with POC, as tolerated. Signatures Electronically signed by : Teena Moralez MEDICAL RESEARCH SCIENTIST; Nov 11 2019 3:46PM EST (Author) Electronically signed by : Mandeep Butler, PT; Nov 12 2019 4:16PM EST Normal [facility] PT Progress Noteon 0 PT Progress Note Therapy Diagnosis Assessed Sprain of left shoulder, subsequent encounter (V58.89,840.9) (S43.402D) Glenoid labral tear, left, subsequent encounter (V58.89,840.8) (S43.432D) Insurance Insurance reviewed Visit number: 41 Approved number of visits: 01/23 Supervising Physical Therapist Mandeep Butler new c-9 09-23 to 11/14/19 for 18 visits [facility] C9 07/10/19-08/23/19- visits extension date to 09-22-19 . Subjective Patient reports: Continued L shoulder pain/discomfort with use/activity. Patient notes min to no pain with rest, unless leaning/WBing on LUE or rolling onto L side. Home program performing as directed: Yes. Precautions: Fall Risk: none strengthening OK per latest C9 s/p L SLAP repair on 04/21/2019. Treatment Time in clinic started at 1530 Time in clinic ended at 1615 Total time in clinic is 45 minutes. Total timed code time is 43 minutes. Therapeutic exercise (00721): timed minutes 43, units 3 . UBE: Lv 4 x 3'fwd/3'bwd 6 mins (P time) Rows 2 x 15 Magenta Tube SA punch 2x15 Magenta Tube Standing shoulder dynamic hugs 2x15 magenta resisted ER Green 2x15 with towel roll resisted IR Dark green 2x15 with towel roll Standing LUE scaption with light Blue TB 2x10, cues for scapula depression shoulder extension purple TB 2x15 shoulder alphabet x1 cycle 3# scaption delt raises 3# 3 x 10 bicep curls 6# 2x15 Shelf raises 2 x 10 2 Kg KB Stabilize and reach x 10 yellow loop Prone Rows 2 x 15 4# Prone Ext 3 x 10 4# Prone HABD 2 x 10 1# Shoulder taps from elevated plinth2 x 10 B Quadruped L and R shoulder HERNANDEZ, LUE at 30 degrees from side, RUE at 90 x10 [X] sidelying 2# ER 2x10 [X] sidelying flex w/scap retraction x20(X) Prone B/L : Rows / Horz Abd /Extension/Flex 2x10 (X) 1/2 roll : [place] Goals,[place].Swimmers.B utterflies 2x10 each (X) 1/2 roll rhythmic stabilization 3 cycles (X) 1/2 roll: B/L Horiz Abd Lt Blue 2x10 (X) 1/2 Roll B/L ER Lt Blue 2x10 (X) ER stretch at doorway with arm at 80 abd 2x30 L (X) wall slides 2x10 flexion B (X) pulleys x 3 mins flexion/scaption (X) Pulleys for IR ROM to T12 5x10(X) left sidelying sleeper stretch left ue x 30 secs [x] . Assessment Patient with good tolerance to treatment, no c/o increased pain/discomfort this date. Patient able to complete all exercise this session with appropriate level of challenge, but continues to have pain and limitations with functional reach, lift, and carry. Plan Planned interventions include: electrical stimulation, home program, kinesiotaping, manual therapy, neuromuscular re-education, self care/home management, therapeutic activities and therapeutic exercises. Goals: Goals set and discussed today. By discharge CAYLA MORATAYA will achieve the following goals: 06/05/2019 Other PT Goal #1: Decrease max pain (even at rom end ranges) to less than or equal to 2/10 for improved QOL; PROGRESSING, CONTINUE Other PT Goal #2: Increase left shoulder/postural muscle/UE strength to greater than or equal to 4+/5 throughout for lifting; Initial PROGRESSING, CONTINUE Other PT Goal #3: Increase left shoulder AROM to greater than or equal to 165 flexion, 165 abduction, 90 ER, 80 IR for improved ability to reach overhead PROGRESSING, CONTINUE Other PT Goal #4: Decrease disability as assessed by QDASH to less than or equal to 10% disability for improved QOL; Initial PROGRESSING, CONTINUE Strength: strength to at least 4/5 throughout left shoulder in 2 weeks, to 4+/5/5 in 4 weeks, by week 2, goal partially met Frequency and duration: 2 time(s) a week, for 5 weeks, for 9 visits. Potential to achieve rehab goals is good Plan to continue with strength progressions as tolerated to reduce pain with functional reach, lifting, carrying. Signatures Electronically signed by : Blane Mehta PTA; Nov 07 2019 2:56PM EST (Author) Normal SureVisit PT Progress Noteon 0 PT Progress Note Therapy Diagnosis Assessed Acute shoulder pain due to trauma, right (719.41,338.11) (M25.511,G89.11) Glenoid labral tear, left, subsequent encounter (V58.89,840.8) (S43.432D) Sprain of left shoulder, subsequent encounter (V58.89,840.9) (S43.402D) Insurance Insurance reviewed Visit number: 40 Approved number of visits: 01/23 Supervising Physical Therapist Mandeep escalante c-9 09-23 to 11/14/19 for 18 visits [facility] C9 07/10/19-08/23/19- visits extension date to 09-22-19 . Subjective Patient reports: Pt. c/o 4/10 discomfort with left shoulder. Home program performing as directed: Yes. Precautions: Fall Risk: none strengthening OK per latest C9 s/p L SLAP repair on 04/21/2019. Treatment Time in clinic started at 3:15 pm Time in clinic ended at 4:03 pm Total time in clinic is 48 minutes. Total timed code time is 43 minutes. Therapeutic exercise (20687): timed minutes 43, units 3 . UBE: Lv 4 x 3'fwd/3'bwd 6 mins (P time) HEP practiced, with manual/verbal cues for form (patient to focus on these core exercises): rows magenta 2 x 15 SA punch 2x15 (magenta tubing) (X) Standing shoulder dynamic hugs 2x15 magenta resisted ER Green 2x15 with towel roll resisted IR Dark green 2x15 with towel roll Standing LUE scaption with light Blue TB 2x10, cues for scapula depression Quadruped L and R shoulder HERNANDEZ, LUE at 30 degrees from side, RUE at 90 x10 shoulder extension purple TB 2x15 shoulder alphabet x1 cycle 3# sidelying 2# ER 2x10 sidelying flex w/scap retraction x20(X) scaption delt raises 3# 3 x 10 bicep curls 6# 2x15 Shelf raises 2 x 10 2 KG KB Stabilize and reach x 10 yellow loop Prone Rows 2 x 15 3# Prone Ext 3 x 10 3# Prone HABD 2 x 10 0# Prone B/L : Rows / Horz Abd /Extension/Flex 2x10 (X) Shoulder taps from elevated plinth2 x 10 B 1/2 roll : Field Goals,[place].Swimmers.B utterflies 2x10 each (X) 1/2 roll rhythmic stabilization 3 cycles (X) 1/2 roll: B/L Horiz Abd Lt Blue 2x10 (X) 1/2 Roll B/L ER Lt Blue 2x10 (X) ER stretch at doorway with arm at 80 abd 2x30 L (X) wall slides 2x10 flexion B (X) pulleys x 3 mins flexion/scaption (X) Pulleys for IR ROM to T12 5x10(X) left sidelying sleeper stretch left ue x 30 secs [x] . Assessment Fair tolerance with therex overall this date. Pt. notes fatigue with shelf raises and stabilize and reach exercises. Improved form noted with mid rows. Pt. challenged with delt raises and prone exercises. Response to treatment: decreased pain and improved knowledge and understanding of condition. Patient was able to complete today's treatment with some difficulty. Plan Planned interventions include: electrical stimulation, home program, kinesiotaping, manual therapy, neuromuscular re-education, self care/home management, therapeutic activities and therapeutic exercises. Goals: Goals set and discussed today. By discharge CAYLA MORATAYA will achieve the following goals: 06/05/2019 Other PT Goal #1: Decrease max pain (even at rom end ranges) to less than or equal to 2/10 for improved QOL; PROGRESSING, CONTINUE Other PT Goal #2: Increase left shoulder/postural muscle/UE strength to greater than or equal to 4+/5 throughout for lifting; Initial PROGRESSING, CONTINUE Other PT Goal #3: Increase left shoulder AROM to greater than or equal to 165 flexion, 165 abduction, 90 ER, 80 IR for improved ability to reach overhead PROGRESSING, CONTINUE Other PT Goal #4: Decrease disability as assessed by QDASH to less than or equal to 10% disability for improved QOL; Initial PROGRESSING, CONTINUE Strength: strength to at least 4/5 throughout left shoulder in 2 weeks, to 4+/5/5 in 4 weeks, by week 2, goal partially met Frequency and duration: 2 time(s) a week, for 5 weeks, for 9 visits. Potential to achieve rehab goals is good Progress with POC, as tolerated. Signatures Electronically signed by : Celia Liu, MEDICAL RESEARCH SCIENTIST; Nov 03 2019 4:50PM EST (Author) Electronically signed by : Mandeep Butler, PT; Nov 04 2019 12:18PM EST Normal [facility] PT Progress Noteon 0 PT Progress Note Therapy Diagnosis Assessed Glenoid labral tear, left, subsequent encounter (V58.89,840.8) (S43.432D) Sprain of left shoulder, subsequent encounter (V58.89,840.9) (S43.402D) Acute shoulder pain due to trauma, right (719.41,338.11) (M25.511,G89.11) Insurance Insurance reviewed Visit number: 39 Approved number of visits: 01/23 Supervising Physical Therapist Mandeep Butler new c-9 09-23 to 11/14/19 for 18 visits [facility] C9 07/10/19-08/23/19- visits extension date to 09-22-19 . Subjective Patient reports: Pt. states that she is working on her HEP. Pt. reports that she had injection in her shoulder on Sunday and seems to help a little. Precautions: Fall Risk: none strengthening OK per latest C9 s/p L SLAP repair on 04/21/2019. Treatment Time in clinic started at 3:30 pm Time in clinic ended at 4:13 pm Total time in clinic is 43 minutes. Total timed code time is 41 minutes. Therapeutic exercise (89576): timed minutes 41, units 3 . UBE: Lv3.5 x 3'fwd/3'bwd 6 mins HEP practiced, with manual/verbal cues for form (patient to focus on these core exercises): rows magenta 2 x 15 SA punch 2x15 (magenta tubing) (X) Standing shoulder dynamic hugs 2x15 magenta resisted ER Green 2x15 with towel roll resisted IR Dark green 2x15 with towel roll Standing LUE scaption with light Blue TB 2x10, cues for scapula depression Quadruped L and R shoulder HERNANDEZ, LUE at 30 degrees from side, RUE at 90 shoulder extension purple TB 2x15 shoulder alphabet x1 cycle 3# sidelying 2# ER 2x10 sidelying flex w/scap retraction x20(X) scaption delt raises 3# 3 x 10 bicep curls 6# 2x15 Shelf raises 2 x 10 2 KG KB Stabilize and reach x 10 yellow loop Prone Rows 2 x 15 3# Prone Ext 3 x 10 3# Prone HABD 2 x 10 0# Prone B/L : Rows / Horz Abd /Extension/Flex 2x10 (X) Shoulder taps from elevated plinth2 x 10 B 1/2 roll : Field Goals,[place].Swimmers.B utterflies 2x10 each (X) 1/2 roll rhythmic stabilization 3 cycles (X) 1/2 roll: B/L Horiz Abd Lt Blue 2x10 (X) 1/2 Roll B/L ER Lt Blue 2x10 (X) ER stretch at doorway with arm at 80 abd 2x30 L (X) wall slides 2x10 flexion B (X) pulleys x 3 mins flexion/scaption (X) Pulleys for IR ROM to T12 5x10(X) left sidelying sleeper stretch left ue x 30 secs [x] . Assessment Fair tolerance to ther ex. Rounded shoulder posture. Weakness noted with L shoulder ER strengthening. Quick Fatigue with added shelf raises. Reviewed HEP. Plan Planned interventions include: electrical stimulation, home program, kinesiotaping, manual therapy, neuromuscular re-education, self care/home management, therapeutic activities and therapeutic exercises. Goals: Goals set and discussed today. By discharge CAYLA MORATAYA will achieve the following goals: 06/05/2019 Other PT Goal #1: Decrease max pain (even at rom end ranges) to less than or equal to 2/10 for improved QOL; PROGRESSING, CONTINUE Other PT Goal #2: Increase left shoulder/postural muscle/UE strength to greater than or equal to 4+/5 throughout for lifting; Initial PROGRESSING, CONTINUE Other PT Goal #3: Increase left shoulder AROM to greater than or equal to 165 flexion, 165 abduction, 90 ER, 80 IR for improved ability to reach overhead PROGRESSING, CONTINUE Other PT Goal #4: Decrease disability as assessed by QDASH to less than or equal to 10% disability for improved QOL; Initial PROGRESSING, CONTINUE Strength: strength to at least 4/5 throughout left shoulder in 2 weeks, to 4+/5/5 in 4 weeks, by week 2, goal partially met Frequency and duration: 2 time(s) a week, for 5 weeks, for 9 visits. Potential to achieve rehab goals is good Progress OH strengthening next visit. Progress with POC, as tolerated. Signatures Electronically signed by : Mandeep Morgna PTA; Oct 30 2019 4:13PM EST (Author) Normal [facility] Established Visit (Orthopaed ic Surgery)on 10-28-2019 Established Visit (Orthopaedic Surgery) Chief Complaint PT HERE FOR CORTISONE INJECTION OF LEFT SHOULDER. [facility]. STATES SHOULDER IS PAINFUL TODAY. SHE HAD TO DO SOME LIFTING AT HOME AND IT ANGERED IT. History of Present Illness Patient is here today for injection of her left shoulder from a Worker's Compensation injury. This has been approved and she would like to pursue. Review of Systems pt denies fever, chills, chest pain, dizziness, or shortness of breath Active Problems Acute shoulder pain due to trauma, right (719.41,338.11) (M25.511,G89.11) Anxiety and depression (300.00,311) (F41.9,F32.9) Benign essential hypertension (401.1) (I10) Glenoid labral tear, left, subsequent encounter (V58.89,840.8) (S43.432D) Sprain of left shoulder, subsequent encounter (V58.89,840.9) (S43.402D) Superior glenoid labrum lesion of left shoulder, initial encounter (840.7) (S43.432A) Surgical History History of Superior labrum anterior to posterior lesion repair Family History Family history of malignant neoplasm of prostate (V16.42) (Z80.42) Social History Chews tobacco (305.1) (Z72.0) Denied: History of Drug use Never a smoker No alcohol use Allergies No Known Drug Allergies Recorded By: Collette Schmid; 07/15/2019 10:53:52 AM Current Meds Atenolol 25 MG Oral Tablet; Therapy: (Recorded:[id number]) to Recorded Dispense: 0 Days ; #: Sufficient; Refill: 0; TREMAYNE = N; Record; Last Updated By: Collette Schmid; 07/15/2019 10:53:52 AM Citalopram Hydrobromide 40 MG Oral Tablet; Therapy: (Recorded:15Jul2019) to Recorded Dispense: 0 Days ; #: Sufficient; Refill: 0; TREMAYNE = N; Record; Last Updated By: Collette Schmid; 07/15/2019 10:53:52 AM Clobetasol Propionate 0.05 % External Cream; APPLY ONE APPLICATION TOPICALLY TO AFFECTED AREA(S) ONE TO TWO TIMES D; Therapy: 01Jan2019 to Recorded Rx By: GIOVANA; Dispense: 14 Days ; #:60; Refill: 0; TREMAYNE = N; Record; Last Updated By: Phoebe Bojorquez; 10/07/2019 10:23:30 AM HYDROcodone-Acetaminoph en 5-325 MG Oral Tablet; TAKE 1 TABLET BY MOUTH EVERY 4 HOURS NEEDED FOR PAIN X 7 DAYS; Therapy: [id number] to Recorded Rx By: RENO; Dispense: 7 Days ; #:42; Refill: 0; TREMAYNE = N; Record; Last Updated By: Phoebe Bojorquez; 10/07/2019 10:23:30 AM Wellbutrin XL 300 MG Oral Tablet Extended Release 24 Hour; Therapy: (Recorded:15Jul2019) to Recorded Dispense: 0 Days ; #: Sufficient; Refill: 0; TREMAYNE = N; Record; Last Updated By: Collette Schmid; 07/15/2019 10:53:52 AM Vitals Vital Signs Recorded: 28Oct2019 02:27PM Amwceggg696 Uxvwdmusi18 Height5 ft 4 in Novrqv234 lb BMI Xmttyvhyko23.49 BSA Calculated1.81 Physical Exam Left upper extremity shows full range of motion positive impingement signs Procedure Procedure: Injection of the left subacromial bursa. Indication: inflammation. Potential complications include bleeding and infection. Risk, benefits and alternatives were discussed with the patient. Verbal consent was obtained prior to the procedure. Alcohol and betadine was used to prep the area. ethyl chloride spray was used as a topical anesthetic. Using sterile technique, the aspiration/injection needle was then directed from a lateral and posterior aspect. The procedure was ultrasound guided. Was used to inject 21, 9 mL 0.25% Bupivacaine and 1 mL of 4 mg/mL dexamethasone. A bandage was applied. the patient tolerated the procedure well. Complications: NOT ANGRY. Diagnoses/Problems Superior glenoid labrum lesion of left shoulder, initial encounter (840.7) (S43.432A) Orders Superior glenoid labrum lesion of left shoulder, initial encounter Administered: Dexamethasone Sodium Phosphate 4 MG/ML Injection Solution Rx By: Phoebe Bojorquez;For: Superior glenoid labrum lesion of left shoulder, initial encounter; Dose of 4 MG; Intra-articular; TREMAYNE = N; Administered: 10/28/2019 2:44:00 PM Provider Impressions Assessment: Status post left shoulder SLAP repair, impingement syndrome Plan: Today, we discussed different treatment options and we will pursue the injection this was performed without complications she did have a decrease in pain after the injection she'll follow up in 6 weeks Signatures Electronically signed by : Phoebe Bojorquez PA-C; Oct 28 2019 2:46PM EST (Author) Normal [facility] PT Progress Noteon 0 PT Progress Note Therapy Diagnosis Assessed Acute shoulder pain due to trauma, right (719.41,338.11) (M25.511,G89.11) Insurance Insurance reviewed Visit number: 38 Approved number of visits: 01/23 Supervising Physical Therapist Mandeep chan-Brandon 09-23 to 11/14/19 for 18 visits [facility] C9 07/10/19-08/23/19- visits extension date to 09-22-19 . Subjective Pain: No pain at rest, but 3/10 pain at superolateral shoulder with AROM. Her pain is intermittent. Home program performing as directed: Yes. Precautions: Fall Risk: none strengthening OK per latest C9 s/p L SLAP repair on 04/21/2019. Objective Ortho Middle trapezius strength: Left 3/5 with scapula elevation; Right 5/5 Lower trapezius strength: Left 3-/5 with pain, Right 4/5 . Treatment Time in clinic started at 1540 Time in clinic ended at 1623 Total time in clinic is 43 minutes. Total timed code time is 41 minutes. Therapeutic exercise (55776): timed minutes 41, units 3 . UBE: Lv3.5 x 3'fwd/3'bwd 6 mins HEP practiced, with manual/verbal cues for form (patient to focus on these core exercises): rows magenta 2 x 15 SA punch 2x15 (magenta tubing) (X) Standing shoulder dynamic hugs 2x15 magenta resisted ER Green 2x15 with towel roll resisted IR Dark green 2x15 with towel roll Standing LUE scaption with light Blue TB 2x10, cues for scapula depression Quadruped L and R shoulder HERNANDEZ, LUE at 30 degrees from side, RUE at 90 shoulder extension purple TB 2x15 shoulder alphabet x1 cycle 3# sidelying 2# ER 2x10 sidelying flex w/scap retraction x20(X) scaption delt raises 3# 3 x 10 bicep curls 6# 2x15 Stabilize and reach x 10 yellow loop Prone Rows 2 x 15 3# Prone Ext 3 x 10 3# Prone HABD 2 x 10 0# Prone B/L : Rows / Horz Abd /Extension/Flex 2x10 (X) Shoulder taps from elevated plinth2 x 10 B (P) 1/2 roll : Field Goals,[place].Swimmers.B utterflies 2x10 each (X) 1/2 roll rhythmic stabilization 3 cycles (X) 1/2 roll: B/L Horiz Abd Lt Blue 2x10 (X) 1/2 Roll B/L ER Lt Blue 2x10 (X) ER stretch at doorway with arm at 80 abd 2x30 L (X) wall slides 2x10 flexion B (X) pulleys x 3 mins flexion/scaption (X) Pulleys for IR ROM to T12 5x10(X) left sidelying sleeper stretch left ue x 30 secs [x] . Assessment Patient presents with continued left shoulder pain that usually occurs after the exercises or activities. She is scheduled for a steroid injection on 10/28/19. She is progressing well with the strengthening exercises, however continues with significant weakness of her left scapular stabilizer muscles. She will benefit from further PT intervention to address these impairments. Response to treatment: improved knowledge and understanding of condition. Plan Planned interventions include: electrical stimulation, home program, kinesiotaping, manual therapy, neuromuscular re-education, self care/home management, therapeutic activities and therapeutic exercises. Goals: Goals set and discussed today. By discharge CAYLA MORATAYA will achieve the following goals: 06/05/2019 Other PT Goal #1: Decrease max pain (even at rom end ranges) to less than or equal to 2/10 for improved QOL; PROGRESSING, CONTINUE Other PT Goal #2: Increase left shoulder/postural muscle/UE strength to greater than or equal to 4+/5 throughout for lifting; Initial PROGRESSING, CONTINUE Other PT Goal #3: Increase left shoulder AROM to greater than or equal to 165 flexion, 165 abduction, 90 ER, 80 IR for improved ability to reach overhead PROGRESSING, CONTINUE Other PT Goal #4: Decrease disability as assessed by QDASH to less than or equal to 10% disability for improved QOL; Initial PROGRESSING, CONTINUE Strength: strength to at least 4/5 throughout left shoulder in 2 weeks, to 4+/5/5 in 4 weeks, by week 2, goal partially met Frequency and duration: 2 time(s) a week, for 5 weeks, for 9 visits. Potential to achieve rehab goals is good Progress with POC, as tolerated. Signatures Electronically signed by : Jeanette Orlando, PT; Oct 27 2019 11:43AM EST (Author) Normal [facility] Therapy Communicationon 10-09 Therapy Communication Message CAYLA NUÑEZYDER canceled today . Signatures Electronically signed by : Celia Liu MEDICAL RESEARCH SCIENTIST; Oct 27 2019 3:25PM EST (Author) Normal [facility] PT Progress Noteon 0 PT Progress Note Therapy Diagnosis Assessed Sprain of left shoulder, subsequent encounter (V58.89,840.9) (S43.402D) Glenoid labral tear, left, subsequent encounter (V58.89,840.8) (S43.432D) Insurance Insurance reviewed Visit number: 37 Approved number of visits: 01/23 Supervising Physical Therapist Mandeep barroso 09-23 to 11/14/19 for 18 visits [facility] C9 07/10/19-08/23/19- visits extension date to 09-22-19 . Subjective Patient reports: Patient reports L shoulder pain 3-4/10 currently. Reports no increase in pain following last session. Reports pain has been worse more days then good days. Reports MD did order cortisone injection but is unsure when it will be approved and scheduled. Home program performing as directed: Yes. Precautions: Fall Risk: none strengthening OK per latest C9 s/p L SLAP repair on 04/21/2019. Treatment Time in clinic started at 2:32 pm Time in clinic ended at 3:17 pm Total time in clinic is 45 minutes. Total timed code time is 43 minutes. Therapeutic exercise (38230): timed minutes 43, units 3 . UBE: Lv3.5 x 3'fwd/3'bwd 6 mins rows magenta 2 x 15 SA punch 2x15 (magenta tubing) Standing shoulder dynamic hugs 2x15 magenta shoulder extension purple TB 2x15 resisted ER Green 2x15 with towel roll resisted IR Dark green 2x15 with towel roll shoulder alphabet x1 cycle 3# sidelying 2# ER 2x10 sidelying flex w/scap retraction x20(X) scaption delt raises 3# 3 x 10 bicep curls 6# 2x15 Stabilize and reach x 10 yellow loop Prone Rows 2 x 15 3# Prone Ext 3 x 10 3# Prone HABD 2 x 10 0# Prone B/L : Rows / Horz Abd /Extension/Flex 2x10 (X) Shoulder taps from elevated plinth2 x 10 B (P) 1/2 roll : Field Goals,[place].Swimmers.B utterflies 2x10 each (X) 1/2 roll rhythmic stabilization 3 cycles (X) 1/2 roll: B/L Horiz Abd Lt Blue 2x10 (X) 1/2 Roll B/L ER Lt Blue 2x10 (X) ER stretch at doorway with arm at 80 abd 2x30 L (X) wall slides 2x10 flexion B (X) pulleys x 3 mins flexion/scaption (X) Pulleys for IR ROM to T12 5x10(X) left sidelying sleeper stretch left ue x 30 secs [x] . Assessment Resumed UE strengthening, c/o pain increase with resisted shoulder dynamic hugs with fatigue observed. Progressed closed chain shoulder taps with increased fatigue after. C/o fatigue following scaption delt raises. Tactile cues for scap retraction with prone H abd and rows. Plan Planned interventions include: edema control, electrical stimulation, home program, kinesiotaping, manual therapy, neuromuscular re-education, self care/home management, therapeutic activities and therapeutic exercises. Goals: Goals set and discussed today. By discharge CAYLA MORATAYA will achieve the following goals: 06/05/2019 Other PT Goal #1: Decrease max pain (even at rom end ranges) to less than or equal to 2/10 for improved QOL; PROGRESSING, CONTINUE Other PT Goal #2: Increase left shoulder/postural muscle/UE strength to greater than or equal to 4+/5 throughout for lifting; Initial PROGRESSING, CONTINUE Other PT Goal #3: Increase left shoulder AROM to greater than or equal to 165 flexion, 165 abduction, 90 ER, 80 IR for improved ability to reach overhead PROGRESSING, CONTINUE Other PT Goal #4: Decrease disability as assessed by QDASH to less than or equal to 10% disability for improved QOL; Initial PROGRESSING, CONTINUE Strength: strength to at least 4/5 throughout left shoulder in 2 weeks, to 4+/5/5 in 4 weeks, by week 2, goal partially met Frequency and duration: 2 time(s) a week, for 5 weeks, for 9 visits. Potential to achieve rehab goals is good Continue with UE strengthening and stabilization to improve ease with job demands and decrease pain levels with ADL's. . Progress with POC, as tolerated. Signatures Electronically signed by : Emmie Gallardo MEDICAL RESEARCH SCIENTIST; Oct 20 2019 3:22PM EST (Author) Electronically signed by : Mandeep Butler, PT; Oct 21 2019 9:26AM EST Normal [facility] PT Progress Note Therapy Diagnosis Assessed Glenoid labral tear, left, subsequent encounter (V58.89,840.8) (S43.432D) Sprain of left shoulder, subsequent encounter (V58.89,840.9) (S43.402D) Insurance Insurance reviewed Visit number: 36 Approved number of visits: 01/23 Authorization date range: 09/23-11/14/19 Supervising Physical Therapist Mandeep Butler new c-9 09-23 to 11/14/19 for 18 visits [facility] C9 07/10/19-08/23/19- 18 visits extension date to 09-22-19 . Subjective Patient reports: Reports she is most limited in ER plane and has difficulty reaching across her body.. States she feels pain with any motion but this is intermittent.. Precautions: Fall Risk: none strengthening OK per latest C9 s/p L SLAP repair on 04/21/2019. Treatment Time in clinic started at 2:50 pm Time in clinic ended at 3:30 pm Total time in clinic is 40 minutes. Total timed code time is 38 minutes. Therapeutic exercise (27970): timed minutes 38, units 3 . UBE: Lv3.5 x 3'fwd/3'bwd 6 mins (P) rows magenta 2 x 15 (X) SA punch 2x15 (magenta tubing) (X) Standing shoulder dynamic hugs 2x15 magenta (X) shoulder extension purple TB 2x15 (X) resisted ER Green 2x15 with towel roll (X) resisted IR Dark green 2x15 with towel roll (X) shoulder alphabet x1 cycle 3# sidelying 2# ER 2x10 sidelying flex w/scap retraction x20(X) scaption delt raises 3# 3 x 10 P bicep curls 6# 2x15 Stabilize and reach x 10 yellow loop Prone Rows 2 x 15 3# (X) Prone Ext 3 x 10 3# (X) Prone HABD 2 x 10 0#(X) Prone B/L : Rows / Horz Abd /Extension/Flex 2x10 (N) Shoulder taps from elevated plinth x 10 B 1/2 roll : Field Goals,[place].Swimmers.B utterflies 2x10 each (N) 1/2 roll rhythmic stabilization 3 cycles (N) 1/2 roll: B/L Horiz Abd Lt Blue 2x10 (N) 1/2 Roll B/L ER Lt Blue 2x10 (N) ER stretch at doorway with arm at 80 abd 2x30 L (X) wall slides 2x10 flexion B (X) pulleys x 3 mins flexion/scaption (X) Pulleys for IR ROM to T12 5x10(X) left sidelying sleeper stretch left ue x 30 secs [x] . Assessment Noted she is most limited with flexion and ER planes. She fatigued quickly with prone B/L scapular stability exercises. This session focused on stability as she demo's L scapulo-humeral hypermobility. Plan Planned interventions include: edema control, electrical stimulation, home program, kinesiotaping, manual therapy, neuromuscular re-education, self care/home management, therapeutic activities and therapeutic exercises. Goals: Goals set and discussed today. By discharge CAYLA MORATAYA will achieve the following goals: 06/05/2019 Other PT Goal #1: Decrease max pain (even at rom end ranges) to less than or equal to 2/10 for improved QOL; PROGRESSING, CONTINUE Other PT Goal #2: Increase left shoulder/postural muscle/UE strength to greater than or equal to 4+/5 throughout for lifting; Initial PROGRESSING, CONTINUE Other PT Goal #3: Increase left shoulder AROM to greater than or equal to 165 flexion, 165 abduction, 90 ER, 80 IR for improved ability to reach overhead PROGRESSING, CONTINUE Other PT Goal #4: Decrease disability as assessed by QDASH to less than or equal to 10% disability for improved QOL; Initial PROGRESSING, CONTINUE Strength: strength to at least 4/5 throughout left shoulder in 2 weeks, to 4+/5/5 in 4 weeks, by week 2, goal partially met Frequency and duration: 2 time(s) a week, for 5 weeks, for 9 visits. Potential to achieve rehab goals is good Cont. with strengthening and stability to allow increased endurance/ease with overhead reaching /lifting during ADLs without reports of pain. Signatures Electronically signed by : Frieda Lu MEDICAL RESEARCH SCIENTIST; Oct 16 2019 6:23PM EST (Author) Electronically signed by : Mandeep Butler PT; Oct 21 2019 9:26AM EST Normal [facility] PT Progress Noteon 0 PT Progress Note Therapy Diagnosis Assessed Sprain of left shoulder, subsequent encounter (V58.89,840.9) (S43.402D) Glenoid labral tear, left, subsequent encounter (V58.89,840.8) (S43.432D) Acute shoulder pain due to trauma, right (719.41,338.11) (M25.511,G89.11) Insurance Insurance reviewed Visit number: 33 Approved number of visits: 01/23 Authorization date range: 09/23-11/14/19 Supervising Physical Therapist Mandeep Butler new c-9 09-23 to 11/14/19 for 18 visits [facility] C9 07/10/19-08/23/19- visits extension date to 09-22-19 . Subjective Patient reports: Pt. states that she is feeling pretty sore today. Pt. reports that she is working on her HEP. Pt. states that she continues to have increased pain when she is doing anything physical. Precautions: Fall Risk: none strengthening OK per latest C9 s/p L SLAP repair on 04/21/2019. Treatment Time in clinic started at 1:56 pm Time in clinic ended at 2:40 pm Total time in clinic is 44 minutes. Total timed code time is 42 minutes. Therapeutic exercise (39455): timed minutes 42, units 3 . UBE: Lv3 x 3'fwd/3'bwd 6 mins rows magenta 2 x 15 SA punch 2x15 (magenta tubing) Standing shoulder dynamic hugs 2x15 magenta shoulder extension purple TB 2x15 resisted ER Green 2x15 with towel roll resisted IR Dark green 2x15 with towel roll shoulder alphabet x1 cycle 3# sidelying 2# ER 2x10 sidelying flex w/scap retraction x20 scaption delt raises 3# 3 x 10 P bicep curls 6# 2x15 Stabilize and reach x 10 yellow loop Prone Rows 2 x 15 3# P Prone Ext 3 x 10 3# P Prone HABD 2 x 10 0# Shoulder taps from elevated plinth x 10 B ER stretch at doorway with arm at 80 abd 2x30 L (X) wall slides 2x10 flexion B (X) pulleys x 3 mins flexion/scaption (X) Pulleys for IR ROM to T12 5x10(X) left sidelying sleeper stretch left ue x 30 secs [x] . Assessment Fair tolerance to ther ex. Rounded shoulder posture. Weakness noted with scap strengthening. Facial grimacing following stabilize and reach and s/l ER. Reviewed HEP and instructed pt. that she does not have to work on all of her HEP everyday. Plan Planned interventions include: edema control, electrical stimulation, home program, kinesiotaping, manual therapy, neuromuscular re-education, self care/home management, therapeutic activities and therapeutic exercises. Goals: Goals set and discussed today. By discharge CAYLA MORATAYA will achieve the following goals: 06/05/2019 Other PT Goal #1: Decrease max pain (even at rom end ranges) to less than or equal to 2/10 for improved QOL; PROGRESSING, CONTINUE Other PT Goal #2: Increase left shoulder/postural muscle/UE strength to greater than or equal to 4+/5 throughout for lifting; Initial PROGRESSING, CONTINUE Other PT Goal #3: Increase left shoulder AROM to greater than or equal to 165 flexion, 165 abduction, 90 ER, 80 IR for improved ability to reach overhead PROGRESSING, CONTINUE Other PT Goal #4: Decrease disability as assessed by QDASH to less than or equal to 10% disability for improved QOL; Initial PROGRESSING, CONTINUE Strength: strength to at least 4/5 throughout left shoulder in 2 weeks, to 4+/5/5 in 4 weeks, by week 2, goal partially met Frequency and duration: 2 time(s) a week, for 5 weeks, for 9 visits. Potential to achieve rehab goals is good Progress stability strength as tolerated. Progress with POC, as tolerated. Signatures Electronically signed by : Mandeep Morgan MEDICAL RESEARCH SCIENTIST; Oct 14 2019 2:41PM EST (Author) Electronically signed by : Mandeep Butler PT; Oct 14 2019 3:21PM EST Normal SureVisit PT Progress Noteon 0 PT Progress Note No report was sent Normal [facility] PT Progress Note Therapy Diagnosis Assessed Glenoid labral tear, left, subsequent encounter (V58.89,840.8) (S43.432D) Sprain of left shoulder, subsequent encounter (V58.89,840.9) (S43.402D) Acute shoulder pain due to trauma, right (719.41,338.11) (M25.511,G89.11) Insurance Insurance reviewed Visit number: 32 Approved number of visits: 12/23 Authorization date range: 09/23-11/14/19 Supervising Physical Therapist Mandeep Butler new c-9 09-23 to 11/14/19 for 18 visits [facility] C9 07/10/19-08/23/19- visits extension date to 09-22- . Subjective Patient reports: Pt. reports that she is going to try a cortisone shot per Phoebe CAT. Pt. states that she continues to have pain in her shoulder. Pt. reports that she is working on her HEP. Precautions: Fall Risk: none strengthening OK per latest C9 s/p L SLAP repair on 04/21/2019. Treatment Time in clinic started at 2:41 pm Time in clinic ended at 3:23 pm Total time in clinic is 42 minutes. Total timed code time is 40 minutes. Therapeutic exercise (19046): timed minutes 40, units 3 . UBE: Lv3 x 3'fwd/3'bwd 6 mins rows magenta 2 x 15 SA punch 2x15 (magenta tubing) Standing shoulder dynamic hugs 2x15 magenta shoulder extension purple TB 2x15 resisted ER Green 2x15 with towel roll resisted IR Dark green 2x15 with towel roll shoulder alphabet x1 cycle 3# sidelying 2# ER 2x10 sidelying flex w/scap retraction x20 scaption delt raises 3# 2 x 10 bicep curls 6# 2x15 Stabilize and reach x 10 yellow loop [X] Prone Rows 2 x 10 3# Prone Ext 2 x 10 3# Prone HABD 2 x 10 0# Shoulder taps from elevated plinth x 10 B ER stretch at doorway with arm at 80 abd 2x30 L (X) wall slides 2x10 flexion B (X) pulleys x 3 mins flexion/scaption (X) Pulleys for IR ROM to T12 5x10(X) left sidelying sleeper stretch left ue x 30 secs [x] . Assessment Rounded shoulder posture. Weakness noted with scap strengthening. Quick fatigue with ER strengthening and stabilize and reach. Plan Planned interventions include: edema control, electrical stimulation, home program, kinesiotaping, manual therapy, neuromuscular re-education, self care/home management, therapeutic activities and therapeutic exercises. Goals: Goals set and discussed today. By discharge CAYLA MORATAYA will achieve the following goals: 06/05/2019 Other PT Goal #1: Decrease max pain (even at rom end ranges) to less than or equal to 2/10 for improved QOL; PROGRESSING, CONTINUE Other PT Goal #2: Increase left shoulder/postural muscle/UE strength to greater than or equal to 4+/5 throughout for lifting; Initial PROGRESSING, CONTINUE Other PT Goal #3: Increase left shoulder AROM to greater than or equal to 165 flexion, 165 abduction, 90 ER, 80 IR for improved ability to reach overhead PROGRESSING, CONTINUE Other PT Goal #4: Decrease disability as assessed by QDASH to less than or equal to 10% disability for improved QOL; Initial PROGRESSING, CONTINUE Strength: strength to at least 4/5 throughout left shoulder in 2 weeks, to 4+/5/5 in 4 weeks, by week 2, goal partially met Frequency and duration: 2 time(s) a week, for 5 weeks, for 9 visits. Potential to achieve rehab goals is good Progress scap strengthening as tolerated, . Progress with POC, as tolerated. Signatures Electronically signed by : Mandeep Morgan PTA; Oct 10 2019 8:53AM EST (Author) Electronically signed by : Mandeep Butler PT; Oct 13 2019 11:22AM EST Normal SureVisit Therapy Communicationon Therapy Communication Message CAYLA NUÑEZYDER no showed today . Signatures Electronically signed by : Celia Liu PTA; Oct 13 2019 4:01PM EST (Author) Normal [facility] Established Visit (Orthopaed ic Surgery)on 10-07-2019 Established Visit (Orthopaedic Surgery) Chief Complaint PT HERE FOR 6 WK PO FU OF LEFT LABRAL REPAIR. STATES STILL HAVING QUITE A BIT OF PAIN. ROM HAS IMPROVED. HAVING SOME WEAKNESS WHEN TRYING TO LIFT THINGS, SLEEPING IS DIFFICULT. STILL DOING PT TWICE WEEKLY. History of Present Illness Patient is here today for follow-up of her left SLAP repair on 04/21/2019. She continues to have pain located in the front and lateral side of the shoulder as well as in the posterior segment of the shoulder. She is continuing with physical therapy and states other range of motion and strengthening is getting better. She continues have pain with all planes of motion in the shoulder. She denies any new injuries at this time Review of Systems pt denies fever, chills, chest pain, dizziness, or shortness of breath Active Problems Acute shoulder pain due to trauma, right (719.41,338.11) (M25.511,G89.11) Anxiety and depression (300.00,311) (F41.9,F32.9) Benign essential hypertension (401.1) (I10) Glenoid labral tear, left, subsequent encounter (V58.89,840.8) (S43.432D) Sprain of left shoulder, subsequent encounter (V58.89,840.9) (S43.402D) Superior glenoid labrum lesion of left shoulder, initial encounter (840.7) (S43.432A) Surgical History History of Superior labrum anterior to posterior lesion repair Family History Family history of malignant neoplasm of prostate (V16.42) (Z80.42) Social History Chews tobacco (305.1) (Z72.0) Denied: History of Drug use Never a smoker No alcohol use Allergies No Known Drug Allergies Recorded By: Collette Schmid; 07/15/2019 10:53:52 AM Current Meds Atenolol 25 MG Oral Tablet; Therapy: (Recorded:[id number]) to Recorded Dispense: 0 Days ; #: Sufficient; Refill: 0; TREMAYNE = N; Record; Last Updated By: Collette Schmid; 07/15/2019 10:53:52 AM Citalopram Hydrobromide 40 MG Oral Tablet; Therapy: (Recorded:15Jul2019) to Recorded Dispense: 0 Days ; #: Sufficient; Refill: 0; TREMAYNE = N; Record; Last Updated By: Collette Schmid; 07/15/2019 10:53:52 AM Wellbutrin XL 300 MG Oral Tablet Extended Release 24 Hour; Therapy: (Recorded:[id number]) to Recorded Dispense: 0 Days ; #: Sufficient; Refill: 0; TREMAYNE = N; Record; Last Updated By: Collette Schmid; 07/15/2019 10:53:52 AM Vitals Vital Signs Recorded: [id number] 10:08AM Cxkvpoub386 Xuqlagupz21 Height5 ft 4 in Uwpcip339 lb BMI Spkcezluok67.67 BSA Calculated1.81 Physical Exam Left upper extremity is neurovascularly intact for range of motion passively with pain at extremes of flexion positive biceps tenderness negative speed and positive impingement signs rotator cuff strength is 5/5 in supraspinatus, external rotation, internal rotation. Diagnoses/Problems Superior glenoid labrum lesion of left shoulder, initial encounter (840.7) (S43.432A) Provider Impressions Assessment: Left shoulder SLAP repair, impingement syndrome Plan: Today, she is having residual impingement symptoms from the surgery. She will continue with formal physical therapy to increase strengthening. We will place a C9 for cortisone injection into the left shoulder. Her restrictions will stay the same.. she'll follow up once the injection has been approved Signatures Electronically signed by : Phoebe Bojorquez PA-C; Oct 07 2019 10:25AM EST (Author) Normal SureVisit PT Progress Noteon 9 PT Progress Note Therapy Diagnosis Assessed Glenoid labral tear, left, subsequent encounter (V58.89,840.8) (S43.432D) Acute shoulder pain due to trauma, right (719.41,338.11) (M25.511,G89.11) Sprain of left shoulder, subsequent encounter (V58.89,840.9) (S43.402D) Insurance Insurance reviewed Visit number: 31 Approved number of visits: 12/23 Authorization date range: 09/23-11/14/19 Supervising Physical Therapist Mandeep barroso 09-23 to 11/14/19 for 18 visits [facility] C9 07/10/19-08/23/19- 18 visits extension date to 09-22-19 . 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 Precautions: Fall Risk: none strengthening OK per latest C9 s/p L SLAP repair on 04/21/2019. Treatment Time in clinic started at 0915 Time in clinic ended at 0959 Total time in clinic is 44 minutes. Total timed code time is 42 minutes. Therapeutic exercise (25844): timed minutes 42, units 3 . UBE: Lv3 x 3'fwd/3'bwd 6 mins rows magenta 2 x 15 SA punch 2x15 (magenta tubing) Standing shoulder dynamic hugs 2x15 magenta shoulder extension purple TB 2x15 resisted ER Green 2x15 with towel roll resisted IR Dark green 2x15 with towel roll shoulder alphabet x1 cycle 3# sidelying 2# ER 2x10 sidelying flex w/scap retraction x20 scaption delt raises 3# 2 x 10 bicep curls 6# 2x15 Stabilize and reach x 10 yellow loop Prone Rows 2 x 10 3# Prone Ext 2 x 10 3# Prone HABD 2 x 10 0# Shoulder taps from elevated plinth x 10 B ER stretch at doorway with arm at 80 abd 2x30 L (X) wall slides 2x10 flexion B (X) pulleys x 3 mins flexion/scaption (X) Pulleys for IR ROM to T12 5x10(X) left sidelying sleeper stretch left ue x 30 secs [x] . Assessment Making progress with strength as indicated by increased reps/resistance over past visits. Patient continues to demo strength deficits and has pain/soreness with increased activity/demand. Plan Planned interventions include: edema control, electrical stimulation, home program, kinesiotaping, manual therapy, neuromuscular re-education, self care/home management, therapeutic activities and therapeutic exercises. Goals: Goals set and discussed today. By discharge CAYLA MORATAYA will achieve the following goals: 06/05/2019 Other PT Goal #1: Decrease max pain (even at rom end ranges) to less than or equal to 2/10 for improved QOL; PROGRESSING, CONTINUE Other PT Goal #2: Increase left shoulder/postural muscle/UE strength to greater than or equal to 4+/5 throughout for lifting; Initial PROGRESSING, CONTINUE Other PT Goal #3: Increase left shoulder AROM to greater than or equal to 165 flexion, 165 abduction, 90 ER, 80 IR for improved ability to reach overhead PROGRESSING, CONTINUE Other PT Goal #4: Decrease disability as assessed by QDASH to less than or equal to 10% disability for improved QOL; Initial PROGRESSING, CONTINUE Strength: strength to at least 4/5 throughout left shoulder in 2 weeks, to 4+/5/5 in 4 weeks, by week 2, goal partially met Frequency and duration: 2 time(s) a week, for 5 weeks, for 9 visits. Potential to achieve rehab goals is good Plan to continue with strength progressions as tolerated to reduce pain and improve tolerance to daily activity and caregiving for children. Progress as tolerated toward improve ease/tolerance with full work demands. Signatures Electronically signed by : Blane Mehta PTA; Oct 07 2019 8:57AM EST (Author) Electronically signed by : Mandeep Butler PT; Oct 07 2019 12:09PM EST Normal [facility] PT Progress Note Therapy Diagnosis Assessed Glenoid labral tear, left, subsequent encounter (V58.89,840.8) (S43.432D) Acute shoulder pain due to trauma, right (719.41,338.11) (M25.511,G89.11) Sprain of left shoulder, subsequent encounter (V58.89,840.9) (S43.402D) Insurance Insurance reviewed Visit number: 32 Approved number of visits: 12/23 Authorization date range: 09/23-11/14/19 Supervising Physical Therapist Mandeep escalante c-9 09-23 to 11/14/19 for 18 visits [facility] C9 07/10/19-08/23/19- visits extension date to 09-22-19 . Subjective Patient reports: The ex's are pretty challenging and my arm gets tired easily. Still not sleeping too well because of pain in the shoulder. Precautions: Fall Risk: none strengthening OK per latest C9 s/p L SLAP repair on 04/21/2019. Treatment Time in clinic started at 0959 Time in clinic ended at 1041 Total time in clinic is 42 minutes. Total timed code time is 40 minutes. Therapeutic exercise (38599): timed minutes 40, units 3 . UBE: Lv3 x 3'fwd/3'bwd 6 mins rows magenta 2 x 15 SA punch 2x15 (magenta tubing) Standing shoulder dynamic hugs 2x15 magenta shoulder extension purple TB 2x15 resisted ER Green 2x15 with towel roll resisted IR Dark green 2x15 with towel roll shoulder alphabet x1 cycle 3# sidelying 2# ER 2x10 sidelying flex w/scap retraction x20 scaption delt raises 3# 2 x 10 bicep curls 6# 2x15 Stabilize and reach x 10 yellow loop [X] Prone Rows 2 x 10 3# Prone Ext 2 x 10 3# Prone HABD 2 x 10 0# Shoulder taps from elevated plinth x 10 B ER stretch at doorway with arm at 80 abd 2x30 L (X) wall slides 2x10 flexion B (X) pulleys x 3 mins flexion/scaption (X) Pulleys for IR ROM to T12 5x10(X) left sidelying sleeper stretch left ue x 30 secs [x] . Assessment Challenged with ex's above noting fatigue after treatment. Minimal increase in soreness during/following treatment. Patient puts forth good effort and remains motivated to continue progressing. Plan Planned interventions include: edema control, electrical stimulation, home program, kinesiotaping, manual therapy, neuromuscular re-education, self care/home management, therapeutic activities and therapeutic exercises. Goals: Goals set and discussed today. By discharge CAYLA MORATAYA will achieve the following goals: 06/05/2019 Other PT Goal #1: Decrease max pain (even at rom end ranges) to less than or equal to 2/10 for improved QOL; PROGRESSING, CONTINUE Other PT Goal #2: Increase left shoulder/postural muscle/UE strength to greater than or equal to 4+/5 throughout for lifting; Initial PROGRESSING, CONTINUE Other PT Goal #3: Increase left shoulder AROM to greater than or equal to 165 flexion, 165 abduction, 90 ER, 80 IR for improved ability to reach overhead PROGRESSING, CONTINUE Other PT Goal #4: Decrease disability as assessed by QDASH to less than or equal to 10% disability for improved QOL; Initial PROGRESSING, CONTINUE Strength: strength to at least 4/5 throughout left shoulder in 2 weeks, to 4+/5/5 in 4 weeks, by week 2, goal partially met Frequency and duration: 2 time(s) a week, for 5 weeks, for 9 visits. Potential to achieve rehab goals is good Plan to continue with strength progression as tolerated to reduce pain and improve tolerance to daily activity and caregiving for children. Signatures Electronically signed by : Melchor Cook MEDICAL RESEARCH SCIENTIST; Oct 06 2019 10:42AM EST (Author) Electronically signed by : Mandeep Butler, PT; Oct 07 2019 12:09PM EST Normal [facility] PT Progress Noteon 9 PT Progress Note Therapy Diagnosis Assessed Acute shoulder pain due to trauma, right (719.41,338.11) (M25.511,G89.11) Sprain of left shoulder, subsequent encounter (V58.89,840.9) (S43.402D) Glenoid labral tear, left, subsequent encounter (V58.89,840.8) (S43.432D) Insurance Insurance reviewed Visit number: 30 Approved number of visits: 06/25 Authorization date range: 09/23-11/14/19 [facility] 07/10/19-08/23/19- visits extension date to 09-22-19 Supervising Physical Therapist Mandeep escalante c-9 09-23 to 11/14/19 for 18 visits. Subjective Patient reports: Patient reports L shoulder pain a little sore. 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 Reports no increase in pain following last session. Rates L shoulder 5-6/10 currently. Reports increase pain with reaching out to side. Home program performing as directed: Yes. Precautions: Fall Risk: none strengthening OK per latest C9 s/p L SLAP repair on 04/21/2019. Treatment Time in clinic started at 8:15 am Time in clinic ended at 9:00 am Total time in clinic is 45 minutes. Total timed code time is 42 minutes. Therapeutic exercise (97703): timed minutes 42, units 3 . ube: 3/fwd/3'bwd 6 mins rows magenta 2 x 15 shoulder extension purple TB 2x15 resisted ER Green 2x15 with towel roll resisted IR dark green 2x15 with towel roll SA punch 2x15 (magenta tubing) shoulder alphabet x1 cycle 3# wall slides 2x10 flexion B (X) sidelying 2# ER 2x10 (X) ER stretch at doorway with arm at 80 abd 2x30 L (X) pulleys x 3 mins flexion/scaption (X) Pulleys for IR ROM to T12 5x10(X) scaption delt raises 3# 2 x 10 bicep curls 6# 2x15 Stabilize and reach x 10 yellow loop Prone shoulder: Rows 2 x 10 3# Ext 2 x 10 3# HABD 2 x 10 0# Shoulder taps from elevated plinth x 10 B standing shoulder dynamic hugs 2x15 magenta left sidelying sleeper stretch left ue x 30 secs [x] . Assessment Demonstrates good understanding and form with exercises. Mild c/o pain when returning L arm to rest position following stabilization exercises. Quick fatigue with stabilize and reach. Plan Planned interventions include: edema control, electrical stimulation, home program, kinesiotaping, manual therapy, neuromuscular re-education, self care/home management, therapeutic activities and therapeutic exercises. Goals: Goals set and discussed today. By discharge CAYLA MORATAYA will achieve the following goals: 06/05/2019 Other PT Goal #1: Decrease max pain (even at rom end ranges) to less than or equal to 2/10 for improved QOL; PROGRESSING, CONTINUE Other PT Goal #2: Increase left shoulder/postural muscle/UE strength to greater than or equal to 4+/5 throughout for lifting; Initial PROGRESSING, CONTINUE Other PT Goal #3: Increase left shoulder AROM to greater than or equal to 165 flexion, 165 abduction, 90 ER, 80 IR for improved ability to reach overhead PROGRESSING, CONTINUE Other PT Goal #4: Decrease disability as assessed by QDASH to less than or equal to 10% disability for improved QOL; Initial PROGRESSING, CONTINUE Strength: strength to at least 4/5 throughout left shoulder in 2 weeks, to 4+/5/5 in 4 weeks, by week 2, goal partially met Frequency and duration: 2 time(s) a week, for 5 weeks, for 9 visits. Potential to achieve rehab goals is good Continue with UE ROM and strengthening to improve ease with ADL's and reaching to the side. . Progress with POC, as tolerated. Signatures Electronically signed by : Emmie Gallardo MEDICAL RESEARCH SCIENTIST; Sep 29 2019 11:58AM EST (Author) Electronically signed by : Mandeep Butler PT; Sep 30 2019 10:15AM EST Normal [facility] PT Progress Noteon 9 PT Progress Note Therapy Diagnosis Assessed Acute shoulder pain due to trauma, right (719.41,338.11) (M25.511,G89.11) Sprain of left shoulder, subsequent encounter (V58.89,840.9) (S43.402D) Glenoid labral tear, left, subsequent encounter (V58.89,840.8) (S43.432D) Insurance Insurance reviewed Visit number: 29 Approved number of visits: 06/25 Authorization date range: 07/10-08/23 [facility] C9 07/10/19-08/23/- visits extension date to 09-22-19 Supervising Physical Therapist Mandeep chan-Brandon 09-23 to 11/14/19 for 18 visits. Subjective Patient reports: L shoulder improving gradually. Precautions: Fall Risk: none strengthening OK per latest C9 s/p L SLAP repair on 04/21/2019. Treatment Time in clinic started at 1515 Time in clinic ended at 1546 Total time in clinic is 31 minutes. Total timed code time is 30 minutes. Therapeutic exercise (13714): timed minutes 30, units 2 . ube: 3/fwd/3'bwd 6 mins rows magenta 2 x 15 shoulder extension purple TB 2x15 resisted ER Green 2x15 with towel roll resisted IR dark green 2x15 with towel roll SA punch 2x15 (magenta tubing) shoulder alphabet x1 cycle 3# (X) wall slides 2x10 flexion B [X] sidelying 2# ER 2x10 [X] ER stretch at doorway with arm at 80 abd 2x30 L (X) pulleys x 3 mins flexion/scaption (X) Pulleys for IR ROM to T12 5x10 scaption delt raises 3# 2 x 10 bicep curls 6# 2x15 Stabilize and reach x 10 yellow loop (X) Prone shoulder: (X) Rows 2 x 10 3# Ext 2 x 10 3# HABD 2 x 10 0# Shoulder taps from elevated plinth x 10 B (X) standing shoulder dynamic hugs 2x15 magenta left sidelying sleeper stretch left ue x 30 secs [x] . Assessment Patient demos good tolerance to treatment this date, no c/o increased pain/discomfort with strengthening. Patient had schedule conflict this date and could not complete full 45' session, thus some exercises deferred for time. Plan Planned interventions include: edema control, electrical stimulation, home program, kinesiotaping, manual therapy, neuromuscular re-education, self care/home management, therapeutic activities and therapeutic exercises. Goals: Goals set and discussed today. By discharge CAYLA MORATAYA will achieve the following goals: 06/05/2019 Other PT Goal #1: Decrease max pain (even at rom end ranges) to less than or equal to 2/10 for improved QOL; PROGRESSING, CONTINUE Other PT Goal #2: Increase left shoulder/postural muscle/UE strength to greater than or equal to 4+/5 throughout for lifting; Initial PROGRESSING, CONTINUE Other PT Goal #3: Increase left shoulder AROM to greater than or equal to 165 flexion, 165 abduction, 90 ER, 80 IR for improved ability to reach overhead PROGRESSING, CONTINUE Other PT Goal #4: Decrease disability as assessed by QDASH to less than or equal to 10% disability for improved QOL; Initial PROGRESSING, CONTINUE Strength: strength to at least 4/5 throughout left shoulder in 2 weeks, to 4+/5/5 in 4 weeks, by week 2, goal partially met Frequency and duration: 2 time(s) a week, for 5 weeks, for 9 visits. Potential to achieve rehab goals is good Plan to continue with strength progressions and IR flexibility as tolerated to further improve ease/tolerance with daily activity and work demands. Signatures Electronically signed by : Blane Mehta MEDICAL RESEARCH SCIENTIST; Sep 24 2019 4:30PM EST (Author) Electronically signed by : Mandeep Butler, PT; Sep 26 2019 4:13PM EST Normal [facility] PT Progress Noteon 9 PT Progress Note Therapy Diagnosis Assessed Glenoid labral tear, left, subsequent encounter (V58.89,840.8) (S43.432D) Sprain of left shoulder, subsequent encounter (V58.89,840.9) (S43.402D) Insurance Insurance reviewed Visit number: 28 Approved number of visits: 06/25 Authorization date range: 07/10-08/23 [facility] 07/10/19-08/23/- 18 visits extension date to 09-22-19 Supervising Physical Therapist Mandeep Butler new c-9 09-23 to 11/14/19 for 18 visits. Subjective Patient reports: Pain in shoulder 01/15 this date upon arrival. Doing things at home is getting easier. Sees physician 11-07-18 Just feel like I'm at a standstill, I have the rom but the pain isn't going away-surgery was April 21. Patient rates current pain 01/15. Home program performing as directed: Yes. Precautions: Fall Risk: none strengthening OK per latest C9 s/p L SLAP repair on 04/21/2019. Treatment Time in clinic started at 330 pm Time in clinic ended at 415 pm Total time in clinic is 45 minutes. Total timed code time is 40 minutes. Therapeutic exercise (78835): timed minutes 40, units 3 . ube: 3/fwd/3'bwd 6 mins rows magenta 2 x 15 shoulder extension green TB 2x15 (light green) resisted ER Green 2x15 with towel roll (light green) resisted IR dark green 2x15 with towel roll SA punch 2x10 (magenta tubing_ shoulder alphabet x1 cycle 3# (X) wall slides 2x10 flexion B sidelying 2# ER 2x10 X ER stretch at doorway with arm at 80 abd 2x30 L (X) 1 cycle of c-r for improving flexion standing in doorway, flexion to 175 X IR strap stretch 2x30 left-patient only has a 2 gap between right and left with left lower. X pulleys x 3 mins flexion/scaption (X) Pulleys for IR ROM to T12 6x10 scaption delt raises 2# 2 x 10 bicep curls 6# 2x15 Stabilize and reach x 10 yellow loop(X) Prone shoulder: (X) Rows 2 x 10 3# Ext 2 x 10 3# HABD 2 x 10 0# Shoulder taps from elevated plinth x 10 B (X) standing shoulder protraction 2x15 magenta standing shoulder dynamic hugs 2x15 magenta left sidelying sleeper stretch left ue to 66 degrees x 30 secs-pain lingered after relaxing. (X) . Assessment Good tolerance of exercise this date-patient gives excellent effort throughout. Lingering pain in the left shoulder remains the patient's biggest reported problem. Strength is progressing and PT notes just since the last time I treated her that she is less guarded and moving through more ROM-patient reports all the therapy does make her more sore by the end of session. Response to treatment: improved joint mobility/ROM, improved flexibility, improved endurance, improved tissue mobility and improved knowledge and understanding of condition. Plan Planned interventions include: edema control, electrical stimulation, home program, kinesiotaping, manual therapy, neuromuscular re-education, self care/home management, therapeutic activities and therapeutic exercises. Goals: Goals set and discussed today. By discharge CAYLA MORATAYA will achieve the following goals: 06/05/2019 Other PT Goal #1: Decrease max pain (even at rom end ranges) to less than or equal to 2/10 for improved QOL; PROGRESSING, CONTINUE Other PT Goal #2: Increase left shoulder/postural muscle/UE strength to greater than or equal to 4+/5 throughout for lifting; Initial PROGRESSING, CONTINUE Other PT Goal #3: Increase left shoulder AROM to greater than or equal to 165 flexion, 165 abduction, 90 ER, 80 IR for improved ability to reach overhead PROGRESSING, CONTINUE Other PT Goal #4: Decrease disability as assessed by QDASH to less than or equal to 10% disability for improved QOL; Initial PROGRESSING, CONTINUE Strength: strength to at least 4/5 throughout left shoulder in 2 weeks, to 4+/5/5 in 4 weeks, by week 2, goal partially met Frequency and duration: 2 time(s) a week, for 5 weeks, for 9 visits. Potential to achieve rehab goals is good Progress with POC, as tolerated. Signatures Electronically signed by : Mandeep Butler, PT; Sep 22 2019 4:14PM EST (Author) Normal [facility] PT Progress Noteon 9 PT Progress Note Therapy Diagnosis Assessed Glenoid labral tear, left, subsequent encounter (V58.89,840.8) (S43.432D) Sprain of left shoulder, subsequent encounter (V58.89,840.9) (S43.402D) Insurance Insurance reviewed Visit number: 27 Approved number of visits: 06/25 Authorization date range: 07/10-08/23 [facility] C9 07/10/19-08/23/19- visits extension date to 09-22-19 Supervising Physical Therapist Mandeep Butler. Subjective Patient reports: Reports mornings tough as when she rolls onto her L shoulder produces pain. Just lifting my L arm overhead it still is painful. Rates her L shoulder pain 6-7/10 and notes tightness. States after last session she had increased pain for the next couple of days. Precautions: Fall Risk: none strengthening OK per latest C9 s/p L SLAP repair on 04/21/2019. Treatment Time in clinic started at 2:33 pm Time in clinic ended at 3:14 pm Total time in clinic is 41 minutes. Total timed code time is 38 minutes. Therapeutic exercise (12565): timed minutes 28, units 2 . ube: 3/fwd/3'bwd Lv 5.3 5mins rows magenta 2 x 15 shoulder extension green TB 2x15 (light green) resisted ER Green 2x15 with towel roll (light green) resisted IR dark green 2x15 with towel roll SA punch 2x10 3# due to arm fatigue (X) shoulder alphabet x1 cycle 3# (X) wall slides 2x10 flexion B sidelying 2# ER 2x10 ER stretch at doorway with arm at 80 abd 2x30 L (X) 1 cycle of c-r for improving flexion standing in doorway, flexion to 175 X IR strap stretch 2x30 left-patient only has a 2 gap between right and left with left lower. X pulleys x 3 mins flexion/scaption (X) scaption delt raises 2# 2 x 10 (X) bicep curls 6# 2x15 Stabilize and reach x 10 yellow loop(X) Prone shoulder: (X) Rows 2 x 10 3# Ext 2 x 10 3# HABD 2 x 10 0# Shoulder taps from elevated plinth x 10 B (X) standing shoulder protraction 2x15 magenta standing shoulder dynamic hugs 2x15 magenta left sidelying sleeper stretch left ue to 66 degrees x 30 secs-pain lingered after relaxing. (X). Manual Therapy (89596): timed minutes 10, units 1 . IASTM/STM completed to reduce soft tissue restrictions at lateral and medial border of L scap and delts. Assessment IASTM/STM completed to reduce soft tissue restrictions at lateral / medial border of scap to reduce patient's pain and soft tissue restriction. She demo'd hypomobility of L scap and after manual therapy noted increased mobility and decreased pain with reaching overhead. After session reported pain level down from 7/10 to 5/10. Plan Planned interventions include: edema control, electrical stimulation, home program, kinesiotaping, manual therapy, neuromuscular re-education, self care/home management, therapeutic activities and therapeutic exercises. Goals: Goals set and discussed today. By discharge CAYLA MORATAYA will achieve the following goals: 06/05/2019 Other PT Goal #1: Decrease max pain (even at rom end ranges) to less than or equal to 2/10 for improved QOL; PROGRESSING, CONTINUE Other PT Goal #2: Increase left shoulder/postural muscle/UE strength to greater than or equal to 4+/5 throughout for lifting; Initial PROGRESSING, CONTINUE Other PT Goal #3: Increase left shoulder AROM to greater than or equal to 165 flexion, 165 abduction, 90 ER, 80 IR for improved ability to reach overhead PROGRESSING, CONTINUE Other PT Goal #4: Decrease disability as assessed by QDASH to less than or equal to 10% disability for improved QOL; Initial PROGRESSING, CONTINUE Strength: strength to at least 4/5 throughout left shoulder in 2 weeks, to 4+/5/5 in 4 weeks, by week 2, goal partially met Frequency and duration: 2 time(s) a week, for 5 weeks, for 9 visits. Potential to achieve rehab goals is good Will return to strengthening and scapular stability next session to allow increased ease with functional reaching and lifting during work and household ADLs. Signatures Electronically signed by : Frieda Lu MEDICAL RESEARCH SCIENTIST; Sep 18 2019 4:38PM EST (Author) Electronically signed by : Mandeep Butler, PT; Sep 19 2019 1:22PM EST Normal [facility] PT Progress Noteon 9 PT Progress Note Therapy Diagnosis Assessed Acute shoulder pain due to trauma, right (719.41,338.11) (M25.511,G89.11) Insurance Insurance reviewed Visit number: 25 Approved number of visits: 06/25 Authorization date range: 07/10-08/23 [facility] C9 07/10/19-08/23/19 visits extension date to 09-22-1906/25 Supervising Physical Therapist Mandeep Butler. Subjective Patient reports: some days shoulder pain is improving and she is feeling better and other days not as much. Patient recently had a night with difficulty sleeping and increased pain. Precautions: Fall Risk: none strengthening OK per latest C9 s/p L SLAP repair on 04/21/2019. Treatment Time in clinic started at 1530 Time in clinic ended at 1615 Total time in clinic is 45 minutes. Total timed code time is 42 minutes. Therapeutic exercise (97491): timed minutes 42, units 3 . ube: 3/fwd/3'bwd Lv 5.3 rows magenta 2 x 15 shoulder extension green TB 2x15 (light green) resisted ER Green 2x15 with towel roll (light green) resisted IR dark green 2x15 with towel roll SA punch 2x10 3# due to arm fatigue shoulder alphabet x1 cycle 3# wall slides 2x10 flexion B sidelying 2# ER 2x10 ER stretch at doorway with arm at 80 abd 2x30 L (X) 1 cycle of c-r for improving flexion standing in doorway, flexion to 175 X IR strap stretch 2x30 left-patient only has a 2 gap between right and left with left lower. X pulleys x 3 mins flexion/scaption (X) scaption delt raises 2# 2 x 10 bicep curls 6# 2x15 Stabilize and reach x 10 yellow loop Prone shoulder: Rows 2 x 10 3# Ext 2 x 10 3# HABD 2 x 10 0# Shoulder taps from elevated plinth x 10 B standing shoulder protraction 2x15 magenta standing shoulder dynamic hugs 2x15 magenta left sidelying sleeper stretch left ue to 66 degrees x 30 secs-pain lingered after relaxing. (X). Assessment Patient making progress with improved strength as indicated by increased reps/resistance over last few sessions. Patient demos strength deficits with prone HAbd. Plan Planned interventions include: edema control, electrical stimulation, home program, kinesiotaping, manual therapy, neuromuscular re-education, self care/home management, therapeutic activities and therapeutic exercises. Goals: Goals set and discussed today. By discharge CAYLA MORATAYA will achieve the following goals: 06/05/2019 Other PT Goal #1: Decrease max pain (even at rom end ranges) to less than or equal to 2/10 for improved QOL; PROGRESSING, CONTINUE Other PT Goal #2: Increase left shoulder/postural muscle/UE strength to greater than or equal to 4+/5 throughout for lifting; Initial PROGRESSING, CONTINUE Other PT Goal #3: Increase left shoulder AROM to greater than or equal to 165 flexion, 165 abduction, 90 ER, 80 IR for improved ability to reach overhead PROGRESSING, CONTINUE Other PT Goal #4: Decrease disability as assessed by QDASH to less than or equal to 10% disability for improved QOL; Initial PROGRESSING, CONTINUE Strength: strength to at least 4/5 throughout left shoulder in 2 weeks, to 4+/5/5 in 4 weeks, by week 2, goal partially met Frequency and duration: 2 time(s) a week, for 5 weeks, for 9 visits. Potential to achieve rehab goals is good Plan to continue with strength progressions as tolerated to reduce pain and improve ease/tolerance with work demands and daily activity. Signatures Electronically signed by : Blane Mehta MEDICAL RESEARCH SCIENTIST; Sep 16 2019 4:17PM EST (Author) Electronically signed by : Mandeep Butler, PT; Sep 17 2019 8:09AM EST Normal [facility] PT Progress Noteon 9 PT Progress Note Therapy Diagnosis Assessed Glenoid labral tear, left, subsequent encounter (V58.89,840.8) (S43.432D) Sprain of left shoulder, subsequent encounter (V58.89,840.9) (S43.402D) Insurance Insurance reviewed Visit number: 25 Approved number of visits: 06/25 Authorization date range: 07/10-08/23 [facility] C9 07/10/19-08/23/- visits extension date to 09-22-1906/25 Supervising Physical Therapist Mandeep Butler. Subjective Patient reports: She reports carrying items in the grocery store or anything heavy produces pain. Sleeping still interrupted if she rolls on her L side. When she rest her L shoulder on car window Sxs are produced. Feels no restrictions with reaching. Precautions: Fall Risk: none strengthening OK per latest C9 s/p L SLAP repair on 04/21/2019. Treatment Time in clinic started at 2:30 pm Time in clinic ended at 3:15 pm Total time in clinic is 45 minutes. Total timed code time is 42 minutes. Therapeutic exercise (99195): timed minutes 42, units 3 . ube: 3/fwd/3'bwd Lv 5.3 rows magenta 2 x 15 shoulder extension green TB 2x15 (light green) resisted ER Green 2x15 with towel roll (light green) resisted IR dark green 2x15 with towel roll SA punch 2x10 2# due to arm fatigue shoulder alphabet 1 cycle 3# wall slides 2x10 flexion B sidelying 2# ER 2x10 ER stretch at doorway with arm at 80 abd 2x30 L (X) 1 cycle of c-r for improving flexion standing in doorway, flexion to 175 X IR strap stretch 2x30 left-patient only has a 2 gap between right and left with left lower. X pulleys x 3 mins flexion/scaption (X) scaption delt raises 2# 2 x 10 bicep curls 6# 2x15 Stabilize and reach x 10 yellow loop Prone shoulder: Rows 2 x 10 3# Ext 2 x 10 3# HABD 2 x 10 0# Shoulder taps from elevated plinth x 10 B standing shoulder protraction 2x15 magenta standing shoulder dynamic hugs 2x15 magenta. left sidelying sleeper stretch left ue to 66 degrees x 30 secs-pain lingered after relaxing. (X). Assessment Noted she conts with weakness in scapular plane as she fatigues very quickly. Required rest break between sets of protraction /dynamic hugs with T band and during prone scapular activities. Plan Planned interventions include: edema control, electrical stimulation, home program, kinesiotaping, manual therapy, neuromuscular re-education, self care/home management, therapeutic activities and therapeutic exercises. Goals: Goals set and discussed today. By discharge CAYLA MORATAYA will achieve the following goals: 06/05/2019 Other PT Goal #1: Decrease max pain (even at rom end ranges) to less than or equal to 2/10 for improved QOL; PROGRESSING, CONTINUE Other PT Goal #2: Increase left shoulder/postural muscle/UE strength to greater than or equal to 4+/5 throughout for lifting; Initial PROGRESSING, CONTINUE Other PT Goal #3: Increase left shoulder AROM to greater than or equal to 165 flexion, 165 abduction, 90 ER, 80 IR for improved ability to reach overhead PROGRESSING, CONTINUE Other PT Goal #4: Decrease disability as assessed by QDASH to less than or equal to 10% disability for improved QOL; Initial PROGRESSING, CONTINUE Strength: strength to at least 4/5 throughout left shoulder in 2 weeks, to 4+/5/5 in 4 weeks, by week 2, goal partially met Frequency and duration: 2 time(s) a week, for 5 weeks, for 9 visits. Potential to achieve rehab goals is good Cont with scapular strengthening and stability to allow functional carrying/lifting during household and work ADLs without reports of pain. Signatures Electronically signed by : Frieda Lu MEDICAL RESEARCH SCIENTIST; Sep 11 2019 4:28PM EST (Author) Electronically signed by : Mandeep Butler PT; Sep 12 2019 8:50AM EST Normal [facility] PT Progress Noteon 9 PT Progress Note Therapy Diagnosis Assessed Glenoid labral tear, left, subsequent encounter (V58.89,840.8) (S43.432D) Sprain of left shoulder, subsequent encounter (V58.89,840.9) (S43.402D) Insurance Insurance reviewed Visit number: 26 Approved number of visits: 06/25 Authorization date range: 07/10-08/23 [facility] C9 07/10/19-08/23/ visits 06/25. Subjective Patient reports: Pt. states that she is working on her HEP/. Pt. states that she has increased pain when raising her arm above her head. Precautions: Fall Risk: none strengthening OK per latest C9 s/p L SLAP repair on 04/21/2019. Treatment Time in clinic started at 2:45 pm Time in clinic ended at 3:27 pm Total time in clinic is 42 minutes. Total timed code time is 40 minutes. Therapeutic exercise (80271): timed minutes 40, units 3 . ube: 3/fwd/3'bwd Lv 5.3 rows magenta 2 x 15 shoulder extension green TB 2x15 (light green) resisted ER Green 2x15 with towel roll (light green) resisted IR dark green 2x15 with towel roll SA punch 2x10 2# due to arm fatigue shoulder alphabet 1 cycle 3# wall slides 2x10 flexion B (X) sidelying 2# ER 2x10 ER stretch at doorway with arm at 80 abd 2x30 L (X) 1 cycle of c-r for improving flexion standing in doorway, flexion to 175 X IR strap stretch 2x30 left-patient only has a 2 gap between right and left with left lower. X pulleys x 3 mins flexion/scaption (X) scaption delt raises 2# 2 x 10 bicep curls 6# 2x15 Stabilize and reach x 10 yellow loop N Prone shoulder Rows 2 x 10 3# Ext 2 x 10 3# HABD 2 x 10 0# Shoulder taps from elevated plinth x 10 B standing shoulder protraction 2x15 magenta standing shoulder dynamic hugs 2x15 magenta. left sidelying sleeper stretch left ue to 66 degrees x 30 secs-pain lingered after relaxing. Assessment Fair tolerance to ther ex. Weakness noted with scap strengthening. Added stability strengthening. this visit. Quick fatigue with ER strengthening. Plan Planned interventions include: edema control, electrical stimulation, home program, kinesiotaping, manual therapy, neuromuscular re-education, self care/home management, therapeutic activities and therapeutic exercises. Goals: Goals set and discussed today. By discharge CAYLA MORATAYA will achieve the following goals: 06/05/2019 Other PT Goal #1: Decrease max pain (even at rom end ranges) to less than or equal to 2/10 for improved QOL; PROGRESSING, CONTINUE Other PT Goal #2: Increase left shoulder/postural muscle/UE strength to greater than or equal to 4+/5 throughout for lifting; Initial PROGRESSING, CONTINUE Other PT Goal #3: Increase left shoulder AROM to greater than or equal to 165 flexion, 165 abduction, 90 ER, 80 IR for improved ability to reach overhead PROGRESSING, CONTINUE Other PT Goal #4: Decrease disability as assessed by QDASH to less than or equal to 10% disability for improved QOL; Initial PROGRESSING, CONTINUE Strength: strength to at least 4/5 throughout left shoulder in 2 weeks, to 4+/5/5 in 4 weeks, by week 2, goal partially met Frequency and duration: 2 time(s) a week, for 5 weeks, for 9 visits. Potential to achieve rehab goals is good Add shoulder stability strengthening as tolerated. Progress with POC, as tolerated. Signatures Electronically signed by : Mandeep Morgan PTA; Sep 09 2019 3:34PM EST (Author) Electronically signed by : Mandeep Butler PT; Sep 10 2019 12:33PM EST Normal [facility] PT Progress Note Therapy Diagnosis Assessed Sprain of left shoulder, subsequent encounter (V58.89,840.9) (S43.402D) Acute shoulder pain due to trauma, right (719.41,338.11) (M25.511,G89.11) Glenoid labral tear, left, subsequent encounter (V58.89,840.8) (S43.432D) Insurance Insurance reviewed Visit number: 21 Approved number of visits: 06/25 Authorization date range: 07/10-08/23 [facility] 07/10/19-08/23/- visits 06/25. Subjective Patient reports: Continued L shoulder soreness, no new c/o. Precautions: Fall Risk: none strengthening OK per latest C9 s/p L SLAP repair on 04/21/2019. Treatment Time in clinic started at 1533 Time in clinic ended at 1614 Therapeutic exercise (35688): timed minutes 30, units 2 . ube: 3/fwd/3'bwd Lv 3 rows [place] 2 x 10 shoulder extension green TB 2x10 resisted ER Green 2x10 with towel roll resisted IR Purple 2x10 with towel roll SA punch 2x10 4# shoulder alphabet 1 cycle 2# (X) wall slides 2x10 flexion B (X) sidelying 2# ER 2x10 (X) ER stretch at doorway with arm at 80 abd 2x30 L (X) IR strap stretch 10 x10 L (X) pulleys x 3 mins flexion/scaption (X) scaption delt raises 2# 2 x 10 bicep curls 5# 2x10 [P-resistance]. Manual Therapy (81252): timed minutes 10, units 1 . PROM L GH flexion, abd, IR and ER to pt satya x 10 mins supine. Assessment making goal directed progress with strength and ROM but does continue to present with c/o soreness. Plan Planned interventions include: edema control, electrical stimulation, home program, kinesiotaping, manual therapy, neuromuscular re-education, self care/home management, therapeutic activities and therapeutic exercises. Goals: Goals set and discussed today. By discharge CAYLA MORATAYA will achieve the following goals: 06/05/2019 Other PT Goal #1: Decrease max pain (even at rom end ranges) to less than or equal to 2/10 for improved QOL; PROGRESSING, CONTINUE Other PT Goal #2: Increase left shoulder/postural muscle/UE strength to greater than or equal to 4+/5 throughout for lifting; Initial PROGRESSING, CONTINUE Other PT Goal #3: Increase left shoulder AROM to greater than or equal to 165 flexion, 165 abduction, 90 ER, 80 IR for improved ability to reach overhead PROGRESSING, CONTINUE Other PT Goal #4: Decrease disability as assessed by QDASH to less than or equal to 10% disability for improved QOL; Initial PROGRESSING, CONTINUE Strength: strength to at least 4/5 throughout left shoulder in 2 weeks, to 4+/5/5 in 4 weeks, by week 2, goal partially met Frequency and duration: 2 time(s) a week, for 5 weeks, for 9 visits. Potential to achieve rehab goals is good Plan to continue with ROM and strength progressions as tolerated to reduce soreness and improve ease/tolerance with daily activity and work demands. Signatures Electronically signed by : Blane Mehta PTA; Sep 08 2019 3:28PM EST (Author) Electronically signed by : Mandeep Butler PT; Sep 10 2019 12:33PM EST Normal [facility] PT Progress Noteon 9 PT Progress Note Therapy Diagnosis Assessed Acute shoulder pain due to trauma, right (719.41,338.11) (M25.511,G89.11) Insurance Insurance reviewed Visit number: 25 Approved number of visits: 06/25 Authorization date range: 07/10-08/23 [facility] C9 07/10/19-08/23/- visits 06/25. Subjective Patient rates current pain 01/15. 4-5/10 pain upon arrival this date. Home program performing as directed: Yes. Precautions: Fall Risk: none strengthening OK per latest C9 s/p L SLAP repair on 04/21/2019. Treatment Time in clinic started at 1450 pm Time in clinic ended at 1530 pm Total time in clinic is 40 minutes. Total timed code time is 40 minutes. Therapeutic exercise (63008): timed minutes 40, units 3 . ube: 3/fwd/3'bwd Lv 5.3 rows magenta 2 x 15 shoulder extension green TB 2x15 (light green) resisted ER Green 2x15 with towel roll (light green) resisted IR dark green 2x15 with towel roll SA punch 2x10 2# due to arm fatigue shoulder alphabet 1 cycle 3# wall slides 2x10 flexion B (X) sidelying 2# ER 2x10 ER stretch at doorway with arm at 80 abd 2x30 L (X) 1 cycle of c-r for improving flexion standing in doorway, flexion to 175 X IR strap stretch 2x30 left-patient only has a 2 gap between right and left with left lower. X pulleys x 3 mins flexion/scaption (X) scaption delt raises 2# 2 x 10 bicep curls 6# 2x15 standing shoulder protraction 2x15 magenta standing shoulder dynamic hugs 2x15 magenta. left sidelying sleeper stretch left ue to 66 degrees x 30 secs-pain lingered after relaxing. Assessment continues to increase reps with exs by 2x5 most exs. Good tolerance of progression this date-pain felt better after working the shoulder than upon arrival. Response to treatment: decreased pain and improved joint mobility/ROM. Patient was able to complete today's treatment with some difficulty. Plan Planned interventions include: edema control, electrical stimulation, home program, kinesiotaping, manual therapy, neuromuscular re-education, self care/home management, therapeutic activities and therapeutic exercises. Goals: Goals set and discussed today. By discharge CAYLA MORATAYA will achieve the following goals: 06/05/2019 Other PT Goal #1: Decrease max pain (even at rom end ranges) to less than or equal to 2/10 for improved QOL; PROGRESSING, CONTINUE Other PT Goal #2: Increase left shoulder/postural muscle/UE strength to greater than or equal to 4+/5 throughout for lifting; Initial PROGRESSING, CONTINUE Other PT Goal #3: Increase left shoulder AROM to greater than or equal to 165 flexion, 165 abduction, 90 ER, 80 IR for improved ability to reach overhead PROGRESSING, CONTINUE Other PT Goal #4: Decrease disability as assessed by QDASH to less than or equal to 10% disability for improved QOL; Initial PROGRESSING, CONTINUE Strength: strength to at least 4/5 throughout left shoulder in 2 weeks, to 4+/5/5 in 4 weeks, by week 2, goal partially met Frequency and duration: 2 time(s) a week, for 5 weeks, for 9 visits. Potential to achieve rehab goals is good gave prone exs to look at and will try next session . Progress with POC, as tolerated. Signatures Electronically signed by : Mandeep Butler, PT; Sep 03 2019 3:50PM EST (Author) Normal [facility] PT Progress Noteon -25- 9 PT Progress Note Insurance Insurance reviewed Visit number: 24 Approved number of visits: 06/25 Authorization date range: 07/10-08/23 [facility] C9 07/10/19-08/23/- visits 06/25. Subjective Patient reports: Patient did a lot of shopping over the weekend but shoulder not bothering too much 12/15. Home program performing as directed: Yes. Precautions: Fall Risk: none strengthening OK per latest C9 s/p L SLAP repair on 04/21/2019. Treatment Time in clinic started at 330 pm Time in clinic ended at 415 pm Total time in clinic is 45 minutes. Total timed code time is 45 minutes. Therapeutic exercise (03095): timed minutes 30, units 2 . ube: 3/fwd/3'bwd Lv 5.2 rows magenta 2 x 10 shoulder extension green TB 2x10 (light green) resisted ER Green 2x10 with towel roll resisted IR dark green 2x10 with towel roll SA punch 2x10 4# shoulder alphabet 1 cycle 3# wall slides 2x10 flexion B (X) sidelying 3# ER 2x10 ER stretch at doorway with arm at 80 abd 2x30 L (X) 1 cycle of c-r for improving flexion standing in doorway, flexion to 175 IR strap stretch 2x30 left-patient only has a 2 gap between right and left with left lower. pulleys x 3 mins flexion/scaption (X) scaption delt raises 2# 2 x 10 bicep curls 6# 2x10 standing shoulder protraction 2x10 magenta standing shoulder dynamic hugs 2x10 magenta. Manual Therapy (61576): timed minutes 10, units 1 . PROM L GH flexion, abd, IR and ER to pt satya x 10 mins supine left ER to 90, IR to 70, scaption to 176, flexion to 176 . Assessment Patient with good potential to continue progressing with additional time and therapy. Patient demonstrates ability to learn new exercises quickly without compensation. ROM this date felt easier with less firm feeling at end range and patient was able to tolerate IR stretch/prom easier this date. Functional IR rom improved this date to at least T11. Response to treatment: increased pain and improved knowledge and understanding of condition. Patient plans to ice at home, declined ice here. Plan Planned interventions include: edema control, electrical stimulation, home program, kinesiotaping, manual therapy, neuromuscular re-education, self care/home management, therapeutic activities and therapeutic exercises. Goals: Goals set and discussed today. By discharge CAYLA MORATAYA will achieve the following goals: 06/05/2019 Other PT Goal #1: Decrease max pain (even at rom end ranges) to less than or equal to 2/10 for improved QOL; PROGRESSING, CONTINUE Other PT Goal #2: Increase left shoulder/postural muscle/UE strength to greater than or equal to 4+/5 throughout for lifting; Initial PROGRESSING, CONTINUE Other PT Goal #3: Increase left shoulder AROM to greater than or equal to 165 flexion, 165 abduction, 90 ER, 80 IR for improved ability to reach overhead PROGRESSING, CONTINUE Other PT Goal #4: Decrease disability as assessed by QDASH to less than or equal to 10% disability for improved QOL; Initial PROGRESSING, CONTINUE Strength: strength to at least 4/5 throughout left shoulder in 2 weeks, to 4+/5/5 in 4 weeks, by week 2, goal partially met Frequency and duration: 2 time(s) a week, for 5 weeks, for 9 visits. Potential to achieve rehab goals is good Progress with POC, as tolerated. Signatures Electronically signed by : Mandeep Butler, PT; Sep 01 2019 4:13PM EST (Author) Normal [facility] PT Progress Noteon 9 PT Progress Note Insurance Insurance reviewed Visit number: 23 Approved number of visits: 06/25 Authorization date range: 07/10-08/23 [facility] C9 07/10/19-08/23/- visits 06/25. Subjective Patient reports: Rates pain as 5/10 this date so so Patient feels she is making progress overall, although it is slow. Patient rates current pain 5/10. Home program performing as directed: Yes. Precautions: Fall Risk: none strengthening OK per latest C9 s/p L SLAP repair on 04/21/2019. Treatment Time in clinic started at 330 pm Time in clinic ended at 410 pm Total time in clinic is 45 minutes. Total timed code time is 40 minutes. Therapeutic exercise (28393): timed minutes 30, units 2 . ube: 3/fwd/3'bwd Lv 2.1 rows [place] 2 x 10 shoulder extension green TB 2x10 (light green) resisted ER Green 2x10 with towel roll resisted IR Purple 2x10 with towel roll SA punch 2x10 4# (P by 1#) shoulder alphabet 1 cycle 3# wall slides 2x10 flexion B (X) sidelying 3# ER 2x10 (P by 1#) ER stretch at doorway with arm at 80 abd 2x30 L (X) IR strap stretch 2x30 left-patient only has a 2 gap between right and left with left lower. pulleys x 3 mins flexion/scaption (X) scaption delt raises 2# 2 x 10 (tried 3#x1 but too heavy) bicep curls 6# 2x10 [P by 1#)]. Manual Therapy (66621): timed minutes 10, units 1 . PROM L GH flexion, abd, IR and ER to pt satya x 10 mins supine left ER to 85-87 but muscle guard end feel flexion to 170 firm end feel, scaption to 170 firm end feel-tried to strum over subscapularis while patient's arm was in 90 abd and 70 ER which did loosen muscle guarding at end range eR. Assessment Patient states she felt sore/worked out at end of session but no more than usual. Patient was able to tolerate 1# on 2 exercises this date. Still end range muscle guarding/firm end feels with shoulder rom at terminal ranges, but patient's rom is grossly wfls for most daily activities. Response to treatment: increased pain, improved flexibility, improved endurance and improved tissue mobility. Pain increased from 5 to 6-7/10 this date. Patient was able to complete today's treatment with some difficulty. Plan Planned interventions include: edema control, electrical stimulation, home program, kinesiotaping, manual therapy, neuromuscular re-education, self care/home management, therapeutic activities and therapeutic exercises. Goals: Goals set and discussed today. By discharge CAYLA MORATAYA will achieve the following goals: 06/05/2019 Other PT Goal #1: Decrease max pain (even at rom end ranges) to less than or equal to 2/10 for improved QOL; PROGRESSING, CONTINUE Other PT Goal #2: Increase left shoulder/postural muscle/UE strength to greater than or equal to 4+/5 throughout for lifting; Initial PROGRESSING, CONTINUE Other PT Goal #3: Increase left shoulder AROM to greater than or equal to 165 flexion, 165 abduction, 90 ER, 80 IR for improved ability to reach overhead PROGRESSING, CONTINUE Other PT Goal #4: Decrease disability as assessed by QDASH to less than or equal to 10% disability for improved QOL; Initial PROGRESSING, CONTINUE Strength: strength to at least 4/5 throughout left shoulder in 2 weeks, to 4+/5/5 in 4 weeks, by week 2, goal partially met Frequency and duration: 2 time(s) a week, for 5 weeks, for 9 visits. Potential to achieve rehab goals is good Continue per current plan of care progressing reps/weight as able and continuing to address limited ROM and pain. Progress with POC, as tolerated. Signatures Electronically signed by : Mandeep Butler PT; Aug 29 2019 4:43PM EST (Author) Normal [facility] Established Visit (Orthopaed ic Surgery)on 08-26-2019 Established Visit (Orthopaedic Surgery) Chief Complaint PT HERE FOR 6 WK PO FU LEFT LABRAL REPAIR, STATES SHOULDER IS SLOWLY IMPROVING. PAIN INCREASES WITH CERTAIN ACTIVITY. DIFFICULTY SLEEPING ON SIDE, CARRYING OBJECTS. STIFFNESS IN THE MORNING. History of Present Illness Patient is here today for follow-up of her left SLAP repair on 04/21/2019. She states she has pain in the front and all over the top of the back in the shoulder. She noticed some numbness in the front of the shoulder developing in the past couple weeks to months. She's been working on strengthening with her physical therapy has been back to work with restrictions. Overall, the shoulder is slowly improving Review of Systems pt denies fever, chills, chest pain, dizziness, or shortness of breath Active Problems Acute shoulder pain due to trauma, right (719.41,338.11) (M25.511,G89.11) Anxiety and depression (300.00,311) (F41.9,F32.9) Benign essential hypertension (401.1) (I10) Glenoid labral tear, left, subsequent encounter (V58.89,840.8) (S43.432D) Sprain of left shoulder, subsequent encounter (V58.89,840.9) (S43.402D) Superior glenoid labrum lesion of left shoulder, initial encounter (840.7) (S43.432A) Surgical History History of Superior labrum anterior to posterior lesion repair Family History Family history of malignant neoplasm of prostate (V16.42) (Z80.42) Social History Chews tobacco (305.1) (Z72.0) Denied: History of Drug use Never a smoker No alcohol use Allergies No Known Drug Allergies Recorded By: Collette Schmid; 07/15/2019 10:53:52 AM Current Meds Atenolol 25 MG Oral Tablet; Therapy: (Recorded:15Jul2019) to Recorded Dispense: 0 Days ; #: Sufficient; Refill: 0; TREMAYNE = N; Record; Last Updated By: Collette Schmid; 07/15/2019 10:53:52 AM Citalopram Hydrobromide 40 MG Oral Tablet; Therapy: (Recorded:15Jul2019) to Recorded Dispense: 0 Days ; #: Sufficient; Refill: 0; TREMAYNE = N; Record; Last Updated By: Collette Schmid; 07/15/2019 10:53:52 AM Wellbutrin XL 300 MG Oral Tablet Extended Release 24 Hour; Therapy: (Recorded:15Jul2019) to Recorded Dispense: 0 Days ; #: Sufficient; Refill: 0; TREMAYNE = N; Record; Last Updated By: Collette Schmid; 07/15/2019 10:53:52 AM Vitals Vital Signs Recorded: 26Aug2019 04:37PM [id number] [id number] Height5 ft 4 in Rrrhft814 lb BMI Ftpxexlgzj63.84 BSA Calculated1.82 Physical Exam Left upper extremity is neurovascularly intact range of motion is near full for flexion there is some restricted abduction at 90, positive impingement signs positive pain with crank is advised tenderness negative speed rotator cuff strength is 5 minus/5 in supraspinatus and external rotation and internal rotation is 5/5 Diagnoses/Problems Superior glenoid labrum lesion of left shoulder, initial encounter (840.7) (S43.432A) Provider Impressions Assessment: Status post left SLAP repair, impingement syndrome Plan: Today, we discussed that she is still a little weak in the rotator cuff also lacking some range of motion and will continue to work on this with formal physical therapy. We will keep her resection sustained. She'll continue with strengthening. Follow up in 6 weeks Signatures Electronically signed by : Phoebe Bojorquez PA-C; Aug 26 2019 5:04PM EST (Author) Normal [facility] PT Progress Noteon 9 PT Progress Note Therapy Diagnosis Assessed Acute shoulder pain due to trauma, right (719.41,338.11) (M25.511,G89.11) Glenoid labral tear, left, subsequent encounter (V58.89,840.8) (S43.432D) Sprain of left shoulder, subsequent encounter (V58.89,840.9) (S43.402D) Insurance Insurance reviewed Visit number: 18 Approved number of visits: 04/24 [facility] 07/10/19-/ visits 04/24. Subjective Patient reports: continued L shoulder pain, min to no change in pain since last session. Precautions: post-op activity restrictions: rom only-no strengthening. Fall Risk: none Treatment Time in clinic started at 1430 Time in clinic ended at 1515 Total time in clinic is 45 minutes. Total timed code time is 42 minutes. Therapeutic exercise (60333): timed minutes 30, units 2 . ube: 3/fwd/3'bwd Lv 3 rows [place] 2 x 10 shoulder extension green TB 2x10 TB walkouts -ER orange TB 3 steps x5 reps [X] -IR green TB 3 steps x5 reps [X] resisted IR Green 2x10 resisted ER [place] 2x10 SA punch 2x10 2# shoulder alphabet 1 cycle 2# wall slides 2x10 flexion B sidelying 2# ER 2x10 ER stretch at doorway with arm at 80 abd 2x30 L IR strap stretch 10 x10 L pulleys x 3 mins flexion/scaption reviewed IR stretch with hand behind back on counter using legs to lower(X). Manual Therapy (00544): timed minutes 12, units 1 . PROM x 12 mins supine. Provided today: a personalized home program (Scanned) . Added rows, extension SA punch, Sidelying ER, and alphabet. Assessment ROM improving, patient tolerating treatment well without no outward c/o increased pain but does note mild soreness at end of session. Plan Planned interventions include: edema control, electrical stimulation, home program, kinesiotaping, manual therapy, neuromuscular re-education, self care/home management, therapeutic activities and therapeutic exercises. Goals: Goals set and discussed today. By discharge CAYLA MORATAYA will achieve the following goals: 06/05/2019 Other PT Goal #1: Decrease max pain (even at rom end ranges) to less than or equal to 2/10 for improved QOL; Initial Other PT Goal #2: Increase left shoulder/postural muscle/UE strength to greater than or equal to 4+/5 throughout for lifting; Initial Other PT Goal #3: Increase left shoulder AROM to greater than or equal to 165 flexion, 165 abduction, 90 ER, 80 IR for improved ability to reach overhead; Initial Other PT Goal #4: Decrease disability as assessed by QDASH to less than or equal to 10% disability for improved QOL; Initial, by week 6 Activity Limitation: by week 4 Strength: strength to at least 4/5 throughout left shoulder in 2 weeks, to 4+/5/5 in 4 weeks, by week 2 Frequency and duration: 3 time(s) a week, for 8 weeks. Potential to achieve rehab goals is good Continue with ROM as indicated and progression strengthening and stabilization as tolerated to decreased pain with daily activity and work demands. Signatures Electronically signed by : Blane Mehta MEDICAL RESEARCH SCIENTIST; Aug 15 2019 5:20PM EST (Author) Electronically signed by : Mandeep Butler, PT; Aug 26 2019 12:45PM EST Normal [facility] PT Progress Noteon 9 PT Progress Note Therapy Diagnosis Assessed Superior glenoid labrum lesion of left shoulder, initial encounter (840.7) (S43.432A) Insurance Insurance reviewed Visit number: 21 Approved number of visits: 06/25 Authorization date range: 07/10-08/23 [facility] 07/10/19-08/23/- visits 06/25. Subjective Patient reports: Max pain in L shoulder in past week 03/17. Notes continued difficulty with lifting, overhead motion, laying on L shoulder. Muscle soreness after last PT session that resolved within a few days. Compliant with HEP, no issues to report. Precautions: Fall Risk: none strengthening OK per latest C9 s/p L SLAP repair on 04/21/2019. Objective Ortho QDASH: 27% disability L GH AROM flex 150 pain limiting, abd 148 pain limiting, IR 70 pain limiting, ER 45 pain limiting L GH MMT: deferred post-op, patient is progressing as evidenced by progression of ther ex. Treatment Time in clinic started at 3:32 pm Time in clinic ended at 4:15 pm Total time in clinic is 43 minutes. Total timed code time is 40 minutes. Therapeutic exercise (42095): timed minutes 30, units 2 . ube: 3/fwd/3'bwd Lv 3 rows [place] 2 x 10 shoulder extension green TB 2x10 resisted IR Green 2x10 with towel roll resisted ER [place] 2x10 with towel roll SA punch 2x10 4# (P) shoulder alphabet 1 cycle 2# (X) wall slides 2x10 flexion B (X) sidelying 2# ER 2x10 (X) ER stretch at doorway with arm at 80 abd 2x30 L (X) IR strap stretch 10 x10 L (X) pulleys x 3 mins flexion/scaption (X) scaption delt raises 1# 2 x 10 bicep curls 4# 2x10. Manual Therapy (65567): timed minutes 10, units 1 . PROM L GH flexion, abd, IR and ER to pt satya x 10 mins supine. Assessment Patient has attended 21 visits of skilled PT s/p L SLAP repair consisting of evaluation, ther ex, manual, and home exercises. Patient has benefited from skilled PT as evidenced by increased shoulder ROM since evaluation. Patient reports continued shoulder pain with ADLs including hooking bra and lifting. Pt cont to lack L GH ER ROM and GH strength and would cont to benefit from add skilled PT to further improve motion and strength for return to PLOF. At today's session, reviewed importance of continuing to work on ROM exercises (IR, ER, flex) at home. Patient verbalized understanding. At end of tx session, pt states shoulder feels OK and declines crushed ice to go. Plan Planned interventions include: edema control, electrical stimulation, home program, kinesiotaping, manual therapy, neuromuscular re-education, self care/home management, therapeutic activities and therapeutic exercises. Goals: Goals set and discussed today. By discharge CAYLA MORATAYA will achieve the following goals: 06/05/2019 Other PT Goal #1: Decrease max pain (even at rom end ranges) to less than or equal to 2/10 for improved QOL; PROGRESSING, CONTINUE Other PT Goal #2: Increase left shoulder/postural muscle/UE strength to greater than or equal to 4+/5 throughout for lifting; Initial PROGRESSING, CONTINUE Other PT Goal #3: Increase left shoulder AROM to greater than or equal to 165 flexion, 165 abduction, 90 ER, 80 IR for improved ability to reach overhead PROGRESSING, CONTINUE Other PT Goal #4: Decrease disability as assessed by QDASH to less than or equal to 10% disability for improved QOL; Initial PROGRESSING, CONTINUE Strength: strength to at least 4/5 throughout left shoulder in 2 weeks, to 4+/5/5 in 4 weeks, by week 2, goal partially met Frequency and duration: 2 time(s) a week, for 5 weeks, for 9 visits. Potential to achieve rehab goals is good Progress with POC, as tolerated. Goals adjusted, see goals for details. Signatures Electronically signed by : Amaya Westfall, PT; Aug 22 2019 5:15PM EST (Author) Normal [facility] PT Progress Note Therapy Diagnosis Assessed Acute shoulder pain due to trauma, right (719.41,338.11) (M25.511,G89.11) Glenoid labral tear, left, subsequent encounter (V58.89,840.8) (S43.432D) Sprain of left shoulder, subsequent encounter (V58.89,840.9) (S43.402D) Insurance Insurance reviewed Visit number: 19 Approved number of visits: 04/24 [facility] C9 /12/24-/- visits 05/25. Subjective Patient reports: Patient reports L shoulder pain 01/15. 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 Reports no increase in pain following last session.Reports increased motion with hooking her bra. Home program performing as directed: Yes. Precautions: post-op activity restrictions: rom only-no strengthening. Fall Risk: none Treatment Time in clinic started at 3:24 pm Time in clinic ended at 4:12 pm Total time in clinic is 48 minutes. Total timed code time is 42 minutes. Therapeutic exercise (47516): timed minutes 30, units 2 . ube: 3/fwd/3'bwd Lv 3 rows [place] 2 x 10 shoulder extension green TB 2x10 TB walkouts -ER orange TB 3 steps x5 reps [X] -IR green TB 3 steps x5 reps [X] resisted IR Green 2x10 resisted ER [place] 2x10 SA punch 2x10 4# (P) shoulder alphabet 1 cycle 2# wall slides 2x10 flexion B sidelying 2# ER 2x10 ER stretch at doorway with arm at 80 abd 2x30 L IR strap stretch 10 x10 L pulleys x 3 mins flexion/scaption (X) ant delt raises 2# x10 ;lat delt raises 1# x10 bicep curls 4# 2x10 reviewed IR stretch with hand behind back on counter using legs to lower(X). Manual Therapy (89808): timed minutes 12, units 1 . PROM x 12 mins supine. Provided today: a personalized home program (Scanned) . Added rows, extension SA punch, Sidelying ER, and alphabet. Assessment Added delt raises for additional strengthening, decreased weight with lat delt raises due to difficulty, mild UT compensation/elevation observed. Demonstrates good control with bicep curls, no c/o pain. Plan Planned interventions include: edema control, electrical stimulation, home program, kinesiotaping, manual therapy, neuromuscular re-education, self care/home management, therapeutic activities and therapeutic exercises. Goals: Goals set and discussed today. By discharge CAYLA MORATAYA will achieve the following goals: 06/05/2019 Other PT Goal #1: Decrease max pain (even at rom end ranges) to less than or equal to 2/10 for improved QOL; Initial Other PT Goal #2: Increase left shoulder/postural muscle/UE strength to greater than or equal to 4+/5 throughout for lifting; Initial Other PT Goal #3: Increase left shoulder AROM to greater than or equal to 165 flexion, 165 abduction, 90 ER, 80 IR for improved ability to reach overhead; Initial Other PT Goal #4: Decrease disability as assessed by QDASH to less than or equal to 10% disability for improved QOL; Initial, by week 6 Activity Limitation: by week 4 Strength: strength to at least 4/5 throughout left shoulder in 2 weeks, to 4+/5/5 in 4 weeks, by week 2 Frequency and duration: 3 time(s) a week, for 8 weeks. Potential to achieve rehab goals is good Continue with ROM and UE strengthening to improve ease with ADL's and job demands. . Progress with POC, as tolerated. Signatures Electronically signed by : Emmie Gallardo PTA; Aug 18 2019 4:55PM EST (Author) Electronically signed by : Mandeep Butler PT; Aug 25 2019 7:40AM EST Normal [facility] Therapy Re-eval Noteon 08-25 Therapy Re-eval Note Therapy Diagnosis Assessed 1. Superior glenoid labrum lesion of left shoulder, initial encounter (840.7) (S43.432A) Insurance Insurance reviewed Visit number: 21 Approved number of visits: 06/25 Authorization date range: 07/10-08/23 [facility] C9 07/10/19-08/23/- 18 visits 06/25. Subjective Patient reports: Max pain in L shoulder in past week 03/17. Notes continued difficulty with lifting, overhead motion, laying on L shoulder. Muscle soreness after last PT session that resolved within a few days. Compliant with HEP, no issues to report. Precautions: Fall Risk: none strengthening OK per latest C9 s/p L SLAP repair on 04/21/2019. Objective Ortho QDASH: 27% disability L GH AROM flex 150 pain limiting, abd 148 pain limiting, IR 70 pain limiting, ER 45 pain limiting L GH MMT: deferred post-op, patient is progressing as evidenced by progression of ther ex. Assessment Patient has attended 21 visits of skilled PT s/p L SLAP repair consisting of evaluation, ther ex, manual, and home exercises. Patient has benefited from skilled PT as evidenced by increased shoulder ROM since evaluation. Patient reports continued shoulder pain with ADLs including hooking bra and lifting. Pt cont to lack L GH ER ROM and GH strength and would cont to benefit from add skilled PT to further improve motion and strength for return to PLOF. At today's session, reviewed importance of continuing to work on ROM exercises (IR, ER, flex) at home. Patient verbalized understanding. At end of tx session, pt states shoulder feels OK and declines crushed ice to go. Treatment Time in clinic started at 3:32 pm Time in clinic ended at 4:15 pm Total time in clinic is 43 minutes. Total timed code time is 40 minutes. Therapeutic exercise (59081): timed minutes 30, units 2 . ube: 3/fwd/3'bwd Lv 3 rows [place] 2 x 10 shoulder extension green TB 2x10 resisted IR Green 2x10 with towel roll resisted ER Jeff [place] 2x10 with towel roll SA punch 2x10 4# (P) shoulder alphabet 1 cycle 2# (X) wall slides 2x10 flexion B (X) sidelying 2# ER 2x10 (X) ER stretch at doorway with arm at 80 abd 2x30 L (X) IR strap stretch 10 x10 L (X) pulleys x 3 mins flexion/scaption (X) scaption delt raises 1# 2 x 10 bicep curls 4# 2x10. Manual Therapy (84298): timed minutes 10, units 1 . PROM L GH flexion, abd, IR and ER to pt satya x 10 mins supine. Plan Planned interventions include: edema control, electrical stimulation, home program, kinesiotaping, manual therapy, neuromuscular re-education, self care/home management, therapeutic activities and therapeutic exercises. Goals: Goals set and discussed today. By discharge CAYLA MORATAYA will achieve the following goals: 06/05/2019 Other PT Goal #1: Decrease max pain (even at rom end ranges) to less than or equal to 2/10 for improved QOL; PROGRESSING, CONTINUE Other PT Goal #2: Increase left shoulder/postural muscle/UE strength to greater than or equal to 4+/5 throughout for lifting; Initial PROGRESSING, CONTINUE Other PT Goal #3: Increase left shoulder AROM to greater than or equal to 165 flexion, 165 abduction, 90 ER, 80 IR for improved ability to reach overhead PROGRESSING, CONTINUE Other PT Goal #4: Decrease disability as assessed by QDASH to less than or equal to 10% disability for improved QOL; Initial PROGRESSING, CONTINUE Strength: strength to at least 4/5 throughout left shoulder in 2 weeks, to 4+/5/5 in 4 weeks, by week 2, goal partially met Frequency and duration: 2 time(s) a week, for 5 weeks, for 9 visits. Potential to achieve rehab goals is good Progress with POC, as tolerated. Goals adjusted, see goals for details. Signatures Electronically signed by : Amaya Westfall, PT; Aug 22 2019 5:15PM EST (Author) Electronically signed by : Mandeep Wise MD; Aug 25 2019 3:15PM EST (Author) Normal [facility] PT Progress Noteon 9 PT Progress Note Therapy Diagnosis Assessed Glenoid labral tear, left, subsequent encounter (V58.89,840.8) (S43.432D) Sprain of left shoulder, subsequent encounter (V58.89,840.9) (S43.402D) Insurance Insurance reviewed Visit number: 17 Approved number of visits: 10/25 [facility] 07/10/19-/- visits # OF VISITS ALLOWED 20 hard Prior therapy to date none MUST BE SEEN BY PT?. no AQ/IONTO/LIMITATIONS:. none END DATE OF INSURANCE/CERTIFICATION open. Subjective Patient reports: Pt. c/o 4/10 soreness/discomfort with left shoulder. States shoulder felt sore at work today. Patient rates current pain 4/10. Home program performing as directed: Yes. Precautions: post-op activity restrictions: rom only-no strengthening. Fall Risk: none Treatment Time in clinic started at 315 pm Time in clinic ended at 359 pm Total time in clinic is 44 minutes. Total timed code time is 42 minutes. Therapeutic exercise (21746): timed minutes 30, units 2 . ube: 3/fwd/3'bwd Lv 3 (P) rows [place] 2 x 10 (P) shoulder extension green TB 2x10 TB walkouts -ER orange TB 3 steps x5 reps [X] -IR green TB 3 steps x5 reps [X] resisted IR orange 2x10 resisted ER blue 2x10 SA punch 2x10 2# shoulder alphabet 1 cycle 2# wall slides 2x10 flexion B sidelying 2# ER 2x10 ER stretch at doorway with arm at 80 abd 2x30 L IR strap stretch 10 x10 L pulleys x 6 mins flexion/scaption (X) reviewed IR stretch with hand behind back on counter using legs to lower(X). Manual Therapy (96927): timed minutes 12, units 1 . PROM x 12 mins supine. Provided today: a personalized home program (Scanned) . Added rows, extension SA punch, Sidelying ER, and alphabet. Assessment Fair tolerance with exercises today. Able to increase reps/resistance with no c/o increased sx.'s. Cues needed for form. Mild tightness noted with end range ER and flexion/abduction with PROM. Pt. reports feeling a little sorer following session. Patient was able to complete today's treatment with some difficulty. Plan Planned interventions include: edema control, electrical stimulation, home program, kinesiotaping, manual therapy, neuromuscular re-education, self care/home management, therapeutic activities and therapeutic exercises. Goals: Goals set and discussed today. By discharge CAYLA MORATAYA will achieve the following goals: 06/05/2019 Other PT Goal #1: Decrease max pain (even at rom end ranges) to less than or equal to 2/10 for improved QOL; Initial Other PT Goal #2: Increase left shoulder/postural muscle/UE strength to greater than or equal to 4+/5 throughout for lifting; Initial Other PT Goal #3: Increase left shoulder AROM to greater than or equal to 165 flexion, 165 abduction, 90 ER, 80 IR for improved ability to reach overhead; Initial Other PT Goal #4: Decrease disability as assessed by QDASH to less than or equal to 10% disability for improved QOL; Initial, by week 6 Activity Limitation: by week 4 Strength: strength to at least 4/5 throughout left shoulder in 2 weeks, to 4+/5/5 in 4 weeks, by week 2 Frequency and duration: 3 time(s) a week, for 8 weeks. Potential to achieve rehab goals is good Progress with POC, as tolerated. Signatures Electronically signed by : Celia Liu MEDICAL RESEARCH SCIENTIST; Aug 11 2019 4:00PM EST (Author) Electronically signed by : Mandeep Butler PT; Aug 13 2019 8:09AM EST Normal [facility] PT Progress Noteon 9 PT Progress Note No report was sent Normal [facility] PT Progress Note Therapy Diagnosis Assessed Sprain of left shoulder, subsequent encounter (V58.89,840.9) (S43.402D) Glenoid labral tear, left, subsequent encounter (V58.89,840.8) (S43.432D) Insurance Insurance reviewed Visit number: 15 Approved number of visits: 10/25 [facility] C9 07/10/19-08/23/19 visits # OF VISITS ALLOWED 20 hard Prior therapy to date none MUST BE SEEN BY PT?. no AQ/IONTO/LIMITATIONS:. none END DATE OF INSURANCE/CERTIFICATION open. Subjective Patient reports: continued L shoulder soreness, its about the same.. Precautions: post-op activity restrictions: rom only-no strengthening. Fall Risk: none Treatment Time in clinic started at 1430 Therapeutic exercise (44672): timed minutes 30, units 2 . ube: 3/fwd/3'bwd L2 rows purple tube 2x10 shoulder extension green TB 2x10 TB walkouts -ER orange TB 3 steps x5 reps [X] -IR green TB 3 steps x5 reps [X] resisted IR orange 2x10 resisted ER blue 2x10 SA punch 2x10 2# shoulder alphabet 1 cycle 2# wall slides 2x10 flexion B sidelying 2# ER 2x10 ER stretch at doorway with arm at 80 abd 2x30 L IR strap stretch 10 x10 L pulleys x 6 mins flexion/scaption (X) reviewed IR stretch with hand behind back on counter using legs to lower(X). Manual Therapy (78465): timed minutes 12, units 1 . PROM x 12 mins supine. Provided today: a personalized home program (Scanned) . Added rows, extension SA punch, Sidelying ER, and alphabet. Assessment Continued IR/ER ROM deficits and pain/discomfort persist. Plan Planned interventions include: edema control, electrical stimulation, home program, kinesiotaping, manual therapy, neuromuscular re-education, self care/home management, therapeutic activities and therapeutic exercises. Goals: Goals set and discussed today. By discharge CAYLA MORATAYA will achieve the following goals: 06/05/2019 Other PT Goal #1: Decrease max pain (even at rom end ranges) to less than or equal to 2/10 for improved QOL; Initial Other PT Goal #2: Increase left shoulder/postural muscle/UE strength to greater than or equal to 4+/5 throughout for lifting; Initial Other PT Goal #3: Increase left shoulder AROM to greater than or equal to 165 flexion, 165 abduction, 90 ER, 80 IR for improved ability to reach overhead; Initial Other PT Goal #4: Decrease disability as assessed by QDASH to less than or equal to 10% disability for improved QOL; Initial, by week 6 Activity Limitation: by week 4 Strength: strength to at least 4/5 throughout left shoulder in 2 weeks, to 4+/5/5 in 4 weeks, by week 2 Frequency and duration: 3 time(s) a week, for 8 weeks. Potential to achieve rehab goals is good Continue with ROM as indicated and progress strengthening as tolerated to reduce pain and improve tolerance to daily activity and work demands. Signatures Electronically signed by : Blane Mehta MEDICAL RESEARCH SCIENTIST; Aug 08 2019 5:32PM EST (Author) Electronically signed by : Mandeep Butler, PT; Aug 11 2019 7:46AM EST (Author) Normal SureVisit PT Progress Noteon 1030-201 9 PT Progress Note Therapy Diagnosis Assessed Sprain of left shoulder, subsequent encounter (V58.89,840.9) (S43.402D) Glenoid labral tear, left, subsequent encounter (V58.89,840.8) (S43.432D) Insurance Insurance reviewed Visit number: 15 Approved number of visits: 10/25 [facility] 07/10/19-08/23/19- visits # OF VISITS ALLOWED 20 hard Prior therapy to date none MUST BE SEEN BY PT?. no AQ/IONTO/LIMITATIONS:. none END DATE OF INSURANCE/CERTIFICATION open. Subjective Patient reports: Patient reports Lshoulder pain level 4/10 currently. reports increase in pain over the weekend. Reports trying to sleep on her L side with increase in pain. Reports no increase in pain following last session. Home program performing as directed: Yes. Precautions: post-op activity restrictions: rom only-no strengthening. Fall Risk: none Treatment Time in clinic started at 2:30 pm Time in clinic ended at 3:16 pm Total time in clinic is 46 minutes. Total timed code time is 42 minutes. Therapeutic exercise (50528): timed minutes 30, units 2 . pulleys x 6 mins flexion/scaption (X) reviewed IR stretch with hand behind back on counter using legs to lower(X) ER stretch at doorway with arm at 80 abd 2x30 L IR strap stretch 5x10 L ube: 3/fwd/3'bwd L2 rows purple tube 2x10 shoulder extension green TB 2x10 TB walkouts -ER orange TB 3 steps x5 reps -IR green TB 3 steps x5 reps resisted IR orange x10(N) resisted ER blue x10 (N) SA punch 2x10 1# (P) shoulder alphabet 1 cycle 1# (P) wall slides 2x10 flexion B sidelying ER 2x10. Manual Therapy (08455): timed minutes 12, units 1 . PROM x 12 mins supine. Provided today: a personalized home program (Scanned) . Added rows, extension SA punch, Sidelying ER, and alphabet. Assessment Progressed IR and ER with resistance with TB, completing in pain free range, may d/c walkouts if pain allows next session. Progressed shoulder alphabet and SA punch with weight without increase in pain. Increased PROM ER movement observed. Plan Planned interventions include: edema control, electrical stimulation, home program, kinesiotaping, manual therapy, neuromuscular re-education, self care/home management, therapeutic activities and therapeutic exercises. Goals: Goals set and discussed today. By discharge CAYLA MORATAYA will achieve the following goals: 06/05/2019 Other PT Goal #1: Decrease max pain (even at rom end ranges) to less than or equal to 2/10 for improved QOL; Initial Other PT Goal #2: Increase left shoulder/postural muscle/UE strength to greater than or equal to 4+/5 throughout for lifting; Initial Other PT Goal #3: Increase left shoulder AROM to greater than or equal to 165 flexion, 165 abduction, 90 ER, 80 IR for improved ability to reach overhead; Initial Other PT Goal #4: Decrease disability as assessed by QDASH to less than or equal to 10% disability for improved QOL; Initial, by week 6 Activity Limitation: by week 4 Strength: strength to at least 4/5 throughout left shoulder in 2 weeks, to 4+/5/5 in 4 weeks, by week 2 Frequency and duration: 3 time(s) a week, for 8 weeks. Potential to achieve rehab goals is good Continue with UE strengthening and ROM to improve ease with ADL's and sleeping tolerance. . Progress with POC, as tolerated. Signatures Electronically signed by : Emmie Gallardo PTA; Aug 04 2019 3:21PM EST (Author) Electronically signed by : Mandeep Butler, PT; Aug 06 2019 7:02AM EST Normal SureVisit Therapy Communicationon 07-10 Therapy Communication Message CAYLA MORATAYA canceled today . Signatures Electronically signed by : Emmie Gallardo PTA; Aug 06 2019 5:23PM EST (Author) Normal SureVisit PT Progress Noteon 10-25-201 9 PT Progress Note Therapy Diagnosis Assessed Sprain of left shoulder, subsequent encounter (V58.89,840.9) (S43.402D) Glenoid labral tear, left, subsequent encounter (V58.89,840.8) (S43.432D) Insurance Insurance reviewed Visit number: 14 Approved number of visits: 10/25 Authorization date range: 08/23/19 [facility] 07/10/19-08/23/19- visits # OF VISITS ALLOWED 20 hard Prior therapy to date none MUST BE SEEN BY PT?. no AQ/IONTO/LIMITATIONS:. none END DATE OF INSURANCE/CERTIFICATION open. Subjective Patient reports: Pt. c/o mild soreness but not too bad. States shoulder will hurt if she ends up sleeping on it. Pt. states she was not too sore from adding strengthening last visit. Home program performing as directed: Yes. Precautions: post-op activity restrictions: rom only-no strengthening. Fall Risk: none Treatment Time in clinic started at 232 pm Time in clinic ended at 315 pm Total time in clinic is 44 minutes. Total timed code time is 42 minutes. Therapeutic exercise (20789): timed minutes 30, units 2 . pulleys x 6 mins flexion/scaption (X) reviewed IR stretch with hand behind back on counter using legs to lower(X) ER stretch at doorway with arm at 80 abd 2x30 L IR strap stretch 5x10 L ube: 3/fwd/3'bwd L2 rows purple tube 2x10 shoulder extension green TB 2x10 TB walkouts -ER orange TB 3 steps x5 reps -IR green TB 3 steps x5 reps SA punch 2x10 shoulder alphabet 1 cycle wall slides 2x10 flexion B sidelying ER 2x10. Manual Therapy (25915): timed minutes 12, units 1 . PROM x 12 mins supine. Provided today: a personalized home program (Scanned) . Added rows, extension SA punch, Sidelying ER, and alphabet. Assessment Verbal cues needed with exercises with fair tolerance. Slight fatigue noted with ER in sidelying. Pt. demo's good posture with mid rows and extensions. Muscular tightness noted with PROM in ER end range. No c/o sx.'s following session. Plan Planned interventions include: edema control, electrical stimulation, home program, kinesiotaping, manual therapy, neuromuscular re-education, self care/home management, therapeutic activities and therapeutic exercises. Goals: Goals set and discussed today. By discharge CAYLA HOOD will achieve the following goals: 06/05/2019 Other PT Goal #1: Decrease max pain (even at rom end ranges) to less than or equal to 2/10 for improved QOL; Initial Other PT Goal #2: Increase left shoulder/postural muscle/UE strength to greater than or equal to 4+/5 throughout for lifting; Initial Other PT Goal #3: Increase left shoulder AROM to greater than or equal to 165 flexion, 165 abduction, 90 ER, 80 IR for improved ability to reach overhead; Initial Other PT Goal #4: Decrease disability as assessed by QDASH to less than or equal to 10% disability for improved QOL; Initial, by week 6 Activity Limitation: by week 4 Strength: strength to at least 4/5 throughout left shoulder in 2 weeks, to 4+/5/5 in 4 weeks, by week 2 Frequency and duration: 3 time(s) a week, for 8 weeks. Potential to achieve rehab goals is good Progress with POC, as tolerated. Signatures Electronically signed by : Celia Liu PTA; Aug 01 2019 3:26PM EST (Author) Electronically signed by : Mandeep Butler PT; Aug 01 2019 3:46PM EST Normal [facility] Therapy Communicationon 10-2 Therapy Communication Message CAYLA MORATAYA no showed today . Signatures Electronically signed by : Emmie Gallardo PTA; Jul 30 2019 4:23PM EST (Author) Normal [facility] PT Progress Noteon 22- 9 PT Progress Note Therapy Diagnosis Assessed Sprain of left shoulder, subsequent encounter (V58.89,840.9) (S43.402D) Glenoid labral tear, left, subsequent encounter (V58.89,840.8) (S43.432D) Insurance Insurance reviewed Visit number: 13 Approved number of visits: 10/25 Authorization date range: 08/23/19 [facility] C9 07/10/19-08/23/19- visits # OF VISITS ALLOWED 20 hard Prior therapy to date none MUST BE SEEN BY PT?. no AQ/IONTO/LIMITATIONS:. none END DATE OF INSURANCE/CERTIFICATION open. Subjective Patient reports: Patient reports L shoulder 3-01/15. Reports she did have f/u with MD and is cleared for strengthening. Reports increase in pain with leaning onto her L arm, resting her arm onto the window in the car, washing behind her back is still difficult and painful. Lifting galloon of milk causes more pain. Precautions: post-op activity restrictions: rom only-no strengthening. Fall Risk: none Treatment Time in clinic started at 3:30 pm Time in clinic ended at 4:15 pm Total time in clinic is 45 minutes. Total timed code time is 42 minutes. Therapeutic exercise (36881): timed minutes 30, units 2 . pulleys x 6 mins flexion/scaption reviewed IR stretch with hand behind back on counter using legs to lower(X) ER stretch at doorway with arm at 80 abd 2x30 L IR strap stretch 5x10 L ube: 3/fwd/3'bwd L2 (P) rows purple tube 2x10(N) shoulder extension green TB 2x10 (N) TB walkouts (N) -ER orange TB 3 steps x5 reps -IR green TB 3 steps x5 reps SA punch 2x10 (N) shoulder alphabet 1 cycle (N) wall slides 2x10 flexion B sidelying ER 2x10 (N). Manual Therapy (71431): timed minutes 12, units 1 . PROM x 12 mins supine- Patient with moderate muscle guarding. Provided today: a personalized home program (Scanned) . Added rows, extension SA punch, Sidelying ER, and alphabet. Assessment Initiated strengthening of L shoulder with fair tolerance and min c/o pain. Quick fatigue with T band walkouts. Tactile cues for scap engagement with resisted rows.PROM performed with focus on IR/ER demonstrating most restriction with these 2 motions, pain limiting motion. Plan Planned interventions include: edema control, electrical stimulation, home program, kinesiotaping, manual therapy, neuromuscular re-education, self care/home management, therapeutic activities and therapeutic exercises. Goals: Goals set and discussed today. By discharge CAYLA MORATAYA will achieve the following goals: 06/05/2019 Other PT Goal #1: Decrease max pain (even at rom end ranges) to less than or equal to 2/10 for improved QOL; Initial Other PT Goal #2: Increase left shoulder/postural muscle/UE strength to greater than or equal to 4+/5 throughout for lifting; Initial Other PT Goal #3: Increase left shoulder AROM to greater than or equal to 165 flexion, 165 abduction, 90 ER, 80 IR for improved ability to reach overhead; Initial Other PT Goal #4: Decrease disability as assessed by QDASH to less than or equal to 10% disability for improved QOL; Initial, by week 6 Activity Limitation: by week 4 Strength: strength to at least 4/5 throughout left shoulder in 2 weeks, to 4+/5/5 in 4 weeks, by week 2 Frequency and duration: 3 time(s) a week, for 8 weeks. Potential to achieve rehab goals is good COntinue with UE strengthening and ROM to improve ease with ADL's and reaching behind her back for dressing. see below. Signatures Electronically signed by : Emmie Gallardo MEDICAL RESEARCH SCIENTIST; Jul 28 2019 4:58PM EST (Author) Electronically signed by : Mandeep Butler PT; Jul 29 2019 3:28PM EST Normal [facility] PT Progress Noteon 9 PT Progress Note Therapy Diagnosis Assessed Acute shoulder pain due to trauma, right (719.41,338.11) (M25.511,G89.11) Insurance Insurance reviewed Visit number: 12 Approved number of visits: 20 hard Authorization date range: open # OF VISITS ALLOWED 20 hard Prior therapy to date none MUST BE SEEN BY PT?. no AQ/IONTO/LIMITATIONS:. none END DATE OF INSURANCE/CERTIFICATION open. Subjective Patient reports: Patient hopes on the 8th after seeing the physician that she can begin strengthening, she feels ready at this point PT Appointment Tracking Reminder : 81 . Chel Bojorquez DX. 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 none FOLLOW UP APPT: to be determined-waiting for therapy to end LARGE DEDUCTIBLE unknown FALL RISK.-LOW Cognition/affect wfls. Pain as low as 0-1/10. Pain as high as 8 with end range stretch/10. Home program performing as directed: Yes. Precautions: post-op activity restrictions: rom only-no strengthening. Fall Risk: none Objective Ortho reaching behind her back a little easier Patient with moderate muscle guarding during prom but patient is doing a good job trying to push through to get true PROM Patient still with moderate pec major and subscap tightness during prom . ROM / Joint Mobility (Range of Motion in degrees) Shoulder: (Baez: P! Denotes Pain with Movement, * Indicates Campbell Resistant Otherwise Measurements are in Supine) Flexion: L Active 135, L Passive 151. ABDuction: L Active 162, L Passive 178. External Rotation (ER) ABDuction: in 0 deg.ABD, L Active 19 deg. ER, in 0 deg. ABD, L Passive 78 deg. ER, in 80 deg. ABD Internal Rotation (IR) ABDuction: L Passive 55 deg. IR, in 80 deg. ABD. Hand up back: to L2 left arm. Hand behind head: can abd/er to touch T1 left. Neuro Outcome Measures: since patient is rom only, no change in q-dash noted at this time. Treatment Time in clinic started at 2 pm Time in clinic ended at 235 pm Total time in clinic is 35 minutes. Total timed code time is 30 minutes. Therapeutic exercise (09815): timed minutes 15, units 1 . pulleys x 6 mins flexion/scaption reviewed IR stretch with hand behind back on counter using legs to lower and also ER stretch at doorway with arm at 80 abd ube: 5:30. Manual Therapy (42765): timed minutes 15, units 1 . PROM x 15 mins supine-see rom under ortho section. Patient with moderate muscle guarding. Assessment Patient goes back to the physician on the and PT will await orders for strengthening. Patient with good progress with her ROM but still needs strengthening and terminal ranges of motion. Response to treatment: decreased pain, improved tissue mobility and improved knowledge and understanding of condition. ROM/muscle guarding improved significantly i.e. ER was at 40 initially in supine at 80 and progressed to 70s after several reps. Patient was able to complete today's treatment with ease. Plan Planned interventions include: edema control, electrical stimulation, home program, kinesiotaping, manual therapy, neuromuscular re-education, self care/home management, therapeutic activities and therapeutic exercises. Goals: Goals set and discussed today. By discharge CAYLA MORATAYA will achieve the following goals: 06/05/2019 Other PT Goal #1: Decrease max pain (even at rom end ranges) to less than or equal to 2/10 for improved QOL; Initial Other PT Goal #2: Increase left shoulder/postural muscle/UE strength to greater than or equal to 4+/5 throughout for lifting; Initial Other PT Goal #3: Increase left shoulder AROM to greater than or equal to 165 flexion, 165 abduction, 90 ER, 80 IR for improved ability to reach overhead; Initial Other PT Goal #4: Decrease disability as assessed by QDASH to less than or equal to 10% disability for improved QOL; Initial, by week 6 Activity Limitation: by week 4 Strength: strength to at least 4/5 throughout left shoulder in 2 weeks, to 4+/5/5 in 4 weeks, by week 2 Frequency and duration: 3 time(s) a week, for 8 weeks. Potential to achieve rehab goals is good Recommend patient continue hep with rom until patient can do strength as she only gets 8 more this year. Anticipate patient is going to get a strength goal/script soon (07-15-19) . see below. Contacts for Physician Signature First attempt date: 07-11-19. Signatures Electronically signed by : Mandeep Butler, PT; Jul 11 2019 3:39PM EST (Author) Normal [facility] Therapy Re-eval Noteon 07-11 Therapy Re-eval Note Therapy Diagnosis Assessed 1. Acute shoulder pain due to trauma, right (719.41,338.11) (M25.511,G89.11) Insurance Insurance reviewed Visit number: 12 Approved number of visits: 20 hard Authorization date range: open # OF VISITS ALLOWED 20 hard Prior therapy to date none MUST BE SEEN BY PT?. no AQ/IONTO/LIMITATIONS:. none END DATE OF INSURANCE/CERTIFICATION open. Subjective Patient reports: Patient hopes on the after seeing the physician that she can begin strengthening, she feels ready at this point PT Appointment Tracking Reminder : 81 . Chel Bojorquez DX. 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 none MD FOLLOW UP APPT: to be determined-waiting for therapy to end LARGE DEDUCTIBLE unknown FALL RISK.-LOW Cognition/affect wfls. Pain as low as 0-1/10. Pain as high as 8 with end range stretch/10. Home program performing as directed: Yes. Precautions: post-op activity restrictions: rom only-no strengthening. Fall Risk: none Objective Ortho reaching behind her back a little easier Patient with moderate muscle guarding during prom but patient is doing a good job trying to push through to get true PROM Patient still with moderate pec major and subscap tightness during prom . ROM / Joint Mobility (Range of Motion in degrees) Shoulder: (Baez: P! Denotes Pain with Movement, * Indicates Campbell Resistant Otherwise Measurements are in Supine) Flexion: L Active 135, L Passive 151. ABDuction: L Active 162, L Passive 178. External Rotation (ER) ABDuction: in 0 deg.ABD, L Active 19 deg. ER, in 0 deg. ABD, L Passive 78 deg. ER, in 80 deg. ABD Internal Rotation (IR) ABDuction: L Passive 55 deg. IR, in 80 deg. ABD. Hand up back: to L2 left arm. Hand behind head: can abd/er to touch T1 left. Neuro Outcome Measures: since patient is rom only, no change in q-dash noted at this time. Assessment Patient goes back to the physician on the and PT will await orders for strengthening. Patient with good progress with her ROM but still needs strengthening and terminal ranges of motion. Response to treatment: decreased pain, improved tissue mobility and improved knowledge and understanding of condition. ROM/muscle guarding improved significantly i.e. ER was at 40 initially in supine at 80 and progressed to 70s after several reps. Patient was able to complete today's treatment with ease. Treatment Time in clinic started at 2 pm Time in clinic ended at 235 pm Total time in clinic is 35 minutes. Total timed code time is 30 minutes. Therapeutic exercise (02053): timed minutes 15, units 1 . pulleys x 6 mins flexion/scaption reviewed IR stretch with hand behind back on counter using legs to lower and also ER stretch at doorway with arm at 80 abd ube: 5:30. Manual Therapy (86706): timed minutes 15, units 1 . PROM x 15 mins supine-see rom under ortho section. Patient with moderate muscle guarding. Plan Planned interventions include: edema control, electrical stimulation, home program, kinesiotaping, manual therapy, neuromuscular re-education, self care/home management, therapeutic activities and therapeutic exercises. Goals: Goals set and discussed today. By discharge CAYLA MORATAYA will achieve the following goals: 06/05/2019 Other PT Goal #1: Decrease max pain (even at rom end ranges) to less than or equal to 2/10 for improved QOL; Initial Other PT Goal #2: Increase left shoulder/postural muscle/UE strength to greater than or equal to 4+/5 throughout for lifting; Initial Other PT Goal #3: Increase left shoulder AROM to greater than or equal to 165 flexion, 165 abduction, 90 ER, 80 IR for improved ability to reach overhead; Initial Other PT Goal #4: Decrease disability as assessed by QDASH to less than or equal to 10% disability for improved QOL; Initial, by week 6 Activity Limitation: by week 4 Strength: strength to at least 4/5 throughout left shoulder in 2 weeks, to 4+/5/5 in 4 weeks, by week 2 Frequency and duration: 3 time(s) a week, for 8 weeks. Potential to achieve rehab goals is good Recommend patient continue hep with rom until patient can do strength as she only gets 8 more this year. Anticipate patient is going to get a strength goal/script soon (07-15-19) . see below. Contacts for Physician Signature First attempt date: 07-11-19. Signatures Electronically signed by : Mandeep Butler PT; Jul 11 2019 3:39PM EST (Author) [facility] Shoulder Arthrogram [place] 2018 MRI Shoulder Arthrogram Lt Exam Date/Time: 2018 09:58 EDT Reason for Exam: SLAP TEAR OF LEFT SHOULDER;Other (please specify) Report STUDY: MRI Shoulder Arthrogram Lt; 2018 9:58 am INDICATION: Other (please specify). Left shoulder pain and limited range of motion. COMPARISON: None. ACCESSION NUMBER(S): [id number] ORDERING CLINICIAN: Mandeep Wise TECHNIQUE: Multiplanar and multisequential MR images of the left shoulder performed the uneventful intra- articular administration of sterile saline and gadolinium. FINDINGS: There is adequate capsular distention. There is no fluid accumulation in the subacromial/ subdeltoid bursa. There is no gadolinium signal in the bursa. There is minor subcortical increased T2 weighted signal within the subarticular glenoid from the 11:00 to 9:00 position. There is no acute osseous fracture, additional sites of bone marrow edema, or osseous mass. The acromioclavicular joint is unremarkable. There is some downsloping of the lateral acromion. The extra-articular long head biceps tendon is intact and normally positioned. The intra- articular tendon is intact to the level of the biceps anchor. There is some intermediate signal at the base of the superior labrum which is not clearly of gadolinium signal. There is curvilinear high T2 weighted signal at the base of the posterior labrum at the 10:00 and 9:00 position. There is blunting and irregularity of the inferior labrum. The remainder of the labrum is intact. The superior, middle, and inferior glenohumeral ligaments are intact. The supraspinatus, infraspinatus, teres minor, and subscapularis tendons are intact. There is no focal or full-thickness tear. There is no edema or atrophy of the rotator cuff muscles. The surrounding soft tissue structures are unremarkable. IMPRESSION: Tear along the base of the posterior/superior labrum at the 10:00 and 9:00 position. No sign of rotator cuff tear. Exam Date/Time: 2018 09:58 EDT Report The long head biceps tendon is intact and normally positioned. No acute osseous abnormality. FINAL REPORT Dictated: 2018 1:55 pm Killian Funes MD Signed (Electronic Signature): 2018 1:55 pm Signed by: Killian Funes MD Technologist: [facility] XR Arthrogram Shoulder Lefto n 2018 XR Arthrogram Shoulder Left Exam Date/Time: 2018 09:05 EDT Reason for Exam: SLAP TEAR OF LEFT SHOULDER;Other (please specify) Report STUDY: XR Arthrogram Shoulder Left; 2018 9:05 am INDICATION: Other (please specify). COMPARISON: None. ACCESSION NUMBER(S): [id number] ORDERING CLINICIAN: Mandeep Wise FINDINGS: The risks, benefits and alternatives of the procedure were discussed with the patient. The patient was given the chance to ask questions, and all were answered prior to proceeding. At this time, written informed consent was obtained. The patient was placed in the supine position on the fluoroscopic table and was prepped and draped in the usual sterile fashion. The left glenohumeral joint was localized under fluoroscopy. Lidocaine, 4 ml was used for local anesthesia. Under fluoroscopic guidance a 22 gauge needle was inserted into the left glenohumeral joint. 1 ml of iodinated contrast was injected to confirm intraarticular needle placement with fluoroscopy. 13 cc of dilute gadolinium contrast was injected into the left glenohumeral joint. The patient tolerated the procedure well and no immediate complication was noted. Total fluoroscopy time was 0.6 minutes. Procedure was performed by Dr. Dunham. IMPRESSION: Successful injection of dilute gadolinium contrast into the left glenohumeral joint prior to MRI arthrogram. FINAL REPORT Dictated: 2018 11:44 am Josse Dunham MD Signed (Electronic Signature): 2018 11:44 am Signed by: Josse Dunham MD Technologist: GLP Normal [facility] Vital Signs Date Time Vital Sign Value Performing Clinician Facility 03-10-2025 16:16-0400 Diastolic blood pressure 112 mm[Hg] Dr. Juancho Akhtar DO Work Phone: [facility] 03-10-2025 16:16-0400 Systolic blood pressure 162 mm[Hg] Dr. Juancho Akhtar DO Work Phone: [facility] 03-10-2025 15:46-0400 Body height 162.[address] Juancho Akhtar DO Work Phone: [facility] 03-10-2025 15:46-0400 Body mass index (BMI) [Ratio] 26.6 kg/m2 Dr. Juancho Akhtar DO Work Phone: [facility] 03-10-2025 15:46-0400 Body weight 70.[address] Juancho Akhtar DO Work Phone: [facility] 02-14-2024 09:19-0400 Body mass index (BMI) [Ratio] 27.3 kg/m2 Dr. Juancho Akhtar Work Phone: [facility] 02-14-2024 09:19-0400 Body weight 72.[address] Juancho Akhtar Work Phone: [facility] 02-14-2024 09:19-0400 Diastolic blood pressure 85 mm[Hg] Dr. Juancho Akhtar Work Phone: [facility] 02-14-2024 09:19-0400 Systolic blood pressure 129 mm[Hg] Dr. Juancho Akhtar Work Phone: [facility] 02-07-2024 08:09-0400 Body height 162.[address] Juancho Akhtar Work Phone: [facility] 02-07-2024 08:01-0400 Body weight 72.[address] Juancho Akhtar Work Phone: [facility] 02-07-2024 08:01-0400 Diastolic blood pressure 78 mm[Hg] Dr. Juancho Akhtar Work Phone: [facility] 02-07-2024 08:01-0400 Systolic blood pressure 123 mm[Hg] Dr. Juancho Akhtar Work Phone: [facility] 01-31-2024 09:20-0400 Body height 162.[address] Juancho Akhtar Work Phone: [facility] 01-31-2024 09:20-0400 Body mass index (BMI) [Ratio] 27.4 kg/m2 Dr. Juancho Akhtar Work Phone: [facility] 01-31-2024 09:20-0400 Body weight 72.[address] Juancho Akhtar Work Phone: [facility] 01-31-2024 09:20-0400 Diastolic blood pressure 82 mm[Hg] Dr. Juancho Akhtar Work Phone: [facility] 01-31-2024 09:20-0400 Systolic blood pressure 124 mm[Hg] Dr. Juancho Akhtar Work Phone: [facility] 01-24-2024 08:55-0400 Body height 162.[address] Juancho Akhtar Work Phone: [phone] [place] [address] 01-24-2024 08:53-0400 Body mass index (BMI) [Ratio] 27.9 kg/m2 Dr. Juancho Akhtar Work Phone: [facility] 01-24-2024 08:53-0400 Body weight 73.[address] Juancho Akhtar Work Phone: [facility] 01-24-2024 08:53-0400 Diastolic blood pressure 75 mm[Hg] Dr. Juancho Akhtar Work Phone: [facility] 01-24-2024 08:53-0400 Systolic blood pressure 124 mm[Hg] Dr. Juancho Akhtar Work Phone: [facility] 01-15-2024 14:25-0400 Body mass index (BMI) [Ratio] 27.4 kg/m2 Dr. Juancho Akhtar Work Phone: [facility] 01-15-2024 14:25-0400 Body weight 72.[address] Juancho Akhtar Work Phone: [facility] 01-15-2024 14:25-0400 Diastolic blood pressure 76 mm[Hg] Dr. Juancho Akhtar Work Phone: [facility] 01-15-2024 14:25-0400 Systolic blood pressure 122 mm[Hg] Dr. Juancho Akhtar Work Phone: [facility] 12-21-2023 15:52-0400 Body height 162.[address] Juancho Akhtar Work Phone: [facility] 12-21-2023 15:49-0400 Body mass index (BMI) [Ratio] 27.9 kg/m2 Dr. Juancho Akhtar Work Phone: [facility] 12-21-2023 15:49-0400 Body weight 73.[address] Juancho Akhtar Work Phone: [facility] 12-21-2023 15:49-0400 Diastolic blood pressure 86 mm[Hg] Dr. Juancho Akhtar Work Phone: [facility] 12-21-2023 15:49-0400 Systolic blood pressure 127 mm[Hg] Dr. Juancho Akhtar Work Phone: [facility] 11-23-2023 08:47-0500 Body mass index (BMI) [Ratio] 28.5 kg/m2 Dr. Juancho Akhtar Work Phone: [facility] 11-23-2023 08:47-0500 Body weight 75.[address] Juancho Akhtar Work Phone: [facility] 11-23-2023 08:47-0500 Diastolic blood pressure 81 mm[Hg] Dr. Juancho Akhtar Work Phone: [facility] 11-23-2023 08:47-0500 Systolic blood pressure 125 mm[Hg] Dr. Juancho Akhtar Work Phone: [facility] 11-02-2023 08:06-0500 Body mass index (BMI) [Ratio] 28.3 kg/m2 Dr. Juancho Akhtar Work Phone: [facility] 11-02-2023 08:06-0500 Body weight 74.[address] Juancho Akhtar Work Phone: [facility] 11-02-2023 08:06-0500 Diastolic blood pressure 83 mm[Hg] Dr. Juancho Akhtar Work Phone: [facility] 11-02-2023 08:06-0500 Systolic blood pressure 129 mm[Hg] Dr. Juancho Akhtar Work Phone: [facility] 10-24-2023 08:05-0500 Body mass index (BMI) [Ratio] 28.2 kg/m2 Dr. Juancho Akhtar Work Phone: [facility] 10-24-2023 08:05-0500 Body weight 74.[address] Juancho Akhtar Work Phone: [facility] 10-24-2023 08:05-0500 Diastolic blood pressure 85 mm[Hg] Dr. Juancho Akhtar Work Phone: [facility] 10-24-2023 08:05-0500 Systolic blood pressure 125 mm[Hg] Dr. Juancho Akhtar Work Phone: [facility] 09-12-2023 08:26-0500 Body mass index (BMI) [Ratio] 27.3 kg/m2 Dr. Juancho Akhtar Work Phone: [facility] 09-12-2023 08:26-0500 Body weight 72.[address] Juancho Akhtar Work Phone: [facility] 09-12-2023 08:26-0500 Diastolic blood pressure 80 mm[Hg] Dr. Juancho Akhtar Work Phone: [facility] 09-12-2023 08:26-0500 Systolic blood pressure 116 mm[Hg] Dr. Juancho Akhtar Work Phone: [facility] 08-13-2022 10:41-0500 Body temperature 98.4 [degF] Dedrick Atkins APRN.CNP Work Phone: [facility] 08-13-2022 10:41-0500 Body weight 66.68 kg Dedrick Atkins FORMULA ROOM WORKER.PESTICIDE CHEMIST Work Phone: [facility] 08-13-2022 10:41-0500 Diastolic blood pressure 80 mm[Hg] Dedrickcharo Atkins APRN.PESTICIDE CHEMIST Work Phone: [facility] 08-13-2022 10:41-0500 Heart rate 77 /min Dedrickcharo Atkins APRN.PESTICIDE CHEMIST Work Phone: [facility] 08-13-2022 10:41-0500 SaO2% (BldA) [Mass fraction] 98 % Dedrick Tyson FORMULA ROOM WORKER.PESTICIDE CHEMIST Work Phone: [facility] 08-13-2022 10:41-0500 Systolic blood pressure 110 mm[Hg] Dedrick Tyson COLEMANN.PESTICIDE CHEMIST Work Phone: [facility] 01-06-2022 20:00-0400 Diastolic blood pressure 90 mm[Hg] Stacy Kam MD Work Phone: [facility] 01-06-2022 20:00-0400 Heart rate 86 /min Stacy Kam MD Work Phone: [facility] 01-06-2022 20:00-0400 Respiratory rate 17 /min Stacy Kam MD Work Phone: [facility] 01-06-2022 20:00-0400 SaO2% (BldA) [Mass fraction] 100 % Stacy Kam MD Work Phone: [facility] 01-06-2022 20:00-0400 Systolic blood pressure 142 mm[Hg] Stacy Kam MD Work Phone: [facility] 01-06-2022 17:35-0400 Body temperature 97 [degF] Stacy Kam MD Work Phone: [facility] 01-06-2022 12:39-0400 Body height 162.6 cm Stacy Kam MD Work Phone: [facility] 01-06-2022 12:39-0400 Body mass index (BMI) [Ratio] 27.29 kg/m2 Stacy Kam MD Work Phone: [facility] 01-06-2022 12:39-0400 Body weight 72.12 kg Stacy Kam MD Work Phone: [facility] 09-26-2021 17:45-0500 Diastolic blood pressure 88 mm[Hg] Armond Goncalves MD Work Phone: [facility] 09-26-2021 17:45-0500 Heart rate 84 /min Armond Goncalves MD Work Phone: [facility] 09-26-2021 17:45-0500 Respiratory rate 13 /min Armond Goncalves MD Work Phone: [facility] 09-26-2021 17:45-0500 SaO2% (BldA) [Mass fraction] 100 % Armond Goncalves MD Work Phone: [facility] 09-26-2021 17:45-0500 Systolic blood pressure 119 mm[Hg] Armond Goncalves MD Work Phone: [facility] 09-26-2021 16:52-0500 Body temperature 98.2 [degF] Armond Goncalves MD Work Phone: [facility] 09-26-2021 12:39-0500 Body height 162.6 cm Armond Goncalves MD Work Phone: [facility] 09-26-2021 12:39-0500 Body mass index (BMI) [Ratio] 27.46 kg/m2 Armond Goncalves MD Work Phone: [facility] 09-26-2021 12:39-0500 Body weight 72.58 kg Armond Goncalves MD Work Phone: [facility] 10-28-2019 16:27-0500 BMI (Body Mass Index) 28.49 kg/m2 Phoebe Bojorquez [facility] 300 Work Phone: 10-28-2019 16:27-0500 Body weight 75.3 kg Phoebe Bojorquez [facility] 300 Work Phone: 10-28-2019 16:27-0500 BP Diastolic 80 mm[Hg] Pohebe Bojorquez [facility] 300 Work Phone: 10-28-2019 16:27-0500 BP Systolic 116 mm[Hg] [facility] 300 Work Phone: 10-28-2019 16:27-0500 BSA (Body Surface Area) 1.81 m2 [facility] 300 Work Phone: 10-28-2019 16:27-0500 Height 162.56 cm [facility] 300 Work Phone: 10-07-2019 12:08-0500 BMI (Body Mass Index) 28.67 kg/m2 [facility] 300 Work Phone: 10-07-2019 12:08-0500 Body weight 75.75 kg [facility] 300 Work Phone: 10-07-2019 12:08-0500 BP Diastolic 88 mm[Hg] [facility] 300 Work Phone: 10-07-2019 12:08-0500 BP Systolic 126 mm[Hg] [facility] 300 Work Phone: 10-07-2019 12:08-0500 BSA (Body Surface Area) 1.81 m2 [facility] 300 Work Phone: 10-07-2019 12:08-0500 Height 162.56 cm [facility] 300 Work Phone: 05-21-2018 [id number] BMI (Body Mass Index) 26.61 kg/m2 Luis Carlos Douglas [facility] 05-21-2018 10:23-0400 Height 162.6 cm Luis Carlos Douglas [facility] 05-21-2018 10:23-0400 Weight 70.31 kg Luis Carlos Douglas [facility] Encounters Encounter Date Encounter Type Care Provider Facility Start: 03-17-2025 ambulatory Alida Curiel lity:[facility] Start: 03-10-2025 End: 03-10-[address] Alida Pierce MD -[facility] Work Phone: Start: 03-10-2025 End: 03-10-[address] Juancho Akhtar DO Work Phone: [facility] Work Phone: Start: 03-10-2025 End: 03-10-2025 ambulatory Alida Pierce Facility:[facility] Start: 11-03-2024 End: 11-03-2024 ambulatory Juancho Akhtar Facility:[facility] Start: 09-24-2024 End: 09-24-2024 ambulatory Juanchograce Nuneses Facility:[facility] Start: 05-21-2024 End: 05-21-2024 ambulatory Juanchograce Akhtar Facility:[facility] Start: 04-28-2024 End: 04-28-2024 ambulatory Juancho Eugene Nuneses Facility:[facility] Start: 04-04-2024 End: 04-04-2024 ambulatory Juancho Eugene Nuneses Facility:[facility] Start: 03-30-2024 End: 03-30-2024 ambulatory Juancho Eugene Nuneses Facility:[facility] Start: 02-14-[address] Juancho Akhtar Work Phone: [facility] Spec[facility] Work Phone: Start: 02-14-2024 End: 02-14-[address] Juancho Akhtar Work Phone: [facility] Work Phone: Start: 02-11-2024 End: 02-11-[address] Juancho Akhtar Work Phone: [facility] Work Phone: Start: 02-11-2024 End: 02-11-[address] Juancho Akhtar Work Phone: [facility] Work Phone: Start: 02-07-2024 End: 02-07-[address] Juancho Akhtar Work Phone: [facility] Work Phone: Start: 02-04-2024 End: 02-04-[address] Juancho Akhtar Work Phone: [facility] Work Phone: Start: 02-04-2024 End: 02-04-[address] Juancho Akhtar Work Phone: [facility] Work Phone: Start: 01-31-2024 End: 01-31-[address] Juancho Akhtar Work Phone: [facility] Work Phone: Start: 01-28-2024 End: 01-28-[address] Juancho Akhtar Work Phone: [facility] Work Phone: Start: 01-28-2024 End: 01-28-[address] Juancho Akhtar Work Phone: [facility] Work Phone: Start: 01-24-2024 End: 01-24-[address] Juancho Akhtar Work Phone: [facility] Work Phone: Start: 01-24-2024 End: 01-24-[address] Juancho Akhtar Work Phone: [facility] Work Phone: Start: 01-21-2024 End: 01-21-[address] Juancho Akhtar Work Phone: [facility] Work Phone: Start: 01-21-2024 End: 01-21-[address] Juancho Akhtar Work Phone: [facility] Work Phone: Start: 01-17-2024 End: 01-17-[address] Juancho Akhtar Work Phone: [facility] Work Phone: Start: 01-17-2024 End: 01-17-[address] Juancho Akhtar Work Phone: [facility] Work Phone: Start: 01-15-2024 End: 01-15-[address] Juancho Akhtar Work Phone: [facility] Work Phone: Start: 12-27-2023 End: 12-27-[address] Juancho Akhtar Work Phone: [facility] Work Phone: Start: 12-27-2023 End: 12-27-[address] Juancho Akhtar Work Phone: [facility] Work Phone: Start: 12-21-2023 End: 12-21-[address] Juancho Akhtar Work Phone: [facility] Work Phone: Start: 12-21-2023 End: 12-21-[address] Juancho Akhtar Work Phone: [facility] Work Phone: Start: 11-23-2023 End: 11-23-[address] Juancho Akhtar Work Phone: [facility] Work Phone: Start: 11-02-2023 End: 11-02-[address] Juancho Akhtar Work Phone: [facility] Work Phone: Start: 10-24-2023 End: 10-24-[address] Juancho Akhtar Work Phone: [facility] Work Phone: Start: 10-18-2023 End: 10-18-2023 ambulatory JUANCHO AKHTAR [facility] Start: 09-28-2023 End: 09-28-2023 Non-patient / Non-visit Dr. Juancho Akhtar Work Phone: [facility] Work Phone: Start: 09-28-2023 End: 09-28-[address] Juancho Akhtar Work Phone: [facility]Neurology Work Phone: Start: 09-12-2023 End: 09-12-[address] Juancho Akhtar Work Phone: [facility] Work Phone: Start: 01-10-2023 End: 01-15-[address] JIMI COLLADO MD Facility:A Start: 12-23-2022 End: 12-23-[address] [facility] Work Phone: Start: 12-23-2022 End: 12-23-[address] [facility] Start: 12-02-2022 End: 12-02-[address] [facility] Work Phone: Start: 12-02-2022 End: 12-02-[address] [facility] Start: 08-13-2022 End: 08-13-2022 ambulatory JUANCHO AKHTAR Facility:[facility] Start: 08-13-2022 End: 08-13-2022 Patient encounter procedure Dedrick Atkins APRN.[facility] Work Phone: [facility] Comment on above: Tick bite of left ann villagomez, initial encounter (Primary Dx) Start: 07-08-2022 End: 07-08-[address] [facility] Work Phone: Start: 07-08-2022 End: 07-08-[address] [facility] Start: 06-28-2022 End: 06-28-[address] [facility] Work Phone: Start: 06-28-2022 End: 06-28-[address] [facility] [place] Start: 05-24-2022 End: 05-24-2022 ambulatory [facility] Start: 02-28-2022 End: 03-01-2022 ambulatory BHAVANA MEJIAS MD Facility:[facility] Start: 02-28-2022 End: 02-28-2022 Patient encounter procedure BHAVANA MEJIAS MD [facility] Start: 01-06-2022 End: 01-06-2022 Subsequent hospital visit by physician Stacy Kam MD Work Phone: [facility] General Surgery Comment on above: S/P myomectomy (Prim singh Dx) Start: 09-26-2021 End: 09-26-2021 Subsequent hospital visit by physician Armond Goncalves MD Work Phone: [facility] General Surgery Comment on above: Status post anal fis surectomy (Primary Dx) Start: 09-14-2021 End: 09-14-2021 Patient encounter procedure BHAVANA MEJIAS MD [facility] Start: 05-12-2020 End: 05-12-2020 Subsequent hospital visit by physician Juancho Akhtar Work Phone: [facility] Radiology Start: 04-05-2020 End: 04-05-2020 Subsequent hospital visit by physician Juancho Akhtar Work Phone: [facility] Neuro Comment on above: Arrived Start: 03-15-2020 End: 03-15-2020 Subsequent hospital visit by physician Juancho Akhtar Work Phone: [facility] Start: 12-09-2019 Patient encounter procedure Juancho Akhtar [facility] 300 Work Phone: Start: 11-26-2019 Patient encounter procedure Juancho Akhtar [facility] 300 Work Phone: Start: 11-25-2019 Patient encounter procedure Juancho Akhtar [facility] 300 Work Phone: Start: 11-17-2019 Patient encounter procedure Juancho Akhtar [facility] 300 Work Phone: Start: 11-13-2019 Patient encounter procedure Juancho Akhtar [facility] 300 Work Phone: Start: 11-11-2019 Patient encounter procedure Juancho Akhtar [facility] 300 Work Phone: Start: 11-06-2019 Patient encounter procedure Juancho Akhtar [facility] 300 Work Phone: Start: 11-03-2019 Patient encounter procedure Juancho Akhtar [facility] 300 Work Phone: Start: 10-30-2019 [facility]: Start: 10-28-2019 Patient encounter procedure Phoebe Bojorquez [facility] 300 Work Phone: Start: 10-23-2019 Patient encounter procedure Phoebe Bojorquez [facility] 300 Work Phone: Start: 10-20-2019 Patient encounter procedure Emmie Gallardo [facility] [place] Work Phone: Start: 10-16-2019 Patient encounter procedure Frieda Lu [facility] [place] Work Phone: Start: 10-14-2019 Patient encounter procedure Mandeep Morgan [facility] [place] Work Phone: Start: 10-13-2019 Patient encounter procedure Celia Liu [facility] [place] Work Phone: Start: 10-09-2019 Patient encounter procedure Mandeep Morgan [facility] [place] Work Phone: Start: 10-07-2019 Patient encounter procedure Phoebe Bo[facility] Work Phone: Start: 10-06-2019 Patient encounter procedure Meclhor Cook [facility] [place] Work Phone: Start: 10-02-2019 Patient encounter procedure Melchorcayden Cook [facility] [place] Work Phone: Start: 09-29-2019 Patient encounter procedure Melchorcayden Cook [facility] [place] Work Phone: Start: 09-24-2019 Patient encounter procedure Melchor Cook [facility] [place] Work Phone: Start: 09-22-2019 Patient encounter procedure Melchor Cook [facility] [place] Work Phone: Start: 09-18-2019 Patient encounter procedure Melchor Cook [facility] [place] Work Phone: Start: 09-16-2019 Patient encounter procedure Melchorcayden Cook [facility] [place] Work Phone: Start: 09-11-2019 Patient encounter procedure Melchor Cook [facility] [place] Work Phone: Start: 09-09-2019 Patient encounter procedure Melchorcayden Cook [facility] [place] Work Phone: Start: 09-03-2019 Patient encounter procedure Melchor Cook [facility] [place] Work Phone: Start: 09-01-2019 Patient encounter procedure Melchor Cook [facility] [place] Work Phone: Start: 08-29-2019 Patient encounter procedure Melchor Cook [facility] [place] Work Phone: Start: 08-27-2019 Patient encounter procedure Melchor Cook [facility] [place] Work Phone: Start: 08-26-2019 Patient encounter procedure Melchor Cook [facility] [place] Work Phone: Start: 08-22-2019 Patient encounter procedure Melchor Cook [facility] [place] Work Phone: Start: 08-18-2019 Patient encounter procedure Melchor Cook [facility] [place] Work Phone: Start: 08-15-2019 Patient encounter procedure Meclhor Cook [facility] [place] Work Phone: Start: 08-11-2019 Patient encounter procedure Melchor Cook [facility] [place] Work Phone: Start: 08-08-2019 Patient encounter procedure Melchor Cook [facility] [place] Work Phone: Start: 08-04-2019 Patient encounter procedure Melchor Cook [facility] [place] Work Phone: Start: 08-01-2019 Patient encounter procedure Melchor Cook [facility] [place] Work Phone: Start: 07-28-2019 Patient encounter procedure Melchor Cook [facility] [place] Work Phone: Start: 07-15-2019 Patient encounter procedure Melchor [facility] Work Phone: Start: 07-11-2019 Patient encounter procedure Melchor Cook [facility] Work Phone: Start: 05-21-2018 End: 05-21-2018 Office outpatient new 30 minutes Constanza Pacheco Work Phone: [facility] Physicians Procedures Date Procedure Procedure Detail Performing Clinician Start: 02-11-2024 Ultrasonography for biophysical profile without non-stress testing Dr. Juancho Akhtar Work Phone: Start: 02-04-2024 Ultrasonography for biophysical profile without non-stress testing Dr. Juancho Akhtar Work Phone: Start: 01-28-2024 Ultrasonography for biophysical profile without non-stress testing Dr. Juancho Akhtar Work Phone: Start: 01-21-2024 Ultrasonography for biophysical profile without non-stress testing Dr. Juancho Akhtar Work Phone: Start: 01-17-2024 Ultrasonography for biophysical profile without non-stress testing Dr. Juancho Akhtar Work Phone: Start: 01-06-2022 OPERATIVE REPORT Physician Generic Start: 01-06-2022 TONE SANCHEZ 3 Stacy Kam MD Work Phone: Start: 01-06-2022 Urine test visual color cmprsn patrice Vieira MD Work Phone: Start: 09-26-2021 Urine test visual color cmprsn yuniors Antoine Vazquez DO Work Phone: Start: 05-12-2020 [...] DTaP/Tdap/Td vaccine (2 - Td or Tdap) [facility] Start: 02-14-2024 Group B Streptococcu s Culture Group B Streptococcus Culture [facility] Start: 02-14-2024 Streptococcus agalac tiae [Presence] in Unspecified specimen by Organism specific culture [facility] Start: 07-08-2022 [facility] Work Phone: Start: 06-08-2022 Influenza vaccination S [facility] Start: 01-23-2022 End: 01-23-2022 Patient encounter procedure 01/23/2022 Office Visit Obstetrics and Gynecology Stacy Kam MD [address] [place] [address] [address] [place], [place] [id number] [facility] Start: 10-08-2021 DEPRESSION ASSESSMENT DEPRESSION ASS [facility] Start: 06-26-2021 COVID-19 Vaccine (3 - Booster for Pfizer series) COVID-19 Vaccine (3 - Booster for Pfizer series) [facility] Start: 06-08-2021 Influenza vaccination Flu vaccine (# 1) [facility] Start: 05-26-2021 COVID-19 Vaccine (3 - Booster for Pfizer series) COVID-19 Vaccine (3 - Booster for Pfizer series) [facility] Start: 02-18-2021 COVID-19 VACCINE (3 - Booster for Pfizer series) COVID-19 VACCINE (3 - Booster for Pfizer series) [facility] Start: 06-08-2020 Influenza vaccination [facility] [place], [place] Start: 12-18-2018 Diabetes screen Diabetes screen [facility] Start: 06-08-2018 Influenza vaccination SEQUENTI AL INFLUENZA VACCINE (#1) [facility] Start: 12-18-2013 HPV TESTING HPV TESTING [facility] Start: 12-18-2013 Screening for malign ant neoplasm of cervix [facility] Start: 12-18-2004 PAP TESTING PAP TESTING [facility] Start: 12-18-2004 Screening for malign ant neoplasm of cervix [facility] Start: 12-18-2002 DTaP/Tdap/Td vaccine (1 - Tdap) DTaP/Tdap/Td vaccine (1 - Tdap) [place] Start: 12-18-2002 Urine microalbumin profile DTA P,TDAP,TD (1 - Tdap) [facility] Start: 12-18-2001 HEPATITIS C SCREENING HEPATITIS C SC REENING [facility] Start: 12-18-2001 HIV SCREENING HIV SCREENING [facility] Start: 12-18-1998 HIV screening HIV screen [facility] Start: 1995 Depression Screen Depression Screen [facility] Start: 12-18-1984 Varicella vaccine (1 of 2 - 2-dose childhood series) Varicella vaccine (1 of 2 - 2-dose childhood series) [facility] Start: 1983 HEPATITIS B (1 of 3 - 3-dose series) HEPATITIS B (1 of 3 - 3-dose series) [facility] Start: 1983 Hepatitis C screening Hepatitis C sc reen [facility] Start: 1983 Screening for malign ant neoplasm of cervix [facility] Start: 1985 Tetanus vaccination TETANUS EVERY [address] [facility] Beta-hemolytic Streptococcus culture [facility] Blood glucose - POCT [facility] Work Phone: Comment on above: As Needed until disc ontinued starting 09/26/2021 Blood glucose - POCT Blood gluco se - POCT Point of Care Testing STAT As Needed until discontinued starting 01/06/2022 [facility] Work Phone: Comment on above: As Needed until disc ontinued starting 01/06/2022 End: 09-26-2021 Creatinine [Mass/volume] in Serum or Plasma Creatinine, serum Lab STAT One Time for 1 Occurrences starting 09/26/2021 until 09/26/2021 [facility] Work Phone: Comment on above: One Time for 1 Occur rences starting 09/26/2021 until 09/26/2021 End: 01-06-2022 Creatinine [Mass/volume] in Serum or Plasma Creatinine, serum Lab STAT One Time for 1 Occurrences starting 01/06/2022 until 01/06/2022 [facility] Work Phone: Comment on above: One Time for 1 Occur rences starting 01/06/2022 until 01/06/2022 EMG REPORT EMG REPORT Neuro logy 04/05/2020 3:40 PM EDT [facility] [place], [place] Biophysical pr ofile panel [facility] End: 01-06-2022 INITIATE PACU OXYGEN THERAPY PROTOCOL Initiate PACU Oxygen Therapy Protocol Respiratory Care Routine Continuous until discontinued starting 01/06/2022 [employer] Work Phone: Comment on above: Continuous until dis continued starting 01/06/2022 End: 09-26-2021 Intermittent pulse oximetry Pulse Oximetry Spot Check Respiratory Care Routine One Time for 1 Occurrences starting 09/26/2021 until 09/26/2021 [employer] Work Phone: Comment on above: One Time for 1 Occur rences starting 09/26/2021 until 09/26/2021 End: 01-06-2022 Intermittent pulse oximetry Pulse Oximetry Spot Check Respiratory Care Routine One Time for 1 Occurrences starting 01/06/2022 until 01/06/2022 [employer] Work Phone: Comment on above: One Time for 1 Occur rences starting 01/06/2022 until 01/06/2022 Nasal Cannula Oxygen Nasal Cannu la Oxygen Respiratory Care Routine As Needed until discontinued starting 09/26/2021 [employer] Work Phone: Comment on above: As Needed until disc ontinued starting 09/26/2021 Nasal Cannula Oxygen Nasal Cannu la Oxygen Respiratory Care Routine As Needed until discontinued starting 01/06/2022 [employer] Work Phone: Comment on above: As Needed until disc ontinued starting 01/06/2022 Nasal Cannula Oxygen Nasal Cannu la Oxygen Respiratory Care Routine As Needed until discontinued starting 01/06/2022 [employer] Work Phone: Comment on above: As Needed until disc ontinued starting 01/06/2022 Nonrebreather mask oxygen Nonreb reather mask oxygen Respiratory Care Routine As Needed until discontinued starting 09/26/2021 [employer] Work Phone: Comment on above: As Needed until disc ontinued starting 09/26/2021 Nonrebreather mask oxygen Nonreb reather mask oxygen Respiratory Care Routine As Needed until discontinued starting 01/06/2022 [facility] Work Phone: Comment on above: As Needed until disc ontinued starting 01/06/2022 Nonrebreather mask oxygen Nonreb reather mask oxygen Respiratory Care Routine As Needed until discontinued starting 01/06/2022 [employer] Work Phone: Comment on above: As Needed until disc ontinued starting 01/06/2022 Nuclear Ab [Presence ] in Serum [facility] Nuclear Ab [Titer] i n Serum by Immunofluorescence [facility] Work Phone: Oxygen therapy [Mini mum Data Set] [employer] Work Phone: Comment on above: As Needed until disc ontinued starting 09/26/2021 Daily until disconti nued starting 09/26/2021 Oxygen therapy [[facility] Data Set] Initiate Oxygen Therapy Protocol Respiratory Care Routine As Needed until discontinued starting 01/06/2022 [employer] Work Phone: Comment on above: As Needed until disc ontinued starting 01/06/2022 End: 09-26-2021 Potassium w/ Reflex to Magnesium Potassium w/ Reflex to Magnesium Lab Routine One Time for 1 Occurrences starting 09/26/2021 until 09/26/2021 [employer] Work Phone: Comment on above: One Time for 1 Occur rences starting 09/26/2021 until 09/26/2021 End: 01-06-2022 Potassium w/ Reflex to Magnesium Potassium w/ Reflex to Magnesium Lab Routine One Time for 1 Occurrences starting 01/06/2022 until 01/06/2022 [employer] Work Phone: Comment on above: One Time for 1 Occur rences starting 01/06/2022 until 01/06/2022 End: 01-06-2022 , urine , urine Lab Routine One Time for 1 Occurrences starting 01/06/2022 until 01/06/2022 [facility] Work Phone: Comment on above: One Time for 1 Occur rences starting 01/06/2022 until 01/06/2022 End: 09-26-2021 Protime-INR Protime-INR Lab STAT One Time for 1 Occurrences starting 09/26/2021 until 09/26/2021 [facility] Work Phone: Comment on above: One Time for 1 Occur rences starting 09/26/2021 until 09/26/2021 End: 01-06-2022 Protime-INR Protime-INR Lab STAT One Time for 1 Occurrences starting 01/06/2022 until 01/06/2022 [facility] Work Phone: Comment on above: One Time for 1 Occur rences starting 01/06/2022 until 01/06/2022 Spirometry panel Incentive nate metry Respiratory Care Routine Q1H PRN until discontinued starting 09/26/2021 [facility] Work Phone: Comment on above: Q1H PRN until discon tinued starting 09/26/2021 Spirometry panel Incentive nate metry Respiratory Care Routine Q1H PRN until discontinued starting 01/06/2022 [facility] Work Phone: Comment on above: Q1H PRN until discon tinued starting 01/06/2022 Ultrasound scan for growth [facility] US Pelvis [facility] End: 03-15-2020 XR Cervical Spine W Obliques Flexion and Extension XR Cervical Spine W Obliques Flexion and Extension Imaging Routine Once for 1 Occurrences starting 03/15/2020 until 03/15/2020 [facility] [place] Comment on above: Once for 1 Occurrenc es starting 03/15/2020 until 03/15/2020 XR Cervical Spine W Obliques Flexion and Extension XR Cervical Spine W Obliques Flexion and Extension Imaging Routine 03/15/2020 9:58 AM EDT [facility] NEGATED: Highlighted row has been ruled out! Planned Goals not documented [facility] Work Phone: Immunizations Immunization Date Immunization Notes Care Provider Fa erick 12-21-2023 tetanus toxoid, redu moises diphtheria toxoid, and acellular pertussis vaccine, adsorbed Dr. Juancho Akhtar Work Phone: [facility] Payers Date Payer Category Payer Self-pay [id number] [id number] 2021 Unknown [employer] PPO [id number] 2021-Present [phone] [address] [place] [address] PPO [id number] 2015 Unknown [id number] 1983 Unknown [id number] 1983 Unknown [id number] 1983 Unknown [id number] 1983 Unknown [id number] Unknown [facility] [id number] Unknown [facility] COMP MANAGEMENT [id number] Unknown [facility] [id number] Unknown [id number] Unknown [id number] Unknown [id number] Unknown [id number] Unknown [id number] Unknown [id number] Unknown [id number] Unknown [id number] Unknown [id number] Social History Date Type Detail Facility Start: 05-21-2018 End: 03-07-2024 Tobacco smoking status IAIS Never smoker [facility] Start: 1985 [facility] 1985 Sex Assigned At Female [facility] Start: 07-08-2020 Tobacco use and exposure User of smokeless tobacco [employer] Work Phone: History of tobacco use Snuff User [employer] Work Phone: History of tobacco use Chews Tobacco [employer] Work Phone: Start: 09-26-2021 Alcohol intake Ex-drinker (finding) [facility] Work Phone: Start: 12-27-2021 End: 08-13-2022 Exposure to SARS-CoV-2 (event) Not sure [facility] Work Phone: Start: 01-06-2022 Alcohol intake Lifetime non-d tara (finding) [facility] Work Phone: Start: 12-30-2021 History SDOH Alcohol Frequency 1 [employer] Work Phone: Tobacco smoking status No Smoking Status Entered [facility] Start: 02-10-2021 End: 02-14-2024 Tobacco smoking status [facility] Unknown if ever smoked 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) [facility] NEGATED: Highlighted row - - [facility] Work Phone: Medical Equipment Procedure Code Equipment Code Equipment Origin al Text Equipment Identifier Dates Blood Sugar Diagnostic (Blood Glucose Test) strip Start: 12-27-2023 [facility] Start: 12-27-2023 Blood Sugar Diagnostic (Blood Glucose Test) strip Start: 12-27-2023 Lancets Start: 12-27-2023 Blood Sugar Diagnostic (Blood Glucose Test) strip Start: 12-27-2023 [facility] Start: 12-27-2023 Blood Sugar Diagnostic (Blood Glucose Test) strip Start: 12-27-2023 Lancets Start: 12-27-2023 Blood Sugar Diagnostic (Blood Glucose Test) strip Start: 12-27-2023 [facility] Start: 12-27-2023 Blood Sugar Diagnostic (Blood Glucose Test) strip Start: 12-27-2023 Lancets Start: 12-27-2023 Blood Sugar Diagnostic (Blood Glucose Test) strip Start: 12-27-2023 [facility] Start: 12-27-2023 Blood Sugar Diagnostic (Blood Glucose Test) strip Start: 12-27-2023 End: 03-07-2024 Lancets misc Start: 12-27-2023 End: 03-07-2024 Functional Status Date Assessment Result Facility NEGATED: Highlighted row Functional performance Functional status health issues are not documented Disease [facility] Work Phone: Mental Status Date Assessment Result Facility NEGATED: Highlighted row Cognitive function [Interpretation] Cognitive status health issues are not documented [facility] Work Phone: Clinical Notes 09-26-2021 to 03-10-2025 Note Date & Type Note Facility 03-10-2025 Evaluation note Diagnosis Onset Date Resolution Abnormal uterine bleeding noneactive March 10, 2025 3 :42pm [facility] Work Phone: [phone] 605-593611-06-2022 NoteHNO ID: [id number] Author: Dedrick Atkins APRN.[facility]MIST Service: ? Author Type: Nurse Practitioner Type: [...] history is provided by the patient. No english language arts teacher was used. Review of Systems Constitutional: Negative. [...] Patient was okay with this care plan. Dedrick Atkins APRN.[facility]11-06-2022 History of Present illness Narrative* Dedrick RENATO Atkins.[facility]MI[facility] - 08/13/2022 10:49 AM EST Images from the original note were not [...] history is provided by the patient. No english language arts teacher was used. Review of Systems Constitutional: Negative. [...] Patient was okay with this care plan. Dedrick Atkins APRN.[facility]MI[facility] History of Present illness Narrative* Anna Correa RN - 01/06/2022 7:50 PM EDT Pt ambulated to the bathroom and voided without any difficulty. [facility] Work Phone: [phone]) 905-518612-20-2021 History of Present illness Narrative* Bouchra Bautista RN - 09/26/2021 6:15 PM EST Patient discharged home with family. All vital signs returned to baseline and pain level controlled. Monitoring completed and IV removed. Family at bedside assisted patient to dress. Patient has all belongings including wallet, cell phone, clothing. Patient taken off unit via wheelchair by RN to family awaiting in vehicle. * Bouchra Bautista RN - 09/26/2021 5:54 PM EST Patient and family educated and provided all discharge instructions including post-op care, medications, and follow-up. All verbalize understanding. Questions encouraged and answered. * Anna Correa RN - 09/26/2021 5:23 PM EST Called for mother to come back to room Bouchrathao TANG to take over documented in this [facility] Work Phone: [phone] Hospital Discharge instructions* Instructions* Landen Spears MD - 09/26/2021 Images from the original note were not included. POST-OPERATIVE INSTRUCTIONS FOR ANORECTAL SURGERY OBTAIN THE FOLLOWING FROM [facility] PAIN MEDICATION - A narcotic pain prescription [...] this procedure. Report excessive bleeding or passage ofclots to the office. Use non-cotton gauze, sanitary pads or minipads as needed for bleeding and drainage. Warm showers or baths are recommended 2 to 3 times per day or as needed in the post- operative period for discomfort and to keep area clean. You can purchase a hand-held shower sprayer, bidet, sitz bath, or squirt bottle to keep the tissuesclean in the tenzin-anal area after bowel movements [...] acetaminophen and/or NSAIDS, please take your opioid prescription(Carefree/vicodin/percocet have tylenol in them) as needed for [...] below. It is not necessary to wake yourselffrom sleep to take pain medication. It is [...] oxycodone (5mg) tablets if needed PLEASE CALL [phone] if you have any questions [facility] Work Phone: Evaluation + Plan note No data available for this section [facility] Evaluation note* Diagnosis Status post anal fissurectomy- Primary Other postprocedural status documented in this encounter [facility] Work Phone: Evaluation note* Diagnosis S/P myomectomy- Primary Other postprocedural status documented in this encounter [facility] Work Phone: Evaluation noteNo assessment information available [facility] Work Phone: Evaluation note* Diagnosis Tick bite of left shoulder, initial encounter- Primary [facility] Diagnosis Onset Date Resolution Status Advanced maternal age (AMA) in acute COVID-19 affecting in second trimester acute Genital herpes affecting acute H/O myomectomy acute Hypertension affecting acute Infertility acute Positive urine drug screen a cute acute Supervision of high-risk acute Advanced maternal age (AMA) in acute COVID-19 affecting in second trimester acute Genital herpes affecting acute H/O myomectomy acute Hypertension affecting acute Infertility acute Positive urine drug screen a cute acute Supervision of high-risk acute Advanced maternal age (AMA) in acute Atopic dermatitis acute COVID-19 affecting in second trimester acute Genital herpes affecting acute H/O myomectomy acute Hypertension affecting acute Infertility acute Positive urine drug screen a cute acute Supervision of high-risk acute Advanced maternal age (AMA) in acute Atopic dermatitis acute COVID-19 affecting in second trimester acute Genital herpes affecting acute H/O myomectomy acute Hypertension affecting acute Infertility acute Positive urine drug screen a cute acute Supervision of high-risk acute Advanced maternal age (AMA) in acute Atopic dermatitis acute COVID-19 affecting in second trimester acute Genital herpes affecting acute H/O myomectomy acute Hypertension affecting acute Infertility acute Positive urine drug screen a cute acute Supervision of high-risk acute [facility] Work Phone: Evaluation note* Diagnosis Onset Date Resolution Status Advanced maternal age (AMA) in acute COVID-19 affecting in second trimester acute Genital herpes affecting acute H/O myomectomy acute Hypertension affecting acute Infertility acute Positive urine drug screen a cute acute Supervision of high-risk acute Advanced maternal age (AMA) in acute Atopic dermatitis acute COVID-19 affecting in second trimester acute Genital herpes affecting acute H/O myomectomy acute Hypertension affecting acute Infertility acute Positive urine drug screen a cute acute Supervision of high-risk acute Advanced maternal age (AMA) in acute Atopic dermatitis acute COVID-19 affecting in second trimester acute Genital herpes affecting acute H/O myomectomy acute Hypertension affecting acute Infertility acute Positive urine drug screen a cute acute Supervision of high-risk acute Advanced maternal age (AMA) in acute Atopic dermatitis acute COVID-19 affecting in second trimester acute Genital herpes affecting acute H/O myomectomy acute Hypertension affecting acute Infertility acute Positive urine drug screen a cute acute Supervision of high-risk acute Advanced maternal age (AMA) in acute Atopic dermatitis acute COVID-19 affecting in second trimester acute Genital herpes affecting acute Gestational diabetes acute H/O myomectomy acute Hypertension affecting acute Infertility acute Positive urine drug screen a cute acute Supervision of high-risk acute Abnormal glucose level resol nicholas Advanced maternal age (AMA) in acute Atopic dermatitis acute COVID-19 affecting in second trimester acute Genital herpes affecting acute Gestational diabetes acute H/O myomectomy acute Hypertension affecting acute Infertility acute Positive urine drug screen a cute acute Supervision of high-risk acute [facility] Work Phone: Evaluation note* Diagnosis Onset Date Resolution Status Advanced maternal age (AMA) in acute COVID-19 affecting in second trimester acute Genital herpes affecting acute H/O myomectomy acute Hypertension affecting acute Infertility acute Positive urine drug screen a cute acute Supervision of high-risk acute Advanced maternal age (AMA) in acute Atopic dermatitis acute COVID-19 affecting in second trimester acute Genital herpes affecting acute H/O myomectomy acute Hypertension affecting acute Infertility acute Positive urine drug screen a cute acute Supervision of high-risk acute Advanced maternal age (AMA) in acute Atopic dermatitis acute COVID-19 affecting in second trimester acute Genital herpes affecting acute H/O myomectomy acute Hypertension affecting acute Infertility acute Positive urine drug screen a cute acute Supervision of high-risk acute Advanced maternal age (AMA) in acute Atopic dermatitis acute COVID-19 affecting in second trimester acute Genital herpes affecting acute H/O myomectomy acute Hypertension affecting acute Infertility acute Positive urine drug screen a cute acute Supervision of high-risk acute Advanced maternal age (AMA) in acute Atopic dermatitis acute COVID-19 affecting in second trimester acute Genital herpes affecting acute Gestational diabetes acute H/O myomectomy acute Hypertension affecting acute Infertility acute Positive urine drug screen a cute acute Supervision of high-risk acute Abnormal glucose level resol nicholas Advanced maternal age (AMA) in acute Atopic dermatitis acute COVID-19 affecting in second trimester acute Genital herpes affecting acute Gestational diabetes acute H/O myomectomy acute Hypertension affecting acute Infertility acute Positive urine drug screen a cute acute Supervision of high-risk acute Advanced maternal age (AMA) in acute COVID-19 affecting in second trimester acute Genital herpes affecting acute Gestational diabetes acute Hypertension affecting acute Infertility acute Positive urine drug screen a cute acute Supervision of high-risk acute [facility] Work Phone: Evaluation note* Diagnosis Onset Date Resolution Status Advanced maternal age (AMA) in acute COVID-19 affecting in second trimester acute Genital herpes affecting acute H/O myomectomy acute Hypertension affecting acute Infertility acute Positive urine drug screen a cute acute Supervision of high-risk acute Advanced maternal age (AMA) in acute Atopic dermatitis acute COVID-19 affecting in second trimester acute Genital herpes affecting acute H/O myomectomy acute Hypertension affecting acute Infertility acute Positive urine drug screen a cute acute Supervision of high-risk acute Advanced maternal age (AMA) in acute Atopic dermatitis acute COVID-19 affecting in second trimester acute Genital herpes affecting acute H/O myomectomy acute Hypertension affecting acute Infertility acute Positive urine drug screen a cute acute Supervision of high-risk acute Advanced maternal age (AMA) in acute Atopic dermatitis acute COVID-19 affecting in second trimester acute Genital herpes affecting acute H/O myomectomy acute Hypertension affecting acute Infertility acute Positive urine drug screen a cute acute Supervision of high-risk acute Advanced maternal age (AMA) in acute Atopic dermatitis acute COVID-19 affecting in second trimester acute Genital herpes affecting acute Gestational diabetes acute H/O myomectomy acute Hypertension affecting acute Infertility acute Positive urine drug screen a cute acute Supervision of high-risk acute Abnormal glucose level resol nicholas Advanced maternal age (AMA) in acute Atopic dermatitis acute COVID-19 affecting in second trimester acute Genital herpes affecting acute Gestational diabetes acute H/O myomectomy acute Hypertension affecting acute Infertility acute Positive urine drug screen a cute acute Supervision of high-risk acute Advanced maternal age (AMA) in acute COVID-19 affecting in second trimester acute Genital herpes affecting acute Gestational diabetes acute Hypertension affecting acute Infertility acute Positive urine drug screen a cute acute Supervision of high-risk acute Advanced maternal age (AMA) in acute Atopic dermatitis acute COVID-19 affecting in second trimester acute Genital herpes affecting acute Gestational diabetes acute H/O myomectomy acute Hypertension affecting acute Infertility acute Positive urine drug screen a cute acute Supervision of high-risk acute [facility] Work Phone: Evaluation note* Diagnosis Onset Date Resolution Status Advanced maternal age (AMA) in acute COVID-19 affecting in second trimester acute Genital herpes affecting acute H/O myomectomy acute Hypertension affecting acute Infertility acute Positive urine drug screen a cute acute Supervision of high-risk acute Advanced maternal age (AMA) in acute Atopic dermatitis acute COVID-19 affecting in second trimester acute Genital herpes affecting acute H/O myomectomy acute Hypertension affecting acute Infertility acute Positive urine drug screen a cute acute Supervision of high-risk acute Advanced maternal age (AMA) in acute Atopic dermatitis acute COVID-19 affecting in second trimester acute Genital herpes affecting acute H/O myomectomy acute Hypertension affecting acute Infertility acute Positive urine drug screen a cute acute Supervision of high-risk acute Advanced maternal age (AMA) in acute Atopic dermatitis acute COVID-19 affecting in second trimester acute Genital herpes affecting acute H/O myomectomy acute Hypertension affecting acute Infertility acute Positive urine drug screen a cute acute Supervision of high-risk acute Advanced maternal age (AMA) in acute Atopic dermatitis acute COVID-19 affecting in second trimester acute Genital herpes affecting acute Gestational diabetes acute H/O myomectomy acute Hypertension affecting acute Infertility acute Positive urine drug screen a cute acute Supervision of high-risk acute Abnormal glucose level resol nicholas Advanced maternal age (AMA) in acute Atopic dermatitis acute COVID-19 affecting in second trimester acute Genital herpes affecting acute Gestational diabetes acute H/O myomectomy acute Hypertension affecting acute Infertility acute Positive urine drug screen a cute acute Supervision of high-risk acute Advanced maternal age (AMA) in acute COVID-19 affecting in second trimester acute Genital herpes affecting acute Gestational diabetes acute Hypertension affecting acute Infertility acute Positive urine drug screen a cute acute Supervision of high-risk acute Advanced maternal age (AMA) in acute Atopic dermatitis acute COVID-19 affecting in second trimester acute Genital herpes affecting acute Gestational diabetes acute H/O myomectomy acute Hypertension affecting acute Infertility acute Positive urine drug screen a cute acute Supervision of high-risk acute Advanced maternal age (AMA) in acute Atopic dermatitis acute COVID-19 affecting in second trimester acute Genital herpes affecting acute Gestational diabetes acute H/O myomectomy acute Hypertension affecting acute Infertility acute Positive urine drug screen a cute acute Supervision of high-risk [facility] Work Phone: Hospital Discharge instructions No data available for this section [facility] Discharge instructions* Attachments The following attachments cannot be sent through Care Everywhere. * Myomectomy: Laparoscopic: Post-op (Sami) documented in this [facility] Work Phone: Progress note No data available for this section [facility] Reason for referral (narrative)No reason for referral [facility]: Assessments Diagnosis Sprain of left shoulder, uns [...] of malignant neoplasm of prostate(V16.42, Z80.42) Status:Active Relationship Condition Age at Onset Recorded Date/T carl Not Specified Diabetes mellitus Unknown Hypertension Unknown Advance Directives No Advanced Directives Records FoundDocuments on File Type Date Recorded 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 Pool Coordinator Expl anation Advance Directives and Living Will Power of Insurance Claims Examiner Documents on File Type Date Recorded Patient Pool Coordinator Expl anation ACP-Advance Directive ACP-Power of Insurance Claims Examiner Latest Code Status on File Code Status Date Activated Date Inactivated Comments Full Code 09/26/2021 12:35 PM Latest Code Status on File Code Status Date Activated Date Inactivated Comments Full Code 01/06/2022 12:37 PM Full Code 09/26/2021 12:35 PM 09/26/2021 8:21 PM Advance Directive Response Recorded Date/ Time Advance Directives No September 9:26am Living Will No September 24 017 9:26am Power of Insurance Claims Examiner No September 24, 2017 9:26am Advance Directive Response Recorded Date/ Time Advance Directives No September 8:26am Living Will No September 24 017 8:26am Power of Insurance Claims Examiner No September 24, 2017 8:26am Advance Directive Response Recorded Date/ Time Advance Directives No February 14, 2024 10:08am Living Will No February 14, 2024 10 :08am Power of Insurance Claims Examiner No February 14, 2024 10:08am Advance Directive Response Recorded Date/ Time Advance Directives No February 14, 2024 10:08am Chief Complaint and Reason for Visit Chief Complaint SEE ORDER Chief Complaint 14 WK OB O09.90 Supervision of high risk , unspeci O09.90 Supervision of high risk , unspeci 20 WK OB Itching/rash welts 24 WK OB E-ORDER 28w OB Reason for Visit Advanced maternal ag e (AMA) in COVID-19 affecting in second trimester Genital herpes affecting H/O myomectomy Hypertension affecting Infertility Positive urine drug screen Supervision of high-risk Advanced maternal age (AMA) in COVID-19 affecting in second trimester Genital herpes affecting H/O myomectomy Hypertension affecting Infertility Positive urine drug screen Supervision of high-risk Advanced maternal age (AMA) in Atopic dermatitis COVID-19 affecting in second trimester Genital herpes affecting H/O myomectomy Hypertension affecting Infertility Positive urine drug screen Supervision of high-risk Advanced maternal age (AMA) in Atopic dermatitis COVID-19 affecting in second trimester Genital herpes affecting H/O myomectomy Hypertension affecting Infertility Positive urine drug screen Supervision of high-risk Advanced maternal age (AMA) in Atopic dermatitis COVID-19 affecting in second trimester Genital herpes affecting H/O myomectomy Hypertension affecting Infertility Positive urine drug screen Supervision of high-risk Chief Complaint 14 WK OB O09.90 Supervision of high risk , unspeci O09.90 Supervision of high risk , unspeci 20 WK OB Itching/rash welts 24 WK OB E-ORDER 28w OB Reason for Visit Advanced maternal ag e (AMA) in COVID-19 affecting in second trimester Genital herpes affecting H/O myomectomy Hypertension affecting Infertility Positive urine drug screen Supervision of high-risk Advanced maternal age (AMA) in COVID-19 affecting in second trimester Genital herpes affecting H/O myomectomy Hypertension affecting Infertility Positive urine drug screen Supervision of high-risk Advanced maternal age (AMA) in Atopic dermatitis COVID-19 affecting in second trimester Genital herpes affecting H/O myomectomy Hypertension affecting Infertility Positive urine drug screen Supervision of high-risk Advanced maternal age (AMA) in Atopic dermatitis COVID-19 affecting in second trimester Genital herpes affecting H/O myomectomy Hypertension affecting Infertility Positive urine drug screen Supervision of high-risk Advanced maternal age (AMA) in Atopic dermatitis COVID-19 affecting in second trimester Genital herpes affecting H/O myomectomy Hypertension affecting Infertility Positive urine drug screen Supervision of high-risk Chief Complaint O09.90 Supervision o f high risk , unspeci O09.90 Supervision of high risk , unspeci 20 WK OB Itching/rash welts 24 WK OB E-ORDER 28w OB 32 WK OB/NST COVID AFFECTING , H/O MYOMECTOMY H/O MYOMECTOMY 33 WK OB/NST Reason for Visit Advanced maternal ag e (AMA) in COVID-19 affecting in second trimester Genital herpes affecting H/O myomectomy Hypertension affecting Infertility Positive urine drug screen Supervision of high-risk Advanced maternal age (AMA) in Atopic dermatitis COVID-19 affecting in second trimester Genital herpes affecting H/O myomectomy Hypertension affecting Infertility Positive urine drug screen Supervision of high-risk Advanced maternal age (AMA) in Atopic dermatitis COVID-19 affecting in second trimester Genital herpes affecting H/O myomectomy Hypertension affecting Infertility Positive urine drug screen Supervision of high-risk Advanced maternal age (AMA) in Atopic dermatitis COVID-19 affecting in second trimester Genital herpes affecting H/O myomectomy Hypertension affecting Infertility Positive urine drug screen Supervision of high-risk Advanced maternal age (AMA) in Atopic dermatitis COVID-19 affecting in second trimester Genital herpes affecting Gestational diabetes H/O myomectomy Hypertension affecting Infertility Positive urine drug screen Supervision of high-risk Abnormal glucose level Advanced maternal age (AMA) in Atopic dermatitis COVID-19 affecting in second trimester Genital herpes affecting Gestational diabetes H/O myomectomy Hypertension affecting Infertility Positive urine drug screen Supervision of high-risk Chief Complaint 20 WK OB Itching/rash welts 24 WK OB E-ORDER 28w OB 32 WK OB/NST COVID AFFECTING , H/O MYOMECTOMY H/O MYOMECTOMY 33 WK OB/NST H/O MYOMECTOMY Reason for Visit Advanced maternal ag e (AMA) in COVID-19 affecting in second trimester Genital herpes affecting H/O myomectomy Hypertension affecting Infertility Positive urine drug screen Supervision of high-risk Advanced maternal age (AMA) in Atopic dermatitis COVID-19 affecting in second trimester Genital herpes affecting H/O myomectomy Hypertension affecting Infertility Positive urine drug screen Supervision of high-risk Advanced maternal age (AMA) in Atopic dermatitis COVID-19 affecting in second trimester Genital herpes affecting H/O myomectomy Hypertension affecting Infertility Positive urine drug screen Supervision of high-risk Advanced maternal age (AMA) in Atopic dermatitis COVID-19 affecting in second trimester Genital herpes affecting H/O myomectomy Hypertension affecting Infertility Positive urine drug screen Supervision of high-risk Advanced maternal age (AMA) in Atopic dermatitis COVID-19 affecting in second trimester Genital herpes affecting Gestational diabetes H/O myomectomy Hypertension affecting Infertility Positive urine drug screen Supervision of high-risk Abnormal glucose level Advanced maternal age (AMA) in Atopic dermatitis COVID-19 affecting in second trimester Genital herpes affecting Gestational diabetes H/O myomectomy Hypertension affecting Infertility Positive urine drug screen Supervision of high-risk Chief Complaint 20 WK OB Itching/rash welts 24 WK OB E-ORDER 28w OB 32 WK OB/NST COVID AFFECTING , H/O MYOMECTOMY H/O MYOMECTOMY 33 WK OB/NST H/O MYOMECTOMY 34 WK OB/NST Reason for Visit Advanced maternal ag e (AMA) in COVID-19 affecting in second trimester Genital herpes affecting H/O myomectomy Hypertension affecting Infertility Positive urine drug screen Supervision of high-risk Advanced maternal age (AMA) in Atopic dermatitis COVID-19 affecting in second trimester Genital herpes affecting H/O myomectomy Hypertension affecting Infertility Positive urine drug screen Supervision of high-risk Advanced maternal age (AMA) in Atopic dermatitis COVID-19 affecting in second trimester Genital herpes affecting H/O myomectomy Hypertension affecting Infertility Positive urine drug screen Supervision of high-risk Advanced maternal age (AMA) in Atopic dermatitis COVID-19 affecting in second trimester Genital herpes affecting H/O myomectomy Hypertension affecting Infertility Positive urine drug screen Supervision of high-risk Advanced maternal age (AMA) in Atopic dermatitis COVID-19 affecting in second trimester Genital herpes affecting Gestational diabetes H/O myomectomy Hypertension affecting Infertility Positive urine drug screen Supervision of high-risk Abnormal glucose level Advanced maternal age (AMA) in Atopic dermatitis COVID-19 affecting in second trimester Genital herpes affecting Gestational diabetes H/O myomectomy Hypertension affecting Infertility Positive urine drug screen Supervision of high-risk Advanced maternal age (AMA) in COVID-19 affecting in second trimester Genital herpes affecting Gestational diabetes Hypertension affecting Infertility Positive urine drug screen Supervision of high-risk Chief Complaint 20 WK OB Itching/rash welts 24 WK OB E-ORDER 28w OB 32 WK OB/NST COVID AFFECTING , H/O MYOMECTOMY H/O MYOMECTOMY 33 WK OB/NST H/O MYOMECTOMY 34 WK OB/NST H/O MYOMECTOMY 35 WK OB NST OTHER VIRAL DISEASES COMPLICATING Reason for Visit Advanced maternal ag e (AMA) in COVID-19 affecting in second trimester Genital herpes affecting H/O myomectomy Hypertension affecting Infertility Positive urine drug screen Supervision of high-risk Advanced maternal age (AMA) in Atopic dermatitis COVID-19 affecting in second trimester Genital herpes affecting H/O myomectomy Hypertension affecting Infertility Positive urine drug screen Supervision of high-risk Advanced maternal age (AMA) in Atopic dermatitis COVID-19 affecting in second trimester Genital herpes affecting H/O myomectomy Hypertension affecting Infertility Positive urine drug screen Supervision of high-risk Advanced maternal age (AMA) in Atopic dermatitis COVID-19 affecting in second trimester Genital herpes affecting H/O myomectomy Hypertension affecting Infertility Positive urine drug screen Supervision of high-risk Advanced maternal age (AMA) in Atopic dermatitis COVID-19 affecting in second trimester Genital herpes affecting Gestational diabetes H/O myomectomy Hypertension affecting Infertility Positive urine drug screen Supervision of high-risk Abnormal glucose level Advanced maternal age (AMA) in Atopic dermatitis COVID-19 affecting in second trimester Genital herpes affecting Gestational diabetes H/O myomectomy Hypertension affecting Infertility Positive urine drug screen Supervision of high-risk Advanced maternal age (AMA) in COVID-19 affecting in second trimester Genital herpes affecting Gestational diabetes Hypertension affecting Infertility Positive urine drug screen Supervision of high-risk Advanced maternal age (AMA) in Atopic dermatitis COVID-19 affecting in second trimester Genital herpes affecting Gestational diabetes H/O myomectomy Hypertension affecting Infertility Positive urine drug screen Supervision of high-risk Chief Complaint 20 WK OB Itching/rash welts 24 WK OB E-ORDER 28w OB 32 WK OB/NST COVID AFFECTING , H/O MYOMECTOMY H/O MYOMECTOMY 33 WK OB/NST H/O MYOMECTOMY 34 WK OB/NST H/O MYOMECTOMY 35 WK OB NST OTHER VIRAL DISEASES COMPLICATING 36 WK OB NST Reason for Visit Advanced maternal ag e (AMA) in COVID-19 affecting in second trimester Genital herpes affecting H/O myomectomy Hypertension affecting Infertility Positive urine drug screen Supervision of high-risk Advanced maternal age (AMA) in Atopic dermatitis COVID-19 affecting in second trimester Genital herpes affecting H/O myomectomy Hypertension affecting Infertility Positive urine drug screen Supervision of high-risk Advanced maternal age (AMA) in Atopic dermatitis COVID-19 affecting in second trimester Genital herpes affecting H/O myomectomy Hypertension affecting Infertility Positive urine drug screen Supervision of high-risk Advanced maternal age (AMA) in Atopic dermatitis COVID-19 affecting in second trimester Genital herpes affecting H/O myomectomy Hypertension affecting Infertility Positive urine drug screen Supervision of high-risk Advanced maternal age (AMA) in Atopic dermatitis COVID-19 affecting in second trimester Genital herpes affecting Gestational diabetes H/O myomectomy Hypertension affecting Infertility Positive urine drug screen Supervision of high-risk Abnormal glucose level Advanced maternal age (AMA) in Atopic dermatitis COVID-19 affecting in second trimester Genital herpes affecting Gestational diabetes H/O myomectomy Hypertension affecting Infertility Positive urine drug screen Supervision of high-risk Advanced maternal age (AMA) in COVID-19 affecting in second trimester Genital herpes affecting Gestational diabetes Hypertension affecting Infertility Positive urine drug screen Supervision of high-risk Advanced maternal age (AMA) in Atopic dermatitis COVID-19 affecting in second trimester Genital herpes affecting Gestational diabetes H/O myomectomy Hypertension affecting Infertility Positive urine drug screen Supervision of high-risk Advanced maternal age (AMA) in Atopic dermatitis COVID-19 affecting in second trimester Genital herpes affecting Gestational diabetes H/O myomectomy Hypertension affecting Infertility Positive urine drug screen Supervision of high-risk Chief Complaint Admit Date Abnormal uterine bleeding March 10, 2025 3:42pm Reason for Visit Admit Date Abnormal uterine bleeding March 10, 2025 3:42pm Additional Source Comments INFORMATION SOURCE (unrecogn ized section and content) DATE CREATED AUTHOR 08/16/2019 [facility] DATE CREATED AUTHOR AUTHOR'S ORGANIZ ATION 02/27/2020 [facility] DATE CREATED AUTHOR AUTHOR'S ORGANIZ ATION 03/10/2020 [facility] DATE CREATED AUTHOR AUTHOR'S ORGANIZ ATION 05/19/2020 [facility] DATE CREATED AUTHOR AUTHOR'S ORGANIZ ATION 01/12/2022 [facility] DATE CREATED AUTHOR AUTHOR'S ORGANIZ ATION 06/04/2022 [facility] DATE CREATED AUTHOR AUTHOR'S ORGANIZ ATION 06/07/2022 [facility] DATE CREATED AUTHOR AUTHOR'S ORGANIZ ATION 08/13/2022 [facility] DATE CREATED AUTHOR AUTHOR'S ORGANIZ ATION 01/15/2023 [facility] DATE CREATED AUTHOR AUTHOR'S ORGANIZ ATION 10/19/2023 [facility] DATE CREATED AUTHOR AUTHOR'S ORGANIZ ATION 03/17/2025 [facility] Ordered Prescriptions (unrec ognized section and content) Prescription Sig Dispensed Refills Start Date End Da te oxyCODONE-acetaminophen (PERCOCET) 5-325 MG per tabletIndications:Status post anal fissurectomy Take 1 tablet by mouth every 6 hours as needed for Pain for up to 7 days. Intended supply: 7 days. Take lowest dose possible to manage pain 28 tablet 0 09/26/2021 09/26/2021 Prescription Sig Dispensed Refills Start Date End [...] Administ ered Medications (unrecognized section and content) Medication Order 09/24/2021 09/25/2021 09/26/2021 acetaminophen (TYLENOL) tablet 1,000 mg (COMPLETED) 1,000 mg, Oral, ONCE, On Sun09/26/21 at 1300, For 1 dose, Maximum dose of acetaminophen is 4000 mg from all sources in 24 hours. Do not administer if patient has taken tylenol <4 hours earlier. Do not give if contraindicated ie. patient has active liver disease or cirrhosis., Pre-op (day of surgery) 1318 (Given - Provid er: Jimi Phillips RN) famotidine (PEPCID) tablet 20 mg (COMPLETED) 20 mg, Oral, ONCE, On Sun09/26/21 at 1300, For 1 dose, Pre-op (day of surgery) 1318 (Given - Provid er: Jimi Phillips RN) gabapentin (NEURONTIN) capsule 100 mg (COMPLETED) 100 mg, Oral, ONCE, On Sun09/26/21 at 1300, For 1 dose, For Age >69, or Low GFR, Pre-op (day of surgery) 1318 (Given - Provid er: Jimi Phillips RN) sodium chloride flush 0.9 % injection 5-40 mL 5-40 mL, IntraVENous, EVERY 12 HOURS SCHEDULED (2 times per day), First dose on Sun09/26/21 at 2100, For Line Patency: Peripheral IV = 5 [...] = 20 mL/lumen, Pre-op (day of surgery) 2100 (Due) Continuous Medication Order 09/24/2021 09/25/2021 09/26/2021 lactated ringers infusion IntraVENous, at 50 mL/hr, CONTINUOUS, Starting on Sun09/26/21 at 1300, Upon admission to sameday - please start iv if patient does not have iv access. 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 Juancho Akhtar , DO Primary Care Provider Active Team Status: Inactive Member Role Status Dates Dr. Juancho Akhtar , DO Primary Care Provider Active Dr. Bhavana Mejias MD Attending Provider, Referring Provider Active Team Status: Inactive Member Role Status Dates Dr. Juancho Akhtar , DO Primary Care Provider Active Juancho MONIQUE, DO Attending Provider Active Team Status: Inactive Member Role Status Dates Coty Howell CNM Attending Provider Active Dr. Juancho Akhtar , DO Primary Care Provider, Referr ing Provider Active Team Status: Active Member Role Status Dates Dr. Juancho Akhtar DO Primary Care Provider Active Dr. Aneudy Rodriguez MD Attending Provider Active Dr. Alida Pierce MD Referring Provider Active Team Status: Inactive Member Role Status Dates Dr. Juancho Akhtar DO Primary Care Provider, Referr ing Provider Active Coty Howell CNM Attending Provider Active Team Status: Inactive Member Role Status Dates Dr. Juancho Akhtar , DO Primary Care Provider, Referr ing Provider Active Dr. Alida Pierce MD Attending Provider Active Team Status: Inactive Member Role Status Dates Dr. Juancho Akhtar DO Primary Care Provider, Referr ing Provider Active Lindsey Hale CNM Attending Provider Active Team Status: Inactive Member Role Status Dates Dr. Juancho Akhtar DO Primary Care Provider Active Dr. Alida Pierce MD Attending Provider, Referr ing Provider Active Team Status: Active Member Role Status Dates Dr. Juancho Akhtar DO Primary Care Provider Active Dr. Alida Pierce MD Attending Provider, Referr ing Provider Active Team Status: Active Member Role Status Dates Dr. Juancho Akhtar DO Primary Care Pr ovider, Attending Provider, Referring Provider Active Team Status: Inactive Member Role Status Dates Dr. Juancho Akhtar , DO Primary Care Provider, Referr ing Provider Active Tina Gould MEDICAL CUSTOMER SERVICE REPRESENTATIVE, MEDICAL CUSTOMER SERVICE REPRESENTATIVE-C Attending Provider Active Team Status: Inactive Member Role Status Dates Dr. Juancho Akhtar , DO Primary Care Pr ovider, Attending Provider, Referring Provider Active Team Status: Active Member Role Status Dates Dr. Juancho Akhtar , DO Primary Care Provider Active Team Status: Inactive Member Role Status Dates Dr. Juancho Akhtar , Primary Care Provider Active Start: March 10, 2025 End: March 10, 2025 Dr. Juancho Akhtar , DO Referring Provider Active Start: March 10, 2025 End: March 10, 2025 Dr. Alida Pierce MD Attending Provider Active Start: March 10, 2025 End: March 10, 2025 Team Status: Inactive Member Role Status Dates Dr. Juancho Akhtar , DO Primary Care Provider Active Start: March 10, 2025 End: March 10, 2025 Dr. Alida Pierce MD Attending Provider Active Start: March 10, 2025 End: March 10, 2025 Dr. Alida Pierce MD Referring Provider Active Start: March 10, 2025 End: March 10, 2025 Goals (unrecognized section and content) Goals may be documented in a n alternate section Source Comments (unrecognize d section and content) In the event this informatio n is protected by the Federal Confidentiality of Alcohol and Drug Abuse Patient Records regulations: The Federal rules restrict any use of the information to criminally investigate or prosecute any alcohol or drug abuse patient.[facility] Reason for Visit (unrecogniz ed section and content) Reason Comments tick Left shoulder FOR RECORDS PERTAINING TO PATIENTS WHO ARE [...] BE BASED ON THE PRIMARY CLINICAL RECORDS. [facility] provides no warranty or guarantee of the accuracy or completeness of information in this document.
== END | disposition home or self-care (01) ==
LOC: US 14:27
PROVIDERS: PCP Family Medicine; Referring Provider Obstetrics & Gynecology; Visit Provider Obstetrics & Gynecology
DX: N93.9 Abnormal uterine and vaginal bleeding, unspecified (principal)
CPT/HCPCS: 76830; 76856

== ENCOUNTER → 2025-09-28 | Outpatient (CLI) | payer OTHER, SELFPAY ==
--- NOTE | 2025-09-28 13:45 | BI_ITS ---
EXAM: SCRN MAMM (CAD)W/HE BILAT DATE: 09/28/2025 CLINICAL HISTORY: F, Age 39 y/o , SCREENING TECHNIQUE: Procedure Code: [id number] Modality: MG Procedure: SCRN MAMM (CAD)W/HE BILAT COMPARISON: Prior exam(s) were compared FINDINGS: TISSUE DENSITY: The breasts are heterogeneously dense, which may obscure small masses. Bilateral Breast Mammographic Findings: No significant masses, calcifications or other abnormalities are identified. BI/SCRN MAMM (CAD)W/HE BILAT IMPRESSION: No mammographic evidence of malignancy. OVERALL FINAL ASSESSMENT BI-RADS 1: NEGATIVE. RECOMMENDATION: Routine annual follow-up in 1 Year Additional Recommendation none A letter with findings and recommendations will be mailed to the patient. Reading Location: [id number]
== END | disposition home or self-care (01) ==
PROVIDERS: PCP Family Medicine; Referring Provider Obstetrics & Gynecology; Visit Provider Obstetrics & Gynecology
DX: Z12.31 Encounter for screening mammogram for malignant neoplasm of breast (principal)
CPT/HCPCS: 77063; 77067